=== PATIENT | female | born 1935 | race Caucasian/White ===

== ENCOUNTER 2023-11-16 15:23 | Inpatient (IN) | payer MEDICARE, OTHER, SELFPAY ==
[2023-11-16] VITALS (11 sets, daily range): BP systolic 102–149; BP diastolic 53–81; BMI 24.9
--- NOTE | 2023-11-16 11:23 | ED.GENMED ---
History of Present Illness
General
Chief Complaint: Breathing Problem
Source: patient and spouse
Time Seen by Provider: 11/16/23 11:11
Travel History
Have you had any contact with someone who has COVID-19?: No
Do you have any symptoms of coronavirus? Fever > 100 degrees, chills, cough, shortness of breath, sore throat, loss of taste or smell, muscle aches, or headache?: No
History of Present Illness
History of Present Illness:
88-year-old female with past medical history of chronic atrial fibrillation, CHF, hypertension, atrial septal defect presenting to the emergency department for evaluation of gradually worsening exertional dyspnea over the last 4 days to the point
where she is now mostly unable to get out of bed due to the shortness of breath as well as stating laying flat she is now unable to feel as if she can breathe. Patient states last night she was unable to sleep and contacted the chart writer office
who recommended she come to the ER to be further evaluated. Patient is scheduled to undergo a cardiac ablation for her atrial fibrillation tomorrow. Patient reports good compliance with her Eliquis. She notes a minimal nonproductive cough, no
fevers, chills, rigors. States minimal lower extremity edema. She takes Lasix 20 mg every Thursday and Thursday. No other concerns at this time.
Past History
Past History
ED Past Medical History: Arrthythmia, CHF, HTN, Valvular disease and Psychiatric
ED Past Surgical History: Cardiac, and Tonsilectomy
Social History
Tobacco: Non-smoker
Alcohol: None
Drug: None
Personal:
Living: with family
Review of Systems
Review of Systems
All Other Systems: ROS reviewed and negative except as documented in HPI and ROS
Phy Exam
Physical Exam
Physical Exam:
GENERAL: Alert , in no apparent distress
EYE: conjunctiva clear
NECK: Supple, no significant adenopathy.
ENT: o/p clr, mmm.
CARDIAC: Irregularly irregular rate and rhythm, rate controlled
LUNGS: Somewhat diminished throughout the posterior lung torres, no wheezing, rales or rhonchi i
NEUROLOGICAL: Alert and oriented
SKIN: Warm and dry, skin intact.
MUSCULOSKELETAL: well perfused. Trace ankle edema
PSYCH: Normal and appropriate interaction.
Scores
Heart Failure Risk
Heart Failure Risk Score: Yes
History of Stroke or TIA: No
History of intubation for respiratory distress: No
Heart rate on ED arrival >/= 110: No
SaO2 <90% on arrival on room air: No
HR >/=110 during 3min walk test (or too ill to perform test): Yes
ECG has acute ischemic changes: Yes
Urea >/=12mmol/L (BUN 33.6mg/dL): No
Serum CO2>/=35mmol/L: No
Troponin I or T elevated to [place] Level (0.4mg/dL): No
NT-proBNP >/=5,000ng/L (5,000pg/ml): No
HF Risk Score: 4
Admission Status: HIGH RISK 26.1% Consider SNF treatment or admission to hospital
Heart Score for Chest Pain Patients
STEMI patient?: Not applicable
Withdrawal Assessment of Alcohol
Withdrawal Assessment Completed?: Not applicable
Course
Orders/Labs/Results
Orders:
Orders
11/16/23 10:44
EKG [Electrocardiogram (*1)] Urgent
Reason for Study: Shortness of Breath
EKG- Treatment ONCE
11/16/23 11:20
Complete Blood Count/With Diff Urgent
Comprehensive Metabolic Panel Urgent
NT-proBNP Urgent
Troponin I Urgent
Comment: ADDED.
11/16/23 11:22
Add On- LAB Urgent
Tests Added?: troponin
11/16/23 11:28
CXR2 [CR Chest - 2 Views ] Urgent
Comment:
Reason For Exam: SOB
11/16/23 11:54
Furosemide [Lasix] 40 mg IV NOW STA
Abnormal Lab Results
11/16/23
11:20
WBC 3.6 L 10^3/uL
(4.8-10.8)
RBC 3.63 L 10^6/uL
(4.20-5.40)
Hgb 11.2 L g/dL
(12.0-16.0)
Hct 32.7 L %
(37.0-47.0)
Absolute Lymphs (auto) 1.0 L 10^3/uL
(1.2-3.4)
Monocytes % 13.2 H %
(1.7-9.3)
Glucose 129 H mg/dl
(70-99)
11/16/23 11:20
11/16/23 11:20
Vital Signs
Initial and Last Documented VS:
Initial Vital Signs
Temp Pulse Resp BP Pulse Ox
98.1 F 81 18 145/77 98
11/16/23 10:41 11/16/23 10:41 11/16/23 10:41 11/16/23 10:41 11/16/23 10:41
Last Documented Vital Signs
Temp Pulse Resp BP Pulse Ox
98.1 F 76 35 145/77 97
11/16/23 10:41 11/16/23 12:15 11/16/23 12:15 11/16/23 12:07 11/16/23 12:15
MDM/Problems Addressed
Differential Diagnosis Includes:
CHF exacerbation, cardiac dysrhythmia, valvular dysfunction, electrolyte disturbance, PE considered however patient is anticoagulated on Eliquis and is readily compliant with this so this diagnosis is much less likely
MDM/Problems Addressed:
88-year-old female presenting to the emergency department for evaluation of gradually worsening exertional dyspnea. Notes that last summer she was able to walk around the block at her house at least 4 times without any difficulty, today notes
shortness of breath with any type of exertion including just getting out of bed. She is hemodynamically stable and is not needing any O2 requirements. Lung sounds were somewhat diminished. She has noted history for chronic A-fib and is currently
in A-fib that is rate controlled. Will check labs, chest x-ray and EKG. Reassessment following
Chronic conditions affecting care: Arrhythmia
Acute Exacerbation and/or Progression of Chronic Illness: Arrhythmia
*Radiology
Radiology exam reviewed: preliminary read by ED provider (Small bilateral pleural effusion)
*Pulse Oximetry
Patient hypoxic: no
*EKG
Interpreted by ED Provider?: Yes
Comparison EKG: changes noted
Heart Rate: 75
Rate: normal
Rhythm: a-fib
[place]: normal axis
Ischemia: T-wave inversion (To 3 and aVF as well as V4 V5 and V6)
*Workforce Development Vice President Interpretation
Rate: normal
Rhythm: a-fib
*Critical Care Note
Total Time (30-74mins, 75-104mins- exclusive of procedures): Not Applicable
Data Reviewed
Review of Other/Old Records Reveals: Labs, Records and Testing
Source: patient, records and spouse
Patient Management
Discussion with other providers: Hospitalist
Escalation/DeEscalation of care consider admission/obs:
Patient quite symptomatic, has small bilateral pleural effusions on chest x-ray, BNP greater than 4000. 40 mg Lasix IV ordered. Will yancy. Hospitalist team was notified and accepts for continued evaluation and treatment. They can consult
cardiology as needed.
ED Attending Note
-
Portions of this chart may have been created with voice recognition software.� Occasional wrong word or��sound alike� substitutions may have occurred due to the inherent limitations of voice recognition software.
Discharge Plan
Departure
Patient Disposition: Admit
Date of Disposition: 11/16/23
Time of Disposition: 12:11
Presentation/result/management discussed w/ accepting MD/DO: Hospitalist
Discharge Problem:
Acute exacerbation of CHF (congestive heart failure)
Prescriptions:
No Action
clonazepam 0.5 mg tablet
0.5 mg PO BID
propranolol 80 mg capsule,extended release 24hr
80 mg PO DAILY
magnesium oxide 500 mg Tablet
500 mg PO DAILYPRN PRN (Reason: leg cramps)
mirtazapine 15 mg Tablet
30 mg PO HS
estradiol 0.01 % (0.1 mg/gram) cream
1 applic VAGINAL TUTH
vitamin B complex Capsule
1 cap PO DAILY
cholecalciferol (vitamin D3) [Vitamin D3] 25 mcg (1,000 unit) Capsule
50 mcg PO DAILY
cyclosporine [Restasis] 0.05 % Dropperette
1 drp BOTH EYES Q12H
PreserVision AREDS-2 250-90-40-1 mg Capsule
1 tab PO BID
polyethylene glycol 3350 [Miralax] 17 gram Powder In Packet
17 g PO DAILYPRN PRN (Reason: constipation)
Eliquis 5 mg tablet
5 mg PO BID Qty: 60 2RF
diltiazem HCl [Cardizem CD] 180 mg capsule,extended release 24hr
180 mg PO DAILY Qty: 30 0RF
famotidine 40 mg Tablet
40 mg PO DAILY
Probiotic 10 billion cell Capsule
10,000 mmu cells PO DAILY
furosemide [Lasix] 20 mg tablet
20 mg PO MOWEFR
Referrals:
Mikayla Pal MD [Family Provider] -
Interventions
Interventions:
*Risk Screen - Suicide Last Done: 11/16/23 10:41
*General Assessment Last Done: 11/16/23 10:41
*Neglect/Abuse Screening Last Done: 11/16/23 10:41
ED- Fall Risk Assessment Last Done: 11/16/23 11:10
*ED COVID-19 Vaccine History Last Done: 11/16/23 10:41
ED- Cardiac Assessment Last Done: 11/16/23 11:10
ED- Pulmonary Assessment Last Done: 11/16/23 11:10
Discharge Date and Time
Print Language: LITHUANIAN
[2023-11-16 11:33] LABS: % Basophils 1.7 % (0-2); % Eosinophils 4.2 % (0-6); % Immature Granulocytes 0.3 % (0-0.5); % Monocytes 13.2 % (1.7-9.3); % Neutrophils 52.6 % (42.2-75.2); Absolute Basophils 0.1 10^3/uL (0-0.2); Absolute Eosinophils 0.2 10^3/uL (0-0.7); Absolute Monocytes 0.5 10^3/uL (0.1-0.6); Absolute Neutrophils 1.9 10^3/uL (1.4-6.5); Hematocrit 32.7 % (37.0-47.0); Hemoglobin 11.2 g/dL (12.0-16.0); Mean Corp Hgb Conc. 34.3 g/dL (33.0-37.0); Mean Corpuscular Hgb 30.9 pg (27.0-31.0); Mean Corpuscular Volume 90.1 fL (81.0-99.0); Mean Platelet Volume 8.7 fL (7.4-10.4); Nucleated Red Blood Cells % 0 %; Platelet Count 164 10^3/uL (130-400); Red Blood Cell Count 3.63 10^6/uL (4.20-5.40); Red Cell Dist. Width 14.1 % (11.5-14.5); White Blood Cell Count 3.6 10^3/uL (4.8-10.8)
[2023-11-16 12:02] LABS: NT-proBNP 4020 pg/ml; Troponin I < 0.012 ng/ml
[2023-11-16] MEDS: LASIX 40 MG IV ×2 (12:07→17:53)
[2023-11-16 12:08] LABS: ALT (SGPT) < 10 U/L (0-35); AST (SGOT) 27 U/L (14-36); Albumin 3.7 g/dl (3.5-5.0); Alkaline Phosphatase 59 U/L (38-126); Blood Urea Nitrogen 13 mg/dl (7-17); Calcium 9.3 mg/dl (8.4-10.2); Carbon Dioxide 28 mmol/L (22-30); Chloride 101 mmol/L (98-107); Estimated Creatinine Clearance 31 ml/min; Glucose 129 mg/dl (70-99); Potassium 4.4 mmol/L (3.5-5.1); Sodium 135 mmol/L (135-145); Total Bilirubin 0.6 mg/dl (0.2-1.3); eGFR 54.19
--- NOTE | 2023-11-16 15:03 | HPS.HSE ---
Family Physician
-
Family Physician: Mikayla Pal
Chief Complaint
-
Dyspnea upon exertion
History of Present Illness
88-year-old female with past medical history of chronic atrial fibrillation, CHF, hypertension, atrial septal defect now presenting for dyspnea on exertion. Symptoms have been lasting for 4 days, gradually worsening. Patient's inability to be
mobile out of bed due to dyspnea on exertion has prompted hospital evaluation. Patient cannot lay flat, nor able to fall asleep. Minimal lower extremity edema. Patient was scheduled to undergo cardiac ablation for her atrial fibrillation
tomorrow. Echocardiogram in April 2023 records have EF of 60 to 65%, mild concentric left ventricular hypertrophy. Due to elevated PA pressures at the time. Otherwise, no fever, chills, cough, nausea, vomiting. Respiratory at 20 upon
evaluation, pulse 77, 97% on room air. BP 110/69. Significant labs include proBNP of 4020, troponin x 1 negative. X-ray with evidence of small bilateral pleural effusions.
Medical History
Past Medical History
Past Medical History: Reports Arrhythmia, COPD, HTN and Other (Tremors, UTI)
Past Surgical History: Reports Cardiac (ASD repair), and Tonsilectomy
Social History
Tobacco: Non-smoker
Alcohol: None
Drug: None
Personal:
Living: With Family
Family History
Family History: Not pertinent
Allergies / Home Medications
Allergies
Allergy/AdvReac Type Severity Reaction Status Date / Time
gluten Allergy Unknown Verified 11/16/23 12:18
nitrofurantoin Allergy Unknown Verified 11/16/23 12:18
[From Macrodantin]
Home Medications
cholecalciferol (vitamin D3) 25 mcg (1,000 unit) capsule (Vitamin D3) 50 mcg PO DAILY Supplement 05/27/22
clonazepam 0.5 mg tablet 0.5 mg PO BID Mental Health/Anxiety 05/27/22
cyclosporine 0.05 % eye drops in a dropperette (Restasis) 1 drp BOTH EYES Q12 Eye condition 05/27/22
estradiol 0.01% (0.1 mg/gram) vaginal cream 1 applic vaginal TUTH Hormonal agent 05/27/22
magnesium oxide 500 mg PO DAILYPRN PRN leg cramps 05/27/22
polyethylene glycol 3350 17 gram oral powder packet (Miralax) 17 g PO DAILY Constipation 05/27/22
propranolol 80 mg capsule,24 hr,extended release 80 mg PO HS Blood pressure/tremors 05/27/22
vit C 250 mg-vit E 90 mg-zinc 40 mg-copper 1 pr-vazivn-jfkyjx capsule (PreserVision AREDS-2) 1 tab PO BID Supplement 05/27/22
vitamin B complex 1 cap PO DAILY Supplement 05/27/22
Lactobacillus acidophilus 10 billion cell capsule (Probiotic) 10,000 mmu cells PO DAILY Gastrointestinal Issue 06/02/23
apixaban 5 mg tablet (Eliquis) 5 mg PO BID Blood Clot Prevention/Tx 11/16/23
artificial tears ointment 1 applic ophthalmic (eye) HS dry eye 11/16/23
dextran 70-hypromellose eye drops in a dropperette (Artificial Tears (PF) drops in a dropperette) 1 drp BOTH EYES QID Eye Condition 11/16/23
diltiazem HCl 240 mg capsule,extended release 24 hr 240 mg PO DAILY Arrhythmia 11/16/23
furosemide 20 mg tablet 20 mg PO MOWEFR@0800 Fluid Retention/Swelling 11/16/23
mirtazapine 30 mg tablet 30 mg PO HS Mental Health 11/16/23
Allergies reflects when Allergies were last updated in [employer].
Home Medications with original date entered in [employer]
Allergy/Medication List:
Allergies
Allergy/AdvReac Type Severity Reaction Status Date / Time
gluten Allergy Unknown Verified 11/16/23 12:18
nitrofurantoin Allergy Unknown Verified 11/16/23 12:18
[From Macrodantin]
Home Medications
cholecalciferol (vitamin D3) 25 mcg (1,000 unit) capsule (Vitamin D3) 50 mcg PO DAILY Supplement 05/27/22
clonazepam 0.5 mg tablet 0.5 mg PO BID Mental Health/Anxiety 05/27/22
cyclosporine 0.05 % eye drops in a dropperette (Restasis) 1 drp BOTH EYES Q12 Eye condition 05/27/22
estradiol 0.01% (0.1 mg/gram) vaginal cream 1 applic vaginal TUTH Hormonal agent 05/27/22
magnesium oxide 500 mg PO DAILYPRN PRN leg cramps 05/27/22
polyethylene glycol 3350 17 gram oral powder packet (Miralax) 17 g PO DAILY Constipation 05/27/22
propranolol 80 mg capsule,24 hr,extended release 80 mg PO HS Blood pressure/tremors 05/27/22
vit C 250 mg-vit E 90 mg-zinc 40 mg-copper 1 lj-cggmay-uvazid capsule (PreserVision AREDS-2) 1 tab PO BID Supplement 05/27/22
vitamin B complex 1 cap PO DAILY Supplement 05/27/22
Lactobacillus acidophilus 10 billion cell capsule (Probiotic) 10,000 mmu cells PO DAILY Gastrointestinal Issue 06/02/23
apixaban 5 mg tablet (Eliquis) 5 mg PO BID Blood Clot Prevention/Tx 11/16/23
artificial tears ointment 1 applic ophthalmic (eye) HS dry eye 11/16/23
dextran 70-hypromellose eye drops in a dropperette (Artificial Tears (PF) drops in a dropperette) 1 drp BOTH EYES QID Eye Condition 11/16/23
diltiazem HCl 240 mg capsule,extended release 24 hr 240 mg PO DAILY Arrhythmia 11/16/23
furosemide 20 mg tablet 20 mg PO MOWEFR@0800 Fluid Retention/Swelling 11/16/23
mirtazapine 30 mg tablet 30 mg PO HS Mental Health 11/16/23
Review of Systems
-
History Source: Patient
A 12 point ROS was completed and negative except as noted: Yes
Physical Exam
Vital Signs
Vital Signs
Temp Pulse Resp BP Pulse Ox
98.1 F 77 20 110/69 97
11/16/23 10:41 11/16/23 15:00 11/16/23 15:00 11/16/23 15:00 11/16/23 15:00
Physical Exam
General: Well Developed and Well Nourished
HEENT: NormoCephalic
Respiratory: Clear
Cardiac: Irregular Rhythm
GI: Non Tender
Musculoskeletal: No Clubbing
Skin: Warm and Dry
Neuro: Awake, Alert, Oriented and AO x 3
Hematologic/Lymphatic: No Lymphadenopathy
Psych: Calm
Laboratory Results
-
11/16/23 11:20
11/16/23 11:20
Laboratory Results
Total Bilirubin 0.6 mg/dl (0.2-1.3) 11/16/23 11:20
AST 27 U/L (14-36) 11/16/23 11:20
ALT < 10 U/L (0-35) 11/16/23 11:20
Alkaline Phosphatase 59 U/L (38-126) 11/16/23 11:20
Troponin I Cancelled 11/16/23 11:28
Data Reviewed
-
Diagnostic Radiology: Image Personally Visualized and interpreted and Report Reviewed by me
Lab Data: Labs Reviewed by me
Impression/Plan
-
IMPRESSION:
88-year-old female with past medical history of chronic atrial fibrillation, CHF, hypertension, atrial septal defect now presenting for dyspnea on exertion. Symptoms have been lasting for 4 days, gradually worsening. Patient's inability to be
mobile out of bed due to dyspnea on exertion has prompted hospital evaluation. Admitted for acute HFpEF with afib.
PLAN:
#Dyspnea on exertion
#Acute on chronic HFpEF
� Most likely worsened with atrial fibrillation
� Initiated on 40 mg IV Lasix
� Monitor daily weights, I's and O's
� Cardiology consulted
� Echo in April 2023, EF 60 to 65%, mild concentric left ventricular hypertrophy, mildly elevated PA pressures
#Atrial fibrillation
� Controlled on diltiazem
� Continue Eliquis
� Cardiology consulted, was planned for ablation tomorrow�defer to cardiology on scheduled ablation now that inpatient
#Hypertension
� Already on diltiazem, Lasix�continue to monitor
#History of essential tremor
Continue propranolol
#History of vitamin D3 deficiency
Continue vitamin D supplementation
#DVT prophylaxis�Eliquis
Full code
--- NOTE | 2023-11-16 16:18 | CON.CAR ---
Consultation
Consultation Request
Date/Time Consultation Requested: November 16, 2023
Date/Time Consultation Performed: November 16, 2023
Requesting Provider: Hospitalist
Performing Provider: Taurus Mckay
Reason for Consultation: Shortness of breath
Medical History
-
Chief Complaint: Shortness of breath
History of Present Illness:
88-year-old female with history of A-fib on Eliquis, heart failure preserved ejection fraction, hypertension, ASD repair who is here today for worsening shortness of breath. She tells me that over the last 4 to 5 days she has noticed worsening
shortness of breath. It is gone to the point where she was unable to lay flat last night and got no sleep. She tells me that her dry weight is typically around 140 pounds. However, she is unsure of why she is so short of breath. She is supposed
to have a AF ablation tomorrow. However, given her acute on chronic heart failure exacerbation it is unclear if she will be able to undergo this procedure. She has an elevated BNP and an x-ray with small bilateral pleural effusions. She received
IV Lasix in the emergency room and her symptoms of shortness of breath are already improving.
Past Medical History
Past Medical History: Other (A-fib on Eliquis, heart failure, hypertension, ASD repair COPD)
Past Surgical History: Other ((ASD repair), and Tonsilectomy)
Social History
Tobacco: Non-Smoker
Alcohol: None
Drug: None
Personal:
Living: With Family
Family History
Family History: Reviewed & Not Pertinent
Allergies / Home Medications
Allergy/AdvReac Type Severity Reaction Status Date / Time
gluten Allergy Unknown Verified 11/16/23 12:18
nitrofurantoin Allergy Unknown Verified 11/16/23 12:18
[From Macrodantin]
�Medication �Instructions �Recorded �Confirmed �Type
cholecalciferol (vitamin D3) 25 50 mcg PO DAILY Supplement 05/27/22 11/16/23 History
mcg (1,000 unit) capsule (Vitamin
D3)
clonazepam 0.5 mg tablet 0.5 mg PO BID Mental Health/Anxiety 05/27/22 11/16/23 History
cyclosporine 0.05 % eye drops in a 1 drp BOTH EYES Q12 Eye condition 05/27/22 11/16/23 History
dropperette (Restasis)
estradiol 0.01% (0.1 mg/gram) 1 applic vaginal TUTH Hormonal 05/27/22 11/16/23 History
vaginal cream agent
magnesium oxide 500 mg PO DAILYPRN PRN leg cramps 05/27/22 11/16/23 History
polyethylene glycol 3350 17 gram 17 g PO DAILY Constipation 05/27/22 11/16/23 History
oral powder packet (Miralax)
propranolol 80 mg capsule,24 80 mg PO HS Blood pressure/tremors 05/27/22 11/16/23 History
hr,extended release
vit C 250 mg-vit E 90 mg-zinc 40 1 tab PO BID Supplement 05/27/22 11/16/23 History
mg-copper 1 [id number]
capsule (PreserVision AREDS-2)
vitamin B complex 1 cap PO DAILY Supplement 05/27/22 11/16/23 History
Lactobacillus acidophilus 10 10,000 mmu cells PO DAILY 06/02/23 11/16/23 History
billion cell capsule (Probiotic) Gastrointestinal Issue
apixaban 5 mg tablet (Eliquis) 5 mg PO BID Blood Clot 11/16/23 11/16/23 History
Prevention/Tx
artificial tears ointment 1 applic ophthalmic (eye) HS dry 11/16/23 11/16/23 History
eye
dextran 70-hypromellose eye drops 1 drp BOTH EYES QID Eye Condition 11/16/23 11/16/23 History
in a dropperette (Artificial Tears
(PF) drops in a dropperette)
diltiazem HCl 240 mg 240 mg PO DAILY Arrhythmia 11/16/23 11/16/23 History
capsule,extended release 24 hr
furosemide 20 mg tablet 20 mg PO MOWEFR@0800 Fluid 11/16/23 11/16/23 History
Retention/Swelling
mirtazapine 30 mg tablet 30 mg PO Mental Health 11/16/23 11/16/23 History
Review of Systems
-
All other systems: Negative unless noted
Physical Exam
Vital Signs
Temp Pulse Resp BP Pulse Ox
98.1 F 72 21 128/78 96
11/16/23 10:41 11/16/23 16:00 11/16/23 16:00 11/16/23 16:00 11/16/23 16:00
Lab Results
11/16/23 11:20
11/16/23 11:20
Troponin I Cancelled 11/16/23 11:28
Yif-K-Czjdiibdjri Pept 4020 pg/ml 11/16/23 11:20
Physical Exam
General: Well Developed, Well Nourished and No Apparent Distress
HEENT: Normocephalic and Moist Mucous Membranes
Respiratory: Clear and Non Labored Respirations (Decreased breath sounds at bilateral bases)
Cardiac: S1/S2 and Irregular Rhythm
GI: Soft
Musculoskeletal: No Clubbing, No Cyanosis and No Edema
Skin: Warm and Dry
Neuro: AO x 3
Psych: Calm
Impression / Plan
-
88-year-old female with history of A-fib on Eliquis, heart failure preserved ejection fraction, hypertension, ASD repair who is here today for worsening shortness of breath.
Acute on chronic heart failure preserved ejection fraction
-Continue IV diuresis
-Will have case management mcmullen out SGLT2 inhibitor consider MRA
A-fib on Eliquis
-Will hold a.m. dose of Eliquis in case able to undergo AF ablation
- NPO after midnight
-Continue diltiazem
Hypertension
-Continue Dilt and propranolol
Vitamin D deficiency
Data Reviewed
-
EKG: Tracing Personally Visualized and interpreted (af)
Medical Tests (Nuc Med, Echo etc): Report Reviewed by me
Labs: Labs Reviewed by me
[2023-11-16 17:38] LABS: Troponin I < 0.012 ng/ml
--- NOTE | 2023-11-16 18:05 | PTCARENOTE ---
patient admitted to IVU form ER. patient is a known scheduled ablation in am, but patient has become extremely DOWNS, unable to lie flat and has been increasing as the days go on. patient reached out to cardiology and they said to come to ER. patient
was placed on monitor, Afib with a HR of 83, VSS. patient is presently on RA , o2 sat 97%, lung field diminished throughout. patient is able to ambulate to BR with assist x 1 with slight DOWNS. Lasix IV was given as ordered along with the Eliquis
ordered tonight. clarified orders with Dr. Mckay. troponin level drawn and sent to lab. oriented to room and call weiss. patient has difficulty seeing therefore I strongly encouraged patient to use call weiss for assistance, patient verbalizes
understanding. also CHF booklet given to patient, patient said she will read it and let me know if she has questions.
[2023-11-16] MEDS: ELIQUIS 5 MG PO (18:24)
[2023-11-16] MEDS: KLONOPIN 0.5 MG PO (19:22)
[2023-11-16] MEDS: RESTASIS 0.05% OPHTHALMIC EMULSION 1 DROPS BOTH EYES (19:22)
--- NOTE | 2023-11-16 22:00 | PTCARENOTE ---
Assumed care of patient at change of shift w/ spouse at bedside. Patient denies any chest pain or discomfort at this time. Sating 95% RA, and lungs decreased throughout. Respirations shallow, and poor effort. Tele monitor shows Afib, HR in the
70-80's. Patient aware of POC, call weiss in reach.
[2023-11-16] MEDS: REMERON 30 MG PO (22:18)
[2023-11-16] MEDS: REFRESH EYE DROPS (PF) 1 DROPS OPHTH (22:18)
[2023-11-16] MEDS: INDERAL LA 80 MG PO (22:18)
[2023-11-16 23:18] LABS: Troponin I < 0.012 ng/ml
[2023-11-17] VITALS (15 sets, daily range): BP systolic 101–147; BP diastolic 56–89; BMI 24.5
[2023-11-17 03:59] LABS: Hematocrit 33.2 % (37.0-47.0); Mean Corp Hgb Conc. 36.1 g/dL (33.0-37.0); Mean Corpuscular Hgb 31.3 pg (27.0-31.0); Mean Corpuscular Volume 86.5 fL (81.0-99.0); Mean Platelet Volume 8.3 fL (7.4-10.4); Platelet Count 176 10^3/uL (130-400); Red Blood Cell Count 3.84 10^6/uL (4.20-5.40); Red Cell Dist. Width 14.1 % (11.5-14.5); White Blood Cell Count 4.6 10^3/uL (4.8-10.8)
[2023-11-17 04:19] LABS: Blood Urea Nitrogen 17 mg/dl (7-17); Calcium 9.6 mg/dl (8.4-10.2); Carbon Dioxide 29 mmol/L (22-30); Chloride 99 mmol/L (98-107); Estimated Creatinine Clearance 31 ml/min; Glucose 120 mg/dl (70-99); Magnesium 1.9 mg/dl (1.6-2.3); Potassium 3.7 mmol/L (3.5-5.1); Sodium 137 mmol/L (135-145); eGFR 54.19
[2023-11-17 04:23] LABS: Troponin I < 0.012 ng/ml
[2023-11-17] MEDS: MIRALAX PO (08:00)
[2023-11-17] MEDS: CARDIZEM CD 240 MG PO (09:29)
[2023-11-17] MEDS: KLONOPIN 0.5 MG PO ×2 (09:29→19:43)
[2023-11-17] MEDS: VITAMIN D3 (cholecalciferol) 50 MCG PO (09:29)
[2023-11-17] MEDS: RESTASIS 0.05% OPHTHALMIC EMULSION 1 DROPS BOTH EYES ×2 (09:30→19:54)
--- NOTE | 2023-11-17 09:56 | W.PN.HOSP.TC ---
Today's Communication/Plan
-
see bold
Assessment / Plan
Assessment / Plan
88-year-old female with past medical history of chronic atrial fibrillation, CHF, hypertension, atrial septal defect now presenting for dyspnea on exertion. Symptoms have been lasting for 4 days, gradually worsening. Patient's inability to be
mobile out of bed due to dyspnea on exertion has prompted hospital evaluation. Admitted for acute HFpEF with afib.
Gen: NAD, AAOx3.
Eyes: EOMI, PERRLA, no scleral icterus.
Neck: supple.
CV: irreg/irreg, +S1/S2, no m/r/g.
Resp: CTAB anteriorly, no rales, wheezes, or rhonchi.
Abd: +BS, soft, NT, ND
Skin: No rashes.
Neuro: CN 2-12 intact, non-focal.
Psych: Normal mood and affect.
Acute on chronic HFpEF:
-presented with DOWNS
-likely exacerbated by afib
-cont IV lasix
-daily wts, I/Os
-cardiology following
Atrial fibrillation:
-cont Cardizem
-Eliquis on hold for ablation today
Essential Hypertension:
-cont Cardizem/Lasix
Essential tremor:
-cont propranolol
FULL/Eliquis (note that Eliquis is on hold for ablation)
Total time spent on today's encounter was 50 minutes which included time spent in counseling the patient/family regarding diagnosis and treatment plan as listed above, goals of care, and symptom management. Case was discussed with nursing staff,
specialists, and care coordinators/case management. All labs and imaging personally reviewed by me. Remainder the time spent in detailed review of previous records, lab data, imaging, and other medical provider documentation.
Anticipated Discharge: 24 - 48 hours
Subjective/Interval History
-
Date of Service: November 17, 2023
Denies chest pain. Reports dyspnea on exertion.
Objective Data
-
Labs:
Laboratory Results
11/17/23
03:49
WBC 4.6 L
Hgb 12.0
Hct 33.2 L
Plt Count 176
Sodium 137
Potassium 3.7
Chloride 99
Carbon Dioxide 29
BUN 17
Creatinine 1.0
Glucose 120 H
Calcium 9.6
Vital Signs:
Vital Signs
Temp Pulse Resp BP Pulse Ox
98.2 F 80 16 137/87 97
11/17/23 06:53 11/17/23 08:00 11/17/23 06:53 11/17/23 06:54 11/17/23 06:53
I&O
11/16/23 11/17/23 11/18/23
06:59 06:59 06:59
Intake Total 360 / 360
Output Total 5 / 232
Balance -1964 / -1964
--- NOTE | 2023-11-17 10:32 | W.PN.CD ---
Today's Communication / Plan
-
- AF ablation today
Impression / Plan
-
88-year-old female with history of A-fib on Eliquis, heart failure preserved ejection fraction, hypertension, ASD repair who is here today for worsening shortness of breath.
Acute on chronic heart failure preserved ejection fraction
-likely precipitated with AFib
-Continue IV diuresis
-Will have case management mcmullen out SGLT2 inhibitor consider MRA
A-fib on Eliquis
- hold a.m. dose of Eliquis in case able to undergo AF ablation
- plan for AF ablation today
-Continue diltiazem
Hypertension
-Continue Dilt and propranolol
Vitamin D deficiency
Physical Exam
Vital Signs/Labs
Vital Signs
Temp Pulse Resp BP Pulse Ox
98.2 F 80 16 137/87 97
11/17/23 06:53 11/17/23 08:00 11/17/23 06:53 11/17/23 06:54 11/17/23 06:53
11/16/23 11/17/23 11/18/23
06:59 06:59 06:59
Actual Weight 60.7 kg
11/17/23 03:49
11/17/23 03:49
Magnesium 1.9 mg/dl (1.6-2.3) 11/17/23 03:49
11/16/23
11:20
Dkw-T-Wivexfiwkiy Pept 4020
LAB Results
11/16/23 11/16/23 11/16/23
11:20 11:28 17:06
Troponin I < 0.012 Cancelled < 0.012
11/16/23 11/17/23
22:45 03:49
Troponin I < 0.012 < 0.012
Physical Exam
Constitutional: No acute distress and Comfortable
EENT: Anicteric and Moist mucous membranes
Cardiovascular: JVD pressure is normal, Rhythm/rate is irregular, Pedal edema present and Systolic murmur present
Respiratory: Respiratory effort normal, Lungs clear to auscul., Wheeze Absent and Crackles Absent
GI: Soft, Non tender and Normal bowel sounds
Neuro/Psych: Alert and Oriented
Data Reviewed
-
Date of Service: November 17, 2023
Medical Decision Making: Reviewed Test Results and Independent Historian Assessment
EKG: Tracing Personally Visualized and interpreted
Echo: Report Reviewed by me
Labs: Labs Reviewed by me
Old Records: Reviewed
--- NOTE | 2023-11-17 11:05 | PTCARENOTE ---
Patient NPO since midnight, given AM meds with a sip of water. Patient seen by Dr. Nieslen. Report given to the EP lab and patient taken for her PVI.
--- NOTE | 2023-11-17 11:45 | CM ---
Chart reviewed. Patient is independent of ADLS, lives with her in a [facility] [address], 1st floor set up, 0 DME. Patient is interested in VN. Referral sent to [facility]. Plan is for the patient to return home with [facility]. CM to
follow
--- NOTE | 2023-11-17 14:01 | ITS.CL.ABL ---
[facility] [facility] [employer] - Ablation
Ablation
Procedure Report:
AFIB ablation:
Ms. Goins is a very pleasant 88 yr old woman with symptomatic persistent AF failed DCCV and diltiazem, propranolol is admitted with acute on chronic heart failure likely due to atrial fibrillation with hx of ASD s/p surgical repair with patch
presented today to the EP lab for atrial fibrillation ablation.
Date of the Procedure:
11/17/2023
Indications:
Persistent atrial fibrillation
Pre-Operative Diagnosis:
Persistent atrial fibrillation
Post-Operative Diagnosis:
Persistent atrial fibrillation
Procedure Performed:
Atrial fibrillation ablation with Pulsed-Field approach for pulmonary vein isolation
Performing Physician:
Juancho Nielsen MD
Assistants:
EP staff
Anesthesia:
See anesthesia records
Detailed Description of the Procedure:
Written informed consent was obtained from the patient after a full explanation of the risks and benefits of the procedure including the risks of sedation and anesthesia.
The patient was brought to the electrophysiology laboratory in stable condition in fasting state. Continuous electrocardiographic and hemodynamic monitoring was initiated.
The initial rhythm was atrial fibrillation.
The procedure site was meticulously prepared with surgical scrub and allowed to dry with no pooling. Sterile draping was applied to cover the procedure site. The image intensifier was draped with sterile bag and positioned over the patient. After
infusion of local anesthetic, vascular access was obtained under ultrasound guidance and sheaths were placed over guide wire as detailed below.
Sheath and Catheter Placement:
In the right femoral vein, an 8-Bahraini sheath was placed under ultrasound guidance for use during the ablation procedure and a mapping catheter was intermittently placed in the high right atrium, right ventricle, left atrium. In the right femoral
vein, another 9-Fr sheath was placed for use during intra-cardiac echo procedure. Another 7Fr sheath was placed in the left femoral vein for CS catheter placement.
The sheaths were upgraded as needed during the case. Intra-cardiac catheters were positioned using direct fluoroscopic guidance. Decapolar catheter advanced into CS position. ICE catheter was placed in RA. The following catheters / sheaths were
placed
Sheaths:
��������� 15Fr steerable sheath (FlexCath Cross�, AppSurfer) in right femoral vein in right femoral vein
��������� 9Fr in right femoral vein
��������� 7Fr in right femoral vein
Catheters:
��������� DHARA HD Grid mapping catheter � at locations of RA, LA
��������� PulseSelect� PFA catheter
��������� ICE catheter -AcuNav - at locations of RA, SVC, and RV.
��������� Decapolar Bard catheter in RA and CS
Intracardiac ECHO:
An 8-Bahraini AcuNav intracardiac ECHO (ICE) probe was advanced through the 9-Bahraini sheath in the right femoral vein into the right atrium under fluoroscopic and ICE ultrasound image guidance and a baseline ECHO study was performed. The left atrial
size was dilated. There was moderate tricuspid regurgitation. The aortic valve was grossly normal. There was normal left ventricular systolic functions. There is small pericardial effusion. All the four veins were identified and has flow identified.
During the procedure, ICE was used for monitoring of complications, guidance of trans-septal puncture, monitor the catheter position and tracking ablation lesions. No change in the pericardial space noted throughout the procedure.
Trans-septal Puncture:
Heparin was initiated and infused to maintain appropriate ACT. A J-tipped guidewire was advanced through the 8-Bahraini sheath in the right femoral vein into the superior vena cava under fluoroscopic and ICE guidance. The 8-Bahraini sheath was exchanged
for a FlexCath Cross sheath which was advanced into the superior vena cava. An [employer] transseptal access system was utilized to perform the trans-septal puncture. The apparatus was withdrawn until it was in contact with the fossa ovalis. The
position was adjusted based on fluoroscopy and ultrasound images from ICE. Under fluoroscopic, hemodynamic and ICE ultrasound guidance, left atrium was cannulated by advancing the needle. Once atrial septum was cannulated, the needle was pulled back
and a guide wire was advanced through the needle into the left atrium. The guide wire was advanced into the left superior pulmonary vein. Both the sheath and the dilator was advanced into the left atrium. The dilator with the needle was withdrawn.
Blood was aspirated from the FlexCath cross sheath and arterial blood confirmed. The sheath was flushed. Saline injection noted into the left atrium on ICE. The mapping catheter was advanced in the Agilis sheath into the left pulmonary vein. Left
atrial pressure was measured.
3D Electroanatomic Mapping:
Using the HD Grid catheter advanced through sheath into the left atrium, an electroanatomic map (EAM) of the left atrium was created using [employer] In[employer] mapping system. The map was used for localization of catheter position and tacking of ablation
lesions. The EAM of the left atrium showed 4 pulmonary veins with two left sided and two right sided veins electrically connected to the body the LA. There was extensive areas of low voltage noted in the left atrium with minimal electrical activity
in the posterior wall in atrial fibrillation. But once mapped in sinus rhythm, the posterior and anterior knight lhad some healthy areas with patchy scar all over the LA.
The LA was dilated in size.
Following the EAM, preparation were made for ablation. The neuromuscular paralysis was reversed.
Ablation:
Ablation # 1: Pulmonary vein Isolation:
Using [email or web address]� pulsed field ablation system, pulmonary vein isolation was achieved. First the ablation catheter was placed in the LSPV and ostial ablation lesions were performed in a counter clock soriano approach all around the PV ostium
circumferentially. Then the catheter was placed on the antral location and multiple ablation lesions were placed circumferentially on the antrum of the vein.
In the similar fashion, the LIPV were isolated.
Then the catheter was moved to right sided veins. The ostial and antral ablations were placed as noted above.
Ablation # 2: Posterior wall isolation:
The AF persisted despite PV isolation. There were fractionated and high frequency signals noted in the posterior wall and were considered etiology to sustain the AF. Using the pulsed field ablation catheter, the catheter was placed on the posterior
wall and moved around the posterior wall to have adequate contact and ablations were placed isolating the posterior wall.
Cardioversion:
Once the PV isolation was achieved, decision was made to proceed with cardioversion. A 200 J biphasic shock was applied on the antoni posterior Zoll patches and sinus rhythm was achieved. No significant pause noted.
Post ablation Electroanatomic mapping:
Once ablation was completed, the EAM of the LA was done again in sinus rhythm with excellent demarcation of LA myocardium and isolated antral tissue. There was dissociated signals were noted in the veins as well.
EPS and Confirmation of the PVI and bidirectional block:
Following achievement of entrance block at the pulmonary veins, pacing from the HD catheter in each of the four veins at 10 milliamps for 2 milliseconds showed entrance and exit block. All PVI were rechecked at the end of the case and remained
isolated with dissociated and local capture with pacing. Entrance and exit block were demonstrated in all veins.
Procedure End
ICE study was done again that showed no epicardial accumulation. No complications noted.
Following the completion of the EP study, catheters were removed. Protamine 40 mg was given at the end of the procedure and ACT was checked repeatedly. The sheaths were removed and hemostasis achieved with manual compression after acceptable ACT is
achieved.
Left atrial Pressure:
Pre-Procedure: Mean LA pressure was 13mmHg
Post-Procedure: Mean LA pressure was 13mmHg
Post-Procedure: Mean LR pressure was 9mmHg
Estimated Blood loss:
<10 cc
Specimens Removed:
None.
Implants / Devices:
None
Urine output:
None
Packs / Drains/ Tubes:
None
Instrument / Sponge Count Correct:
Yes
Complications of the Procedure:
None
Condition of Patient at Time of Transfer:
Hemodynamically stable with no neurological or vascular compromise.
Summary:
Successful atrial fibrillation ablation with Pulsed Field approach for pulmonary vein isolation. Posterior wall isolation
Figures from the Procedure:
Figure 1: The electroanatomic mapping (EAM) of the left atrium with bipolar voltage (purple indicates normal electrical activity with armstrong as no myocardial muscle electric activity indicating a line of block or scar.
[2023-11-17 15:49] LABS: ACT-LR - POC > 397 Seconds (116-155)
[2023-11-17 15:49] LABS: ACT-LR - POC > 397 Seconds (116-155)
[2023-11-17 15:49] LABS: ACT-LR - POC > 397 Seconds (116-155)
[2023-11-17] MEDS: ELIQUIS 5 MG PO (19:43)
[2023-11-17] MEDS: INDERAL LA 80 MG PO (22:27)
[2023-11-17] MEDS: REMERON 30 MG PO (22:29)
[2023-11-18] VITALS (8 sets, daily range): BP systolic 96–121; BP diastolic 45–64; PULSE 59; BMI 24.7; BMI 25.2
--- NOTE | 2023-11-18 00:02 | PTCARENOTE ---
Pt AOX3 and pleasant. R groin c/d/i. Pt is OOB to bedside commode and recliner. Voiding approp. No c/o dizziness/pain/discomfort. Currently in bed; call weiss w/in reach.
[2023-11-18 05:44] LABS: Hematocrit 31.8 % (37.0-47.0); Hemoglobin 11.3 g/dL (12.0-16.0); Mean Corp Hgb Conc. 35.5 g/dL (33.0-37.0); Mean Corpuscular Hgb 31.2 pg (27.0-31.0); Mean Corpuscular Volume 87.8 fL (81.0-99.0); Mean Platelet Volume 8.9 fL (7.4-10.4); Platelet Count 182 10^3/uL (130-400); Red Blood Cell Count 3.62 10^6/uL (4.20-5.40); Red Cell Dist. Width 14.6 % (11.5-14.5); White Blood Cell Count 3.5 10^3/uL (4.8-10.8)
[2023-11-18 05:55] LABS: Blood Urea Nitrogen 28 mg/dl (7-17); Calcium 9.2 mg/dl (8.4-10.2); Carbon Dioxide 26 mmol/L (22-30); Chloride 100 mmol/L (98-107); Estimated Creatinine Clearance 22 ml/min; Glucose 147 mg/dl (70-99); Potassium 4.2 mmol/L (3.5-5.1); Sodium 136 mmol/L (135-145); eGFR 36.19
--- NOTE | 2023-11-18 08:19 | W.PN.HOSP.TC ---
Today's Communication/Plan
-
follow Cr in AM (no diuretic or IVFs today)
Assessment / Plan
Assessment / Plan
88-year-old female with past medical history of chronic atrial fibrillation, CHF, hypertension, atrial septal defect now presenting for dyspnea on exertion. Symptoms have been lasting for 4 days, gradually worsening. Patient's inability to be
mobile out of bed due to dyspnea on exertion has prompted hospital evaluation. Admitted for acute HFpEF with afib.
Gen: NAD, AAOx3.
Eyes: EOMI, PERRLA, no scleral icterus.
Neck: supple.
CV: RRR, +S1/S2, no m/r/g.
Resp: CTAB, no rales, wheezes, or rhonchi.
Abd: remains +BS, soft, NT, ND
Skin: No rashes.
Neuro: CN 2-12 intact, non-focal.
Psych: Normal mood and affect.
Acute on chronic HFpEF:
-presented with DOWNS
-likely exacerbated by afib
-stop IV Lasix with ENIO
-daily wts, I/Os
-cardiology following
Atrial fibrillation:
-s/p ablation 11/17/23
-cont Cardizem/Eliquis
Essential Hypertension:
-cont Cardizem/Lasix
Essential tremor:
-cont propranolol
FULL/Eliquis
Pt's updated at bedside.
Anticipated Discharge: Within 24 hours
Subjective/Interval History
-
Date of Service: November 18, 2023
Denies CP/SOB.
Objective Data
-
Labs:
Laboratory Results
11/18/23
04:52
WBC 3.5 L
Hgb 11.3 L
Hct 31.8 L
Plt Count 182
Sodium 136
Potassium 4.2
Chloride 100
Carbon Dioxide 26
BUN 28 H
Creatinine 1.4 H
Glucose 147 H
Calcium 9.2
Vital Signs:
Vital Signs
Temp Pulse Resp BP Pulse Ox
98.2 F 73 20 96/45 96
11/18/23 07:37 11/18/23 07:39 11/18/23 07:37 11/18/23 07:39 11/18/23 07:39
I&O
11/17/23 11/18/23 11/19/23
06:59 06:59 06:59
Intake Total 360 / 360 1200 / 1200
Output Total 2325 / 2325 400 / 400
Balance -1964 / -1964 800 / 800
[2023-11-18] MEDS: KLONOPIN 0.5 MG PO ×2 (08:42→20:45)
[2023-11-18] MEDS: ELIQUIS 5 MG PO ×2 (08:42→20:45)
[2023-11-18] MEDS: RESTASIS 0.05% OPHTHALMIC EMULSION 1 DROPS BOTH EYES ×2 (08:43→20:45)
[2023-11-18] MEDS: VITAMIN D3 (cholecalciferol) 50 MCG PO (08:43)
[2023-11-18] MEDS: MIRALAX 17 GRAMS PO (08:45)
[2023-11-18] MEDS: CARDIZEM CD 240 MG PO (08:45)
--- NOTE | 2023-11-18 08:47 | W.PN.CD ---
Today's Communication / Plan
-
- Stable for discharge
Impression / Plan
-
88-year-old female with history of A-fib on Eliquis, heart failure preserved ejection fraction, hypertension, ASD repair who is here today for worsening shortness of breath.
Persistent atrial fibrillation
-s/p AF ablation with pulsea field ablation on 11/17/23
- PVI and PWI
- Large areas of low voltage (Scar) noted scattered al lover the LA
- CHADSVasc score is 4 (Age, gender, HTN) - On Eliquis
-Continue diltiazem
-Groins are normal without hematoma.
Acute on chronic heart failure preserved ejection fraction
-likely precipitated with AFib
-s/p IV diuresis
-Will have case management mcmullen out SGLT2 inhibitor consider MRA
-Well compensated now with normal pressures during the procedure.
Hypertension
-Continue Dilt and propranolol
Vitamin D deficiency
Physical Exam
Vital Signs/Labs
Vital Signs
Temp Pulse Resp BP Pulse Ox
98.2 F 73 20 96/45 96
11/18/23 07:37 11/18/23 07:39 11/18/23 07:37 11/18/23 07:39 11/18/23 07:39
11/17/23 11/18/23 11/19/23
06:59 06:59 06:59
Actual Weight 60.7 kg 61.1 kg
11/18/23 04:52
11/18/23 04:52
Magnesium 1.9 mg/dl (1.6-2.3) 11/17/23 03:49
11/16/23
11:20
Lej-U-Qyeidpkotih Pept 4020
LAB Results
11/16/23 11/16/23 11/16/23
11:20 11: 17:06
Troponin I < 0.012 Cancelled < 0.012
11/16/23 11/17/23
22:45 03:49
Troponin I < 0.012 < 0.012
Physical Exam
Constitutional: No acute distress and Comfortable
EENT: Anicteric and Moist mucous membranes
Cardiovascular: Rhythm & rate is regular, Pedal edema is absent, JVD pressure is normal and Systolic murmur absent
Respiratory: Respiratory effort normal, Lungs clear to auscul., Wheeze Absent and Crackles Absent
GI: Soft, Non tender and Normal bowel sounds
Neuro/Psych: Alert, Oriented and AO x 3
Other: Cath Site
Data Reviewed
-
Date of Service: November 18, 2023
Medical Decision Making: Reviewed Test Results, Independent Historian Assessment, Test Interpretation and Review of Case with other Provider
EKG: Tracing Personally Visualized and interpreted
Echo: Report Reviewed by me
Labs: Labs Reviewed by me
Old Records: Reviewed
--- NOTE | 2023-11-18 10:23 | PTCARENOTE ---
Patient sitting oob in the chair, seen by cardiology and was hopeful to go home. Right groin dressing is dry and intact with palpable pedal pulse. Attending saw the patient and explained the need for her to stay and re-evaluate her creatinine
tomorrow. Reinforced with the patient and her and they state their understanding. No lasix given today, will continue to monitor.
--- NOTE | 2023-11-18 11:13 | CM ---
Chart reviewed. Patient is independent of ADLS, lives with her in a [facility] [address], 1st floor set up, 0 DME. Patient c/o feeling unsteady on her feet. PT evaluation placed await recommendations. Plan is for the patient to
return home with [facility]. CM to follow
[2023-11-18] MEDS: REFRESH EYE DROPS (PF) 1 DROPS OPHTH (15:04)
--- NOTE | 2023-11-18 19:29 | PTCARENOTE ---
Patient for transfer to telemetry room 419-1, patient and her daughter notified of need for transfer off of the unit. Report called to Darya on 4[facility].
--- NOTE | 2023-11-18 21:00 | TRANSFER ---
Pt arrived to [address] from IVU and ambulated with x1 assist into bed from . VS stable, no complaints of pain at this time. Right groin dressing remains clean dry and intact. Pt oriented to room, call weiss within reach.
[2023-11-18] MEDS: REMERON 30 MG PO (22:16)
[2023-11-18] MEDS: INDERAL LA 80 MG PO (22:16)
[2023-11-19 03:55] VITALS: BP 129/61
[2023-11-19] MEDS: REFRESH EYE DROPS (PF) 1 DROPS OPHTH (04:06)
[2023-11-19 05:42] VITALS: BMI 25.3
[2023-11-19 07:51] VITALS: BP 130/68
[2023-11-19] MEDS: MIRALAX 17 GRAMS PO (08:31)
[2023-11-19] MEDS: VITAMIN D3 (cholecalciferol) 50 MCG PO (08:31)
[2023-11-19] MEDS: RESTASIS 0.05% OPHTHALMIC EMULSION 1 DROPS BOTH EYES ×2 (08:32→19:36)
[2023-11-19] MEDS: ELIQUIS 5 MG PO ×2 (08:32→19:36)
[2023-11-19] MEDS: CARDIZEM CD 240 MG PO (08:32)
[2023-11-19] MEDS: KLONOPIN 0.5 MG PO ×2 (08:32→19:37)
--- NOTE | 2023-11-19 08:47 | W.PN.HOSP.TC ---
Addendum entered and electronically signed by Baljit Ge MD 11/19/23 12:47:
Persistent atrial fibrillation
Original Note:
Today's Communication/Plan
-
see bold
Assessment / Plan
Assessment / Plan
88-year-old female with past medical history of chronic atrial fibrillation, CHF, hypertension, atrial septal defect now presenting for dyspnea on exertion. Symptoms have been lasting for 4 days, gradually worsening. Patient's inability to be
mobile out of bed due to dyspnea on exertion has prompted hospital evaluation. Admitted for acute HFpEF with afib.
Gen: NAD, AAOx3.
Eyes: EOMI, PERRLA, no scleral icterus.
Neck: supple.
CV: RRR, +S1/S2, no m/r/g.
Resp: CTAB, no rales, wheezes, or rhonchi.
Abd: remains +BS, soft, NT, ND
Skin: No rashes.
Neuro: CN 2-12 intact, non-focal.
Psych: Normal mood and affect.
Acute on chronic HFpEF:
-presented with DOWNS
-likely exacerbated by afib
-was on IV Lasix which was stopped with ENIO
-daily wts, I/Os
-cardiology following
ENIO:
-likely due to overdiuresis
-suspect pt will need some fluid back
-c/s renal
Atrial fibrillation:
-s/p ablation 11/17/23
-cont Cardizem/Eliquis
Essential Hypertension:
-cont Cardizem
Essential tremor:
-cont propranolol
FULL/Eliquis
Pt's updated at bedside.
Anticipated Discharge: Within 24 hours
Subjective/Interval History
-
Date of Service: November 19, 2023
No new complaints.
Objective Data
-
Labs:
Laboratory Results
11/19/23
08:10
Sodium Pending
Potassium Pending
Chloride Pending
Carbon Dioxide Pending
BUN Pending
Creatinine Pending
Glucose Pending
Calcium Pending
Vital Signs:
Vital Signs
Temp Pulse Resp BP Pulse Ox
97.6 F 64 16 130/68 96
11/19/23 07:51 11/19/23 07:51 11/19/23 07:51 11/19/23 07:51 11/19/23 07:51
I&O
11/18/23 11/19/23 11/20/23
06:59 06:59 06:59
Intake Total 1200 / 1200 1200 / 1200
Output Total 400 / 400
Balance 800 / 800 1200 / 1200
[2023-11-19 10:30] LABS: Blood Urea Nitrogen 42 mg/dl (7-17); Calcium 9.4 mg/dl (8.4-10.2); Carbon Dioxide 28 mmol/L (22-30); Chloride 95 mmol/L (98-107); Estimated Creatinine Clearance 17 ml/min; Glucose 102 mg/dl (70-99); Potassium 4.6 mmol/L (3.5-5.1); Sodium 134 mmol/L (135-145); eGFR 26.77
[2023-11-19 11:29] VITALS: BP 126/60
--- NOTE | 2023-11-19 11:48 | W.PN.CD ---
Today's Communication / Plan
-
- IV fluids today
Impression / Plan
-
88-year-old female with history of A-fib on Eliquis, heart failure preserved ejection fraction, hypertension, ASD repair who is here today for worsening shortness of breath.
Persistent atrial fibrillation
-s/p AF ablation with pulsed field ablation on 11/17/23
- PVI and PWI
- Large areas of low voltage (Scar) noted scattered al lover the LA
- CHADSVasc score is 4 (Age, gender, HTN) - On Eliquis
-Continue diltiazem
-Groins are normal without hematoma.
Acute renal failure
-Cr is elevated. volume depleted and hemolysis with pulsed field ablation.
-Give IV fluids - 500 ml now
-May have to give more fluids.
-Holding Lasix for now. use only prn for gain of 3 lbs per day- baseline weight is 63 kg
Acute on chronic heart failure preserved ejection fraction
-likely precipitated with AFib
-s/p IV diuresis
-Will have case management mcmullen out SGLT2 inhibitor consider MRA
-Well compensated now with normal pressures during the procedure.
Hypertension
-Continue Dilt and propranolol
Vitamin D deficiency
Physical Exam
Vital Signs/Labs
Vital Signs
Temp Pulse Resp BP Pulse Ox
97.4 F 58 28 126/60 97
11/19/23 11:29 11/19/23 11:29 11/19/23 11:29 11/19/23 11:29 11/19/23 11:29
11/18/23 11/19/23 11/20/23
06:59 06:59 06:59
Actual Weight 62.624 kg
11/18/23 04:52
11/19/23 08:10
Magnesium 1.9 mg/dl (1.6-2.3) 11/17/23 03:49
11/16/23
11:20
Nuo-U-Nehcewnkqsv Pept 4020
LAB Results
11/16/23 11/16/23 11/16/23
11:20 17:06 22:45
Troponin I < 0.012 < 0.012 < 0.012
11/17/23
03:49
Troponin I < 0.012
Physical Exam
Constitutional: No acute distress and Comfortable
EENT: Anicteric and Moist mucous membranes
Cardiovascular: Rhythm & rate is regular, Pedal edema is absent and JVD pressure is normal
Respiratory: Respiratory effort normal, Wheeze Absent and Crackles Absent
GI: Soft, Non tender and Normal bowel sounds
Neuro/Psych: Alert, Oriented and AO x 3
Data Reviewed
-
Date of Service: November 19, 2023
Medical Decision Making: Reviewed Test Results, Independent Historian Assessment, Test Interpretation and Review of Case with other Provider
EKG: Tracing Personally Visualized and interpreted
Echo: Report Reviewed by me
Labs: Labs Reviewed by me
Old Records: Reviewed
--- NOTE | 2023-11-19 12:14 | CM ---
Patient seen bedside with spouse.
Per patient they are still monitoring lab values.
Plan: home with [facility] when stable.
[2023-11-19] MEDS: NSS 500 IV ×2 (12:30→17:50)
--- NOTE | 2023-11-19 12:36 | PN.CDI ---
CDI
- -
CDI:
Physician Documentation Request
Admit Date: 11/16/23 15:23
Dear Doctor Luma,
Patient admitted with acute heart failure.
11/17 Cardiology PN: 'Persistent atrial fibrillation -s/p AF ablation with pulsea field ablation on 11/17/23'
11/18 Hospitalist PN: 'past medical history of chronic atrial fibrillation'
If possible, please provide further specificity regarding atrial fibrillation, such as:
Persistent atrial fibrillation - episodes of continuous AF that last more than 7 days and do not self-terminate
Chronic atrial fibrillation
Other - please specify
Use of terms such as suspected, likely, concern for, or probable (associated with a specific diagnosis that is being evaluated, monitored, or treated as if it exists) are acceptable and can be coded in the inpatient setting, when documented at the
time of discharge.
Thank you,
Sabrina Patricia RN, BSN
CDI Specialist
Available via [place] text
Please use your independent medical judgment in providing your response.
--- NOTE | 2023-11-19 12:58 | W.CON.NEPH ---
Consultation
-
Date/Time Consultation Requested: 11/19/2023 12 noon
Date/Time Consultation Performed: 11/19/2023 1 PM
Requesting Provider: Dr. Ge
Performing Provider: Dr. Liu
Reason for Consultation: ENIO
Medical History
-
Chief Complaint: Shortness of breath
History of Present Illness:
This is a an 88-year-old female with known heart failure with preserved ejection fraction on mild diuretic therapy, wet macular degeneration receiving intraocular injections, atrial fibrillation on Eliquis therapy with rate control with diltiazem.
She came to the emergency room because of 4 days of worsening shortness of breath, dyspnea and orthopnea. She was scheduled to go for cardiac ablation. She was admitted for a shortness of breath. She was given IV Lasix. She initially said that
she had difficulty urinating. 2 days into hospitalization she said that her urine output improved. She underwent A-fib ablation on November 16 without complication. In the last 2 days her creatinine has now risen up to 1.8 and her sodium has dropped
to 134.
Past Medical History
COPD
Hypertension
Tremors
A-fib
Heart failure preserved ejection fraction
ASD repair
Tonsillectomy
Wet macular degeneration
Social History
Tobacco: Non-Smoker
Alcohol: None
Drug: None
Family History
No CKD
Allergies / Home Medications
Allergy/AdvReac Type Severity Reaction Status Date / Time
gluten Allergy Unknown Verified 11/16/23 12:18
nitrofurantoin Allergy Unknown Verified 11/16/23 12:18
[From Macrodantin]
�Medication �Instructions �Recorded �Confirmed �Type
cholecalciferol (vitamin D3) 25 50 mcg PO DAILY Supplement 05/27/22 11/16/23 History
mcg (1,000 unit) capsule (Vitamin
D3)
clonazepam 0.5 mg tablet 0.5 mg PO BID Mental Health/Anxiety 05/27/22 11/16/23 History
cyclosporine 0.05 % eye drops in a 1 drp BOTH EYES Q12 Eye condition 05/27/22 11/16/23 History
dropperette (Restasis)
estradiol 0.01% (0.1 mg/gram) 1 applic vaginal TUTH Hormonal 05/27/22 11/16/23 History
vaginal cream agent
magnesium oxide 500 mg PO DAILYPRN PRN leg cramps 05/27/22 11/16/23 History
polyethylene glycol 3350 17 gram 17 g PO DAILY Constipation 05/27/22 11/16/23 History
oral powder packet (Miralax)
propranolol 80 mg capsule,24 80 mg PO HS Blood pressure/tremors 05/27/22 11/16/23 History
hr,extended release
vit C 250 mg-vit E 90 mg-zinc 40 1 tab PO BID Supplement 05/27/22 11/16/23 History
mg-copper 1 [id number]
capsule (PreserVision AREDS-2)
vitamin B complex 1 cap PO DAILY Supplement 05/27/22 11/16/23 History
Lactobacillus acidophilus 10 10,000 mmu cells PO DAILY 06/02/23 11/16/23 History
billion cell capsule (Probiotic) Gastrointestinal Issue
apixaban 5 mg tablet (Eliquis) 5 mg PO BID Blood Clot 11/16/23 11/16/23 History
Prevention/Tx
artificial tears ointment 1 applic ophthalmic (eye) HS dry 11/16/23 11/16/23 History
eye
dextran 70-hypromellose eye drops 1 drp BOTH EYES QID Eye Condition 11/16/23 11/16/23 History
in a dropperette (Artificial Tears
(PF) drops in a dropperette)
diltiazem HCl 240 mg 240 mg PO DAILY Arrhythmia 11/16/23 11/16/23 History
capsule,extended release 24 hr
furosemide 20 mg tablet 20 mg PO MOWEFR@0800 Fluid 11/16/23 11/16/23 History
Retention/Swelling
mirtazapine 30 mg tablet 30 mg PO Mental Health 11/16/23 11/16/23 History
Review of Systems
-
Currently no chest pain or shortness of breath. Urine output has improved. No fevers chills or sweats.
All other systems: Negative unless noted
Physical Exam
Vital Signs
Vital Signs
Temp Pulse Resp BP Pulse Ox
97.4 F 58 28 126/60 97
11/19/23 11:29 11/19/23 11:29 11/19/23 11:29 11/19/23 11:11/19/23 11:29
Lab Results
WBC 3.5 10^3/uL (4.8-10.8) L 11/18/23 04:52
RBC 3.62 10^6/uL (4.20-5.40) L 11/18/23 04:52
Hgb 11.3 g/dL (12.0-16.0) L 11/18/23 04:52
Hct 31.8 % (37.0-47.0) L 11/18/23 04:52
Plt Count 182 10^3/uL (130-400) 11/18/23 04:52
Sodium 134 mmol/L (135-145) L 11/19/23 08:10
Potassium 4.6 mmol/L (3.5-5.1) 11/19/23 08:10
Chloride 95 mmol/L (98-107) L 11/19/23 08:10
Carbon Dioxide 28 mmol/L (22-30) 11/19/23 08:10
BUN 42 mg/dl (7-17) H 11/19/23 08:10
Creatinine 1.8 mg/dL (0.6-1.0) H 11/19/23 08:10
eGFR 26.77 11/19/23 08:10
Glucose 102 mg/dl (70-99) H 11/19/23 08:10
Calcium 9.4 mg/dl (8.4-10.2) 11/19/23 08:10
Xvd-C-Yjzzmwdnggq Pept 4020 pg/ml 11/16/23 11:20
Albumin 3.7 g/dl (3.5-5.0) 11/16/23 11:20
Physical Exam
Patient is awake alert oriented and in no distress. Mood and affect were pleasant, insight and judgment were good. Pupils are equal round and reactive to light, extraocular movements are intact, sclera were anicteric. Hearing was normal, ears and
nose are intact. Oropharynx was clear. Neck was supple with trachea midline and no thyromegaly. Heart was regular rate and rhythm without rubs. Lower extremities without edema. Lungs were clear to auscultation bilaterally and with normal
excursion. Abdomen was soft, nontender, with normal active bowel sounds, and no hepatosplenomegaly. Skin was without rash and with normal turgor.
Data Reviewed
-
Radiology: Image Personally Visualized and interpreted (Chest x-ray on November 16, 2023 by my reading shows small bilateral effusions)
Medical Tests (Nuc Med, Echo etc): Image Personally Visualized and interpreted (EKG on November 18, 2023 by my read shows normal sinus rhythm first-degree AV block diffuse ST-T wave abnormality)
Labs: Labs Reviewed by me (Sodium 134, potassium 4.6, BUN 42, creatinine 1.8, hemoglobin 11.3)
Assessment/Plan
-
Assessment:
ENIO
Hyponatremia
A-fib status post ablation
Heart failure preserved ejection fraction
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
Plan:
Check urine studies
Check bladder scan
Check renal ultrasound
Receiving IV fluids, 500 cc saline
Suspect ENIO is likely related to prerenal issues.
[2023-11-19 14:56] LABS: Urine Albumin Negative (Neg - Trace); Urine Bilirubin Negative (Negative); Urine Character Clear (Clear); Urine Color Yellow; Urine Glucose Negative (Negative); Urine Ketone Negative (Negative); Urine Leukocyte 2+ (Negative); Urine Nitrite Negative (Negative); Urine Occult Blood Negative (Negative); Urine Urobilinogen Negative (Neg - 1+)
[2023-11-19 15:22] LABS: Urine Sodium 9 mmol/L (30-90)
[2023-11-19 15:27] LABS: Urine Amorphous Seen; Urine Red Blood Cell 0-2 /HPF (0-2)
[2023-11-19 15:33] LABS: Body Fluid for Eosinophils No Eosinophils seen
[2023-11-19 16:00] VITALS: BP 137/57
[2023-11-19] MEDS: TYLENOL 650 MG PO (19:36)
[2023-11-19 20:14] VITALS: BP 125/55
--- NOTE | 2023-11-19 20:30 | PTCARENOTE ---
Addendum entered by Sidney Wallace RN 11/20/23 03:36:
At the time SOLIS Romano was notified, pt was being given her second bag of 500mL IV normal saline.
Original Note:
Pt was ordered IV 500mL normal saline at 200mL/hr [id number], however hospitalist and nephrology notes state to only give 1x 500mL normal saline. House TOWER OPERATOR Shauna Romano notified, order for IVFs to be discontinued acknowledged by this RN.
[2023-11-19] MEDS: NSS IV ×2 (21:30)
[2023-11-19 22:45] VITALS: BP 103/48
[2023-11-19] MEDS: INDERAL LA 80 MG PO (22:46)
[2023-11-19] MEDS: REMERON 30 MG PO (22:46)
[2023-11-20 04:02] VITALS: BP 142/73
[2023-11-20 05:29] VITALS: BMI 25.9
[2023-11-20 07:35] VITALS: BP 160/79
[2023-11-20 08:27] LABS: Hematocrit 31.4 % (37.0-47.0); Hemoglobin 10.6 g/dL (12.0-16.0); Mean Corp Hgb Conc. 33.8 g/dL (33.0-37.0); Mean Corpuscular Hgb 30.7 pg (27.0-31.0); Mean Platelet Volume 8.9 fL (7.4-10.4); Platelet Count 163 10^3/uL (130-400); Red Blood Cell Count 3.45 10^6/uL (4.20-5.40); Red Cell Dist. Width 14.6 % (11.5-14.5); White Blood Cell Count 5.2 10^3/uL (4.8-10.8)
[2023-11-20] MEDS: VITAMIN D3 (cholecalciferol) 50 MCG PO (08:35)
[2023-11-20] MEDS: CARDIZEM CD 240 MG PO (08:35)
[2023-11-20] MEDS: KLONOPIN 0.5 MG PO (08:35)
[2023-11-20] MEDS: RESTASIS 0.05% OPHTHALMIC EMULSION 1 DROPS BOTH EYES (08:35)
[2023-11-20] MEDS: ELIQUIS 5 MG PO (08:35)
[2023-11-20] MEDS: MIRALAX 17 GRAMS PO (08:35)
[2023-11-20 09:08] LABS: ALT (SGPT) 16 U/L (0-35); AST (SGOT) 68 U/L (14-36); Albumin 3.8 g/dl (3.5-5.0); Alkaline Phosphatase 60 U/L (38-126); Blood Urea Nitrogen 37 mg/dl (7-17); Calcium 9.5 mg/dl (8.4-10.2); Carbon Dioxide 27 mmol/L (22-30); Chloride 101 mmol/L (98-107); Direct Bilirubin 0.4 mg/dl (0.0-0.4); Estimated Creatinine Clearance 24 ml/min; Glucose 108 mg/dl (70-99); Potassium 4.5 mmol/L (3.5-5.1); Sodium 134 mmol/L (135-145); Total Bilirubin 0.8 mg/dl (0.2-1.3); Total Protein 7.1 g/dl (6.3-8.2); eGFR 39.55
--- NOTE | 2023-11-20 10:02 | W.PN.CD ---
Today's Communication / Plan
-
-Continue current doses of Cardizem CD and propranolol.
-Continue Eliquis.
-Renal function improving with IV fluids and holding of Lasix.
-Patient instructed to use Lasix only PRN for weight gain of 3 lbs per day--baseline weight is 63 kg.
-Outpatient follow-up with Cardiology in 2 weeks as scheduled; no further recommendations at this time.
Impression / Plan
-
88-year-old female with history of A-fib on Eliquis, heart failure preserved ejection fraction, hypertension, ASD repair who is here today for worsening shortness of breath.
Persistent atrial fibrillation
-s/p AF ablation with pulsed field ablation on 11/17/23
- PVI and PWI
- Large areas of low voltage (Scar) noted scattered al lover the LA
- CHADSVasc score is 4 (Age, gender, HTN) - On Eliquis
-Continue current doses of Cardizem CD and propranolol.
-Continue Eliquis.
Acute renal failure
-Cr is elevated. volume depleted and hemolysis with pulsed field ablation.
-Given IV fluids - 500 ml.
-Renal function improving with IV fluids and holding of Lasix.
-Patient instructed to use Lasix only PRN for weight gain of 3 lbs per day--baseline weight is 63 kg.
Acute on chronic heart failure preserved ejection fraction
-likely precipitated with AFib
-s/p IV diuresis
-Will have case management mcmullen out SGLT2 inhibitor consider MRA
-Well compensated now with normal pressures during the procedure.
Hypertension
-Fairly controlled.
-Continue Dilt and propranolol
Vitamin D deficiency
Physical Exam
Vital Signs/Labs
Vital Signs
Temp Pulse Resp BP Pulse Ox
97.4 F 70 24 160/79 94
11/20/23 07:35 11/20/23 07:35 11/20/23 07:35 11/20/23 07:35 11/20/23 07:35
11/19/23 11/20/23 11/21/23
06:59 06:59 06:59
Actual Weight 62.624 kg 64.07 kg
11/20/23 08:09
11/20/23 08:09
Magnesium 1.9 mg/dl (1.6-2.3) 11/17/23 03:49
11/16/23
11:20
Njy-G-Jgphakwgfwc Pept 4020
Physical Exam
Constitutional: No acute distress and Comfortable
EENT: Anicteric
Cardiovascular: Rhythm & rate is regular, Pedal edema is absent, Systolic murmur absent and S1S2 is normal
Respiratory: Respiratory effort normal and Rhonchi Present (Scant bibasilar rhonchi)
GI: Soft
Neuro/Psych: AO x 3
Other: Skin (Warm, dry, intact)
Data Reviewed
-
Date of Service: November 20, 2023
EKG: Tracing Personally Visualized and interpreted (Telemetry: Sinus rhythm)
Medical Tests (PFT, Pathology etc): Discussed with Patient and Discussed with Family (, at bedside)
Labs: Labs Reviewed by me
[2023-11-20 11:41] VITALS: BP 141/70
--- NOTE | 2023-11-20 12:28 | W.PN.HOSP.TC ---
Today's Communication/Plan
-
d/c
Assessment / Plan
Assessment / Plan
88-year-old female with past medical history of chronic atrial fibrillation, CHF, hypertension, atrial septal defect now presenting for dyspnea on exertion. Symptoms have been lasting for 4 days, gradually worsening. Patient's inability to be
mobile out of bed due to dyspnea on exertion has prompted hospital evaluation. Admitted for acute HFpEF with afib.
Gen: NAD, Awake and alert
Eyes: EOMI, PERRLA, no scleral icterus.
Neck: supple.
CV: remains RRR, +S1/S2, no m/r/g.
Resp: remains CTAB, no rales, wheezes, or rhonchi.
Skin: No rashes. No LE edema
Neuro: CN 2-12 intact, non-focal.
Psych: Normal mood and affect.
Renal U/S: 1.4 cm right renal cyst. Otherwise normal.
Acute on chronic HFpEF:
-presented with DOWNS
-likely exacerbated by afib
-was on IV Lasix which was stopped with ENIO
-daily wts, I/Os
-cardiology following
ENIO:
-likely due to overdiuresis/prerenal
-Cr peaked at 1.8, now 1.3 after 500cc NS on 11/19/23
-renal following and has cleared the pt for d/c
Atrial fibrillation:
-s/p ablation 11/17/23
-cont Cardizem/Eliquis
Essential Hypertension:
-cont Cardizem
Essential tremor:
-cont propranolol
FULL/Eliquis
Pt's updated at bedside.
Total time spent on d/c = 31 min. This included today's physical exam, progress note, review of laboratory and diagnostic data, preparation of discharge documents and prescriptions, and discussions about the pt's hospital course and discharge plan
with the patient and other medical billing instructor involved in the patient's care.
Anticipated Discharge: Today
Subjective/Interval History
-
Date of Service: November 20, 2023
No new complaints.
Objective Data
-
Labs:
Laboratory Results
11/20/23
08:09
WBC 5.2
Hgb 10.6 L
Hct 31.4 L
Plt Count 163
Sodium 134 L
Potassium 4.5
Chloride 101
Carbon Dioxide 27
BUN 37 H
Creatinine 1.3 H
Glucose 108 H
Calcium 9.5
Total Bilirubin 0.8
AST 68 H
ALT 16
Alkaline Phosphatase 60
Vital Signs:
Vital Signs
Temp Pulse Resp BP Pulse Ox
97.8 F 69 24 141/70 96
11/20/23 11:41 11/20/23 11:41 11/20/23 11:41 11/20/23 11:41 11/20/23 11:41
I&O
11/19/23 11/20/23 11/21/23
06:59 06:59 06:59
Intake Total 1200 / 1200 1360 / 1360
Balance 1200 / 1200 1360 / 1360
--- NOTE | 2023-11-20 13:10 | W.DCSUMMARY ---
Discharge Summary
Discharge Data
Date of Admission: 11/16/23
Date of Discharge: 11/20/23
-
Pending Results: No
Hospital Course
Primary diagnoses:
Persistent atrial fibrillation s/p ablation on November 17, 2023
Acute kidney injury
Acute on chronic heart failure with preserved ejection fraction
Secondary diagnoses:
Essential Hypertension
Essential tremor
Consultants:
Cardiology
Nephrology
Imaging:
CXR: Small bilateral pleural effusions.
Renal U/S: 1.4 cm right renal cyst. Otherwise normal.
Hospital course: 88-year-old female initially presented with chief complaint of dyspnea on exertion as outlined in the H&P done on admission. proBNP was 4020. Chest x-ray above with small bilateral pleural effusions. She was diagnosed with acute
on chronic heart failure with preserved ejection fraction which was likely exacerbated by atrial fibrillation. She was placed on IV Lasix. Patient underwent ablation on November 17, 2023 and was in sinus rhythm after the procedure. Her creatinine
increased and peaked at 1.8. Her Lasix was stopped. She was given 500 cc bolus of IV fluids. Her creatinine improved to 1.3 and she was discharged in medically stable condition.
Discharge Plan
-
Patient Disposition: Home (Routine Discharge)
Discharge Diagnosis/Procedures: Atrial fibrillation s/p ablation, acute kidney injury
Condition: Good
Diet: Other diet
Additional Diets: heart healthy, fluid restrict to 1500cc/day
Activity: No restrictions
Driving Restrictions: No driving for 24 hours
Bathing Restrictions: None
Blood Work: BMP in 1 week, script from PCP
Specialty Instructions: Weigh Daily- Call MD for wt gain/loss 3 lbs overnight/5 lbs in 1 week
Stand Alone Forms: DC Instructions- Cath/EP Lab
Referrals:
[facility] [Outside]
Iris Mitchell NP [Specified Professional Personl] - 12/01/23 2:00 pm (Cardiology followup appointment)
Mikayla Pal MD [Family Provider] - in less than 1 week
Prescriptions:
New
furosemide 20 mg Tablet
20 mg PO DAILY PRN (Reason: weight gain >3lbs/edema) Qty: 10 0RF
Continued
clonazepam 0.5 mg tablet
0.5 mg PO BID
propranolol 80 mg capsule,extended release 24hr
80 mg PO HS
magnesium oxide 500 mg Tablet
500 mg PO DAILYPRN PRN (Reason: leg cramps)
estradiol 0.01 % (0.1 mg/gram) cream
1 applic VAGINAL TUTH
vitamin B complex Capsule
1 cap PO DAILY
cholecalciferol (vitamin D3) [Vitamin D3] 25 mcg (1,000 unit) Capsule
50 mcg PO DAILY
cyclosporine [Restasis] 0.05 % Dropperette
1 drp BOTH EYES Q12
PreserVision AREDS-2 250-90-40-1 mg Capsule
1 tab PO BID
polyethylene glycol 3350 [Miralax] 17 gram Powder In Packet
17 g PO DAILY
Probiotic 10 billion cell Capsule
10,000 mmu cells PO DAILY
diltiazem HCl 240 mg capsule,extended release 24hr
240 mg PO DAILY
mirtazapine 30 mg tablet
30 mg PO HS
artificial tears ointment Ointment
1 applic OPHTHALMIC (EYE) HS
Artificial Tears (PF) Dropperette
1 drp BOTH EYES QID
Eliquis 5 mg tablet
5 mg PO BID
Discontinued
furosemide 20 mg tablet
20 mg PO MOWEFR@0800
Discharge Orders:
Discharge Patient (As Directed); Ordered 11/20/23
Ordered By: Baljit Ge
Care Plan Goals
Care Plan Goals:
Problem: Readiness for enhanced knowledge related to diagnosis and treatment plan
Goal: Understand your diagnosis and treatment plan needs, including medications if applicable.
Instructions: Know your diagnosis, underlying causes and treatment plan options, including medications if applicable. Consult with your health care team to learn about your diagnosis and treatment plan, including medications if applicable.
Discharge Date and Time
Print Language: IRANIAN
--- NOTE | 2023-11-20 13:28 | CM ---
Patient for d/c home today with [facility].
IMM completed.
spouse will transport.
Plan: home wit [facility]
--- NOTE | 2023-11-20 14:33 | W.PN.NEPH.PH ---
Today's Communication / Plan
-
- d/c no follow up with neph needed
Assessment/Plan
-
Assessment:
ENIO
Hyponatremia
A-fib status post ablation
Heart failure preserved ejection fraction
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
Plan:
Hyponatremia resolved
UA with some LEs and WBCs, no protein/blood
Urine Na down to 9, likely pre-renal
resolved after fluid adminsitration
normal renal ultrasound
Suspect ENIO is likely related to prerenal issues
For discharge today
-
-
Date of Service: November 20, 2023
CC / HPI / ROS
-
Chief Complaint:
ENIO/hyponatremia
History of Present Illness:
Na and Cr now normalized
Review of Systems:
feeling improved
Labs
-
Labs:
WBC 5.2 10^3/uL (4.8-10.8) 11/20/23 08:09
RBC 3.45 10^6/uL (4.20-5.40) L 11/20/23 08:09
Hgb 10.6 g/dL (12.0-16.0) L 11/20/23 08:09
Hct 31.4 % (37.0-47.0) L 11/20/23 08:09
Plt Count 163 10^3/uL (130-400) 11/20/23 08:09
Sodium 134 mmol/L (135-145) L 11/20/23 08:09
Potassium 4.5 mmol/L (3.5-5.1) 11/20/23 08:09
Chloride 101 mmol/L (98-107) 11/20/23 08:09
Carbon Dioxide 27 mmol/L (22-30) 11/20/23 08:09
BUN 37 mg/dl (7-17) H 11/20/23 08:09
Creatinine 1.3 mg/dL (0.6-1.0) H 11/20/23 08:09
eGFR 39.55 11/20/23 08:09
Glucose 108 mg/dl (70-99) H 11/20/23 08:09
Calcium 9.5 mg/dl (8.4-10.2) 11/20/23 08:09
Beh-X-Cgjaaywcdtb Pept 4020 pg/ml 11/16/23 11:20
Albumin 3.8 g/dl (3.5-5.0) 11/20/23 08:09
Physical Exam
-
Vital Signs:
Vital Signs
Temp Pulse Resp BP Pulse Ox
97.8 F 69 24 141/70 96
11/20/23 11:41 11/20/23 11:41 11/20/23 11:41 11/20/23 11:41 11/20/23 11:41
Cardiovascular:: Regular rate and rhythm
Respiratory:: Bilateral: CTA
Lung Excursion:: Normal
Abdomen:: Nontender and Soft
Bowel Sounds:: Normal
Extremity Edema:: None: Bilateral:
Canela Catheter: No
== END 2023-11-20 14:39 | disposition home health service (06) | DRG 273 ==
LOC: 4 WEST ACU 15:23
PROVIDERS: Internal Medicine Cardiovascular Disease; Nurse Practitioner; Physician Assistant Medical; ADMITTING PHYSICIAN Internal Medicine; ATTENDING PHYSICIAN Internal Medicine; CONSULT PHYSICIAN Internal Medicine Cardiovascular Disease; CONSULT PHYSICIAN Specialist; EMERGENCY PHYSICIAN Student in an Organized Health Care Education/Training Program; FAMILY PHYSICIAN Internal Medicine
PROC: 02K83ZZ Map Conduction Mechanism, Percutaneous Approach (ICD-10-PCS; 2023-11-17)
PROC: 4A023FZ Measurement of Cardiac Rhythm, Percutaneous Approach (ICD-10-PCS; 2023-11-17)
PROC: 4A0234Z Measurement of Cardiac Electrical Activity, Percutaneous Approach (ICD-10-PCS; 2023-11-17)
PROC: B24BZZZ Ultrasonography of Heart with Aorta (ICD-10-PCS; 2023-11-17)
PROC: 02583ZZ Destruction of Conduction Mechanism, Percutaneous Approach (ICD-10-PCS; 2023-11-17)
DX: I48.19 Other persistent atrial fibrillation (principal); I50.33 Acute on chronic diastolic (congestive) heart failure; N17.9 Acute kidney failure, unspecified; E87.1 Hypo-osmolality and hyponatremia; I11.0 Hypertensive heart disease with heart failure; J44.9 Chronic obstructive pulmonary disease, unspecified; G25.0 Essential tremor; E55.9 Vitamin D deficiency, unspecified; H35.3230 Exudative age-related macular degeneration, bilateral, stage unspecified; I08.1 Rheumatic disorders of both mitral and tricuspid valves; Z79.01 Long term (current) use of anticoagulants; Z79.899 Other long term (current) drug therapy; Z87.74 Personal history of (corrected) congenital malformations of heart and circulatory system
CPT/HCPCS: 71046; 76775; 76937; 80048; 80053; 81003; 81015; 81099; 82248; 82570; 83735; 83880; 84300; 84443; 84484; 85025; 85027; 85347; 86850; 86900; 86901; 93005; 93656; 96374; 97162; 99285; C1730; C1732; C1733; C1759; C1766; C1769; C1892; C1894

== ENCOUNTER → 2023-11-25 12:25 | Outpatient (REF) | payer MEDICARE, OTHER, SELFPAY ==
[2023-11-25 18:33] LABS: Blood Urea Nitrogen 15 mg/dl (7-17); Calcium 8.9 mg/dl (8.4-10.2); Carbon Dioxide 29 mmol/L (22-30); Chloride 100 mmol/L (98-107); Glucose 121 mg/dl (70-99); Potassium 4.3 mmol/L (3.5-5.1); Sodium 135 mmol/L (135-145); eGFR 54.19
== END ==
LOC: CLAB 12:25
PROVIDERS: ATTENDING PHYSICIAN Internal Medicine; OTHER PHYSICIAN Internal Medicine Cardiovascular Disease
DX: I50.33 Acute on chronic diastolic (congestive) heart failure (principal)
CPT/HCPCS: 80048

== ENCOUNTER 2023-12-03 16:50 | Emergency (ER) | payer MEDICARE, OTHER, SELFPAY ==
[2023-12-03 16:54] VITALS: BP 155/73
[2023-12-03 17:44] LABS: % Basophils 0.7 % (0-2); % Eosinophils 1.2 % (0-6); % Immature Granulocytes 0.5 % (0-0.5); % Lymphocytes 12.5 % (20.5-51.1); % Monocytes 8.2 % (1.7-9.3); % Neutrophils 76.9 % (42.2-75.2); Absolute Basophils 0.1 10^3/uL (0-0.2); Absolute Eosinophils 0.1 10^3/uL (0-0.7); Absolute Lymphocytes 1.1 10^3/uL (1.2-3.4); Absolute Monocytes 0.7 10^3/uL (0.1-0.6); Absolute Neutrophils 6.6 10^3/uL (1.4-6.5); Hematocrit 31.8 % (37.0-47.0); Hemoglobin 11.1 g/dL (12.0-16.0); Mean Corp Hgb Conc. 34.9 g/dL (33.0-37.0); Mean Corpuscular Hgb 31.1 pg (27.0-31.0); Mean Corpuscular Volume 89.1 fL (81.0-99.0); Mean Platelet Volume 8.7 fL (7.4-10.4); Nucleated Red Blood Cells % 0 %; Platelet Count 173 10^3/uL (130-400); Red Blood Cell Count 3.57 10^6/uL (4.20-5.40); Red Cell Dist. Width 14.6 % (11.5-14.5); White Blood Cell Count 8.6 10^3/uL (4.8-10.8)
[2023-12-03 18:00] VITALS: BP 144/54
[2023-12-03 18:07] LABS: NT-proBNP 2270 pg/ml; Troponin I < 0.012 ng/ml
[2023-12-03 18:17] LABS: ALT (SGPT) 11 U/L (0-35); AST (SGOT) 32 U/L (14-36); Albumin 4.2 g/dl (3.5-5.0); Alkaline Phosphatase 75 U/L (38-126); Blood Urea Nitrogen 18 mg/dl (7-17); Calcium 9.5 mg/dl (8.4-10.2); Carbon Dioxide 27 mmol/L (22-30); Chloride 98 mmol/L (98-107); Glucose 106 mg/dl (70-99); Potassium 4.8 mmol/L (3.5-5.1); Sodium 134 mmol/L (135-145); Total Bilirubin 0.6 mg/dl (0.2-1.3); Total Protein 7.5 g/dl (6.3-8.2); eGFR 54.19
[2023-12-03 18:40] VITALS: BP 159/64
[2023-12-03 19:00] VITALS: BP 153/62
[2023-12-03 19:53] VITALS: BMI 24.5
[2023-12-03] MEDS: TYLENOL 650 MG PO (19:56)
[2023-12-03 20:02] VITALS: BP 125/81
--- NOTE | 2023-12-03 20:11 | ED.GENMED ---
History of Present Illness
General
Chief Complaint: Chest Pain
Source: patient
Exam Limitations: none
Time Seen by Provider: 12/03/23 18:23
Nursing documentation reviewed up to this point in time: agreed with
Travel History
Have you had any contact with someone who has COVID-19?: No
Do you have any symptoms of coronavirus? Fever > 100 degrees, chills, cough, shortness of breath, sore throat, loss of taste or smell, muscle aches, or headache?: No
History of Present Illness
History of Present Illness:
88 y/o F with h/o CHF, afib on eliquis s/p ablation on 11/16
does have chronic SOB
pt was on lasix but had mild ENIO so she stopped the lasix
saw cards outpatient yesterday and was doing well, in sinus rhythm
today she this morning sh ehad a tickle in her throat and then coughed a few times and since has some pain in her left upper chest wall with breathing or coughing
she also feels a ltitle more sob than her basleine but she always has SOB
her doesn't thin k she looks more SOB than usual
pt has no edema, exertional cp, fever, persistent cough
very compliant with eliquis
Past History
Past History
ED Past Medical History: Arrthythmia, CHF, HTN, Valvular disease and Psychiatric
ED Past Surgical History: Cardiac, and Tonsilectomy
Social History
Tobacco: Non-smoker
Alcohol: None
Drug: None
Personal:
Living: with family
Review of Systems
Review of Systems
Allergies reviewed?: Yes
All Other Systems: Not applicable
Phy Exam
Physical Exam
Physical Exam:
GENERAL: Alert , in no apparent distress, well appeairng, comfortable
EYE: pupils equal and reactive
NECK: Supple
ENT: o/p clr, mmm.
CARDIAC: Regular rate and rhythm .no edema
LUNGS: minimal crackles b/l basea, rr low 20s, no rhonchi, no cough, no splinting
left chest wall nontender
ABDOMEN: Soft, without focal tenderness, no r/g, no cvat, normal bowel sounds
NEUROLOGICAL: Alert and oriented, no focal neuro deficits
SKIN: Warm and dry, skin intact.
MUSCULOSKELETAL: No edema, well perfused. neg heather's sign
PSYCH: Normal and appropriate interaction.
Scores
Heart Score for Chest Pain Patients
STEMI patient?: No
History: Slightly or Non-Suspicious
ECG: Nonspecific Repolarization
Age: >/= 65 years
Risk Factors: >/= 3 Risk Factors or History of CAD
Troponin: </= Normal Limit
Heart Score for Chest Pain Patients: 5
Heart Score Risk: 20.3% MACE over next 6 weeks
Course
Orders/Labs/Results
Orders:
Orders
12/03/23 16:55
EKG [Electrocardiogram (*1)] Stat
Reason for Study: Chest Pain
EKG- Treatment ONCE
12/03/23 17:38
CBC/With Diff [Complete Blood Count/With Diff] Urgent
CMP [Comprehensive Metabolic Panel] Urgent
Pro-BNP [NT-proBNP] Urgent
Troponin I Urgent
12/03/23 18:55
Electrocardiogram (*1) Urgent
Reason for Study: Shortness of Breath
EKG- Treatment ONCE
12/03/23 18:56
Acetaminophen [Tylenol] 650 mg PO NOW STA
CR Ribs-left 3 Vw W/pa Chest Urgent
Comment:
Reason For Exam: left rib pain after coughing, sob
12/03/23 20:01
Troponin I Urgent
12/03/23 20:18
Furosemide [Lasix] 40 mg IV NOW STA
Abnormal Lab Results
12/03/23
17:38
RBC 3.57 L 10^6/uL
(4.20-5.40)
Hgb 11.1 L g/dL
(12.0-16.0)
Hct 31.8 L %
(37.0-47.0)
MCH 31.1 H pg
(27.0-31.0)
RDW 14.6 H %
(11.5-14.5)
Absolute Neuts (auto) 6.6 H 10^3/uL
(1.4-6.5)
Absolute Lymphs (auto) 1.1 L 10^3/uL
(1.2-3.4)
Absolute Monos (auto) 0.7 H 10^3/uL
(0.1-0.6)
Neutrophils % 76.9 H %
(42.2-75.2)
Lymphocytes % 12.5 L %
(20.5-51.1)
Sodium 134 L mmol/L
(135-145)
BUN 18 H mg/dl
(7-17)
Glucose 106 H mg/dl
(70-99)
12/03/23 17:38
12/03/23 17:38
Vital Signs
Initial and Last Documented VS:
Initial Vital Signs
Temp Pulse Resp BP Pulse Ox
98.6 F 77 18 155/73 96
12/03/23 16:54 12/03/23 16:54 12/03/23 16:54 12/03/23 16:54 12/03/23 16:54
Last Documented Vital Signs
Temp Pulse Resp BP Pulse Ox
98.6 F 78 20 141/59 94
12/03/23 16:54 12/03/23 21:15 12/03/23 21:15 12/03/23 21:00 12/03/23 21:15
MDM/Problems Addressed
Differential Diagnosis Includes:
chf, afib, rib fracture, aspiration, chest wall
MDM/Problems Addressed:
88 y/o F with h/o afib s/p ablation, on eliquis, chf recent hopspitalization
chronic dyspnea
here with left upper chest wall pain after coughing a little this morning
pleuritic
no hypoxia
compliant with eliquis
no abdomianl pain, no swelling in legs
initially the ekg was dificult to see if pt had p waves but repeated was sinus rhythm, has some chronic t wave inv which are unchanged
she had 2 neg trops
cxr ind reivewed with no fracture, no PTX, small b/l peural effusions
bnp 2000 but better than 4000
cr back to normal
pt ambulated to BR and back and did look a little tachypneic but recoviered, this is apparently her basleie but she feels a little worse
d/w ed attending
recommended brief consutlation with cardiology to discuss
felt that pt looks well enough to go home with trial of lasix 20 mg tomorrow am and repeat dose the followin day but if no improvement call cards or return
pt prefers this plan rather than staying overnight
*Critical Care Note
Total Time (30-74mins, 75-104mins- exclusive of procedures): Not Applicable
ED Attending Note
-
Portions of this chart may have been created with voice recognition software.� Occasional wrong word or��sound alike� substitutions may have occurred due to the inherent limitations of voice recognition software.
Discharge Plan
Departure
Patient Disposition: Home (Routine Discharge)
Date of Disposition: 12/03/23
Time of Disposition: 20:49
Admit to: Telemetry
Patient with high blood pressure during this ER visit?: No
Condition: Fair
Covid-19: Not Applicable
Discharge Problem:
Acute exacerbation of CHF (congestive heart failure), Chest pain
Instructions: Chest Pain That Is Not Caused by the Heart (DC)
Prescriptions:
No Action
clonazepam 0.5 mg tablet
0.5 mg PO BID
Patient Comments:
12/03/2023: last filled 11/02/23, 30 tabs for 30 days from [facility]
propranolol 80 mg capsule,extended release 24hr
80 mg PO HS
magnesium oxide 500 mg Tablet
500 mg PO DAILYPRN PRN (Reason: leg cramps)
estradiol 0.01 % (0.1 mg/gram) cream
1 applic VAGINAL TUTH
vitamin B complex Capsule
1 cap PO DAILY
cholecalciferol (vitamin D3) [Vitamin D3] 25 mcg (1,000 unit) Capsule
50 mcg PO DAILY
cyclosporine [Restasis] 0.05 % Dropperette
1 drp BOTH EYES Q12
PreserVision AREDS-2 250-90-40-1 mg Capsule
1 tab PO BID
polyethylene glycol 3350 [Miralax] 17 gram Powder In Packet
17 g PO DAILYPRN PRN (Reason: constipation)
Probiotic 10 billion cell Capsule
10,000 mmu cells PO DAILY
diltiazem HCl 240 mg capsule,extended release 24hr
240 mg PO DAILY
mirtazapine 30 mg tablet
30 mg PO HS
artificial tears ointment Ointment
1 applic BOTH EYES HS
Artificial Tears (PF) Dropperette
1 drp BOTH EYES QID
Eliquis 5 mg tablet
5 mg PO BID
furosemide 20 mg Tablet
20 mg PO DAILY PRN (Reason: weight gain >3lbs/edema) Qty: 10 0RF
ondansetron HCl 4 mg tablet
4 mg PO Q8HPRN PRN (Reason: nausea/vomiting)
Referrals:
Willy Waters MD [Active] - Follow up in 2-3 days
Mikayla Pal MD [Family Provider] - Follow up in 2-3 days
Activity Restrictions/Additional Instructions:
Not sure what is causing the chest pain but you could have had a bruise to your rib from coughing or a little bit of fluid they are causing pain. You should try Tylenol 3 times a day for pain.
I talked to Dr. Johnson on-call for Dr. Waters who recommended that you try a dose of Lasix tomorrow morning 20 mg. If you are still feeling short of breath or having symptoms by Thursday you should follow-up with them, call their office and tell
them you need to be seen in that you are in the ER.
Return to the ER for worsening symptoms like passing out, severe windedness, worsening chest pain or shortness of breath or any concerns
Interventions
Interventions:
*Risk Screen - Suicide Last Done: 12/03/23 17:31
*General Assessment Last Done: 12/03/23 17:31
*Neglect/Abuse Screening Last Done: 12/03/23 17:31
ED- Fall Risk Assessment Last Done: 12/03/23 19:55
*ED COVID-19 Vaccine History Last Done: 12/03/23 17:31
*Nursing Disposition Last Done: 12/03/23 21:22
ED- Cardiac Assessment Last Done: 12/03/23 17:31
Discharge Date and Time
Discharge Date/Time: 12/03/23 21:25
Print Language: SYRIAC
[2023-12-03 20:37] LABS: Troponin I < 0.012 ng/ml
[2023-12-03 21:00] VITALS: BP 141/59
== END 2023-12-03 21:25 | disposition home or self-care (01) ==
LOC: EMR 16:50
PROVIDERS: Physician Assistant; Student in an Organized Health Care Education/Training Program; EMERGENCY PHYSICIAN Emergency Medicine; FAMILY PHYSICIAN Internal Medicine
DX: I11.0 Hypertensive heart disease with heart failure (principal); I50.9 Heart failure, unspecified; R07.89 Other chest pain; R06.02 Shortness of breath; I48.91 Unspecified atrial fibrillation; M19.90 Unspecified osteoarthritis, unspecified site; K90.0 Celiac disease; F41.9 Anxiety disorder, unspecified; F32.A Depression, unspecified; Z79.01 Long term (current) use of anticoagulants; Z98.890 Other specified postprocedural states; Z88.8 Allergy status to other drugs, medicaments and biological substances; Z91.018 Allergy to other foods
CPT/HCPCS: 99284; 71101; 80053; 83880; 84484; 85025; 93005

== ENCOUNTER 2023-12-09 13:41 | Emergency (ER) | payer MEDICARE, OTHER, SELFPAY ==
[2023-12-09 13:42] VITALS: BP 157/75
--- NOTE | 2023-12-09 14:51 | ED.GENMED ---
History of Present Illness
General
Chief Complaint: Breathing Problem
Source: patient
Exam Limitations: none
Time Seen by Provider: 12/09/23 14:39
Nursing documentation reviewed up to this point in time: agreed with
Travel History
Have you had any contact with someone who has COVID-19?: No
Do you have any symptoms of coronavirus? Fever > 100 degrees, chills, cough, shortness of breath, sore throat, loss of taste or smell, muscle aches, or headache?: No
History of Present Illness
History of Present Illness:
Patient to ED with complaint of SOB. History of DOWNS, states it typically passes with rest but not today. Denies fever/chills, recent illness. No CP/pressure. Chronic cough which she reports is unchanged. PMH CHF. Lasix is currently PRN as she
experienced ENIO after ablation in october. Last dose of Lasix was 4 days ago. SHe denies any weight gain, increase in ankle swelling. Brought to ED by spouse. Pulse ox 95% RA.
Past History
Past History
ED Past Medical History: Arrthythmia, CHF, HTN, Valvular disease and Psychiatric
ED Past Surgical History: Cardiac, and Tonsilectomy
Social History
Tobacco: Non-smoker
Alcohol: None
Drug: None
Personal:
Living: with family
Review of Systems
Review of Systems
Allergies reviewed?: Yes
All Other Systems: ROS reviewed and negative except as documented in HPI and ROS
Constitutional: Reports no symptoms
EENT: Reports no symptoms
Respiratory: Reports trouble breathing
Cardiac: Reports no symptoms
ABD/GI: Reports no symptoms
: Reports no symptoms
Musculoskeletal: Reports edema (Trace ankle edema)
Skin: Reports no symptoms
Neurological: Reports no symptoms
Psychiatric: Reports no symptoms
Phy Exam
General Physical Exam
General Presentation: well appearing and no apparent distress
General age: appears stated age
General Skin: warm and dry
General Habitus: normal
General Mental: alert
Cardiovascular Exam
Cardiovascular Exam: regular rate/rhythm
Pulmonary Exam
Pulmonary Exam: decreased breath sounds
Oxygen Status: room air
Gastrointestinal Exam
Gastrointestinal Exam: non tender, soft, no organomegaly, non distended and no cva tenderness
Musculoskeletal Exam
Musculoskeletal Exam: full ROM and edema (Trace bilateral ankle edema)
Skin Exam
Skin Exam: normal color, warm/dry and no rash
Psychiatric Exam
Psychiatric Exam: normal mood/affect
Scores
Heart Failure Risk
Heart Failure Risk Score: Yes
History of Stroke or TIA: No
History of intubation for respiratory distress: No
Heart rate on ED arrival >/= 110: No
SaO2 <90% on arrival on room air: No
HR >/=110 during 3min walk test (or too ill to perform test): No
ECG has acute ischemic changes: No
Urea >/=12mmol/L (BUN 33.6mg/dL): No
Serum CO2>/=35mmol/L: No
Troponin I or T elevated to [place] Level (0.4mg/dL): No
NT-proBNP >/=5,000ng/L (5,000pg/ml): No
HF Risk Score: 0
Admission Status: LOW RISK 2.8% Consider discharge to home with f/u visit to PCP/Stock Shipper
Course
Orders/Labs/Results
Orders:
Orders
12/09/23 13:45
ECG [Electrocardiogram (*1)] Urgent
Reason for Study: Shortness of Breath
EKG- Treatment ONCE
12/09/23 14:51
CR Chest - 2 Views Urgent
Comment:
Reason For Exam: SOB
12/09/23 14:59
Complete Blood Count/With Diff Urgent
Comprehensive Metabolic Panel Urgent
NT-proBNP Urgent
Troponin I Urgent
12/09/23 16:09
Furosemide [Lasix] 20 mg PO NOW STA
Abnormal Lab Results
12/09/23
14:59
WBC 3.5 L 10^3/uL
(4.8-10.8)
RBC 3.41 L 10^6/uL
(4.20-5.40)
Hgb 10.5 L g/dL
(12.0-16.0)
Hct 29.9 L %
(37.0-47.0)
RDW 14.7 H %
(11.5-14.5)
Absolute Lymphs (auto) 1.0 L 10^3/uL
(1.2-3.4)
Monocytes % 12.6 H %
(1.7-9.3)
Sodium 134 L mmol/L
(135-145)
Glucose 125 H mg/dl
(70-99)
12/09/23 14:59
12/09/23 14:59
Vital Signs
Initial and Last Documented VS:
Initial Vital Signs
Temp Pulse Resp BP Pulse Ox
98.1 F 77 20 157/75 94
12/09/23 13:42 12/09/23 13:42 12/09/23 13:42 12/09/23 13:42 12/09/23 13:42
Last Documented Vital Signs
Temp Pulse Resp BP Pulse Ox
98.1 F 65 19 138/58 97
12/09/23 13:42 12/09/23 16:00 12/09/23 16:00 12/09/23 16:00 12/09/23 16:00
*Radiology
Radiology exam reviewed: radiology read reviewed
*Pulse Oximetry
Patient hypoxic: no
*Critical Care Note
Total Time (30-74mins, 75-104mins- exclusive of procedures): Not Applicable
Update Note
Update Note:
Patient remains alert, in no distress. No hypoxemia. Labs reviewed. CXR with bilateral small pleural effusions, L>R. WIll restart her lasix. 20mg given in dept today. WIll discharge home. SHe has a follow up appoitment with cardiology on
Thursday. She was given instructions on s/s to return to ED and she is agreeable to plan.
ED Attending Note
-
Portions of this chart may have been created with voice recognition software.� Occasional wrong word or��sound alike� substitutions may have occurred due to the inherent limitations of voice recognition software.
Discharge Plan
Departure
Patient Disposition: Home (Routine Discharge)
Date of Disposition: 12/09/23
Time of Disposition: 16:16
Patient with high blood pressure during this ER visit?: No
Condition: Good
Covid-19: Not Applicable
Discharge Problem:
Pleural effusion
Instructions: Pleural effusion
Prescriptions:
No Action
clonazepam 0.5 mg tablet
0.5 mg PO BID
Patient Comments:
12/03/2023: last filled 11/02/23, 30 tabs for 30 days from [facility]
propranolol 80 mg capsule,extended release 24hr
80 mg PO HS
magnesium oxide 500 mg Tablet
500 mg PO DAILYPRN PRN (Reason: leg cramps)
estradiol 0.01 % (0.1 mg/gram) cream
1 applic VAGINAL TUTH
vitamin B complex Capsule
1 cap PO DAILY
cholecalciferol (vitamin D3) [Vitamin D3] 25 mcg (1,000 unit) Capsule
50 mcg PO DAILY
cyclosporine [Restasis] 0.05 % Dropperette
1 drp BOTH EYES Q12
PreserVision AREDS-2 250-90-40-1 mg Capsule
1 tab PO BID
polyethylene glycol 3350 [Miralax] 17 gram Powder In Packet
17 g PO DAILYPRN PRN (Reason: constipation)
Probiotic 10 billion cell Capsule
10,000 mmu cells PO DAILY
diltiazem HCl 240 mg capsule,extended release 24hr
240 mg PO DAILY
mirtazapine 30 mg tablet
30 mg PO HS
artificial tears ointment Ointment
1 applic BOTH EYES HS
Artificial Tears (PF) Dropperette
1 drp BOTH EYES QID
Eliquis 5 mg tablet
5 mg PO BID
furosemide 20 mg Tablet
20 mg PO DAILY PRN (Reason: weight gain >3lbs/edema) Qty: 10 0RF
ondansetron HCl 4 mg tablet
4 mg PO Q8HPRN PRN (Reason: nausea/vomiting)
Referrals:
Mikayla Pal MD [Family Provider] -
Activity Restrictions/Additional Instructions:
Continue Lasix 20mg daily for the next 2 days, then resume -W- schedule. Return to the emergency department immediately for any changes in/worsening of your symtpoms
Interventions
Interventions:
*Risk Screen - Suicide Last Done: 12/09/23 14:55
*General Assessment Last Done: 12/09/23 14:55
ED- Fall Risk Assessment Last Done: 12/09/23 14:55
*ED COVID-19 Vaccine History Last Done: 12/09/23 14:55
ED- Cardiac Assessment Last Done: 12/09/23 14:55
ED- Pulmonary Assessment Last Done: 12/09/23 14:55
Discharge Date and Time
Print Language: GRENADIAN
[2023-12-09 15:38] LABS: NT-proBNP 3120 pg/ml; Troponin I < 0.012 ng/ml
[2023-12-09 15:47] LABS: ALT (SGPT) < 10 U/L (0-35); AST (SGOT) 28 U/L (14-36); Albumin 3.8 g/dl (3.5-5.0); Alkaline Phosphatase 69 U/L (38-126); Blood Urea Nitrogen 10 mg/dl (7-17); Calcium 9.3 mg/dl (8.4-10.2); Carbon Dioxide 28 mmol/L (22-30); Chloride 100 mmol/L (98-107); Glucose 125 mg/dl (70-99); Potassium 4.3 mmol/L (3.5-5.1); Sodium 134 mmol/L (135-145); Total Bilirubin 0.6 mg/dl (0.2-1.3); Total Protein 6.9 g/dl (6.3-8.2); eGFR > 60.00
[2023-12-09 15:53] VITALS: BP 145/62
[2023-12-09 15:58] LABS: % Basophils 1.4 % (0-2); % Eosinophils 2.9 % (0-6); % Immature Granulocytes 0.3 % (0-0.5); % Lymphocytes 29.7 % (20.5-51.1); % Monocytes 12.6 % (1.7-9.3); % Neutrophils 53.1 % (42.2-75.2); Absolute Basophils 0.1 10^3/uL (0-0.2); Absolute Eosinophils 0.1 10^3/uL (0-0.7); Absolute Monocytes 0.4 10^3/uL (0.1-0.6); Absolute Neutrophils 1.9 10^3/uL (1.4-6.5); Hematocrit 29.9 % (37.0-47.0); Hemoglobin 10.5 g/dL (12.0-16.0); Mean Corp Hgb Conc. 35.1 g/dL (33.0-37.0); Mean Corpuscular Hgb 30.8 pg (27.0-31.0); Mean Corpuscular Volume 87.7 fL (81.0-99.0); Mean Platelet Volume 9.1 fL (7.4-10.4); Nucleated Red Blood Cells % 0 %; Platelet Count 191 10^3/uL (130-400); Red Blood Cell Count 3.41 10^6/uL (4.20-5.40); Red Cell Dist. Width 14.7 % (11.5-14.5); White Blood Cell Count 3.5 10^3/uL (4.8-10.8)
[2023-12-09 16:00] VITALS: BP 138/58
[2023-12-09] MEDS: LASIX 20 MG PO (16:13)
[2023-12-09 16:30] VITALS: BP 142/64
== END 2023-12-09 16:57 | disposition home or self-care (01) ==
LOC: EMR 13:41
PROVIDERS: Nurse Practitioner; EMERGENCY PHYSICIAN Emergency Medicine; FAMILY PHYSICIAN Internal Medicine
DX: J90 Pleural effusion, not elsewhere classified (principal); I11.0 Hypertensive heart disease with heart failure; I50.9 Heart failure, unspecified; I48.91 Unspecified atrial fibrillation; M19.90 Unspecified osteoarthritis, unspecified site; F41.9 Anxiety disorder, unspecified; F32.A Depression, unspecified; Z79.01 Long term (current) use of anticoagulants; Z88.8 Allergy status to other drugs, medicaments and biological substances; Z91.018 Allergy to other foods
CPT/HCPCS: 99283; 71046; 80053; 83880; 84484; 85025; 93005

== ENCOUNTER 2024-03-08 23:28 | Inpatient (IN) | payer MEDICARE, OTHER, SELFPAY ==
[2024-03-08 20:44] VITALS: BP 136/82
[2024-03-08 21:08] VITALS: BP 140/79
[2024-03-08 22:00] VITALS: BP 128/87
--- NOTE | 2024-03-08 22:13 | ED.GENMED ---
History of Present Illness
General
Chief Complaint: Heart Rate Problem
Source: patient and spouse
Time Seen by Provider: 03/08/24 22:02
History of Present Illness
History of Present Illness:
88yoF with a history of atrial fibrillation s/p ablation in October, ASD s/p repair, and CHF presenting with her for evaluation of palpitations. Patient has been feeling nauseous throughout the day today with shortness of breath. She tried to
go to bed this evening and noticed that her heart was skipping beats. She checked her heart rate which was elevated at 118 and she decided to come to the ED for evaluation. Patient denies any dizziness, syncope, chest pain, abdominal pain.
Patient reports compliance with her medications including Eliquis. This is her first episode of A-fib since her ablation in October.
Past History
Past History
ED Past Medical History: Arrthythmia, CHF, HTN, Valvular disease and Psychiatric
ED Past Surgical History: Cardiac, and Tonsilectomy
Social History
Tobacco: Non-smoker
Alcohol: None
Drug: None
Personal:
Living: with family
Phy Exam
General Physical Exam
General Presentation: well appearing and no apparent distress
General age: appears stated age
General Skin: warm and dry
General Habitus: normal
General Mental: alert
Cardiovascular Exam
Cardiovascular Exam: irregularly irregular and tachycardia
Pulmonary Exam
Pulmonary Exam: no respiratory distress, no crackles, no wheezing and decreased breath sounds
[place] Coma Scale
Eye Opening: Spontaneous
Verbal Response: Oriented
Motor Response: Obeys Commands
GCS Total Score: 15
Skin Exam
Skin Exam: normal color and warm/dry
Psychiatric Exam
Psychiatric Exam: normal mood/affect
Course
Orders/Labs/Results
Orders:
Orders
03/08/24 20:39
EKG [Electrocardiogram (*1)] Urgent
Reason for Study: Palpitations
EKG- Treatment ONCE
03/08/24 22:10
Cardiac Monitoring- Treatment ONCE
Diltiazem HCl [Cardizem] 10 mg IV NOW STA
03/08/24 22:13
Diltiazem 125 mg/125 ml Nss [Cardizem] 125 mg in 125 ml IV NOW
Initial dose in mg/hr, then titrate:: 2.5
Titrate to keep:: Heart rate 80-100 bpm
Titrate by mg/hr:: 5 mg/hr
Frequency of titrations (minutes):: 15
Maximum dose in mg/hr:: 15
03/08/24 22:14
CR Chest - 2 Views Urgent
Comment:
Reason For Exam: SOB
03/08/24 22:34
Complete Blood Count/With Diff Urgent
Comprehensive Metabolic Panel Urgent
Magnesium Urgent
TSH Reflex To Free T4 Urgent
Troponin I Urgent
03/09/24 08:00
Apixaban [Eliquis] 5 mg PO BID
Artificial Tears (Pf) [Refresh Eye Drops (Pf)] 1 drops BOTH EYES QID
Clonazepam [Klonopin] 0.5 mg PO BID
Furosemide [Lasix] 20 mg PO MoWeFr@[id number]
cycloSPORINE [Restasis 0.05% Ophthalmic Emulsion] 1 drops BOTH EYES Q12
03/09/24 22:00
Mirtazapine [Remeron] 30 mg PO HS
Propranolol Extended Release [Inderal LA] 80 mg PO HS
Abnormal Lab Results
03/08/24
22:34
WBC 3.6 L 10^3/uL
(4.8-10.8)
RBC 3.84 L 10^6/uL
(4.20-5.40)
Hgb 11.8 L g/dL
(12.0-16.0)
Hct 32.6 L %
(37.0-47.0)
Monocytes % 11.3 H %
(1.7-9.3)
Glucose 105 H mg/dl
(70-99)
03/08/24 22:34
03/08/24 22:34
Vital Signs
Initial and Last Documented VS:
Initial Vital Signs
Temp Pulse Resp BP Pulse Ox
97.9 F 108 24 136/82 93
03/08/24 20:44 03/08/24 20:44 03/08/24 20:44 03/08/24 20:44 03/08/24 20:44
Last Documented Vital Signs
Temp Pulse Resp BP Pulse Ox
97.9 F 68 26 129/62 95
03/08/24 20:44 03/09/24 00:15 03/09/24 00:15 03/09/24 00:00 03/09/24 00:45
MDM/Problems Addressed
Differential Diagnosis Includes:
88yoF here with palpitations. C/o nausea and SOB throughout the day today. Mullen palpitations when she was trying to go to bed this evening. HR 118 at home. Hx of afib. Underwent ablation in October 2023. She is tachycardic with heart rates in the 110s
on arrival. BP stable. She is well-appearing in no acute distress. Exam otherwise reassuring. Differential diagnosis includes but is not limited to: Atrial fibrillation with RVR, electrolyte abnormality, thyroid dysfunction, CHF exacerbation
Initial ED plan: Atrial fibrillation with RVR noted on monitor. Check cardiac labs, magnesium, TSH, EKG, and CXR. IV Cardizem bolus and drip ordered.
*EKG
Interpreted by ED Provider?: Yes
EKG Intrepretation Date: 03/09/24
Heart Rate: 117
Rate: tachycardiac
Rhythm: a-fib
[place]: normal axis
Interval: normal interval
QRS Pattern: normal QRS
Ischemia: other (ST depressions in inferolateral leads)
*Critical Care Note
Total Time (30-74mins, 75-104mins- exclusive of procedures): Not Applicable
Update Note
Update Note:
Labs unremarkable including normal electrolytes and TSH. Troponin within normal limits. Chest x-ray is unchanged from prior. No pulmonary edema on imaging. Heart rate controlled in the 80s on Cardizem drip. Patient has a prior history of failed
cardioversion attempt. Will admit for further evaluation and management.
ED Attending Note
-
Portions of this chart may have been created with voice recognition software.� Occasional wrong word or��sound alike� substitutions may have occurred due to the inherent limitations of voice recognition software.
Discharge Plan
Departure
Patient Disposition: Admit
Date of Disposition: 03/08/24
Time of Disposition: 23:22
Presentation/result/management discussed w/ accepting MD/DO: Hospitalist
Discharge Problem:
Atrial fibrillation with RVR
Interventions
Interventions:
*Risk Screen - Suicide Last Done: 03/08/24 20:42
*General Assessment Last Done: 03/08/24 20:48
*Neglect/Abuse Screening Last Done: 03/08/24 20:42
ED- Fall Risk Assessment Last Done: 03/08/24 20:48
*ED COVID-19 Vaccine History Last Done: 03/08/24 20:48
GD-Vdgjmo-Nhpzqvvhfn Assessment Last Done: 03/08/24 20:48
ED- Cardiac Assessment Last Done: 03/08/24 20:48
ED- Pulmonary Assessment Last Done: 03/08/24 20:48
[2024-03-08 22:33] VITALS: BMI 23.7
[2024-03-08 22:44] LABS: % Basophils 1.4 % (0-2); % Immature Granulocytes 0.3 % (0-0.5); % Lymphocytes 32.8 % (20.5-51.1); % Monocytes 11.3 % (1.7-9.3); % Neutrophils 51.2 % (42.2-75.2); Absolute Basophils 0.1 10^3/uL (0-0.2); Absolute Eosinophils 0.1 10^3/uL (0-0.7); Absolute Lymphocytes 1.2 10^3/uL (1.2-3.4); Absolute Monocytes 0.4 10^3/uL (0.1-0.6); Absolute Neutrophils 1.9 10^3/uL (1.4-6.5); Hematocrit 32.6 % (37.0-47.0); Hemoglobin 11.8 g/dL (12.0-16.0); Mean Corp Hgb Conc. 36.2 g/dL (33.0-37.0); Mean Corpuscular Hgb 30.7 pg (27.0-31.0); Mean Corpuscular Volume 84.9 fL (81.0-99.0); Mean Platelet Volume 8.7 fL (7.4-10.4); Nucleated Red Blood Cells % 0 %; Platelet Count 174 10^3/uL (130-400); Red Blood Cell Count 3.84 10^6/uL (4.20-5.40); Red Cell Dist. Width 14.5 % (11.5-14.5); White Blood Cell Count 3.6 10^3/uL (4.8-10.8)
[2024-03-08 22:54] VITALS: BP 159/103
[2024-03-08] MEDS: CARDIZEM 10 MG IV (22:58)
[2024-03-08] MEDS: CARDIZEM 125 IV (22:58)
[2024-03-08 23:00] VITALS: BP 129/90
[2024-03-08 23:06] LABS: ALT (SGPT) 11 U/L (0-35); AST (SGOT) 30 U/L (14-36); Albumin 4.2 g/dl (3.5-5.0); Alkaline Phosphatase 82 U/L (38-126); Blood Urea Nitrogen 17 mg/dl (7-17); Calcium 9.4 mg/dl (8.4-10.2); Carbon Dioxide 24 mmol/L (22-30); Chloride 100 mmol/L (98-107); Estimated Creatinine Clearance 37 ml/min; Glucose 105 mg/dl (70-99); Potassium 4.4 mmol/L (3.5-5.1); Sodium 137 mmol/L (135-145); Total Bilirubin 0.7 mg/dl (0.2-1.3); Total Protein 7.5 g/dl (6.3-8.2); eGFR > 60.00
[2024-03-08 23:07] LABS: Troponin I < 0.012 ng/ml
[2024-03-08 23:28] LABS: TSH Reflex To Free T4 2.01 uIU/ml (0.47-4.68)
[2024-03-08 23:30] VITALS: BP 134/64
--- NOTE | 2024-03-08 23:53 | HPS.HSE ---
Family Physician
-
Family Physician: Mikayla Pal
Chief Complaint
-
Nausea, rapid heart rate and palpitation
History of Present Illness
This is a 88-year-old female with past medical history of atrial fibrillation status post cardioversion on that failed and is currently on anticoagulation, CHF with preserved EF, celiac disease who presents to the emergency department with rapid
atrial fibrillation.
Patient reports that she had been in usual state of health up until waking up today. She felt nauseous and had a nonspecific abdominal discomfort. She denied any vomiting. She had no diarrhea. She was able to take her usual medications this
morning. She felt nauseous all day and did not take any additional food intake since breakfast. Later in the evening she started to feel palpitations. She did not have any chest pain. But she felt dyspnea with any exertion. She checked her
pulse rate and it was in the 120s to 130s at home. She has about desire to bring to the emergency department. She denies feeling dizzy or lightheaded. She denies any recent lower extremity swelling. She denies orthopnea or PND. She denies any
acute weight gain. She has no chest pain at rest.
On arrival in the department she was tachycardic to the 120s. Blood pressure was 128/87, oxygen saturation was at 96% on room air. Chest x-ray shows small left pleural effusion which is similar to prior. There was cardiomegaly without pulmonary
edema. Troponin was 0.012. ECG shows atrial fibrillation with a rate of 117 and T wave inversions in the inferior and lateral leads. CBC was unremarkable and unchanged from prior. Chemistries showed a potassium of 4.4 normal BUN/creatinine.
Medical History
Past Medical History
Past Medical History: Reports Asthma (Atrial fibrillation status post cardioversion), CHF, COPD and Other (Celiac disease)
Past Surgical History: Reports None
Social History
Tobacco: Non-smoker
Alcohol: None
Drug: None
Personal:
Living: With Family
Employment: Retired
Family History
Family History: Not pertinent
Allergies / Home Medications
Allergies reflects when Allergies were last updated in [facility].
Home Medications with original date entered in [facility]
Allergy/Medication List:
Allergies
Allergy/AdvReac Type Severity Reaction Status Date / Time
gluten Allergy Unknown Verified 03/08/24 20:43
nitrofurantoin Allergy Unknown Verified 03/08/24 20:43
[From Macrodantin]
Sulfa (Sulfonamide Allergy Unknown Verified 03/08/24 20:43
Antibiotics)
Home Medications
cholecalciferol (vitamin D3) 25 mcg (1,000 unit) capsule (Vitamin D3) 50 mcg PO DAILY Supplement 05/27/22
clonazepam 0.5 mg tablet 0.5 mg PO BID Mental Health/Anxiety 05/27/22
cyclosporine 0.05 % eye drops in a dropperette (Restasis) 1 drp BOTH EYES Q12 Eye condition 05/27/22
estradiol 0.01% (0.1 mg/gram) vaginal cream 1 applic vaginal TUTH Hormonal agent 05/27/22
magnesium oxide 500 mg PO DAILYPRN PRN leg cramps 05/27/22
propranolol 80 mg capsule,24 hr,extended release 80 mg PO HS Blood pressure/tremors 05/27/22
vit C 250 mg-vit E 90 mg-zinc 40 mg-copper 1 on-shpnmq-ctmokc capsule (PreserVision AREDS-2) 1 tab PO BID Supplement 05/27/22
vitamin B complex 1 cap PO DAILY Supplement 05/27/22
Lactobacillus acidophilus 10 billion cell capsule (Probiotic) 10,000 mmu cells PO DAILY Gastrointestinal Issue 06/02/23
apixaban 5 mg tablet (Eliquis) 5 mg PO BID Blood Clot Prevention/Tx 11/16/23
dextran 70-hypromellose eye drops in a dropperette (Artificial Tears (PF) drops in a dropperette) 1 drp BOTH EYES QID Eye Condition 11/16/23
diltiazem HCl 240 mg capsule,extended release 24 hr 240 mg PO DAILY Arrhythmia 11/16/23
mirtazapine 30 mg tablet 30 mg PO Mental Health 11/16/23
Azo Female Probiotic 1 tab PO DAILY 03/08/24
cranberry 2 tab PO DAILY 03/08/24
furosemide 20 mg tablet 20 mg PO MOWEFR 03/08/24
Review of Systems
-
History Source: Patient
Constitutional: Reports Fatigue
EENT: Reports No Symptoms
Respiratory: Reports No Symptoms
Cardiac: Reports Palpitations and Other (dyspnea on exertion)
Abdomen/GI: Reports Nausea
: Reports No Symptoms
Musculoskeletal: Reports No Symptoms
Skin: Reports No Symptoms
Neurological: Reports No Symptoms
Endocrine: Reports No Symptoms
Hematologic/Lymphatic: Reports No Symptoms
Psych: Reports No Symptoms
Physical Exam
Vital Signs
Vital Signs
Temp Pulse Resp BP Pulse Ox
97.9 F 78 31 134/64 96
03/08/24 20:44 03/08/24 23:45 03/08/24 23:45 03/08/24 23:30 03/08/24 23:45
Physical Exam
General: Well Developed, No Apparent Distress and Poor Appetite
HEENT: NormoCephalic, Anicteric, Moist mucous membranes and Atraumatic
Respiratory: Clear and Non Labored Respirations
Cardiac: S1/S2 and Irregular Rhythm
Breast: Deferred by me
GI: Soft, Non Tender, Non Distended and Normal Bowel Sounds
Rectal: Deferred by Provider
Genito-urinary: Deferred by me
Musculoskeletal: No Clubbing, No Cyanosis and No Edema
Skin: Warm
Neuro: AO x 3, Nonfocal/grossly intact and Tremors
Hematologic/Lymphatic: No Lymphadenopathy
Psych: Calm
Laboratory Results
-
03/08/24 22:34
03/08/24 22:34
Laboratory Results
Total Bilirubin 0.7 mg/dl (0.2-1.3) 03/08/24 22:34
AST 30 U/L (14-36) 03/08/24 22:34
ALT 11 U/L (0-35) 03/08/24 22:34
Alkaline Phosphatase 82 U/L (38-126) 03/08/24 22:34
Troponin I < 0.012 ng/ml 03/08/24 22:34
Data Reviewed
-
Diagnostic Radiology: Image Personally Visualized and interpreted
Medical Tests (Nuc Med, Echo, EKG etc): Image Personally Visualized and interpreted
Lab Data: Labs Reviewed by me
Old Records: Reviewed
Impression/Plan
-
IMPRESSION:
88-year-old female with history of paroxysmal atrial fibrillation status post cardioversion that failed recently, CHF with preserved EF, COPD and celiac disease who presents emergency department with nausea and rapid atrial fibrillation.
PLAN:
1. AFIB RVR -paroxysmal atrial fibrillation now with A-fib RVR rates in 120s, ECG with T wave inversions in inferior lateral leads at the fast rate. Initial troponin is negative. Patient has no chest pain. No clinical signs of decompensated heart
failure. Normal oxygenation on room air. No crackles on exam, no peripheral edema. There is no JVD. Patient is currently rate controlled on diltiazem drip in no acute distress.
-Will admit to IVU
-Continue telemetry and titrate the diltiazem to heart rate less than 100
-She takes diltiazem at home, consider increasing dose to 360 as BP tolerates
-No indication for repeat echocardiogram at this time,
-Continue Eliquis for anticoagulation
-cardiology consult i
2. CHF -CHF with preserved EF, no evidence of acute exacerbation at this time.
- continue home doses of lasix 20mg
3. Nausea -patient with nausea and nonspecific abdominal discomfort. Possibly demand equivalent given T wave changes on ECG with rapid rate however Abdomen is nontender. Labs are unremarkable. LFTs within normal limits. Lipase negative. No
known history of GERD. No vomiting or diarrhea at this time. Suspect may be secondary to rapid atrial fibrillation.
- anti-emetics and re-evaluate with controlled rate
- trial of maalox prn
DVT PPX - on eliquis
Code Status - Full code
[2024-03-09] VITALS (7 sets, daily range): BP systolic 114–138; BP diastolic 61–69; BMI 22.9
[2024-03-09] MEDS: ZOFRAN 4 MG IV (00:19)
--- NOTE | 2024-03-09 00:51 | PTCARENOTE ---
Received pt from ED. AOX3. Tele- Afib. HR 60-70s. Cardizem gtt infusing at 2.5ml/hr. BP 138/68. Pt has no c/o at this time. Oriented to room. Currently in bed; call abhishek w/in reach.
--- NOTE | 2024-03-09 03:05 | DOWNTIME ---
There was a [employer] Incident Response Engineer Downtime on 03/09/2024 from 0100 to 03/09/2024 at 0300. Downtime documentation of patient's care, including medication administrations, has been reconciled in the electronic record per guidelines. Refer to the
patient's paper chart under the miscellaneous tab to see printed paper medication records and downtime forms.
[2024-03-09 04:43] LABS: Blood Urea Nitrogen 15 mg/dl (7-17); Calcium 8.7 mg/dl (8.4-10.2); Carbon Dioxide 25 mmol/L (22-30); Chloride 101 mmol/L (98-107); Estimated Creatinine Clearance 36 ml/min; Glucose 96 mg/dl (70-99); Potassium 4.2 mmol/L (3.5-5.1); Sodium 137 mmol/L (135-145); eGFR > 60.00
--- NOTE | 2024-03-09 07:55 | PTCARENOTE ---
Assumed care of pt from prev nsg shift; Drowsy but easily arousable, AAOx3 w/no c/o CP or SOB. Pt w/VS stable w/HR in the 60's & BP this AM 121/62. Pt converted to SR w/PVC's at approx 0747 this AM. Cardizem IV drip infusing as ordered through
patent IV line. Pt's spouse at bedside. Pt w/call weiss within reach & plan of care ongoing.
--- NOTE | 2024-03-09 08:49 | W.PN.HOSP.TC ---
Addendum entered and electronically signed by Collins Broussard DO 03/09/24 14:15:
Anticipate discharge home this afternoon if echocardiogram is unremarkable. Discussed with cardiology.
Dr. Dumont to read echocardiogram results.
Discussed with RN.
Outpatient follow-up next week with Dr. Waters.
Original Note:
Today's Communication/Plan
-
Await cardiology input
Assessment / Plan
Assessment / Plan
Gen-AAOx3, NAD
HEENT-NC, AT, anicteric, clear oral mm
Neck-supple
CV-reg, no M, +S1/S2
Lungs-clear B/L
Abd-soft, NT, ND
Ext-no edema
Musculoskeletal-no cyanosis, clubbing
Skin-warm and dry
Neuro-grossly non-focal
Psych-calm, cooperative
Rapid atrial fibrillation -currently rate controlled on IV Cardizem. Anticipate transitioning back to oral today. Cardiology consulted. Continue Eliquis.
Chronic heart failure with preserved EF -stable.
COPD without exacerbation
Chronic normocytic anemia -outpatient follow-up.
Chronic leukopenia
Celiac disease
Full code
Updated at the bedside.
Anticipated Discharge: Within 24 hours
Subjective/Interval History
-
Date of Service: March 09, 2024
Patient seen and examined. Denies chest pain or shortness of breath. Did not sleep well.
Objective Data
-
Labs:
Laboratory Results
03/08/24 03/09/24
22:34 03:24
WBC 3.6 L
Hgb 11.8 L
Hct 32.6 L
Plt Count 174
Sodium 137 137
Potassium 4.4 4.2
Chloride 100 101
Carbon Dioxide 24 25
BUN 17 15
Creatinine 0.9 0.9
Glucose 105 H 96
Calcium 9.4 8.7
Total Bilirubin 0.7
AST 30
ALT 11
Alkaline Phosphatase 82
Vital Signs:
Vital Signs
Temp Pulse Resp BP Pulse Ox
97.8 F 71 20 131/63 93
03/09/24 07:10 03/09/24 07:45 03/09/24 07:10 03/09/24 07:12 03/09/24 07:12
I&O
03/08/24 03/09/24 03/10/24
06:59 06:59 06:59
Intake Total 200 / 200
Balance 200 / 200
Review of Systems
-
History Source: Patient
All other systems: Reviewed and negative
--- NOTE | 2024-03-09 08:58 | CM ---
Reviewed chart. Met with and Mrs. Goins to review discharge plans. She states she is feeling well and maybe able to go home soon. She states prior to admission she resides with her spouse in a two story home with one step to enter. She states
she has a floor set-up. She states she resides at [facility] and had been there for 20 years. She states prior to admission she was independent with ambulation and adls. She states she does not have any DME in the home. She states she has a
prescription plan and uses [facility]. Medical work-up in progress. The discharge plan is to return home with her spouse when medically stable.
--- NOTE | 2024-03-09 09:16 | CON.CAR ---
Consultation
Consultation Request
Date/Time Consultation Requested: 03/09/2024
Date/Time Consultation Performed: 03/09/2024
Requesting Provider: Dr. Broussard
Performing Provider: Dr. Benton
Reason for Consultation: A-fib
Medical History
-
Chief Complaint: Palpitations
History of Present Illness:
88-year-old female with atrial fibrillation status-post ablation (11/17/2023; on Eliqu), chronic heart failure with preserved ejection fraction, hypertension, ASD repair (), and COPD admitted with palpitations last evening; found to be in
atrial fibrillation with RVR. She has chronic shortness of breath, which has not been progressive. She denies chest pain or lower extremity swelling.
Past Medical History
Past Medical History: Arrhythmias (AFIB), CHF (Chronic HFpEF) and HTN
Past Surgical History: Cardiac (AFIB ablation)
Social History
Tobacco: Non-Smoker
Alcohol: None
Drug: None
Personal:
Living: With Family
Employment: Retired
Family History
Family History: Reviewed & Not Pertinent
Allergies / Home Medications
Allergy/AdvReac Type Severity Reaction Status Date / Time
gluten Allergy Unknown Verified 03/08/24 20:43
nitrofurantoin Allergy Unknown Verified 03/08/24 20:43
[From Macrodantin]
Sulfa (Sulfonamide Allergy Unknown Verified 03/08/24 20:43
Antibiotics)
�Medication �Instructions �Recorded �Confirmed �Type
cholecalciferol (vitamin D3) 25 50 mcg PO DAILY Supplement 05/27/22 03/08/24 History
mcg (1,000 unit) capsule (Vitamin
D3)
clonazepam 0.5 mg tablet 0.5 mg PO BID Mental Health/Anxiety 05/27/22 03/08/24 History
cyclosporine 0.05 % eye drops in a 1 drp BOTH EYES Q12 Eye condition 05/27/22 03/08/24 History
dropperette (Restasis)
estradiol 0.01% (0.1 mg/gram) 1 applic vaginal TUTH Hormonal 05/27/22 03/08/24 History
vaginal cream agent
magnesium oxide 500 mg PO DAILYPRN PRN leg cramps 05/27/22 03/08/24 History
propranolol 80 mg capsule,24 80 mg PO HS Blood pressure/tremors 05/27/22 03/08/24 History
hr,extended release
vit C 250 mg-vit E 90 mg-zinc 40 1 tab PO BID Supplement 05/27/22 03/08/24 History
mg-copper 1 [id number]
capsule (PreserVision AREDS-2)
vitamin B complex 1 cap PO DAILY Supplement 05/27/22 03/08/24 History
Lactobacillus acidophilus 10 10,000 mmu cells PO DAILY 06/02/23 03/08/24 History
billion cell capsule (Probiotic) Gastrointestinal Issue
apixaban 5 mg tablet (Eliquis) 5 mg PO BID Blood Clot 11/16/23 03/08/24 History
Prevention/Tx
dextran 70-hypromellose eye drops 1 drp BOTH EYES QID Eye Condition 11/16/23 03/08/24 History
in a dropperette (Artificial Tears
(PF) drops in a dropperette)
diltiazem HCl 240 mg 240 mg PO DAILY Arrhythmia 11/16/23 03/08/24 History
capsule,extended release 24 hr
mirtazapine 30 mg tablet 30 mg PO HS Mental Health 11/16/23 03/08/24 History
Azo Female Probiotic 1 tab PO DAILY 03/08/24 03/08/24 History
cranberry 2 tab PO DAILY 03/08/24 03/08/24 History
furosemide 20 mg tablet 20 mg PO MOWEFR 03/08/24 03/08/24 History
Review of Systems
-
All other systems: Negative unless noted
Abdomen/GI: Abdominal Pain
Physical Exam
Vital Signs
Temp Pulse Resp BP Pulse Ox
97.8 F 71 20 131/63 93
03/09/24 07:10 03/09/24 07:45 03/09/24 07:10 03/09/24 07:12 03/09/24 07:12
Lab Results
03/08/24 22:34
03/09/24 03:24
Troponin I < 0.012 ng/ml 03/08/24 22:34
Physical Exam
General: No Apparent Distress and Comfortable
HEENT: Normocephalic and Anicteric
Respiratory: Clear
Cardiac: S1/S2 and Regular Rhythm
Breast: Deferred by me
GI: Soft
Rectal: Deferred by Provider
Musculoskeletal: No Clubbing and No Cyanosis
Skin: Warm and Dry
Neuro: AO x 3
Psych: Calm (warm, dry, intact)
Impression / Plan
-
88-year-old female with atrial fibrillation status-post ablation (11/17/2023; on Eliquis), chronic heart failure with preserved ejection fraction, hypertension, ASD repair (), and COPD admitted with palpitations last evening; found to be in
atrial fibrillation with RVR. She has chronic shortness of breath, which has not been progressive. She denies chest pain or lower extremity swelling.
Recurrent paroxysmal atrial fibrillation status-post previous ablation (11/17/2023):
-The patient was started on Cardizem drip, but converted back to sinus rhythm this a.m.
-Will increase Cardizem CD from 240 mg daily to 360 mg daily.
-Will update echocardiogram today; if no acute findings, can be discharged to home with cardiac follow-up as scheduled for next week with Dr. Waters.
Hypertension:
-Blood pressure controlled.
Chronic HFpEF:
-Volume status stable.
-Continue Lasix PRN at home.
COPD:
-Respiratory examination stable.
Data Reviewed
-
EKG: Tracing Personally Visualized and interpreted (AFIB --> SR)
Labs: Labs Reviewed by me
[2024-03-09] MEDS: RESTASIS 0.05% OPHTHALMIC EMULSION 1 DROPS BOTH EYES (09:45)
[2024-03-09] MEDS: REFRESH EYE DROPS (PF) 1 DROPS BOTH EYES (11:13)
[2024-03-09] MEDS: KLONOPIN 0.5 MG PO (11:13)
[2024-03-09] MEDS: CARDIZEM CD 360 MG PO (11:13)
[2024-03-09] MEDS: LASIX 20 MG PO (11:13)
[2024-03-09] MEDS: ELIQUIS 5 MG PO (11:13)
[2024-03-09] MEDS: REFRESH EYE DROPS (PF) BOTH EYES (13:49)
--- NOTE | 2024-03-09 14:16 | W.DS.TRANS ---
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
-
Discharge Instructions:
Sleep Apnea Risk Low
Discharge Diagnosis/Procedures Rapid atrial fibrillation
Diet Low Fat,Low Cholesterol
Activity As tolerated
Driving Restrictions As prior to admission
Bathing Restrictions None
Instructions:
Stand-Alone Forms:
Changes to Home Medications: Yes
Discharge Medications:
DC Medications w/original date entered in [facility]
cholecalciferol (vitamin D3) 25 mcg (1,000 unit) capsule (Vitamin D3) 50 mcg PO DAILY Supplement 05/27/22
clonazepam 0.5 mg tablet 0.5 mg PO BID Mental Health/Anxiety 05/27/22
cyclosporine 0.05 % eye drops in a dropperette (Restasis) 1 drp BOTH EYES Q12 Eye condition 05/27/22
estradiol 0.01% (0.1 mg/gram) vaginal cream 1 applic vaginal TUTH Hormonal agent 05/27/22
magnesium oxide 500 mg PO DAILYPRN PRN leg cramps 05/27/22
propranolol 80 mg capsule,24 hr,extended release 80 mg PO HS Blood pressure/tremors 05/27/22
vit C 250 mg-vit E 90 mg-zinc 40 mg-copper 1 ci-[id number]-zjliwn capsule (PreserVision AREDS-2) 1 tab PO BID Supplement 05/27/22
vitamin B complex 1 cap PO DAILY Supplement 05/27/22
Lactobacillus acidophilus 10 billion cell capsule (Probiotic) 10,000 mmu cells PO DAILY Gastrointestinal Issue 06/02/23
apixaban 5 mg tablet (Eliquis) 5 mg PO BID Blood Clot Prevention/Tx 11/16/23
dextran 70-hypromellose eye drops in a dropperette (Artificial Tears (PF) drops in a dropperette) 1 drp BOTH EYES QID Eye Condition 11/16/23
mirtazapine 30 mg tablet 30 mg PO HS Mental Health 11/16/23
Azo Female Probiotic 1 tab PO DAILY 03/08/24
furosemide 20 mg tablet 20 mg PO MOWEFR 03/08/24
diltiazem HCl 360 mg capsule,extended release 24 hr 360 mg PO DAILY #30 caps 03/09/24
Home Medication Changes
Diltiazem dose increased to 360 mg daily.
Pending Results: No
--- NOTE | 2024-03-09 16:26 | PTCARENOTE ---
D/C instructions discussed w/pt & her spouse. Pt's IV line & telemetry monitoried D/C'd. Pt left w/personal belongings including cell phone. Pt taken out by staff via wheelchair w/spouse providing transportation.
== END 2024-03-09 16:10 | disposition home or self-care (01) | DRG 309 ==
LOC: IVU 23:28
PROVIDERS: Physician Assistant; ADMITTING PHYSICIAN Internal Medicine; ATTENDING PHYSICIAN Hospitalist; CONSULT PHYSICIAN Internal Medicine; EMERGENCY PHYSICIAN Emergency Medicine; FAMILY PHYSICIAN Internal Medicine
DX: I48.0 Paroxysmal atrial fibrillation (principal); I50.32 Chronic diastolic (congestive) heart failure; I11.0 Hypertensive heart disease with heart failure; K90.0 Celiac disease; J44.89 Other specified chronic obstructive pulmonary disease; D64.9 Anemia, unspecified; D72.818 Other decreased white blood cell count; F41.9 Anxiety disorder, unspecified; Z88.3 Allergy status to other anti-infective agents; Z88.2 Allergy status to sulfonamides; Z87.74 Personal history of (corrected) congenital malformations of heart and circulatory system; Z79.01 Long term (current) use of anticoagulants
CPT/HCPCS: 71046; 80048; 80053; 83735; 84443; 84484; 85025; 93005; 93306; 96374; 96376; 99285

== ENCOUNTER 2024-03-12 05:00 | Inpatient (IN) | payer MEDICARE, OTHER, SELFPAY ==
[2024-03-11 21:12] VITALS: BP 165/82
[2024-03-11 21:33] LABS: % Basophils 1.8 % (0-2); % Immature Granulocytes 0.2 % (0-0.5); % Lymphocytes 28.3 % (20.5-51.1); % Neutrophils 54.7 % (42.2-75.2); Absolute Basophils 0.1 10^3/uL (0-0.2); Absolute Eosinophils 0.1 10^3/uL (0-0.7); Absolute Lymphocytes 1.2 10^3/uL (1.2-3.4); Absolute Monocytes 0.5 10^3/uL (0.1-0.6); Absolute Neutrophils 2.4 10^3/uL (1.4-6.5); Hemoglobin 11.7 g/dL (12.0-16.0); Mean Corp Hgb Conc. 35.5 g/dL (33.0-37.0); Mean Corpuscular Hgb 30.3 pg (27.0-31.0); Mean Corpuscular Volume 85.5 fL (81.0-99.0); Mean Platelet Volume 8.9 fL (7.4-10.4); Nucleated Red Blood Cells % 0 %; Platelet Count 207 10^3/uL (130-400); Red Blood Cell Count 3.86 10^6/uL (4.20-5.40); Red Cell Dist. Width 14.6 % (11.5-14.5); White Blood Cell Count 4.3 10^3/uL (4.8-10.8)
[2024-03-11 21:56] LABS: ALT (SGPT) 12 U/L (0-35); AST (SGOT) 34 U/L (14-36); Albumin 4.3 g/dl (3.5-5.0); Alkaline Phosphatase 85 U/L (38-126); Blood Urea Nitrogen 22 mg/dl (7-17); Calcium 9.5 mg/dl (8.4-10.2); Carbon Dioxide 24 mmol/L (22-30); Chloride 95 mmol/L (98-107); Glucose 123 mg/dl (70-99); Potassium 4.6 mmol/L (3.5-5.1); Sodium 133 mmol/L (135-145); Total Bilirubin 0.8 mg/dl (0.2-1.3); Total Protein 7.7 g/dl (6.3-8.2); eGFR 43.54
[2024-03-11 22:01] LABS: NT-proBNP 5660 pg/ml; Troponin I < 0.012 ng/ml
[2024-03-12] VITALS (11 sets, daily range): BP systolic 122–151; BP diastolic 56–98; PULSE 79; O2SAT 95; BMI 22.7
--- NOTE | 2024-03-12 01:24 | ED.GENMED ---
History of Present Illness
General
Chief Complaint: Breathing Problem
Source: patient
Exam Limitations: none
Time Seen by Provider: 03/11/24 23:51
History of Present Illness
History of Present Illness:
This is a 88 year old female that comes in with c/o SOB. State that this morning she was in atrial fib. States that she took her medication and it went away. However, the SOB continued all day. States that the atrial fib then came back. States that
she is getting a headache. Denies any fever, chills, chest pain, abd pain, nausea, vomiting, diarrhea, dizziness, urinary burning.
Past History
Past History
ED Past Medical History: Arrthythmia (Atrial fib), CHF, HTN, Valvular disease, Psychiatric (Anxiety, depression. ) and Other (atrial septal defect. UTI, Macular degeneration. Rosacea, )
ED Past Surgical History: Cardiac (cardiac ablation), (X 2) and Tonsilectomy
Social History
Tobacco: Non-smoker
Alcohol: None
Drug: None
Personal:
Living: with family
Review of Systems
Review of Systems
All Other Systems: ROS reviewed and negative except as documented in HPI and ROS
Constitutional: Reports no symptoms; Denies fever or chills
EENT: Reports no symptoms
Respiratory: Reports trouble breathing; Denies cough
Cardiac: Reports no symptoms; Denies chest pain
ABD/GI: Reports no symptoms; Denies abdominal pain, nausea, vomiting or diarrhea
: Reports no symptoms; Denies dysuria, frequency or urgency
Musculoskeletal: Reports no symptoms
Skin: Reports no symptoms
Neurological: Reports headache; Denies dizzy
Psychiatric: Reports no symptoms
Phy Exam
General Physical Exam
General Presentation: no apparent distress
General age: appears stated age
General Skin: warm and dry
General Habitus: elderly
General Mental: alert
General Hydration: appears well hydrated
ENT Exam
ENT Exam: TM's normal, pharynx normal and neck supple
Eye Exam
Eye Exam: EOMI
Cardiovascular Exam
Cardiovascular Exam: normal peripheral pulses and irregularly irregular
Pulmonary Exam
Pulmonary Exam: chest non tender, no rhonchi, no wheezing, no cough and decreased breath sounds ( at bases bilateral with very fine crackles noted)
Gastrointestinal Exam
Gastrointestinal Exam: normal bowel sounds, non tender, soft, no organomegaly, no pulsatile mass and non distended
Musculoskeletal Exam
Musculoskeletal Exam: full ROM and edema (very slight nonpitting edema)
Skin Exam
Skin Exam: normal color, warm/dry, no rash and no petechia
Psychiatric Exam
Psychiatric Exam: normal mood/affect
Scores
Heart Failure Risk
Heart Failure Risk Score: Yes
History of Stroke or TIA: No
History of intubation for respiratory distress: No
Heart rate on ED arrival >/= 110: No
SaO2 <90% on arrival on room air: No
HR >/=110 during 3min walk test (or too ill to perform test): Yes
ECG has acute ischemic changes: No
Urea >/=12mmol/L (BUN 33.6mg/dL): No
Serum CO2>/=35mmol/L: No
Troponin I or T elevated to UT Level (0.4mg/dL): No
NT-proBNP >/=5,000ng/L (5,000pg/ml): Yes
HF Risk Score: 3
Admission Status: HIGH RISK 15.9% Consider SNF treatment or admission to hospital
Course
Orders/Labs/Results
Orders:
Orders
03/11/24 21:03
ECG [Electrocardiogram (*1)] Urgent
Reason for Study: Shortness of Breath
Other Reason for Exam: h/o Afib
EKG- Treatment ONCE
03/11/24 21:24
Complete Blood Count/With Diff Urgent
Comprehensive Metabolic Panel Urgent
NT-proBNP Urgent
Troponin I Urgent
03/12/24 00:00
CR Chest - 2 Views Urgent
Reason For Exam: SOB
Abnormal Lab Results
03/11/24
21:24
WBC 4.3 L 10^3/uL
(4.8-10.8)
RBC 3.86 L 10^6/uL
(4.20-5.40)
Hgb 11.7 L g/dL
(12.0-16.0)
Hct 33.0 L %
(37.0-47.0)
RDW 14.6 H %
(11.5-14.5)
Monocytes % 12.0 H %
(1.7-9.3)
Sodium 133 L mmol/L
(135-145)
Chloride 95 L mmol/L
(98-107)
BUN 22 H mg/dl
(7-17)
Creatinine 1.2 H mg/dL
(0.6-1.0)
Glucose 123 H mg/dl
(70-99)
03/11/24 21:24
03/11/24 21:24
Leukopenia, H/H slightly low. Sodium slightly low. Chloride low. Slight Dehydration. Hyperglycemia. Troponin <0.012, Pro-BNP 5660
Vital Signs
Initial and Last Documented VS:
Initial Vital Signs
Temp Pulse Resp BP Pulse Ox
98.2 F 92 18 165/82 96
03/11/24 21:12 03/11/24 21:12 03/11/24 21:12 03/11/24 21:12 03/11/24 21:12
Last Documented Vital Signs
Temp Pulse Resp BP Pulse Ox
98.2 F 79 29 129/63 95
03/11/24 21:12 03/12/24 01:15 03/12/24 01:15 03/12/24 01:00 03/12/24 01:15
MDM/Problems Addressed
Differential Diagnosis Includes:
CHF, Pleural effusion
MDM/Problems Addressed:
This is a 88 year old female that comes in with c/o SOB. States that she started in atrial fib this morning and she took her medicaiton and it went away but the SOB continued all day. States that the atrial fib then came back.
Will check labs and get Chest x-ray.
Back into see patient. Explained that her Chest x-ray shows a left pleural effusion. Patient remains in atrial fib but a controlled rate. Patient pulse ox is 94% on room air. Will place on 2 liters. Will admit. Hospitalist notified.
Chronic conditions affecting care:
CHF, Atrial fib
Acute Exacerbation and/or Progression of Chronic Illness:
CHF, atrial fib
*Radiology
Radiology exam reviewed: preliminary read by ED provider (Chest- Left pleural effusion. )
*Pulse Oximetry
Patient hypoxic: no
*EKG
Interpreted by ED Provider?: Yes
Heart Rate: 91
Rate: normal
Rhythm: a-fib
[place]: normal axis
Ischemia: non-specific ST changes
*Analytic Manager Interpretation
Rate: normal
Interpretation: abnormal
Heart Rate: 81
Rhythm: a-fib
*Critical Care Note
Total Time (30-74mins, 75-104mins- exclusive of procedures): Not Applicable
ED Attending Note
-
Portions of this chart may have been created with voice recognition software.� Occasional wrong word or��sound alike� substitutions may have occurred due to the inherent limitations of voice recognition software.
Discharge Plan
Departure
Patient Disposition: Admit
Date of Disposition: 03/12/24
Time of Disposition: 02:31
Admit to: Telemetry
Presentation/result/management discussed w/ accepting MD/DO: Hospitalist
Patient with high blood pressure during this ER visit?: Yes
Condition: Good
Covid-19: Not Applicable
Discharge Problem:
Dyspnea, Pleural effusion on left, Atrial fibrillation, controlled
Prescriptions:
No Action
clonazepam 0.5 mg tablet
0.5 mg PO BID
Patient Comments:
03/08/2024: last filled 03/07/24, 60 tabs for 30 days from [facility]
propranolol 80 mg capsule,extended release 24hr
80 mg PO HS
magnesium oxide 500 mg Tablet
500 mg PO DAILYPRN PRN (Reason: leg cramps)
estradiol 0.01 % (0.1 mg/gram) cream
1 applic VAGINAL TUTH
vitamin B complex Capsule
1 cap PO DAILY
cholecalciferol (vitamin D3) [Vitamin D3] 25 mcg (1,000 unit) Capsule
50 mcg PO DAILY
cyclosporine [Restasis] 0.05 % Dropperette
1 drp BOTH EYES Q12
PreserVision AREDS-2 250-90-40-1 mg Capsule
1 tab PO BID
Probiotic 10 billion cell Capsule
10,000 mmu cells PO DAILY
mirtazapine 30 mg tablet
30 mg PO HS
Artificial Tears (PF) Dropperette
1 drp BOTH EYES QID
Eliquis 5 mg tablet
5 mg PO BID
Azo Female Probiotic
1 tab PO DAILY
furosemide 20 mg tablet
20 mg PO MOWEFR
diltiazem HCl 360 mg capsule,extended release 24hr
360 mg PO DAILY Qty: 30 0RF
Referrals:
Mikayla Pal MD [Family Provider] -
Interventions
Interventions:
*Risk Screen - Suicide Last Done: 03/12/24 00:12
*General Assessment Last Done: 03/11/24 21:12
*Neglect/Abuse Screening Last Done: 03/12/24 00:12
ED- Fall Risk Assessment Last Done: 03/12/24 00:12
*ED COVID-19 Vaccine History Last Done: 03/12/24 00:12
ED- Cardiac Assessment Last Done: 03/12/24 00:12
ED- Pulmonary Assessment Last Done: 03/12/24 00:12
Discharge Date and Time
Print Language: ESTONIAN
[2024-03-12] MEDS: LASIX 40 MG IV ×2 (02:54→15:54)
--- NOTE | 2024-03-12 04:07 | HPS.HSE ---
Family Physician
-
Family Physician: Mikayla Pal
Chief Complaint
-
SOB
History of Present Illness
Patient is an 88y F with PMH significant for paroxysmal A-Fib, chronic HFpEF and generalized anxiety who presents to ED complaining of SOB. Patient states that she took her BP this AM and the cuff informed her that she was in A-Fib. She was
recently hospitalized here at from 03/08 - 03/09 for A-Fib with RVR. She was started on IV Cardizem and converted to NSR the following day. Patient denies any chest pain or palpitations this AM. However, she does complain of shortness of breath.
Patient took her usual AM medications and notes that the A-Fib 'got better'. She continued to have SOB however. She called her Staff Technologist and was advised to present to the ED if her dyspnea persisted - which it did.
Patient was evaluated in the ED where she was noted to be afebrile and not hypoxemic.
Medical History
Past Medical History
Past Medical History: Reports Other
Additional Past Medical History:
Paroxysmal Atrial Fibrillation
Chronic HFpEF
Hypertension
ASD s/p Repair ()
COPD
Generalized Anxiety
Past Surgical History: Reports Other
Additional Past Surgical History:
PVI Ablation
T&A
x 2
ASD Repair ()
Social History
Tobacco: Non-smoker
Alcohol: None
Drug: None
Family History
Family History: Not pertinent
Allergies / Home Medications
Allergies reflects when Allergies were last updated in [facility] [employer].
Home Medications with original date entered in [facility] [employer] [facility] [employer]
Allergy/Medication List:
Allergies
Allergy/AdvReac Type Severity Reaction Status Date / Time
gluten Allergy Unknown Verified 03/11/24 21:12
nitrofurantoin Allergy Unknown Verified 03/11/24 21:12
[From Macrodantin]
Sulfa (Sulfonamide Allergy Unknown Verified 03/11/24 21:12
Antibiotics)
Home Medications
cholecalciferol (vitamin D3) 25 mcg (1,000 unit) capsule (Vitamin D3) 50 mcg PO DAILY Supplement 05/27/22
clonazepam 0.5 mg tablet 0.5 mg PO BID Mental Health/Anxiety 05/27/22
cyclosporine 0.05 % eye drops in a dropperette (Restasis) 1 drp BOTH EYES Q12 Eye condition 05/27/22
estradiol 0.01% (0.1 mg/gram) vaginal cream 1 applic vaginal TUTH Hormonal agent 05/27/22
magnesium oxide 500 mg PO DAILYPRN PRN leg cramps 05/27/22
propranolol 80 mg capsule,24 hr,extended release 80 mg PO HS Blood pressure/tremors 05/27/22
vit C 250 mg-vit E 90 mg-zinc 40 mg-copper 1 [id number]-apostg capsule (PreserVision AREDS-2) 1 tab PO BID Supplement 05/27/22
vitamin B complex 1 cap PO DAILY Supplement 05/27/22
Lactobacillus acidophilus 10 billion cell capsule (Probiotic) 10,000 mmu cells PO DAILY Gastrointestinal Issue 06/02/23
apixaban 5 mg tablet (Eliquis) 5 mg PO BID Blood Clot Prevention/Tx 11/16/23
dextran 70-hypromellose eye drops in a dropperette (Artificial Tears (PF) drops in a dropperette) 1 drp BOTH EYES QID Eye Condition 11/16/23
mirtazapine 30 mg tablet 30 mg PO HS Mental Health 11/16/23
Azo Female Probiotic 1 tab PO DAILY 03/08/24
furosemide 20 mg tablet 20 mg PO MOWEFR 03/08/24
diltiazem HCl 360 mg capsule,extended release 24 hr 360 mg PO DAILY #30 caps 03/09/24
Review of Systems
-
History Source: Patient
A 12 point ROS was completed and negative except as noted: Yes
Constitutional: Denies Fever or Chills
EENT: Denies Sore Throat
Respiratory: Reports Cough and Trouble Breathing; Denies Hemoptysis
Cardiac: Denies Chest Pain, Diaphoresis, Palpitations or Syncope
Abdomen/GI: Denies Abdominal Pain, Nausea, Vomiting or Diarrhea
: Denies Dysuria, Frequency or Flank Pain
Musculoskeletal: Denies Joint Pain or Edema
Neurological: Denies Dizzy or Headache
Psych: Denies Depression or Anxiety
Physical Exam
Vital Signs
Vital Signs
Temp Pulse Resp BP Pulse Ox
98.2 F 73 29 138/82 95
03/11/24 21:12 03/12/24 02:54 03/12/24 01:15 03/12/24 02:54 03/12/24 01:15
Physical Exam
General: Other (88y F resting comfortably / in no evident distress though she does state that she feels SOB.)
HEENT: Moist mucous membranes, PERRLA and Other (no appreciable JVD)
Respiratory: Other (BS decreased throughout. No wheezes / rales / rhonchi)
Cardiac: S1/S2 and Irregular Rhythm; No Murmur
GI: Soft, Non Tender, Non Distended and Normal Bowel Sounds
Musculoskeletal: No Clubbing, No Cyanosis and Other (Trace - 1+ edema b/l LEs.)
Neuro: AO x 3
Laboratory Results
-
03/11/24 21:24
03/11/24 21:24
Laboratory Results
Total Bilirubin 0.8 mg/dl (0.2-1.3) 03/11/24 21:24
AST 34 U/L (14-36) 03/11/24 21:24
ALT 12 U/L (0-35) 03/11/24 21:24
Alkaline Phosphatase 85 U/L (38-126) 03/11/24 21:24
Troponin I < 0.012 ng/ml 03/11/24 21:24
Impression/Plan
-
A/P: Patient is an 88y F with PMH significant for A-Fib, CHF and anxiety who presents to ED complaining of SOB throughout the day today.
Acute on Chronic HFpEF
Subjective Dyspnea secondary to the above
Left Pleural Effusion secondary to the above
- Admit for further evaluation and treatment.
- Patient with subjective dyspnea, mild LE edema, elevated ProBNP, mild hyponatremia and L effusion (though unchanged).
- IV Lasix given x 1 in the ED. Will continue daily for now.
- Follow I/Os, daily weights, etc.
- Echo was just completed last admission and was unremarkable with preserved EF and mild-moderate pulmonary hypertension.
- Follow for clinical improvement.
Paroxysmal Atrial Fibrillation
- In A-Fib with controlled rate at present.
- Patient without chest pain or palpitations - only knew she wa sin A-Fib due to BP cuff reading / alert.
- Continue current med regimen with holding parameters.
- Continue Eliquis for stroke risk reduction.
- Monitor on telemetry.
ENIO
Mild Hyponatremia
- SCr = 1.2 compared to prior / baseline of 0.9.
- Likely pre-renal due to CHF as noted above.
- Sodium also slightly low - consistent with degree of volume overload.
- Follow for changes with diuresis.
Left Pleural Effusion
- CXR with L effusion that is unchanged from recent visit.
- Appears fairly stable back to November of this year.
- ? reflects degree of chronic CHF.
- IV Lasix as noted above.
- Consider dx / tx thoracentesis if no improvement in symptoms / imaging.
Generalized Anxiety
- Stable. Continue mirtazapine / clonazepam.
COPD
- Unclear diagnosis as patient is on no medications / inhalers for this.
- No prior smoking history.
- No note of COPD in outpatient summary.
- No wheezing appreciated at present.
- Follow for any changes.
DVT Prophylaxis: On Eliquis
Code Status: Full
--- NOTE | 2024-03-12 06:31 | PTCARENOTE ---
Patient admitted from ED. Patient AAO x3, on 2LNC, in no acute distress. Patient oriented to room and call weiss within reach.
[2024-03-12] MEDS: KLONOPIN 0.5 MG PO ×2 (07:56→21:46)
[2024-03-12] MEDS: VITAMIN D3 (cholecalciferol) 50 MCG PO (07:56)
[2024-03-12] MEDS: ELIQUIS 5 MG PO ×2 (07:56→21:47)
[2024-03-12] MEDS: CARDIZEM CD 360 MG PO (09:00)
[2024-03-12 09:14] LABS: Blood Urea Nitrogen 20 mg/dl (7-17); Calcium 9.3 mg/dl (8.4-10.2); Carbon Dioxide 32 mmol/L (22-30); Chloride 96 mmol/L (98-107); Estimated Creatinine Clearance 30 ml/min; Glucose 105 mg/dl (70-99); Potassium 4.2 mmol/L (3.5-5.1); Sodium 139 mmol/L (135-145); eGFR 48.33
--- NOTE | 2024-03-12 10:45 | CON.CAR ---
Addendum entered and electronically signed by Larry Dumont MD 03/12/24 15:19:
88 yo female with paroxysmal A fib s/p PVI in 10/2023, on eliquis, recent admission for recurrent A fib (converted while on diltiazem drip), now returns with SOB. No chest pain. Exam with irregular rhythm, no murmurs, trace LE edema. Cr 1.1.
Suspected acute on chronic HFPEF. Continue IV laisx.
Paroxysmal A fib. Rhythm is SR with frequent PAC's, and also episodes of A fib. Continue propranolol and diltiazem.
Original Note:
Consultation
Consultation Request
Date/Time Consultation Requested: 03/12/2024 07:15
Date/Time Consultation Performed: 03/12/2024 10:45
Requesting Provider: Dr. Broussard
Performing Provider: MAY Weiss for Dr. Dumont
Reason for Consultation: Shortness of breath
Medical History
-
Chief Complaint: Palpitations
History of Present Illness:
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
COPD admitted with shortness of breath. She had a recent admission, arriving 03/08/2024 where she was found to be in atrial fibrillation without regular response. She was started on a diltiazem drip and converted to sinus rhythm. She was
discharged home 03/09/2024. She called the cardiology office and reported shortness of breath. Her atrial fibrillation had returned but rates were under 100 bpm. Her shortness of breath was at rest and she was referred to the emergency department
for evaluation. She received a dose of intravenous furosemide. Her shortness of breath has improved.
Past Medical History
Past Medical History: Arrhythmias (Atrial fibrillation ablation [11/09/2023, on apixaban]), CHF (Chronic HFpEF) and HTN
Past Surgical History: Cardiac (Atrial fibrillation ablation)
Social History
Tobacco: Non-Smoker
Alcohol: None
Drug: None
Personal:
Living: With Family
Employment: Retired
Family History
Family History: Reviewed & Not Pertinent
Allergies / Home Medications
Allergy/AdvReac Type Severity Reaction Status Date / Time
gluten Allergy Unknown Verified 03/11/24 21:12
nitrofurantoin Allergy Unknown Verified 03/11/24 21:12
[From Macrodantin]
Sulfa (Sulfonamide Allergy Unknown Verified 03/11/24 21:12
Antibiotics)
�Medication �Instructions �Recorded �Confirmed �Type
cholecalciferol (vitamin D3) 25 50 mcg PO DAILY Supplement 05/27/22 03/12/24 History
mcg (1,000 unit) capsule (Vitamin
D3)
clonazepam 0.5 mg tablet 0.5 mg PO BID Mental Health/Anxiety 05/27/22 03/12/24 History
cyclosporine 0.05 % eye drops in a 1 drp BOTH EYES Q12 Eye condition 05/27/22 03/12/24 History
dropperette (Restasis)
estradiol 0.01% (0.1 mg/gram) 1 applic vaginal TUTH Hormonal 05/27/22 03/12/24 History
vaginal cream agent
magnesium oxide 500 mg PO DAILYPRN PRN leg cramps 05/27/22 03/12/24 History
propranolol 80 mg capsule,24 80 mg PO HS Blood pressure/tremors 05/27/22 03/12/24 History
hr,extended release
vit C 250 mg-vit E 90 mg-zinc 40 1 tab PO BID Supplement 05/27/22 03/12/24 History
mg-copper 1 [id number]-ypawgl
capsule (PreserVision AREDS-2)
vitamin B complex 1 cap PO DAILY Supplement 05/27/22 03/12/24 History
Lactobacillus acidophilus 10 10,000 mmu cells PO DAILY 06/02/23 03/12/24 History
billion cell capsule (Probiotic) Gastrointestinal Issue
apixaban 5 mg tablet (Eliquis) 5 mg PO BID Blood Clot 11/16/23 03/12/24 History
Prevention/Tx
dextran 70-hypromellose eye drops 1 drp BOTH EYES QID Eye Condition 11/16/23 03/12/24 History
in a dropperette (Artificial Tears
(PF) drops in a dropperette)
mirtazapine 30 mg tablet 30 mg PO HS Mental Health 11/16/23 03/12/24 History
Azo Female Probiotic 1 tab PO DAILY 03/08/24 03/12/24 History
furosemide 20 mg tablet 20 mg PO MOWEFR 03/08/24 03/12/24 History
diltiazem HCl 360 mg 360 mg PO DAILY #30 caps 03/09/24 03/12/24 Rx
capsule,extended release 24 hr
Review of Systems
-
History Source: Patient
All other systems: Negative unless noted
Constitutional: No Symptoms
EENT: No Symptoms
Respiratory: Trouble Breathing
Cardiac: No Symptoms
Abdomen/GI: No Symptoms
: No Symptoms
Musculoskeletal: No Symptoms
Skin: No Symptoms
Endocrine: No Symptoms
Hematologic/Lymphatic: No Symptoms
Physical Exam
Vital Signs
Temp Pulse Resp BP Pulse Ox
97.3 F 85 16 136/75 100
03/12/24 07:15 03/12/24 07:15 03/12/24 07:15 03/12/24 07:15 03/12/24 07:15
Lab Results
03/11/24 21:24
03/12/24 08:11
Troponin I < 0.012 ng/ml 03/11/24 21:24
[id number]-Upaxtydmnyc Pept 5660 pg/ml 03/11/24 21:24
Physical Exam
General: Well Developed, Well Nourished, No Apparent Distress and Comfortable
HEENT: Normocephalic, Anicteric and Moist Mucous Membranes
Respiratory: Clear and Non Labored Respirations
Cardiac: S1/S2 and Irregular Rhythm; Negative Peripheral Edema
Breast: Deferred by me
GI: Soft, Non Tender, Non Distended and Normal Bowel Sounds
Rectal: Deferred by Provider
Genito-urinary: No Costovertebral Tender
Musculoskeletal: No Clubbing, No Cyanosis and No Edema
Skin: Warm and Dry
Neuro: AO x 3
Hematologic/Lymphatic: No Lymphadenopathy
Psych: Calm
Impression / Plan
-
Background: 88F with chronic HFpEF, ASD repair, and paroxysmal atrial fibrillation status post ablation (11/09/2023), with recent admission with RVR who presented back 36 hours later with shortness of breath.
Cardiac Nurse: Dr. Waters
HFpEF, acute
-Shortness of breath with highest documented proBNP of 5660
-Weight has been unchanged on her home scale
-Shortness of breath improved with furosemide, increase to BID
-Dry weight to be determined, please weigh patient daily
-Echocardiogram last admission as below
-History of UTIs with low creatinine clearance, would not initiate SGLT2
Paroxysmal atrial fibrillation
-Rate controlled on diltiazem 360 mg and propranolol 80 mg, some sinus rhythm with PACs on telemetry
-Antiarrhythmic therapy will be challenging with a CrCl of 30 (sotalol contraindicated, dofetilide max dose would be 125 mcg Q12H), amiodarone could be considered
-Oral Anticoagulation: Eliquis 5 mg twice daily, she denies missed doses and abnormal bleeding, if her weight continues to trend down, she will need reduced dosing as she is also 88 years old and will then be under 60 kg
-[id number]: score at least 4 (Heart failure, age 75 or more, female gender)
-Can consider outpatient cardiac monitoring to ensure rate control
Hyponatremia, resolved after furosemide, likely hypervolemic
Pulmonary hypertension, PASP 48 mmHg with a right atrial pressure of 3 mmHg on echo last week, achieve and maintain euvolemia
Prior ASD repair
Data:
TTE, 03/09/2024
Normal biventricular size and systolic function without regional wall motion
abnormality. Estimated LVEF 60-65%.
Mild concentric left ventricular hypertrophy.
Mild/moderate mitral regurgitation.
Mild/moderate tricuspid regurgitation. Moderately elevated PASP. Estimated
pulmonary artery pressure of 48 mmHg assuming a right atrial pressure of 3
mmHg.
Pleural effusion present.
History of ASD repair with no evidence of shunting by color flow Doppler.
Compared to 05/15/23: no significant change.
Data Reviewed
-
EKG: Report Reviewed by me (Atrial fibrillation, rate 91, inferior T wave abnormality)
Radiology: Report Reviewed by me (CXR: Small to moderate left pleural effusion which appears slightly increased from prior. Small right pleural effusion, unchanged.)
Medical Tests (Nuc Med, Echo etc): Report Reviewed by me (Echocardiogram as above)
Labs: Labs Reviewed by me
Old Records: Reviewed
--- NOTE | 2024-03-12 10:58 | W.PN.HOSP.TC ---
Today's Communication/Plan
-
Continue diuresis
Cardiology consult
Assessment / Plan
Assessment / Plan
Gen-AAOx3, NAD
HEENT-NC, AT, anicteric, clear oral mm
Neck-supple
CV-reg, no M, +S1/S2
Lungs-clear B/L
Abd-soft, NT, ND
Ext-no edema
Musculoskeletal-no cyanosis, clubbing
Skin-warm and dry
Neuro-grossly non-focal
Psych-calm, cooperative
Acute hypoxic respiratory insufficiency -suspect due to acute pulmonary edema, pleural effusions. Wean oxygen as able. Does not use oxygen at home.
Acute on chronic heart failure with preserved EF exacerbation -received IV Lasix around 3 AM today, hold further Lasix today and resume tomorrow. Urine output good. Clinically improving. Patient states her body weight has not changed since
discharge a few days ago. Prior to admission was on furosemide 20 mg 3 days a week. Anticipate discharge on daily Lasix.
BNP 5660.
Echocardiogram from 03/09/2024 shows LVEF 60 to 65%, mild/moderate MR, mild/moderate TR. Mild concentric LVH. PA pressure 48 mmHg.
Small/moderate left pleural effusion -likely due to heart failure. May need thoracentesis if no improvement with diuresis.
Paroxysmal atrial fibrillation -rate controlled on diltiazem. Continue Eliquis.
Hyponatremia -present on admission. Resolved.
ENIO -creatinine was 0.9 on 03/09, 1.2 on admission yesterday. 1.1 today. Suspect cardiorenal syndrome due to heart failure.
Generalized anxiety disorder -stable.
Chronic normocytic anemia -hemoglobin at baseline. Outpatient follow-up.
Chronic leukopenia -unclear etiology. Outpatient follow-up.
Celiac disease
Questionable diagnosis of COPD -not on inhalers. Denies smoking history.
Full code
Updated at the bedside.
Anticipated Discharge: 24 - 48 hours
Subjective/Interval History
-
Date of Service: March 12, 2024
Patient seen and examined. Feels better, less short of breath today. No complaints.
Objective Data
-
Labs:
Laboratory Results
03/12/24
08:11
Sodium 139
Potassium 4.2
Chloride 96 L
Carbon Dioxide 32 H
BUN 20 H
Creatinine 1.1 H
Glucose 105 H
Calcium 9.3
Vital Signs:
Vital Signs
Temp Pulse Resp BP Pulse Ox
97.3 F 85 16 136/75 100
03/12/24 07:15 03/12/24 07:15 03/12/24 07:15 03/12/24 07:15 03/12/24 07:15
I&O
03/11/24 03/12/24 03/13/24
06:59 06:59 06:59
Output Total 700 / 700
Balance -700 / -700
Review of Systems
-
History Source: Patient
All other systems: Reviewed and negative
[2024-03-12] MEDS: REFRESH EYE DROPS (PF) 1 DROPS OPHTH (18:31)
[2024-03-12] MEDS: INDERAL LA 80 MG PO (21:46)
[2024-03-12] MEDS: REMERON 30 MG PO (21:47)
[2024-03-13 03:41] VITALS: BP 131/73
[2024-03-13 06:00] VITALS: BMI 21.9
[2024-03-13 07:15] VITALS: BP 146/84
[2024-03-13] MEDS: CARDIZEM CD 360 MG PO (07:47)
[2024-03-13] MEDS: KLONOPIN 0.5 MG PO (07:47)
[2024-03-13] MEDS: REFRESH EYE DROPS (PF) 1 DROPS OPHTH ×2 (07:47→12:00)
[2024-03-13] MEDS: ELIQUIS 5 MG PO (07:47)
[2024-03-13] MEDS: VITAMIN D3 (cholecalciferol) 50 MCG PO (07:47)
[2024-03-13 08:24] LABS: Hematocrit 32.5 % (37.0-47.0); Hemoglobin 11.5 g/dL (12.0-16.0); Mean Corp Hgb Conc. 35.4 g/dL (33.0-37.0); Mean Corpuscular Hgb 30.6 pg (27.0-31.0); Mean Corpuscular Volume 86.4 fL (81.0-99.0); Platelet Count 196 10^3/uL (130-400); Red Blood Cell Count 3.76 10^6/uL (4.20-5.40); Red Cell Dist. Width 14.4 % (11.5-14.5); White Blood Cell Count 4.7 10^3/uL (4.8-10.8)
[2024-03-13 08:48] LABS: Blood Urea Nitrogen 26 mg/dl (7-17); Calcium 9.2 mg/dl (8.4-10.2); Carbon Dioxide 30 mmol/L (22-30); Chloride 95 mmol/L (98-107); Estimated Creatinine Clearance 27 ml/min; Glucose 105 mg/dl (70-99); Potassium 4.1 mmol/L (3.5-5.1); Sodium 137 mmol/L (135-145); eGFR 43.54
[2024-03-13] MEDS: LASIX 40 MG IV (08:51)
--- NOTE | 2024-03-13 10:05 | W.PN.HOSP.TC ---
Today's Communication/Plan
-
Continue diuresis
Await cardiology input
Reduce dose of Eliquis
Assessment / Plan
Assessment / Plan
Gen-AAOx3, NAD
HEENT-NC, AT, anicteric, clear oral mm
Neck-supple
CV-reg, no M, +S1/S2
Lungs-clear B/L
Abd-soft, NT, ND
Ext-no edema
Musculoskeletal-no cyanosis, clubbing
Skin-warm and dry
Neuro-grossly non-focal
Psych-calm, cooperative
Acute hypoxic respiratory insufficiency -suspect due to acute pulmonary edema, pleural effusions. Off oxygen now, stable on room air.
Acute on chronic heart failure with preserved EF exacerbation -shortness of breath resolved. Clinically improving, weight down 3 kg. Currently on IV Lasix 40 mg twice daily. Prior to admission was on furosemide 20 mg 3 days a week. Anticipate
discharge on daily Lasix.
BNP 5660.
Echocardiogram from 03/09/2024 shows LVEF 60 to 65%, mild/moderate MR, mild/moderate TR. Mild concentric LVH. PA pressure 48 mmHg.
Small/moderate left pleural effusion -likely due to heart failure. May need thoracentesis if no improvement with diuresis.
Paroxysmal atrial fibrillation -rate controlled on diltiazem. Continue Eliquis, reduced dose to 2.5 mg twice daily given age, weight, renal function.
Hyponatremia -present on admission. Resolved.
ENIO -cardiorenal syndrome suspected. Creatinine stable at 1.2.
Generalized anxiety disorder -stable.
Chronic normocytic anemia -hemoglobin at baseline. Outpatient follow-up.
Chronic leukopenia -unclear etiology. Outpatient follow-up.
Celiac disease
Questionable diagnosis of COPD -not on inhalers. Denies smoking history.
Full code
Updated at the bedside.
Anticipated Discharge: Within 24 hours
Subjective/Interval History
-
Date of Service: March 13, 2024
Patient seen and examined. Complaining of sleep disruption, loud roommate. Denies shortness of breath.
Objective Data
-
Labs:
Laboratory Results
03/13/24
06:53
WBC 4.7 L
Hgb 11.5 L
Hct 32.5 L
Plt Count 196
Sodium 137
Potassium 4.1
Chloride 95 L
Carbon Dioxide 30
BUN 26 H
Creatinine 1.2 H
Glucose 105 H
Calcium 9.2
Vital Signs:
Vital Signs
Temp Pulse Resp BP Pulse Ox
98 F 108 16 146/84 96
03/13/24 07:15 03/13/24 07:15 03/13/24 07:15 03/13/24 07:15 03/13/24 07:15
I&O
03/12/24 03/13/24 03/14/24
06:59 06:59 06:59
Intake Total 600 / 600
Output Total 700 / 700 1600 / 1600
Balance -700 / -700 -1000 / -1000
Review of Systems
-
History Source: Patient
All other systems: Reviewed and negative
--- NOTE | 2024-03-13 10:29 | W.PN.CD ---
Today's Communication / Plan
-
looks euvolemic at 57 kg: transition to lasix 40mg daily
eliquis now 2.5mg bid
discharge planning
Impression / Plan
-
Background: 88F with chronic HFpEF, ASD repair, and paroxysmal atrial fibrillation status post ablation (11/09/2023), with recent admission with [facility]VR who presented back 36 hours later with shortness of breath.
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 Waters
HFpEF, acute: improved s/o IV lasix
-Echocardiogram last admission as below
-History of UTIs with low creatinine clearance, would not initiate SGLT2 at his time
-looks euvolemic at 57 kg: transition to lasix 40mg daily
Paroxysmal atrial fibrillation
-rhythm is mostly sinus/PAC's, with brief A fib
-cont diltiazem 360 mg and propranolol 80 mg qHS
-Antiarrhythmic therapy will be challenging with a CrCl of 30 (sotalol contraindicated, dofetilide max dose would be 125 mcg Q12H), amiodarone could be considered if A fib recurs
-Oral Anticoagulation: eliquis now at 2.5mg bid, with weight under 60kg
-[id number]: score at least 4 (Heart failure, age 75 or more, female gender)
-Can consider outpatient cardiac monitoring to ensure rate control
Hyponatremia, resolved after furosemide, likely hypervolemic
Pulmonary hypertension, PASP 48 mmHg with a right atrial pressure of 3 mmHg on echo last week, achieve and maintain euvolemia
Prior ASD repair
Mild/mod MR and TR
TTE, 03/09/2024
Normal biventricular size and systolic function without regional wall motion
abnormality. Estimated LVEF 60-65%.
Mild concentric left ventricular hypertrophy.
Mild/moderate mitral regurgitation.
Mild/moderate tricuspid regurgitation. Moderately elevated PASP. Estimated
pulmonary artery pressure of 48 mmHg assuming a right atrial pressure of 3
mmHg.
Pleural effusion present.
History of ASD repair with no evidence of shunting by color flow Doppler.
Compared to 05/15/23: no significant change.
Physical Exam
Vital Signs/Labs
Vital Signs
Temp Pulse Resp BP Pulse Ox
98 F 108 16 146/84 96
03/13/24 07:15 03/13/24 07:15 03/13/24 07:15 03/13/24 07:15 03/13/24 07:15
03/12/24 03/13/24 03/14/24
06:59 06:59 06:59
Actual Weight 60 kg 56.954 kg
03/13/24 06:53
03/13/24 06:53
03/11/24
21:24
Ezn-B-Ztenujcqqzl Pept 5660
LAB Results
03/11/24
21:24
Troponin I < 0.012
Physical Exam
Constitutional: No acute distress and Comfortable
EENT: Moist mucous membranes
Cardiovascular: Rhythm & rate is regular, JVD pressure is normal, Systolic murmur absent and Pedal edema present (trace)
Respiratory: Respiratory effort normal and Lungs clear to auscul.
Neuro/Psych: AO x 3
Data Reviewed
-
Date of Service: March 13, 2024
EKG: Other (Tele: SR, PAC's)
Labs: Labs Reviewed by me
--- NOTE | 2024-03-13 10:44 | W.DS.TRANS ---
DC Summary - [employer]
-
Discharge Instructions:
Sleep Apnea Risk Low
Discharge Diagnosis/Procedures Acute heart failure exacerbation, left pleural
effusion
Diet Low Cholesterol,Low Fat
Activity As tolerated
Driving Restrictions As prior to admission
Bathing Restrictions None
Blood Work BMP in 1 week with your primary care doctor
Instructions:
Stand-Alone Forms:
Changes to Home Medications: Yes
Discharge Medications:
DC Medications w/original date entered in [facility]
cholecalciferol (vitamin D3) 25 mcg (1,000 unit) capsule (Vitamin D3) 50 mcg PO DAILY Supplement 05/27/22
clonazepam 0.5 mg tablet 0.5 mg PO BID Mental Health/Anxiety 05/27/22
cyclosporine 0.05 % eye drops in a dropperette (Restasis) 1 drp BOTH EYES Q12 Eye condition 05/27/22
estradiol 0.01% (0.1 mg/gram) vaginal cream 1 applic vaginal TUTH Hormonal agent 05/27/22
magnesium oxide 500 mg PO DAILYPRN PRN leg cramps 05/27/22
propranolol 80 mg capsule,24 hr,extended release 80 mg PO HS Blood pressure/tremors 05/27/22
vit C 250 mg-vit E 90 mg-zinc 40 mg-copper 1 qa-pvadfr-xdtymp capsule (PreserVision AREDS-2) 1 tab PO BID Supplement 05/27/22
vitamin B complex 1 cap PO DAILY Supplement 05/27/22
Lactobacillus acidophilus 10 billion cell capsule (Probiotic) 10,000 mmu cells PO DAILY Gastrointestinal Issue 06/02/23
dextran 70-hypromellose eye drops in a dropperette (Artificial Tears (PF) drops in a dropperette) 1 drp BOTH EYES QID Eye Condition 11/16/23
mirtazapine 30 mg tablet 30 mg PO HS Mental Health 11/16/23
Azo Female Probiotic 1 tab PO DAILY 03/08/24
diltiazem HCl 360 mg capsule,extended release 24 hr 360 mg PO DAILY #30 caps 03/09/24
apixaban 2.5 mg tablet (Eliquis) 2.5 mg PO BID #60 tabs 03/13/24
furosemide 40 mg tablet 40 mg PO DAILY #30 tabs 03/13/24
Home Medication Changes
Furosemide dose increased to 40 mg daily.
Eliquis dose reduced to 2.5 mg twice daily.
Pending Results: No
[2024-03-13 11:10] VITALS: BP 115/52
--- NOTE | 2024-03-13 12:12 | CM ---
Patient seen at bedside with patient . Patient states that she lives with and he is her primary caregiver. patient states that she has macular degereration- wet type and CM completed IMM and signed by ; form placed on chart.
Patient states that she has no needs at home and her PCP is Dr. Camargo and uses the [facility] for pharmacy needs. Patient stated that she had [facility] in the past and would like them to come again. CM requested consult for [facility] and will send referral.
Patient plan is for transportation home. CM will continue to follow for discharge planning needs.
Plan; home with [facility] requested for [facility].
== END 2024-03-13 13:12 | disposition home health service (06) | DRG 291 ==
LOC: 4 EAST ACU 05:00
PROVIDERS: Student in an Organized Health Care Education/Training Program; ADMITTING PHYSICIAN Hospitalist; ATTENDING PHYSICIAN Hospitalist; CONSULT PHYSICIAN Internal Medicine; EMERGENCY PHYSICIAN Emergency Medicine; FAMILY PHYSICIAN Internal Medicine
DX: I11.0 Hypertensive heart disease with heart failure (principal); I50.33 Acute on chronic diastolic (congestive) heart failure; E87.1 Hypo-osmolality and hyponatremia; N17.9 Acute kidney failure, unspecified; I48.0 Paroxysmal atrial fibrillation; R09.02 Hypoxemia; R06.89 Other abnormalities of breathing; Z79.01 Long term (current) use of anticoagulants
CPT/HCPCS: 71046; 80048; 80053; 83880; 84484; 85025; 85027; 93005; 97116; 97163; 97166; 99285

== ENCOUNTER 2024-04-24 23:21 | Emergency (ER) | payer MEDICARE, OTHER, SELFPAY ==
[2024-04-24 23:33] VITALS: BP 146/101
[2024-04-24 23:48] VITALS: BMI 23.4
[2024-04-24 23:53] VITALS: BP 128/83
[2024-04-25] VITALS (26 sets, daily range): BP systolic 99–134; BP diastolic 49–76
[2024-04-25 00:03] LABS: % Basophils 1.3 % (0-2); % Eosinophils 2.7 % (0-6); % Immature Granulocytes 0.4 % (0-0.5); % Lymphocytes 28.4 % (20.5-51.1); % Neutrophils 54.2 % (42.2-75.2); Absolute Basophils 0.1 10^3/uL (0-0.2); Absolute Eosinophils 0.2 10^3/uL (0-0.7); Absolute Lymphocytes 1.6 10^3/uL (1.2-3.4); Absolute Monocytes 0.7 10^3/uL (0.1-0.6); Hematocrit 30.5 % (37.0-47.0); Mean Corp Hgb Conc. 36.1 g/dL (33.0-37.0); Mean Corpuscular Hgb 30.5 pg (27.0-31.0); Mean Corpuscular Volume 84.5 fL (81.0-99.0); Mean Platelet Volume 8.6 fL (7.4-10.4); Nucleated Red Blood Cells % 0 %; Platelet Count 202 10^3/uL (130-400); Red Blood Cell Count 3.61 10^6/uL (4.20-5.40); Red Cell Dist. Width 14.7 % (11.5-14.5); White Blood Cell Count 5.5 10^3/uL (4.8-10.8)
--- NOTE | 2024-04-25 00:10 | ED.GENMED ---
History of Present Illness
<JONEL Tan - Last Filed: 04/25/24 05:06>
General
Chief Complaint: Chest Pain
Source: patient and significant other
Exam Limitations: none
Time Seen by Provider: 04/24/24 23:54
Nursing documentation reviewed up to this point in time: agreed with
History of Present Illness
History of Present Illness:
Patient is a 88yo F w/ PMH of a fib who presents w/ chest pressure x2hrs. She states she is usually SOB for a few minutes when she lays down at night, but tonight she felt chest pressure when laying down. Reports it is a small amount of pressure and
denies pain & SOB. Tried propping herself up w/ more pillows which did not help. Called PCP and was told to go to ER. Her believes she is in a fib every morning since her HR is >100 which usually resolves by 2pm when HR is high 60s. Admits
he did not check her HR mid day so she may have been in a fib all day. Denies missing any med doses. Notes that her dry weight was up on Thursday so PCP instructed them to double Lasix for 2 days which brought weight down. Pt admits to developing some
SOB since arriving to hospital.
Past History
<JONEL Tan - Last Filed: 04/25/24 05:06>
Past History
ED Past Medical History: Arrthythmia (Atrial fib), CHF, HTN, Valvular disease, Psychiatric (Anxiety, depression. ) and Other (atrial septal defect. UTI, Macular degeneration. Rosacea, )
ED Past Surgical History: Cardiac (cardiac ablation), (X 2) and Tonsilectomy
Social History
Tobacco: Non-smoker
Alcohol: None
Drug: None
Personal:
Living: with family
Review of Systems
<JONEL Tan - Last Filed: 04/25/24 05:06>
Review of Systems
Constitutional: Denies fever, fatigue or chills
EENT: Denies sore throat or runny nose
Respiratory: Reports trouble breathing; Denies cough
Cardiac: Reports chest pain; Denies diaphoresis, palpitations or syncope
ABD/GI: Denies abdominal pain, nausea, vomiting, diarrhea or constipated
Musculoskeletal: Denies edema
Neurological: Denies dizzy, headache, weakness or numbness
Phy Exam
<JONEL Tan - Last Filed: 04/25/24 05:06>
General Physical Exam
General Presentation: no apparent distress
General age: appears stated age
General Skin: warm and dry
General Habitus: elderly
General Mental: alert
Cardiovascular Exam
Cardiovascular Exam: no edema and irregularly irregular
Pulmonary Exam
Pulmonary Exam: lungs clear and no respiratory distress
Neurological Exam
Neurological Exam: alert, oriented x3 and speech normal
Musculoskeletal Exam
Musculoskeletal Exam: no edema
Scores
<JONEL Tan - Last Filed: 04/25/24 05:06>
Heart Score for Chest Pain Patients
STEMI patient?: No
History: Slightly or Non-Suspicious
ECG: Normal
Age: >/= 65 years
Risk Factors: 1 or 2 Risk Factors
Troponin: </= Normal Limit
Heart Score for Chest Pain Patients: 3
Heart Score Risk: 2.5% MACE over next 6 weeks
Course
<JONEL Tan - Last Filed: 04/25/24 05:06>
Orders/Labs/Results
Orders:
Orders
04/24/24 23:23
Electrocardiogram (*1) Urgent
Reason for Study: Chest Pain
EKG- Treatment ONCE
04/24/24 23:52
Complete Blood Count/With Diff Urgent
Comprehensive Metabolic Panel Urgent
NT-proBNP Urgent
Comment: ADD ON
Troponin I Urgent
04/25/24 00:25
CXR2 [CR Chest - 2 Views ] Urgent
Comment:
Reason For Exam: SOB
04/25/24 00:46
Add On- LAB Urgent
Comments:: troponin sent earlier
Tests Added?: Pro BNP
04/25/24 01:02
Diltiazem HCl [Cardizem] 15 mg IV NOW STA
04/25/24 02:14
EKG [Electrocardiogram (*1)] Urgent
Reason for Study: Chest Pain
04/25/24 02:45
Diltiazem 125 mg/125 ml Nss [Cardizem] 125 mg in 125 ml IV PER PROTOCOL
Initial dose in mg/hr, then titrate:: 5
Titrate to keep:: Heart rate 80-100 bpm
Titrate by mg/hr:: 5 mg/hr
Frequency of titrations (minutes):: 15
Maximum dose in mg/hr:: 15
04/25/24 03:52
Electrocardiogram (*1) Urgent
Reason for Study: Palpitations
EKG- Treatment ONCE
Abnormal Lab Results
04/24/24
23:52
RBC 3.61 L 10^6/uL
(4.20-5.40)
Hgb 11.0 L g/dL
(12.0-16.0)
Hct 30.5 L %
(37.0-47.0)
RDW 14.7 H %
(11.5-14.5)
Absolute Monos (auto) 0.7 H 10^3/uL
(0.1-0.6)
Monocytes % 13.0 H %
(1.7-9.3)
Sodium 133 L mmol/L
(135-145)
Chloride 93 L mmol/L
(98-107)
BUN 30 H mg/dl
(7-17)
Creatinine 1.3 H mg/dL
(0.6-1.0)
Glucose 121 H mg/dl
(70-99)
04/24/24 23:52
04/24/24 23:52
Vital Signs
Initial and Last Documented VS:
Initial Vital Signs
Temp Pulse Resp BP Pulse Ox
98.2 F 110 28 146/101 100
04/24/24 23:33 04/24/24 23:33 04/24/24 23:33 04/24/24 23:33 04/24/24 23:33
Last Documented Vital Signs
Temp Pulse Resp BP Pulse Ox
98.2 F 57 21 110/56 95
04/24/24 23:33 04/25/24 04:50 04/25/24 04:50 04/25/24 04:50 04/25/24 04:50
<Trip Huston, DO - Last Filed: 04/25/24 05:01>
Orders/Labs/Results
Orders:
Orders
04/24/24 23:23
Electrocardiogram (*1) Urgent
Reason for Study: Chest Pain
EKG- Treatment ONCE
04/24/24 23:52
Complete Blood Count/With Diff Urgent
Comprehensive Metabolic Panel Urgent
NT-proBNP Urgent
Comment: ADD ON
Troponin I Urgent
04/25/24 00:25
CXR2 [CR Chest - 2 Views ] Urgent
Comment:
Reason For Exam: SOB
04/25/24 00:46
Add On- LAB Urgent
Comments:: troponin sent earlier
Tests Added?: Pro BNP
04/25/24 01:02
Diltiazem HCl [Cardizem] 15 mg IV NOW STA
04/25/24 02:14
EKG [Electrocardiogram (*1)] Urgent
Reason for Study: Chest Pain
04/25/24 02:45
Diltiazem 125 mg/125 ml Nss [Cardizem] 125 mg in 125 ml IV PER PROTOCOL
Initial dose in mg/hr, then titrate:: 5
Titrate to keep:: Heart rate 80-100 bpm
Titrate by mg/hr:: 5 mg/hr
Frequency of titrations (minutes):: 15
Maximum dose in mg/hr:: 15
04/25/24 03:52
Electrocardiogram (*1) Urgent
Reason for Study: Palpitations
EKG- Treatment ONCE
Abnormal Lab Results
04/24/24
23:52
RBC 3.61 L 10^6/uL
(4.20-5.40)
Hgb 11.0 L g/dL
(12.0-16.0)
Hct 30.5 L %
(37.0-47.0)
RDW 14.7 H %
(11.5-14.5)
Absolute Monos (auto) 0.7 H 10^3/uL
(0.1-0.6)
Monocytes % 13.0 H %
(1.7-9.3)
Sodium 133 L mmol/L
(135-145)
Chloride 93 L mmol/L
(98-107)
BUN 30 H mg/dl
(7-17)
Creatinine 1.3 H mg/dL
(0.6-1.0)
Glucose 121 H mg/dl
(70-99)
04/24/24 23:52
04/24/24 23:52
Vital Signs
Initial and Last Documented VS:
Initial Vital Signs
Temp Pulse Resp BP Pulse Ox
98.2 F 110 28 146/101 100
04/24/24 23:33 04/24/24 23:33 04/24/24 23:33 04/24/24 23:33 04/24/24 23:33
Last Documented Vital Signs
Temp Pulse Resp BP Pulse Ox
98.2 F 57 21 110/56 95
04/24/24 23:33 04/25/24 04:50 04/25/24 04:50 04/25/24 04:50 04/25/24 04:50
<JONEL Tan - Last Filed: 04/25/24 05:06>
MDM/Problems Addressed
Differential Diagnosis Includes:
a fib, acute on chronic CHF, [place]
<JONEL Tan - Last Filed: 04/25/24 05:06>
*Critical Care Note
Total Time (30-74mins, 75-104mins- exclusive of procedures): Not Applicable
<JONEL Tan - Last Filed: 04/25/24 05:06>
Update Note
Update Note:
04/25/2024 4:46 AM - Patient states she is feeling better. Denies chest pain/pressure, SOB, nausea. When asked how she feels her reply is 'I feel like I am ready to go home and go to bed'.
<Trip Huston DO - Last Filed: 04/25/24 05:01>
Update Note
Update Note:
04/25/2024 4:46 AM - Patient states she is feeling better. Denies chest pain/pressure, SOB, nausea. When asked how she feels her reply is 'I feel like I am ready to go home and go to bed'.
04/25/2024 0458 AM back in to see the patient. She is resting comfortably and wishes to be discharged home. Will follow-up with cardiology
ED Attending Note
<JONEL Tan - Last Filed: 04/25/24 05:06>
-
Portions of this chart may have been created with voice recognition software.� Occasional wrong word or��sound alike� substitutions may have occurred due to the inherent limitations of voice recognition software.
<Trip Huston DO - Last Filed: 04/25/24 05:01>
ED Attending Note
Patient seen and examined by attending physician: Yes
I performed the substantive portion of visit, reviewed & personally made and approve the management plan that is documented in note by myself or CURTIS.: Yes
ED Attending Note:
Pleasant 88-year-old female with a history of paroxysmal atrial fibrillation that follows with Dr. Waters. She presents to the emergency department this evening with chest pressure and palpitations that been present for the last 2 hours. Patient
is maintained on diltiazem and Eliquis. She reports that she has not missed a dose. Tonight, she felt palpitations, shortness of breath and chest heaviness so she came into the emergency department for evaluation. Patient states that having
paroxysmal atrial fibrillation, she is typically in and out of A-fib. She does take diltiazem to control her symptoms. She states that she has been cardioverted twice but Dr. Waters suggested she not get cardioverted again. Patient was seen in
conjunction with the PA student. I have reviewed and agree with the history and treatment plan presented. On my independent physical exam, patient is awake, alert, and oriented x3, minimal acute distress.
Discharge Plan
Departure
Patient Disposition: Home (Routine Discharge)
Date of Disposition: 04/25/24
Time of Disposition: 04:57
Patient with high blood pressure during this ER visit?: Yes
Condition: Good
Discharge Problem:
Atrial fibrillation, controlled, Chest pressure
Instructions: Atrial fibrillation
Prescriptions:
No Action
clonazepam 0.5 mg tablet
0.5 mg PO BID
Patient Comments:
03/08/2024: last filled 03/07/24, [facility]
propranolol 80 mg capsule,extended release 24hr
80 mg PO HS
magnesium oxide 500 mg Tablet
500 mg PO DAILYPRN PRN (Reason: leg cramps)
estradiol 0.01 % (0.1 mg/gram) cream
1 applic VAGINAL TUTH
vitamin B complex Capsule
1 cap PO DAILY
cholecalciferol (vitamin D3) [Vitamin D3] 25 mcg (1,000 unit) Capsule
50 mcg PO DAILY
cyclosporine [Restasis] 0.05 % Dropperette
1 drp BOTH EYES Q12
PreserVision AREDS-2 250-90-40-1 mg Capsule
1 tab PO BID
Probiotic 10 billion cell Capsule
10,000 mmu cells PO DAILY
mirtazapine 30 mg tablet
30 mg PO HS
Artificial Tears (PF) Dropperette
1 drp BOTH EYES QID
Azo Female Probiotic
1 tab PO DAILY
diltiazem HCl 360 mg capsule,extended release 24hr
360 mg PO DAILY Qty: 30 0RF
Eliquis 2.5 mg Tablet
2.5 mg PO BID Qty: 60 0RF
furosemide 40 mg Tablet
40 mg PO DAILY Qty: 30 0RF
Referrals:
Willy Waters MD [Active] -
Mikayla Pal MD [Family Provider] -
Activity Restrictions/Additional Instructions:
It was a pleasure meeting you and taking part in your care. We hope for your continued healing and wellness.
Please read discharge instructions in their entirety. However, they are for general education and may not describe your exact diagnosis at discharge. Information on your ER visit and medical conditions were discussed with you along with appropriate
follow up information...
If indicated, please take your medications as instructed and indicated on discharge paperwork.
Please schedule a follow up appointment as directed. Call to schedule an appointment
Please return to the emergency department with ANY change in, persisting, or worsening of symptoms. If any of your symptoms do not improve, or persist, or become more severe within 6-12 hours, please return to the emergency department for further
care.
Please return to the emergency department if you develop a headache, neck pain/stiffness, fever greater than 100.4F, chest pain, shortness of breath, persistent nausea, vomiting, slurred speech, difficulty walking, numbness/tingling, weakness, signs
of infection or any other symptoms that are worrisome to you.
If you have any questions or concerns please do not hesitate to call the Hospital at or E-mail me directly at [email or web address]
Interventions
Interventions:
*Risk Screen - Suicide Last Done: 04/24/24 23:33
*General Assessment Last Done: 04/24/24 23:33
*Neglect/Abuse Screening Last Done: 04/24/24 23:33
ED- Fall Risk Assessment Last Done: 04/24/24 23:59
*ED COVID-19 Vaccine History Last Done: 04/24/24 23:59
ED- Cardiac Assessment Last Done: 04/24/24 23:56
Discharge Date and Time
Print Language: [id number]
[2024-04-25 00:15] LABS: ALT (SGPT) 11 U/L (0-35); AST (SGOT) 26 U/L (14-36); Albumin 4.2 g/dl (3.5-5.0); Alkaline Phosphatase 69 U/L (38-126); Blood Urea Nitrogen 30 mg/dl (7-17); Calcium 9.6 mg/dl (8.4-10.2); Carbon Dioxide 29 mmol/L (22-30); Chloride 93 mmol/L (98-107); Estimated Creatinine Clearance 25 ml/min; Glucose 121 mg/dl (70-99); Potassium 4.2 mmol/L (3.5-5.1); Sodium 133 mmol/L (135-145); Total Bilirubin 0.5 mg/dl (0.2-1.3); Total Protein 7.5 g/dl (6.3-8.2); eGFR 39.55
[2024-04-25 00:27] LABS: Troponin I < 0.012 ng/ml
[2024-04-25] MEDS: CARDIZEM 15 MG IV (01:06)
[2024-04-25 01:57] LABS: NT-proBNP 3670 pg/ml
[2024-04-25] MEDS: CARDIZEM 125 IV (02:47)
== END 2024-04-25 05:13 | disposition home or self-care (01) ==
LOC: EMR 23:21
PROVIDERS: Emergency Medicine; EMERGENCY PHYSICIAN Student in an Organized Health Care Education/Training Program; FAMILY PHYSICIAN Internal Medicine
DX: R07.89 Other chest pain (principal); I48.91 Unspecified atrial fibrillation; I11.0 Hypertensive heart disease with heart failure; I50.9 Heart failure, unspecified; I38 Endocarditis, valve unspecified; F41.8 Other specified anxiety disorders; L71.9 Rosacea, unspecified; Z87.440 Personal history of urinary (tract) infections
CPT/HCPCS: 99283; 96374; 96376; 71046; 80053; 83880; 84484; 85025; 93005

== ENCOUNTER → 2024-05-09 09:20 | Outpatient (REF) | payer MEDICARE, OTHER, SELFPAY | LOC: RCS 09:20 | PROVIDERS: ATTENDING PHYSICIAN Internal Medicine Cardiovascular Disease; FAMILY PHYSICIAN Internal Medicine | DX: I48.19 Other persistent atrial fibrillation (principal); R06.02 Shortness of breath | CPT/HCPCS: 93225; 93226 ==

== ENCOUNTER 2024-05-14 10:42 | Emergency (ER) | payer MEDICARE, OTHER, SELFPAY ==
[2024-05-14 10:49] VITALS: BP 132/59
[2024-05-14 11:17] VITALS: BMI 22.0
--- NOTE | 2024-05-14 11:23 | ED.GENMED ---
History of Present Illness
General
Chief Complaint: Breathing Problem
Source: patient, records and spouse
Exam Limitations: none
Time Seen by Provider: 05/14/24 11:06
Nursing documentation reviewed up to this point in time: agreed with
History of Present Illness
History of Present Illness:
88 yo female here for worsening SOB, H/o CHFpEF, paroxysmal Afib on Eliquis, had cardioversion x 2, then ablation 10/2023 and has been in and out of Afib since. Chronic SOB. Has been working closely with [facility] Dr. Waters for CHF and Lasix
adjustment. Last adjustment was 05/[address] Mcarthur saw her and upped her Lasix 20 mg daily to 40 mg on Thu and . She has been doing this and has been getting gradually more SOB. Feels nausea but no vomiting. Denies chest pain.
Her dry weight is 125 and she was 128.4 today per .
Holter monitored 05/09 and . Pt unaware of results.
Past History
Past History
ED Past Medical History: Arrthythmia (Atrial fib), CHF, HTN, Valvular disease, Psychiatric (Anxiety, depression. ) and Other (atrial septal defect. UTI, Macular degeneration. Rosacea, )
ED Past Surgical History: Cardiac (cardiac ablation), (X 2) and Tonsilectomy
Social History
Tobacco: Non-smoker
Alcohol: None
Drug: None
Personal:
Living: with family
Review of Systems
Review of Systems
Allergies reviewed?: Yes
All Other Systems: ROS reviewed and negative except as documented in HPI and ROS
Constitutional: Reports weight gain (3.2 lb gain past 10 days) and fatigue; Denies fever
Respiratory: Reports trouble breathing; Denies cough
Cardiac: Denies chest pain
ABD/GI: Reports nausea and constipated; Denies abdominal pain, vomiting or diarrhea
: Denies dysuria, difficulty voiding or urgency
Musculoskeletal: Denies edema
Skin: Reports no symptoms
Neurological: Reports no symptoms
Phy Exam
Physical Exam
Physical Exam:
GENERAL: No acute distress. A&Ox3.
CONSTITUTIONAL: Afebrile.
EYES: clear, conjunctivae normal
ENMT: moist mucus membranes, Pharynx nl
RESPIRATORY: Regular respirations, mildly labored, tachypneic RR 26-30, lungs w diminished sounds, fine scattered crackles throughout. Pulse ox 96% RA
CARDIOVASCULAR: Regular rate and rhythm, no murmurs, no rubs.
GI: Soft, nontender, normal BS
MUSCULOSKELETAL: Moves with ease. Well perfused. No edema
SKIN: Warm, dry, pink
PSYCH: Normal mood and affect. Well kept, interactive and appropriate
NEUROLOGIC: Awake, alert and oriented. No focal neurological deficits
Scores
Heart Failure Risk
Heart Failure Risk Score: Yes
History of Stroke or TIA: No
History of intubation for respiratory distress: No
Heart rate on ED arrival >/= 110: No
SaO2 <90% on arrival on room air: No
HR >/=110 during 3min walk test (or too ill to perform test): Yes
ECG has acute ischemic changes: No
Urea >/=12mmol/L (BUN 33.6mg/dL): No
Serum CO2>/=35mmol/L: No
Troponin I or T elevated to ID Level (0.4mg/dL): No
NT-proBNP >/=5,000ng/L (5,000pg/ml): No
HF Risk Score: 2
Admission Status: MEDIUM RISK 9.2% Consider observation or discharge to home with homecare & f/u visit to PCP/[facility] Registered Nurse, or SNF for treatment
Course
Orders/Labs/Results
Orders:
Orders
05/14/24 10:43
Electrocardiogram (*1) Urgent
Reason for Study: Shortness of Breath
EKG- Treatment ONCE
05/14/24 11:16
Chest [CR Chest - 2 Views ] Urgent
Comment:
Reason For Exam: SOB
05/14/24 11:19
BNP [NT-proBNP] Urgent
CBC/With Diff [Complete Blood Count/With Diff] Urgent
CMP [Comprehensive Metabolic Panel] Urgent
Troponin I Urgent
05/14/24 12:22
Furosemide [Lasix] 40 mg IV NOW STA
Abnormal Lab Results
05/14/24
11:19
WBC 4.1 L 10^3/uL
(4.8-10.8)
RBC 3.86 L 10^6/uL
(4.20-5.40)
Hgb 11.9 L g/dL
(12.0-16.0)
Hct 34.4 L %
(37.0-47.0)
RDW 15.1 H %
(11.5-14.5)
Absolute Lymphs (auto) 1.1 L 10^3/uL
(1.2-3.4)
Monocytes % 11.4 H %
(1.7-9.3)
Sodium 133 L mmol/L
(135-145)
Chloride 94 L mmol/L
(98-107)
Carbon Dioxide 31 H mmol/L
(22-30)
Creatinine 1.1 H mg/dL
(0.6-1.0)
Glucose 151 H mg/dl
(70-99)
05/14/24 11:19
05/14/24 11:19
Vital Signs
Initial and Last Documented VS:
Initial Vital Signs
Temp Pulse Resp BP Pulse Ox
98.0 F 71 20 132/59 96
05/14/24 10:49 05/14/24 10:49 05/14/24 10:49 05/14/24 10:49 05/14/24 10:49
Last Documented Vital Signs
Temp Pulse Resp BP Pulse Ox
98.0 F 66 30 135/72 95
05/14/24 10:49 05/14/24 13:00 05/14/24 13:00 05/14/24 12:09 05/14/24 13:00
MDM/Problems Addressed
MDM/Problems Addressed:
88 yo female with h/o CHF, Afib on Eliquis, had cardioversion x 2, then ablation 10/2023 and has been in and out of Afib since. Chronic SOB. Has been working closely with [facility] Dr. Waters for CHF and Lasix adjustment. Last adjustment was
05/[address] Mcarthur saw her and upped her Lasix 20 mg daily to 40 mg on Thu and . She has been doing this and has been getting gradually more SOB. Feels nausea but no vomiting. Denies chest pain.
Her dry weight is 125 and she was 128.4 today per .
Holter monitored 05/09 and . Pt unaware of results.
EKG: NSR with 1st degree block
Holter monitor result: CONCLUSION:
100% AFib, Av 73 bpm, range 64-96 bpm.
No significant bradycardia.
No symptoms reported.
Afebrile, tachypneic, pulse ox 96% RA O2 2L NC placed, RR 28, lungs sounds diminished with fine scattered crackles throughout.
11:45 AM:
CBC with no clinically significant abnormality CMP
CMP with no clinically significant abnormality
Troponin normal
BNP: 2350 improved from 3670 04/24/24
Chest x-ray radiology report read: IMPRESSION:
Slightly increased size of the moderate left pleural effusion with adjacent atelectasis. There is a small right-sided pleural effusion which has also slightly increased in size from prior.
Consulted Cardiology Dr. Dumont who agrees IV Lasix, up daily Lasix to 40 mg daily and f/u with Dr. Waters Thursday (2 days)
Pt and are happy with this plan.
Ambulated to multiple times to urinate.
Ambulated up and down hallway pulse ox of 95% RA maintained.
Stable for discharge to care of .
*Pulse Oximetry
Patient hypoxic: no
Comment: 96% RA
*EKG
EKG Intrepretation Date: 05/14/24
Interpretation: abnormal
Heart Rate: 68
Rate: normal
Rhythm: sinus
[place]: normal axis
Interval: first degree heart block
QRS Pattern: normal QRS
Ischemia: no ischemia
*Critical Care Note
Total Time (30-74mins, 75-104mins- exclusive of procedures): Not Applicable
ED Attending Note
-
Portions of this chart may have been created with voice recognition software.� Occasional wrong word or��sound alike� substitutions may have occurred due to the inherent limitations of voice recognition software.
Discharge Plan
Departure
Patient Disposition: Home (Routine Discharge)
Date of Disposition: 05/14/24
Time of Disposition: 13:43
Patient with high blood pressure during this ER visit?: No
Condition: Fair
Discharge Problem:
Bilateral pleural effusion, Fluid overload
Instructions: *CBC Heart Failure Instructions
Prescriptions:
No Action
clonazepam 0.5 mg tablet
0.5 mg PO BID
Patient Comments:
03/08/2024: last filled 03/07/24, 60 tabs for 30 days from [facility]
propranolol 80 mg capsule,extended release 24hr
80 mg PO HS
magnesium oxide 500 mg Tablet
500 mg PO DAILYPRN PRN (Reason: leg cramps)
estradiol 0.01 % (0.1 mg/gram) cream
1 applic VAGINAL TUTH
vitamin B complex Capsule
1 cap PO DAILY
cholecalciferol (vitamin D3) [Vitamin D3] 25 mcg (1,000 unit) Capsule
50 mcg PO DAILY
cyclosporine [Restasis] 0.05 % Dropperette
1 drp BOTH EYES Q12
PreserVision AREDS-2 250-90-40-1 mg Capsule
1 tab PO BID
Probiotic 10 billion cell Capsule
10,000 mmu cells PO DAILY
mirtazapine 30 mg tablet
30 mg PO HS
Artificial Tears (PF) Dropperette
1 drp BOTH EYES QID
Azo Female Probiotic
1 tab PO DAILY
diltiazem HCl 360 mg capsule,extended release 24hr
360 mg PO DAILY Qty: 30 0RF
Eliquis 2.5 mg Tablet
2.5 mg PO BID Qty: 60 0RF
furosemide 40 mg Tablet
40 mg PO DAILY Qty: 30 0RF
Referrals:
Willy Waters MD [Active] - Call in 1-3 days for appt
Mikayla Pal MD [Family Provider] -
Activity Restrictions/Additional Instructions:
As we discussed, increase your daily Lasix to 40 mg a day
Call Dr. Waters's office Thursday morning and inform of today's visit.
Return here immediately for worse trouble breathing, chest pains or feeling sicker in any way
Interventions
Interventions:
*Risk Screen - Suicide Last Done: 05/14/24 10:49
*Neglect/Abuse Screening Last Done: 05/14/24 10:49
ED- Fall Risk Assessment Last Done: 05/14/24 11:26
*Nursing Disposition Last Done: 05/14/24 14:55
ED- Cardiac Assessment Last Done: 05/14/24 11:26
ED- Pulmonary Assessment Last Done: 05/14/24 11:26
Discharge Date and Time
Discharge Date/Time: 05/14/24 14:56
Print Language: CITIZEN [place]
[2024-05-14 11:28] LABS: % Basophils 1.2 % (0-2); % Eosinophils 2.7 % (0-6); % Immature Granulocytes 0.2 % (0-0.5); % Lymphocytes 26.8 % (20.5-51.1); % Monocytes 11.4 % (1.7-9.3); % Neutrophils 57.7 % (42.2-75.2); Absolute Basophils 0.1 10^3/uL (0-0.2); Absolute Eosinophils 0.1 10^3/uL (0-0.7); Absolute Lymphocytes 1.1 10^3/uL (1.2-3.4); Absolute Monocytes 0.5 10^3/uL (0.1-0.6); Absolute Neutrophils 2.4 10^3/uL (1.4-6.5); Hematocrit 34.4 % (37.0-47.0); Hemoglobin 11.9 g/dL (12.0-16.0); Mean Corp Hgb Conc. 34.6 g/dL (33.0-37.0); Mean Corpuscular Hgb 30.8 pg (27.0-31.0); Mean Corpuscular Volume 89.1 fL (81.0-99.0); Mean Platelet Volume 8.1 fL (7.4-10.4); Nucleated Red Blood Cells % 0 %; Platelet Count 165 10^3/uL (130-400); Red Blood Cell Count 3.86 10^6/uL (4.20-5.40); Red Cell Dist. Width 15.1 % (11.5-14.5); White Blood Cell Count 4.1 10^3/uL (4.8-10.8)
[2024-05-14 11:43] LABS: ALT (SGPT) 11 U/L (0-35); AST (SGOT) 29 U/L (14-36); Albumin 4.2 g/dl (3.5-5.0); Alkaline Phosphatase 55 U/L (38-126); Blood Urea Nitrogen 10 mg/dl (7-17); Calcium 9.2 mg/dl (8.4-10.2); Carbon Dioxide 31 mmol/L (22-30); Chloride 94 mmol/L (98-107); Estimated Creatinine Clearance 31 ml/min; Glucose 151 mg/dl (70-99); Potassium 4.4 mmol/L (3.5-5.1); Sodium 133 mmol/L (135-145); Total Bilirubin 0.6 mg/dl (0.2-1.3); Total Protein 7.6 g/dl (6.3-8.2); eGFR 48.33
[2024-05-14 11:55] LABS: NT-proBNP 2350 pg/ml; Troponin I < 0.012 ng/ml
[2024-05-14 12:09] VITALS: BP 135/72
[2024-05-14] MEDS: LASIX 40 MG IV (12:53)
== END 2024-05-14 14:56 | disposition home or self-care (01) ==
LOC: EMR 10:42
PROVIDERS: Registered Nurse; EMERGENCY PHYSICIAN Student in an Organized Health Care Education/Training Program; FAMILY PHYSICIAN Internal Medicine
DX: R06.02 Shortness of breath (principal); I48.0 Paroxysmal atrial fibrillation; I11.0 Hypertensive heart disease with heart failure; I50.9 Heart failure, unspecified; F41.8 Other specified anxiety disorders; J90 Pleural effusion, not elsewhere classified; Z79.01 Long term (current) use of anticoagulants; Z79.899 Other long term (current) drug therapy; Z87.440 Personal history of urinary (tract) infections
CPT/HCPCS: 99283; 96374; 71046; 80053; 83880; 84484; 85025; 93005

== ENCOUNTER 2024-05-19 14:46 | Inpatient (IN) | payer MEDICARE, OTHER, SELFPAY ==
[2024-05-19] VITALS (8 sets, daily range): BP systolic 114–154; BP diastolic 54–85; BMI 22.9; BMI 21.9
--- NOTE | 2024-05-19 12:09 | ED.GENMED ---
History of Present Illness
General
Chief Complaint: Cardiac Symptoms
Source: patient, records and spouse
Time Seen by Provider: 05/19/24 11:56
History of Present Illness
History of Present Illness:
88yoF with a history of CHF, atrial fibrillation, and ASD s/p repair presenting her spouse for shortness of breath. Patient has been having ongoing orthopnea for a while. She typically only has transient dyspnea for a few minutes after laying flat.
She started having worsening dyspnea now while sitting up starting yesterday. She also noticed bilateral ankle swelling which is new. She is about 1-2 pounds above her dry weight. She was seen in the ED on 05/14/24 for shortness of breath. CXR
revealed slight increased size of bilateral pleural effusions. She received a dose of 40mg IV Lasix while in the ED and her home dose of Lasix was increased from 20mg to 40mg daily. Despite increasing her dose, she feels worse than her last ED
visit.
Past History
Past History
ED Past Medical History: Arrthythmia (Atrial fib), CHF, HTN, Valvular disease, Psychiatric (Anxiety, depression. ) and Other (atrial septal defect. UTI, Macular degeneration. Rosacea, )
ED Past Surgical History: Cardiac (cardiac ablation), (X 2) and Tonsilectomy
Social History
Tobacco: Non-smoker
Alcohol: None
Drug: None
Personal:
Living: with family
Phy Exam
General Physical Exam
General Presentation: well appearing and no apparent distress
General age: appears stated age
General Skin: warm and dry
General Habitus: normal
General Mental: alert
ENT Exam
ENT Exam: normocephalic
Cardiovascular Exam
Cardiovascular Exam: regular rate/rhythm, no murmur and other (2+ pitting edema in bilateral lower extremities)
Pulmonary Exam
Pulmonary Exam: no respiratory distress and decreased breath sounds
Neurological Exam
Neurological Exam: alert
Radha Coma Scale
Eye Opening: Spontaneous
Verbal Response: Oriented
Motor Response: Obeys Commands
GCS Total Score: 15
Skin Exam
Skin Exam: normal color and warm/dry
Psychiatric Exam
Psychiatric Exam: normal mood/affect
Course
Orders/Labs/Results
Orders:
Orders
05/19/24 11:39
Electrocardiogram (*1) Urgent
Reason for Study: Chest Pain
EKG- Treatment ONCE
05/19/24 11:54
IV Insert/Care/Rem.- Treatment PRN
05/19/24 12:09
CR Chest - 2 Views Urgent
Comment:
Reason For Exam: SOB
05/19/24 12:22
BNP [NT-proBNP] Urgent
Complete Blood Count/With Diff Urgent
Comprehensive Metabolic Panel Urgent
Troponin I Urgent
05/19/24 12:59
Furosemide [Lasix] 40 mg IV NOW STA
05/19/24 14:26
Admit/Transfer Patient As Directed
Co-Sign Provider:
Level of Care: Inpatient admission
Assign to:: Telemetry
Physician / Group: suze
Diagnosis: CHF exacerbation
Reason for Telemetry: Arrhythmia
Date to Stop Telemetry: 05/22/24
Time to Stop Telemetry: 11:00
Reason for Hospitalization: CHF exacerbation
Expected length of stay greater than two midnights?: Yes
ELOS- Estimated Length of Stay in days: 3
I certify the patient meets the requirements for IP care: Yes
05/19/24 14:27
PRN Pain Medication Management As Directed
May give lesser potent ordered pain med per pt: Yes
preference::
Protocol:: Medication orders for pain may be administered in a
manner that supports deferring to patient preference
when the pt is:
- Requesting an ordered lesser potent pain medication.
Least to most potent pain medications are defined
as: acetaminophen < NSAID < tramadol < opioids
(morphine, oxycodone, hydromorphone).
- Requesting a lesser dose of the same medication IF
ORDERED.
- Requesting a less intrusive route of administration
if both routes are prescribed by the provider (PO <
IV).
05/19/24 14:29
Code Status As Directed
Resuscitation Status: Full Code
05/22/24 11:00
DC Protocol for Telemetry ONCE
Abnormal Lab Results
05/19/24
12:22
WBC 4.0 L 10^3/uL
(4.8-10.8)
RBC 3.65 L 10^6/uL
(4.20-5.40)
Hgb 11.4 L g/dL
(12.0-16.0)
Hct 32.0 L %
(37.0-47.0)
MCH 31.2 H pg
(27.0-31.0)
RDW 14.8 H %
(11.5-14.5)
Absolute Lymphs (auto) 1.0 L 10^3/uL
(1.2-3.4)
Monocytes % 11.9 H %
(1.7-9.3)
Sodium 134 L mmol/L
(135-145)
Chloride 93 L mmol/L
(98-107)
Carbon Dioxide 33 H mmol/L
(22-30)
Glucose 133 H mg/dl
(70-99)
05/19/24 12:22
05/19/24 12:22
Vital Signs
Initial and Last Documented VS:
Initial Vital Signs
Temp Pulse Resp BP Pulse Ox
98.0 F 69 18 114/85 98
05/19/24 11:43 05/19/24 11:43 05/19/24 11:43 05/19/24 11:43 05/19/24 11:43
Last Documented Vital Signs
Temp Pulse Resp BP Pulse Ox
98.0 F 58 26 136/54 98
05/19/24 11:43 05/19/24 14:45 05/19/24 14:45 05/19/24 14:00 05/19/24 14:45
MDM/Problems Addressed
Differential Diagnosis Includes:
88yoF here with SOB and leg swelling. Hx of CHF. Seen in the ED 5 days ago for the same. She received a dose of IV Lasix and home Lasix dose was increased. Here with worsening symptoms. VSS. Oxygen saturation 98% on room air. There is 2+ pitting
edema in bilateral lower extremities. Differential diagnosis includes but is not limited to: CHF exacerbation, pleural effusion, cardiorenal syndrome, ENIO
Initial ED plan: Check cardiac labs, EKG, and CXR.
*EKG
Interpreted by ED Provider?: Yes
EKG Intrepretation Date: 05/19/24
Heart Rate: 71
Rate: normal
Rhythm: sinus (limited 2/2 artifact)
[place]: normal axis
Interval: normal interval
QRS Pattern: normal QRS
Ischemia: non-specific ST changes (anterior leads)
*Critical Care Note
Total Time (30-74mins, 75-104mins- exclusive of procedures): Not Applicable
Update Note
Update Note:
BNP elevated although improving from last visit. Chest x-ray again shows a moderate left pleural effusion which overall appears stable from prior. Given that she is not improving in the outpatient setting and this is her 2nd ED visit within the
past week, will admit for IV diuresis. She will also likely benefit from thoracentesis. 40 mg IV Lasix ordered at she was admitted for further management.
ED Attending Note
-
Portions of this chart may have been created with voice recognition software.� Occasional wrong word or��sound alike� substitutions may have occurred due to the inherent limitations of voice recognition software.
Discharge Plan
Departure
Patient Disposition: Admit
Date of Disposition: 05/19/24
Time of Disposition: 13:43
Presentation/result/management discussed w/ accepting MD/DO: Hospitalist
Discharge Problem:
Pleural effusion on left, Acute exacerbation of CHF (congestive heart failure)
Interventions
Interventions:
*Risk Screen - Suicide Last Done: 05/19/24 11:43
*General Assessment Last Done: 05/19/24 14:59
*Neglect/Abuse Screening Last Done: 05/19/24 11:43
ED- Fall Risk Assessment Last Done: 05/19/24 14:59
*ED COVID-19 Vaccine History Last Done: 05/19/24 14:59
ED- Pulmonary Assessment Last Done: 05/19/24 14:59
ED- Cardiac Assessment Last Done: 05/19/24 14:59
[2024-05-19 12:42] LABS: % Basophils 1.2 % (0-2); % Eosinophils 2.2 % (0-6); % Immature Granulocytes 0.2 % (0-0.5); % Monocytes 11.9 % (1.7-9.3); % Neutrophils 59.5 % (42.2-75.2); Absolute Basophils 0.1 10^3/uL (0-0.2); Absolute Eosinophils 0.1 10^3/uL (0-0.7); Absolute Monocytes 0.5 10^3/uL (0.1-0.6); Absolute Neutrophils 2.4 10^3/uL (1.4-6.5); Hemoglobin 11.4 g/dL (12.0-16.0); Mean Corp Hgb Conc. 35.6 g/dL (33.0-37.0); Mean Corpuscular Hgb 31.2 pg (27.0-31.0); Mean Corpuscular Volume 87.7 fL (81.0-99.0); Mean Platelet Volume 8.2 fL (7.4-10.4); Nucleated Red Blood Cells % 0 %; Platelet Count 168 10^3/uL (130-400); Red Blood Cell Count 3.65 10^6/uL (4.20-5.40); Red Cell Dist. Width 14.8 % (11.5-14.5)
[2024-05-19 12:56] LABS: ALT (SGPT) 11 U/L (0-35); AST (SGOT) 28 U/L (14-36); Albumin 4.2 g/dl (3.5-5.0); Alkaline Phosphatase 60 U/L (38-126); Blood Urea Nitrogen 12 mg/dl (7-17); Calcium 9.4 mg/dl (8.4-10.2); Carbon Dioxide 33 mmol/L (22-30); Chloride 93 mmol/L (98-107); Estimated Creatinine Clearance 33 ml/min; Glucose 133 mg/dl (70-99); Potassium 4.3 mmol/L (3.5-5.1); Sodium 134 mmol/L (135-145); Total Bilirubin 0.7 mg/dl (0.2-1.3); Total Protein 7.4 g/dl (6.3-8.2); eGFR 54.19
[2024-05-19 13:06] LABS: NT-proBNP 1640 pg/ml; Troponin I 0.019 ng/ml
[2024-05-19] MEDS: LASIX 40 MG IV (13:20)
--- NOTE | 2024-05-19 14:07 | HPS.HSE ---
Family Physician
-
Family Physician: Mikayla Pal
Chief Complaint
-
SOB
History of Present Illness
88yoF with a history of CHF, atrial fibrillation, and ASD s/p repair presenting her spouse for shortness of breath. Patient has been having ongoing orthopnea for a while. Stated worsening sob on Thursday. Patient was evaluated in the ER. She was
sent home Lasix 40. She took Lasix 40 on Thursday, Thursday and . Last night, noticed bilateral lower extremities edema. Short of breath worse with exertion as well as some orthopnea. She denied headache, dizziness, syncope. Patient denied
any chest pain. Patient denied any abdominal pain, nausea, vomiting, diarrhea. Denied dysuria hematuria. Denied any weight gain.
Chest x-ray with moderate pleural effusion. Received a dose of Lasix in ER. Admitted for further management
Medical History
Past Medical History
Past Medical History: Reports Other
Additional Past Medical History:
Persistent A-fib
Chronic heart failure
Tremors
Hypertension
Pulmonary hypertension
Past Surgical History: Reports Other
Additional Past Surgical History:
Atrial septal defect repair
Tonsillectomy
Cardioversion
Social History
Tobacco: Non-smoker
Alcohol: None
Drug: None
Personal:
Living: With Family
Family History
Family History: Not pertinent
Allergies / Home Medications
Allergies reflects when Allergies were last updated in [employer] [facility].
Home Medications with original date entered in [employer] [employer] [facility]
Allergy/Medication List:
Allergies
Allergy/AdvReac Type Severity Reaction Status Date / Time
gluten Allergy Unknown Verified 05/19/24 11:44
nitrofurantoin Allergy Unknown Verified 05/19/24 11:44
[From Macrodantin]
Sulfa (Sulfonamide Allergy Unknown Verified 05/19/24 11:44
Antibiotics)
Home Medications
cholecalciferol (vitamin D3) 25 mcg (1,000 unit) capsule (Vitamin D3) 50 mcg PO DAILY Supplement 05/27/22
clonazepam 0.5 mg tablet 0.5 mg PO BID Mental Health/Anxiety 05/27/22
cyclosporine 0.05 % eye drops in a dropperette (Restasis) 1 drp BOTH EYES Q12H Eye condition 05/27/22
estradiol 0.01% (0.1 mg/gram) vaginal cream 1 applic vaginal QPMPRN PRN hormonal 05/27/22
magnesium oxide 500 mg PO DAILYPRN PRN leg cramps 05/27/22
propranolol 80 mg capsule,24 hr,extended release 80 mg PO HS Blood pressure/tremors 05/27/22
vitamin B complex 1 cap PO DAILY Supplement 05/27/22
dextran 70-hypromellose eye drops in a dropperette (Artificial Tears (PF) drops in a dropperette) 1 drp BOTH EYES QID Eye Condition 11/16/23
mirtazapine 30 mg tablet 30 mg PO HS Mental Health 11/16/23
diltiazem HCl 360 mg capsule,extended release 24 hr 360 mg PO DAILY #30 caps 03/09/24
apixaban 2.5 mg tablet (Eliquis) 2.5 mg PO BID #60 tabs 03/13/24
furosemide 40 mg tablet 40 mg PO DAILY #30 tabs 03/13/24
acetaminophen 500 mg tablet (Tylenol Extra Strength) 1,000 mg PO Q6HPRN PRN mild pain 05/19/24
polyethylene glycol 3350 17 gram oral powder packet (Miralax) 17 g PO DAILYPRN PRN constipation 05/19/24
Review of Systems
-
Constitutional: Reports No Symptoms
EENT: Reports No Symptoms
Respiratory: Reports Trouble Breathing
Cardiac: Reports No Symptoms
Abdomen/GI: Reports No Symptoms
: Reports No Symptoms
Musculoskeletal: Reports Edema (Bilateral lower extremities edema)
Skin: Reports No Symptoms
Neurological: Reports No Symptoms
Endocrine: Reports No Symptoms
Hematologic/Lymphatic: Reports No Symptoms
Psych: Reports No Symptoms
Physical Exam
Vital Signs
Vital Signs
Temp Pulse Resp BP Pulse Ox
98.0 F 58 16 132/65 96
05/19/24 11:43 05/19/24 13:15 05/19/24 13:15 05/19/24 12:00 05/19/24 13:15
Physical Exam
General: Well Developed, Well Nourished and No Apparent Distress
HEENT: NormoCephalic, Moist mucous membranes and Atraumatic
Respiratory: Decreased Breath Sounds
Cardiac: S1/S2 and Regular Rhythm; No Murmur or Rub
GI: Soft, Non Tender, Non Distended and Normal Bowel Sounds; No Organomegaly
Rectal: Deferred by Provider
Musculoskeletal: No Clubbing, No Cyanosis and Other (Lower extremities edema)
Skin: No Rash
Neuro: AO x 3 and Nonfocal/grossly intact
Psych: Calm
Laboratory Results
-
05/19/24 12:22
05/19/24 12:22
Laboratory Results
Total Bilirubin 0.7 mg/dl (0.2-1.3) 05/19/24 12:22
AST 28 U/L (14-36) 05/19/24 12:22
ALT 11 U/L (0-35) 05/19/24 12:22
Alkaline Phosphatase 60 U/L (38-126) 05/19/24 12:22
Troponin I 0.019 ng/ml 05/19/24 12:22
Data Reviewed
-
Lab Data: Labs Reviewed by me
Impression/Plan
-
# CHF exacerbation
-Chest x-ray with moderate pleural effusion
-BNP 1640
-IV diuretics continued
-Strict NATACHA
-Daily weight
-Fluid restriction
-IR consulted
-Cardiology consult
# Anemia of chronic disease
-Hemoglobin stable at 11.4
-No active bleeding
-Continue to monitor
#Paroxysmal atrial fibrillation -rate controlled on diltiazem. Continue Eliquis
-EKG with impression of normal sinus rhythm
-Propranolol continued
#Generalized anxiety disorder
-Clonazepam continued
#Chronic leukopenia -unclear etiology.
#Celiac disease
#Full code
# DVT prophylaxis
-Eliquis
--- NOTE | 2024-05-19 14:44 | W.PN.UPDATE ---
Update Note
Progress Note Update
This is an addendum to the H&P written by Paty Abreu on 05/19/2024. Patient seen and examined independently with PIPING DESIGN SPECIALIST.
88-year-old female past medical history of HFpEF, paroxysmal atrial fibrillation, left-sided pleural effusion, presenting with shortness of breath, orthopnea and increased lower extremity edema. She has been taking 20 mg of Lasix increased to 40 mg
5 days ago for 3 days.
Chest x-ray shows dense opacification of the left lower hemithorax in part suggesting moderate left pleural effusion. Cardiac BNP of 1640 from 2350. Lasix 40 IV daily. Cardiology consulted. IR consulted for thoracentesis.
--- NOTE | 2024-05-19 15:01 | EDRN ---
pt placed on 2L NC for desat AFTER walking back from restroom. pt using O2 intermittently after exertion.
[2024-05-19] MEDS: REFRESH EYE DROPS (PF) 1 DROPS BOTH EYES ×2 (16:19→21:57)
--- NOTE | 2024-05-19 17:32 | CON.CAR ---
Consultation
Consultation Request
Date/Time Consultation Requested: 05/19/2024
Date/Time Consultation Performed: 05/19/2024
Requesting Provider: Dr. Stewart
Performing Provider: Dr. Marcano (Dr Waters primary basic sciences professor)
Reason for Consultation: sob
Medical History
-
Chief Complaint: Palpitations
History of Present Illness:
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 Waters, her primary basic sciences professor), with atrial fibrillation status-post ablation (11/17/2023, on Eliquis), chronic heart failure with preserved ejection fraction, hypertension, ASD repair (), and
COPD admitted with progressive shortness of breath. She was seen in the emergency room over the the weekend and sent home with Lasix 40 mg which she took Thursday, Thursday and Thursday, she began to notice increasing lower extremity edema, worsening
shortness of breath as well as orthopnea. She did not feel like she was urinating more to the oral dose of Lasix at home. She denies any chest pain. She has not been gaining weight and states she has been eating normally. She tries to limit
salt. She cannot recall all of her medications though and states her helps her with her medications. She is being coming a bit forgetful as she gets older. Chest x-ray shows moderate left sided pleural effusion with no change from prior
on 05/14/2024. In the Ed she has received 40 mg IV lasix.
Past Medical History
Past Medical History: Arrhythmias (Atrial fibrillation ablation [11/09/2023, on apixaban]), CHF (Chronic HFpEF) and HTN
Past Surgical History: Cardiac (Atrial fibrillation ablation)
Social History
Tobacco: Non-Smoker
Alcohol: None
Drug: None
Personal:
Living: With Family
Employment: Retired
Family History
Family History: Reviewed & Not Pertinent
Allergies / Home Medications
Allergy/AdvReac Type Severity Reaction Status Date / Time
gluten Allergy Unknown Verified 05/19/24 11:44
nitrofurantoin Allergy Unknown Verified 05/19/24 11:44
[From Macrodantin]
Sulfa (Sulfonamide Allergy Unknown Verified 05/19/24 11:44
Antibiotics)
�Medication �Instructions �Recorded �Confirmed �Type
cholecalciferol (vitamin D3) 25 50 mcg PO DAILY Supplement 05/27/22 05/19/24 History
mcg (1,000 unit) capsule (Vitamin
D3)
clonazepam 0.5 mg tablet 0.5 mg PO BID Mental Health/Anxiety 05/27/22 05/19/24 History
cyclosporine 0.05 % eye drops in a 1 drp BOTH EYES Q12H Eye condition 05/27/22 05/19/24 History
dropperette (Restasis)
estradiol 0.01% (0.1 mg/gram) 1 applic vaginal QPMPRN PRN 05/27/22 05/19/24 History
vaginal cream hormonal
magnesium oxide 500 mg PO DAILYPRN PRN leg cramps 05/27/22 05/19/24 History
propranolol 80 mg capsule,24 80 mg PO HS Blood pressure/tremors 05/27/22 05/19/24 History
hr,extended release
vitamin B complex 1 cap PO DAILY Supplement 05/27/22 05/19/24 History
dextran 70-hypromellose eye drops 1 drp BOTH EYES QID Eye Condition 11/16/23 05/19/24 History
in a dropperette (Artificial Tears
(PF) drops in a dropperette)
mirtazapine 30 mg tablet 30 mg PO HS Mental Health 11/16/23 05/19/24 History
diltiazem HCl 360 mg 360 mg PO DAILY #30 caps 03/09/24 05/19/24 Rx
capsule,extended release 24 hr
apixaban 2.5 mg tablet (Eliquis) 2.5 mg PO BID #60 tabs 03/13/24 05/19/24 Rx
furosemide 40 mg tablet 40 mg PO DAILY #30 tabs 09/22/24 11/28/24 Rx
acetaminophen 500 mg tablet 1,000 mg PO Q6HPRN PRN mild pain 05/19/24 05/19/24 History
(Tylenol Extra Strength)
polyethylene glycol 3350 17 gram 17 g PO DAILYPRN PRN constipation 05/19/24 05/19/24 History
oral powder packet (Miralax)
Review of Systems
-
All other systems: Negative unless noted
Physical Exam
Vital Signs
Temp Pulse Resp BP Pulse Ox
97.5 F 67 20 154/65 93
05/19/24 16:08 05/19/24 16:08 05/19/24 16:08 05/19/24 16:08 05/19/24 16:08
Lab Results
Troponin I 0.019 ng/ml 05/19/24 12:22
Meb-Y-Jragdxopaif Pept 1640 pg/ml 05/19/24 12:22
Physical Exam
General: Well Developed and Well Nourished
HEENT: Normocephalic and Anicteric
Respiratory: Clear and Other (Decreased at the left base and midlung field); Negative Wheezes, Crackles or Rhonchi
Cardiac: S1/S2, Peripheral Edema (Mild bilaterally) and JVD (15 cm of H2O while 90 degrees upright); Negative Murmur or Rub
GI: Soft and Non Tender
Musculoskeletal: Negative No Clubbing or No Cyanosis
Neuro: AO x 3
Impression / Plan
-
Background: 88F with chronic HFpEF, ASD repair, and paroxysmal atrial fibrillation status post ablation (11/09/2023), has been struggling with orthopnea, now increased shortness of breath with exertion and lower extremity edema.
Logistics Engineer: Dr. Waters
HFpEF, acute:
-Agree with IV Lasix 40 mg daily as thoracentesis will likely provide the most help.
-Needs aggressive and monitoring of her lites and blood pressure.
-Could increase to twice daily should ongoing diuresis be needed after thoracentesis.
-Recent echocardiogram below
-History of UTIs with low creatinine clearance, would not initiate SGLT2 at his time
-Prior 'dry weight' was 57 kg--this will likely need to be reestablished as she is 56.9 kg and overloaded today.
Moderate left pleural effusion: IR consult placed for thoracentesis. Suspect this is due to heart failure but can send fluid studies at the time of thoracentesis.
Paroxysmal atrial fibrillation
�In normal sinus rhythm
-cont diltiazem 360 mg and propranolol 80 mg qHS
-Antiarrhythmic therapy will be challenging with a CrCl of 30 (sotalol contraindicated, dofetilide max dose would be 125 mcg Q12H), amiodarone could be considered if A fib recurs
-Oral Anticoagulation: eliquis now at 2.5mg bid, with weight under 60kg
-[id number]: score at least 4 (Heart failure, age 75 or more, female gender)
Pulmonary hypertension, PASP 48 mmHg with a right atrial pressure of 3 mmHg on echo last week, achieve and maintain euvolemia
Prior ASD repair
Mild/mod MR and TR
TTE, 03/09/2024
Normal biventricular size and systolic function without regional wall motion
abnormality. Estimated LVEF 60-65%.
Mild concentric left ventricular hypertrophy.
Mild/moderate mitral regurgitation.
Mild/moderate tricuspid regurgitation. Moderately elevated PASP. Estimated
pulmonary artery pressure of 48 mmHg assuming a right atrial pressure of 3
mmHg.
Pleural effusion present.
History of ASD repair with no evidence of shunting by color flow Doppler.
Compared to 05/15/23: no significant change.
Data Reviewed
-
EKG: Tracing Personally Visualized and interpreted (EKG tracing shows normal sinus rhythm with nonspecific ST-T wave changes no significant change from 05/14/2024)
Radiology: Image Personally Visualized and interpreted (Moderate left-sided pleural effusion unchanged from 05/14/2024)
[2024-05-19 18:27] LABS: Hematocrit 33.8 % (37.0-47.0)
[2024-05-19 18:42] LABS: Glucose 166 mg/dl (70-99); LDH 177 U/L (120-246); Total Protein 7.8 g/dl (6.3-8.2)
[2024-05-19] MEDS: KLONOPIN 0.5 MG PO (21:00)
[2024-05-19] MEDS: INDERAL LA 80 MG PO (21:01)
[2024-05-19] MEDS: RESTASIS 0.05% OPHTHALMIC EMULSION 1 DROPS BOTH EYES (21:01)
[2024-05-19] MEDS: ELIQUIS 2.5 MG PO (21:01)
[2024-05-19] MEDS: REMERON 30 MG PO (21:57)
[2024-05-20] VITALS (12 sets, daily range): BP systolic 76–166; BP diastolic 57–77; PULSE 65–72; O2SAT 96; BMI 21.5
[2024-05-20 08:08] LABS: % Eosinophils 1.9 % (0-6); % Immature Granulocytes 0.2 % (0-0.5); % Lymphocytes 28.6 % (20.5-51.1); % Monocytes 14.3 % (1.7-9.3); Absolute Eosinophils 0.1 10^3/uL (0-0.7); Absolute Lymphocytes 1.2 10^3/uL (1.2-3.4); Absolute Monocytes 0.6 10^3/uL (0.1-0.6); Absolute Neutrophils 2.2 10^3/uL (1.4-6.5); Hematocrit 30.5 % (37.0-47.0); Hemoglobin 10.4 g/dL (12.0-16.0); Mean Corp Hgb Conc. 34.1 g/dL (33.0-37.0); Mean Corpuscular Hgb 30.4 pg (27.0-31.0); Mean Corpuscular Volume 89.2 fL (81.0-99.0); Nucleated Red Blood Cells % 0 %; Platelet Count 165 10^3/uL (130-400); Red Blood Cell Count 3.42 10^6/uL (4.20-5.40); Red Cell Dist. Width 14.8 % (11.5-14.5); White Blood Cell Count 4.1 10^3/uL (4.8-10.8)
--- NOTE | 2024-05-20 08:29 | VNURNOTE ---
Chart reviewed. Patient is current with [facility] nursing, PT, OT. Will continue to follow hospital course and DC plans.
[2024-05-20 08:30] LABS: ALT (SGPT) < 10 U/L (0-35); AST (SGOT) 27 U/L (14-36); Albumin 3.7 g/dl (3.5-5.0); Alkaline Phosphatase 61 U/L (38-126); Blood Urea Nitrogen 15 mg/dl (7-17); Calcium 9.1 mg/dl (8.4-10.2); Carbon Dioxide 33 mmol/L (22-30); Chloride 94 mmol/L (98-107); Direct Bilirubin 0.2 mg/dl (0.0-0.4); Estimated Creatinine Clearance 33 ml/min; Glucose 103 mg/dl (70-99); HDL Cholesterol 88 mg/dl; LDL Cholesterol, Calculated 80 mg/dl; Magnesium 1.8 mg/dl (1.6-2.3); Potassium 3.9 mmol/L (3.5-5.1); Sodium 135 mmol/L (135-145); Total Bilirubin 0.7 mg/dl (0.2-1.3); Total Cholesterol 178 mg/dl (50-199); Total Protein 6.9 g/dl (6.3-8.2); Triglyceride 50 mg/dl (10-149); Very Low Density Lipoprotein 10 mg/dl (0-30); eGFR 54.19
[2024-05-20 09:01] LABS: TSH Reflex To Free T4 1.92 uIU/ml (0.47-4.68)
[2024-05-20 09:22] LABS: Body Fluid Amylase 47 U/L; Body Fluid Glucose 113 mg/dl; Body Fluid LDH 91 U/L; Body Fluid Protein 4.9 g/dl; Body Fluid Triglycerides < 30 mg/dl
[2024-05-20] MEDS: KLONOPIN 0.5 MG PO ×2 (09:29→20:07)
[2024-05-20] MEDS: ELIQUIS 2.5 MG PO ×2 (09:29→20:07)
[2024-05-20] MEDS: CARDIZEM CD 360 MG PO (09:29)
[2024-05-20] MEDS: LASIX 40 MG IV (09:29)
[2024-05-20] MEDS: RESTASIS 0.05% OPHTHALMIC EMULSION 1 DROPS BOTH EYES ×2 (09:30→20:07)
[2024-05-20] MEDS: REFRESH EYE DROPS (PF) 1 DROPS BOTH EYES ×3 (09:30→21:13)
[2024-05-20 10:21] LABS: Body Fluid Mononuclear 98.2 %; Body Fluid Polymorphonuclear 1.8 %; Body Fluid WBC 774 /CUMM
[2024-05-20 10:31] LABS: Body Fluid Second Tech AMA
--- NOTE | 2024-05-20 10:52 | W.PN.HOSP.TC ---
Today's Communication/Plan
-
Repeat chest x ray in am
c/w IV Lasix
BMP & CBC in AM
Assessment / Plan
Assessment / Plan
Physical Exam
General: Well Developed, Well Nourished and No Apparent Distress
HEENT: NormoCephalic, Moist mucous membranes and Atraumatic
Respiratory: Decreased Breath Sounds
Cardiac: S1/S2 and Regular Rhythm; No Murmur or Rub
GI: Soft, Non Tender, Non Distended and Normal Bowel Sounds; No Organomegaly
Rectal: Deferred by Provider
Musculoskeletal: No Clubbing, No Cyanosis and Other (Lower extremities edema)
Skin: No Rash
Neuro: AO x 3 and Nonfocal/grossly intact
Psych: Calm
#Acute on chronic HFrEF
-BNP 1640
-IV diuretics continued
-Strict NATACHA
-Daily weight
Echo 03/09/24 showed LVEF 60-65%, mild LVH, mild to moderate MR and TR, PAP 48 mmHg.
-Fluid restriction
-Appreciate cardiology help
# Left pleural effusion
s/p successful ultrasound-guided thoracentesis, yielding 950 cc of clear yellow pleural fluid by IR on 05/20.
# Post thoracentesis left pneumothorax
Serial x ray showed stable small left-sided hydropneumothorax
Stable Sao2 96% on RA
# Anemia of chronic disease
-Hemoglobin stable at 11.4
-No active bleeding
-Continue to monitor
#Hyponatremia
Mild
#Paroxysmal atrial fibrillation -rate controlled on diltiazem. Continue Eliquis
-EKG with impression of normal sinus rhythm
-Propranolol continued
#Generalized anxiety disorder
-Clonazepam continued
#Chronic leukopenia -unclear etiology.
#Celiac disease
#Full code
# DVT prophylaxis
-Eliquis
Total time spent to see the patient, examine the patient, review data and lab results, discuss treatment plan with the patient, nursing staff around 55 minutes
Anticipated Discharge: Within 24 hours
Subjective/Interval History
-
Date of Service: May 20, 2024
Objective Data
-
Labs:
Laboratory Results
05/20/24
07:05
WBC 4.1 L
Hgb 10.4 L
Hct 30.5 L
Plt Count 165
Sodium 135
Potassium 3.9
Chloride 94 L
Carbon Dioxide 33 H
BUN 15
Creatinine 1.0
Glucose 103 H
Calcium 9.1
Total Bilirubin 0.7
AST 27
ALT < 10
Alkaline Phosphatase 61
Vital Signs:
Vital Signs
Temp Pulse Resp BP Pulse Ox
97.3 F 72 18 166/77 95
05/20/24 09:31 05/20/24 09:31 05/20/24 09:31 05/20/24 09:31 05/20/24 09:31
I&O
05/19/24 05/20/24 05/21/24
06:59 06:59 06:59
Intake Total 720 / 720
Output Total 500 / 500
Balance 220 / 220
[2024-05-20] MEDS: REFRESH EYE DROPS (PF) BOTH EYES (13:15)
--- NOTE | 2024-05-20 14:22 | PN.CDI ---
Addendum entered and electronically signed by Bal Mason MD 05/20/24 14:32:
Will update the note
Original Note:
CDI
- -
CDI:
Physician Documentation Request
Admit Date: 05/19/24 14:46
Dear Doctor Isabella,
Please review the following and provide your response in the progress notes.
Clinical Indicators:
- 05/20 PN 'Acute on chronic HFrEF'
- 03/09/24 Echo with EF 60-65%
- 05/19 Cardiology indicates acute on chronic HFpEF
Please provide further specificity regarding the most likely type and acuity of CHF you are evaluating, treating or monitoring.
Acute on chronic HFpEF
Acute on chronic combined systolic and diastolic CHF
Other (please specify)
Use of terms such as suspected, likely, concern for, or probable (associated with a specific diagnosis that is being evaluated, monitored, or treated as if it exists) are acceptable and can be coded in the inpatient setting, when documented at the
time of discharge.
Thank you,
Sangeeta Garrison RN
CDI Specialist
Please use your independent medical judgment in providing your response.
--- NOTE | 2024-05-20 17:12 | W.PN.CD ---
Today's Communication / Plan
-
Start spironolactone 12.5 mg p.o. every morning
Continue IV Lasix
Discharge planning likely tomorrow
Impression / Plan
-
Background: 88F with chronic HFpEF, ASD repair, and paroxysmal atrial fibrillation status post ablation (11/09/2023), has been struggling with orthopnea, now increased shortness of breath with exertion and lower extremity edema.
Summer Law Associate: Dr. Waters
HFpEF, acute:
-Agree with IV Lasix 40 mg daily as thoracentesis will likely provide the most help.
-Needs aggressive monitoring of her lites and blood pressure.
-Recent echocardiogram below
-History of UTIs with low creatinine clearance, would not initiate SGLT2 at his time
-Prior 'dry weight' was 57 kg--this will likely need to be reestablished as she is 56.9 kg and overloaded today.
-add spironlactone in a.m.--will start at 12.5 mg am ( at the bedside says at home blood pressure 115-120)
Moderate left pleural effusion: IR consult placed for thoracentesis. Negative for 950 cc.
Suspect this is due to heart failure
Paroxysmal atrial fibrillation
�In normal sinus rhythm
-cont diltiazem 360 mg and propranolol 80 mg qHS primarily subjective:
No shortness of breath feeling so much better after thoracentesis. No dizziness or chest pain.
-Oral Anticoagulation: eliquis now at 2.5mg bid, with weight under 60kg
-[id number]: score at least 4 (Heart failure, age 75 or more, female gender)
Pulmonary hypertension, PASP 48 mmHg with a right atrial pressure of 3 mmHg on echo last week, achieve and maintain euvolemia
Prior ASD repair
Mild/mod MR and TR
Subjective:
Feeling so much better after thoracentesis, no chest pain, shortness of breath or palpitations.
TTE, 03/09/2024
Normal biventricular size and systolic function without regional wall motion
abnormality. Estimated LVEF 60-65%.
Mild concentric left ventricular hypertrophy.
Mild/moderate mitral regurgitation.
Mild/moderate tricuspid regurgitation. Moderately elevated PASP. Estimated
pulmonary artery pressure of 48 mmHg assuming a right atrial pressure of 3
mmHg.
Pleural effusion present.
History of ASD repair with no evidence of shunting by color flow Doppler.
Compared to 05/15/23: no significant change.
Physical Exam
Vital Signs/Labs
Vital Signs
Temp Pulse Resp BP Pulse Ox
98.0 F 60 17 150/66 96
05/20/24 14:49 05/20/24 14:49 05/20/24 14:49 05/20/24 14:49 05/20/24 14:49
05/19/24 05/20/24 05/21/24
06:59 06:59 06:59
Actual Weight 55.962 kg
05/20/24 07:05
05/20/24 07:05
Magnesium 1.8 mg/dl (1.6-2.3) 05/20/24 07:05
Triglycerides 50 mg/dl (10-149) 05/20/24 07:05
LDL Cholesterol, Calc 80 mg/dl 05/20/24 07:05
VLDL Cholesterol, Calc 10 mg/dl (0-30) 05/20/24 07:05
HDL Cholesterol 88 mg/dl 05/20/24 07:05
05/19/24
12:22
Pwi-S-Veecomknfsd Pept 1640
LAB Results
05/19/24
12:22
Troponin I 0.019
Physical Exam
Constitutional: No acute distress
Cardiovascular: Rhythm & rate is regular, Pedal edema is absent, JVD pressure is normal, Systolic murmur absent and Diastolic murmur absent
Respiratory: Respiratory effort normal, Wheeze Absent and Crackles Present (Crackles at left base)
GI: Soft
Neuro/Psych: AO x 3
Data Reviewed
-
Date of Service: May 20, 2024
Medical Decision Making: Review of Case with other Provider (Dr. Mason adding spironolactone hopeful for discharge tomorrow)
--- NOTE | 2024-05-20 17:35 | CM ---
Alert awake oriented patient who lives with her Willy who lives in a 2 story home with 2 steps to enter bed/bathroom on first floor.She is independent in all activities of daily living.Offered VN she requested [facility] SN only Jessica Garcia Liaison BRANDON
request.
walker
[facility] hx /No SNF
Pharmacy Aleksandra Dietrich
PCP [place]
PLAN Home with [facility] if accepted
[2024-05-20] MEDS: ZOFRAN 4 MG IV (20:07)
[2024-05-20] MEDS: INDERAL LA 80 MG PO (21:12)
[2024-05-20] MEDS: REMERON 30 MG PO (21:13)
[2024-05-20] MEDS: VISBIOME 1 CAP PO (21:13)
[2024-05-20] MEDS: MIRALAX 17 GRAMS PO (21:14)
[2024-05-21] VITALS (9 sets, daily range): BP systolic 88–136; BP diastolic 36–65; PULSE 55–66; O2SAT 94; BMI 21.3
--- NOTE | 2024-05-21 03:59 | PTCARENOTE ---
PCT went in to pt room to obtain 0300 VS and found pt O2 to be 85% and PCT alerted this RN. This RN sat up HOB and O2 returned to 93%. A few minutes later pt entered hallway confused and thought she was at home. Pt was unable to recall why she was
here at . This RN rechecked VS and O2 was 80%. 2L nasal cannula placed on pt and O2 came up to 95%. Pt remained forgetful and continued asking if she was at home- disoriented to place and time. Pt previously AAO x3 and 94% on room air. This RN
notified NIPPLE MACHINE OPERATOR with concern about pts previously stable hemopneumothorax due to the change in condition and recent thoracentesis. In additon, pts lower extremity edema worsened with +2 pitting edema to bilateral lower extremities and lung sounds
severely diminished/shallow. Very minimal audible lung sounds. Pt denies any SOB or discomfort, however is unable to take a deep breath. NIPPLE MACHINE OPERATOR instructed RN to bladder scan pt and give Tylenol. VSS at this time (temp 99.6, BP 136/65, HR 85, RR 16, O2
95%), bladder scan- 280. NIPPLE MACHINE OPERATOR notified with updates. This RN requested a chest x-ray. No new orders at this time.
[2024-05-21] MEDS: TYLENOL 650 MG PO (04:18)
[2024-05-21] MEDS: ALDACTONE 12.5 MG PO (06:36)
--- NOTE | 2024-05-21 06:38 | W.PN.UPDATE ---
Update Note
Progress Note Update
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 Advised RN to Tylenol and place patient 2L Oxygen. Patient been maintaining 98% on 2l. Temp noted to be 99.6 again.
Ordered UA, Covid, chest Xray.
At 0635 RN notified patient is lethargic and hard to arouse. stable VS. Patient seen and evaluated, Patient arousable, Ox3, answered questions appropriately, follows directions, noticed she was falling asleep after she responds. Lungs diminished
with some crackles at the left base> right.
Added ABG, blood culture.
labs and chest xray pending.
[2024-05-21 06:41] LABS: Glucose - Point of Care 129 mg/dl (70-99)
--- NOTE | 2024-05-21 07:05 | PTCARENOTE ---
This RN requested BALL RACKER to come to bedside due to pt being extremely lethargic and difficult to arouse. BALL RACKER at bedside and assessed pt. VS 105/50, HR 60, RR 14, O2 96%, temp 99.6, BG 129. Lung sounds remain shallow/diminished. BALL RACKER ordered stat
chest x-ray, Covid, blood cx and ABG. Results pending. Pt resting comfortably in bed O2 95% on 1L per BALL RACKER orders. Reported to next shift.
[2024-05-21 07:20] LABS: % Basophils 0.6 % (0-2); % Eosinophils 1.9 % (0-6); % Immature Granulocytes 0.4 % (0-0.5); % Lymphocytes 18.6 % (20.5-51.1); % Monocytes 15.6 % (1.7-9.3); % Neutrophils 62.9 % (42.2-75.2); Absolute Eosinophils 0.1 10^3/uL (0-0.7); Absolute Monocytes 0.8 10^3/uL (0.1-0.6); Absolute Neutrophils 3.4 10^3/uL (1.4-6.5); Hemoglobin 10.4 g/dL (12.0-16.0); Mean Corp Hgb Conc. 35.9 g/dL (33.0-37.0); Mean Corpuscular Hgb 31.7 pg (27.0-31.0); Mean Corpuscular Volume 88.4 fL (81.0-99.0); Mean Platelet Volume 8.9 fL (7.4-10.4); Nucleated Red Blood Cells % 0 %; Platelet Count 159 10^3/uL (130-400); Red Blood Cell Count 3.28 10^6/uL (4.20-5.40); Red Cell Dist. Width 14.5 % (11.5-14.5); White Blood Cell Count 5.4 10^3/uL (4.8-10.8)
[2024-05-21 07:47] LABS: B.E. 8.1 mmol/L; HCO3 34.5 mmol/L (21-28); O2 Saturation % 99.9 % (94-98); PCO2 57 mmHg (32-35); PO2 126 mmHg (83-108); pH 7.39 (7.35-7.45)
[2024-05-21 07:50] LABS: COVID-19 Antigen Negative (Negative)
[2024-05-21 07:56] LABS: Blood Urea Nitrogen 19 mg/dl (7-17); Calcium 8.6 mg/dl (8.4-10.2); Carbon Dioxide 33 mmol/L (22-30); Chloride 91 mmol/L (98-107); Estimated Creatinine Clearance 27 ml/min; Glucose 125 mg/dl (70-99); Potassium 3.7 mmol/L (3.5-5.1); Sodium 133 mmol/L (135-145); eGFR 43.54
[2024-05-21] MEDS: RESTASIS 0.05% OPHTHALMIC EMULSION 1 DROPS BOTH EYES ×2 (08:20→21:09)
[2024-05-21] MEDS: CARDIZEM CD 360 MG PO (08:20)
[2024-05-21] MEDS: REFRESH EYE DROPS (PF) 1 DROPS BOTH EYES ×3 (08:20→22:17)
[2024-05-21] MEDS: KLONOPIN PO (08:29)
[2024-05-21] MEDS: ELIQUIS 2.5 MG PO ×2 (08:29→21:09)
[2024-05-21] MEDS: VISBIOME 1 CAP PO (08:30)
[2024-05-21] MEDS: LASIX 40 MG IV (08:30)
--- NOTE | 2024-05-21 11:07 | W.PN.HOSP.TC ---
Addendum entered and electronically signed by Bal Mason MD 05/21/24 11:25:
Addendum
Correction
Acute on chronic HFpEF
Original Note:
Today's Communication/Plan
-
Discharge planning
Home O2 evaluation
Chest x ray and blood work in one week post discharge
Assessment / Plan
Assessment / Plan
Physical Exam
General: Well Developed, Well Nourished and No Apparent Distress
HEENT: NormoCephalic, Moist mucous membranes and Atraumatic
Respiratory: Decreased Breath Sounds
Cardiac: S1/S2 and Regular Rhythm; No Murmur or Rub
GI: Soft, Non Tender, Non Distended and Normal Bowel Sounds; No Organomegaly
Rectal: Deferred by Provider
Musculoskeletal: No Clubbing, No Cyanosis and Other (Lower extremities edema)
Skin: No Rash
Neuro: AO to self and surroundings, She followed commands.
Psych: Calm
# Confusion early this morning. Noted to be forgetful at times. Possible memory impairment? or cognitive issues. Poor vision can contribute. She is back to self this morning, at bed side.
#Acute on chronic HFrEF
-BNP 1640
-IV diuretics continued, started on oral Aldactone
-Daily weight
Echo 03/09/24 showed LVEF 60-65%, mild LVH, mild to moderate MR and TR, PAP 48 mmHg.
-Appreciate cardiology help
# Left pleural effusion,
s/p successful ultrasound-guided thoracentesis, yielding 950 cc of clear yellow pleural fluid by IR on 05/20. Culture is negative, AFB is pending.
# Macular degeneration of both eyes
poor vision
# Post thoracentesis left pneumothorax
Serial x ray showed stable small left-sided hydropneumothorax
Stable Sao2 96% on RA
Will do home O2 evaluation
Repeat chest x ray showed stable pneumothorax. I d/w pulmonary property condition assessor, since pt not in distress, trapped lung will take a while to recover, recommend repeat x ray in one week.
# Anemia of chronic disease
-Hemoglobin stable at 11.4
-No active bleeding
# CKD stage IIIA
her creatinine and GFR seem to be around 1.2/ 40s respectively
Will provide a script to monitor renal function upon dc with addition of diuretic therapy
#Hyponatremia
Mild
#Paroxysmal atrial fibrillation -rate controlled on diltiazem. Continue Eliquis
-EKG with impression of normal sinus rhythm
-Propranolol continued
#Generalized anxiety disorder
-Clonazepam continued
#Chronic leukopenia -unclear etiology.
#Celiac disease
#Full code
# DVT prophylaxis
-Eliquis
Total discharge time spent to see the patient, examine the patient, review data and lab results, discuss discharge plan with the patient, nursing staff around 65 minutes
Anticipated Discharge: Within 24 hours
Subjective/Interval History
-
Date of Service: May 21, 2024
She feels weak this morning, but wants to go home
No chest pain
Objective Data
-
Labs:
Laboratory Results
05/21/24 05/21/24
06:00 07:30
WBC 5.4
Hgb 10.4 L
Hct 29.0 L
Plt Count 159
HCO3 34.5 H
Sodium 133 L
Potassium 3.7
Chloride 91 L
Carbon Dioxide 33 H
BUN 19 H
Creatinine 1.2 H
Glucose 125 H
Calcium 8.6
Vital Signs:
Vital Signs
Temp Pulse Resp BP Pulse Ox
98.0 F 61 17 115/50 97
05/21/24 07:10 05/21/24 07:10 05/21/24 07:10 05/21/24 07:10 05/21/24 07:10
I&O
05/20/24 05/21/24 05/22/24
06:59 06:59 06:59
Intake Total 720 / 720 510 / 510
Output Total 500 / 500 450 / 450
Balance 220 / 220 60 / 60
[2024-05-21 11:27] LABS: Urine Albumin Trace (Neg - Trace); Urine Bilirubin Negative (Negative); Urine Character Very Cloudy (Clear); Urine Color Yellow; Urine Glucose Negative (Negative); Urine Ketone Negative (Negative); Urine Leukocyte 2+ (Negative); Urine Nitrite Negative (Negative); Urine Occult Blood 1+ (Negative); Urine Specific Gravity 1.015 (<1.030); Urine Urobilinogen Negative (Neg - 1+)
[2024-05-21 11:44] LABS: Urine White Cell >100 /HPF (0-5)
[2024-05-21] MEDS: REFRESH EYE DROPS (PF) BOTH EYES (14:21)
[2024-05-21] MEDS: MIRALAX 17 GRAMS PO (16:38)
[2024-05-21] MEDS: KLONOPIN 0.5 MG PO (21:08)
[2024-05-21] MEDS: REMERON 30 MG PO (22:17)
[2024-05-21] MEDS: INDERAL LA PO (22:17)
[2024-05-22 03:20] VITALS: BP 126/56
[2024-05-22 08:02] LABS: % Basophils 0.8 % (0-2); % Eosinophils 4.1 % (0-6); % Immature Granulocytes 0.4 % (0-0.5); % Lymphocytes 25.9 % (20.5-51.1); % Monocytes 14.3 % (1.7-9.3); % Neutrophils 54.5 % (42.2-75.2); Absolute Eosinophils 0.2 10^3/uL (0-0.7); Absolute Lymphocytes 1.3 10^3/uL (1.2-3.4); Absolute Monocytes 0.7 10^3/uL (0.1-0.6); Absolute Neutrophils 2.6 10^3/uL (1.4-6.5); Hematocrit 29.2 % (37.0-47.0); Hemoglobin 10.3 g/dL (12.0-16.0); Mean Corp Hgb Conc. 35.3 g/dL (33.0-37.0); Mean Corpuscular Hgb 30.9 pg (27.0-31.0); Mean Corpuscular Volume 87.7 fL (81.0-99.0); Mean Platelet Volume 8.8 fL (7.4-10.4); Nucleated Red Blood Cells % 0 %; Platelet Count 146 10^3/uL (130-400); Red Blood Cell Count 3.33 10^6/uL (4.20-5.40); Red Cell Dist. Width 14.6 % (11.5-14.5); White Blood Cell Count 4.8 10^3/uL (4.8-10.8)
[2024-05-22 08:11] VITALS: BP 129/61
[2024-05-22 08:34] LABS: Blood Urea Nitrogen 25 mg/dl (7-17); Calcium 8.7 mg/dl (8.4-10.2); Carbon Dioxide 35 mmol/L (22-30); Chloride 91 mmol/L (98-107); Estimated Creatinine Clearance 25 ml/min; Glucose 98 mg/dl (70-99); Potassium 4.3 mmol/L (3.5-5.1); Sodium 133 mmol/L (135-145); eGFR 39.55
[2024-05-22] MEDS: LASIX 40 MG PO (09:01)
[2024-05-22] MEDS: ALDACTONE 12.5 MG PO (09:01)
[2024-05-22] MEDS: CARDIZEM CD 360 MG PO (09:02)
[2024-05-22] MEDS: KLONOPIN 0.5 MG PO ×2 (09:02→20:31)
[2024-05-22] MEDS: ELIQUIS 2.5 MG PO ×2 (09:02→20:30)
[2024-05-22] MEDS: VISBIOME 1 CAP PO (09:03)
[2024-05-22] MEDS: RESTASIS 0.05% OPHTHALMIC EMULSION 1 DROPS BOTH EYES ×2 (09:03→20:31)
[2024-05-22] MEDS: REFRESH EYE DROPS (PF) 1 DROPS BOTH EYES ×4 (09:04→22:14)
--- NOTE | 2024-05-22 10:46 | W.PN.CD ---
Today's Communication / Plan
-
Overall patient appears to be feeling well. Denies having orthopnea overnight she says her main issue is that she got a bit short of breath when she was struggling being caught in the covers. Remains in sinus rhythm.
If anything I think she might be on the dry side with creatinine up to 1.3. She is now being transition to outpatient oral dosing of Lasix and will need to monitor her renal function closely.
Patient had a follow-up chest x-ray which shows small left apical pneumothorax which is unchanged previously described pneumothorax at the lateral left lung base appears to be occupied by fluid on the current examination.
I have discussed things with the fish and wildlife scientific aid who will see the patient in consultation and make an assessment regarding management and also be able to coordinate outpatient follow-up.
History is reviewed with hospitalist and fish and wildlife scientific aid. Discussed with patient and her who is at the bedside
Impression / Plan
-
Background: 88F with chronic HFpEF, ASD repair, and paroxysmal atrial fibrillation status post ablation (11/09/2023), has been struggling with orthopnea, now increased shortness of breath with exertion and lower extremity edema.
Maintenance Mechanic Telephone: Dr. Waters
HFpEF, acute:
-imporved.
- transitioned from IV lasix tooral lasix 40mg aday
-Needs aggressive monitoring of her lites and blood pressure.
-Recent echocardiogram below
-History of UTIs with low creatinine clearance, would not initiate SGLT2 at his time
-Prior 'dry weight' was 57 kg--now 55.4
- spironlactone added this admit 12.5 mg am ( at the bedside says at home blood pressure 115-120)
Moderate left pleural effusion: IR consult placed for thoracentesis. Negative for 950 cc.
- small PTX related to trapped lung. see hospitalists note
-Has been reportedly stable by x-ray. But will need to be followed.
Paroxysmal atrial fibrillation
�In normal sinus rhythm
-cont diltiazem 360 mg and propranolol 80 mg qHS primarily subjective:
-Oral Anticoagulation: eliquis now at 2.5mg bid, with weight under 60kg
-[id number]: score at least 4 (Heart failure, age 75 or more, female gender)
Pulmonary hypertension, PASP 48 mmHg with a right atrial pressure of 3 mmHg on echo last week, achieve and maintain euvolemia
Prior ASD repair
Mild/mod MR and TR
Subjective:
Feeling so much better after thoracentesis, no chest pain, shortness of breath or palpitations.
TTE, 03/09/2024
Normal biventricular size and systolic function without regional wall motion
abnormality. Estimated LVEF 60-65%.
Mild concentric left ventricular hypertrophy.
Mild/moderate mitral regurgitation.
Mild/moderate tricuspid regurgitation. Moderately elevated PASP. Estimated
pulmonary artery pressure of 48 mmHg assuming a right atrial pressure of 3
mmHg.
Pleural effusion present.
History of ASD repair with no evidence of shunting by color flow Doppler.
Compared to 05/15/23: no significant change.
Physical Exam
Vital Signs/Labs
Vital Signs
Temp Pulse Resp BP Pulse Ox
98.1 F 81 16 129/61 93
05/22/24 08:11 05/22/24 08:11 05/22/24 08:11 05/22/24 08:11 05/22/24 08:11
05/21/24 05/22/24 05/23/24
06:59 06:59 06:59
Actual Weight 55.429 kg
05/22/24 07:17
05/22/24 07:17
Magnesium 1.8 mg/dl (1.6-2.3) 05/20/24 07:05
Triglycerides 50 mg/dl (10-149) 05/20/24 07:05
LDL Cholesterol, Calc 80 mg/dl 05/20/24 07:05
VLDL Cholesterol, Calc 10 mg/dl (0-30) 05/20/24 07:05
HDL Cholesterol 88 mg/dl 05/20/24 07:05
05/19/24
12:22
Avy-I-Wrbbbobbkos Pept 1640
LAB Results
05/19/24
12:22
Troponin I 0.019
Physical Exam
Constitutional: No acute distress
Cardiovascular: Rhythm & rate is regular
Respiratory: Other (Crackles and decreased breath sounds at left base)
GI: Soft
Neuro/Psych: Alert
Data Reviewed
-
Date of Service: May 22, 2024
Medical Decision Making: Reviewed Test Results
Medical Tests (PFT, Pathology etc): Report Reviewed by me
Labs: Labs Reviewed by me
[2024-05-22 11:20] VITALS: BP 116/51
--- NOTE | 2024-05-22 11:28 | W.PN.HOSP.TC ---
Today's Communication/Plan
-
.
Assessment / Plan
Assessment / Plan
Physical Exam
General: Well Developed, Well Nourished and No Apparent Distress
HEENT: NormoCephalic, Moist mucous membranes and Atraumatic
Respiratory: Decreased Breath Sounds
Cardiac: S1/S2 and Regular Rhythm; No Murmur or Rub
GI: Soft, Non Tender, Non Distended and Normal Bowel Sounds; No Organomegaly
Rectal: Deferred by Provider
Musculoskeletal: No Clubbing, No Cyanosis and Other (Lower extremities edema)
Skin: No Rash
Neuro: AO to self and surroundings, She followed commands.
Psych: Calm
# Confusion at times. Noted to be forgetful at times. Possible memory impairment? or cognitive issues. Poor vision can contribute. No agitation.
#Acute on chronic HFpEF
-BNP 1640
-IV diuretics continued, started on oral Aldactone
-Daily weight
Echo 03/09/24 showed LVEF 60-65%, mild LVH, mild to moderate MR and TR, PAP 48 mmHg.
-Appreciate cardiology help
# Left pleural effusion,
s/p successful ultrasound-guided thoracentesis, yielding 950 cc of clear yellow pleural fluid by IR on 05/20. Culture is negative, AFB is pending.
# Macular degeneration of both eyes
poor vision
# Post thoracentesis left pneumothorax
Serial x ray showed stable small left-sided hydropneumothorax
Stable Sao2 96% on RA
Home O2 evaluation 05/21, no need for O2
Repeat chest x ray showed stable pneumothorax, d/w [place] line attendant, consult pulmonary.
# Anemia of chronic disease
-Hemoglobin stable at 11.4
-No active bleeding
# CKD stage IIIA
Creatinine and GFR seem to be around 1.2/ 40s respectively
#Hyponatremia
Mild
#Paroxysmal atrial fibrillation -rate controlled on diltiazem. Continue Eliquis
Episodes of bradycardia mostly at night. Discussed with [place] line attendant. No changes recommended at present time.
-EKG with impression of normal sinus rhythm
-Propranolol continued
#Generalized anxiety disorder
-Clonazepam continued
#Chronic leukopenia -unclear etiology.
#Celiac disease
#Full code
# DVT prophylaxis
-Eliquis
# Constipation
No abd pain
Given PRN MiraLAX
Total discharge time spent to see the patient, examine the patient, review data and lab results, discuss discharge plan with the patient, nursing staff around 65 minutes
Anticipated Discharge: Within 24 hours
Subjective/Interval History
-
Date of Service: May 22, 2024
She reports sob while sleeping flat
No chest pain
Objective Data
-
Labs:
Laboratory Results
05/22/24
07:17
WBC 4.8
Hgb 10.3 L
Hct 29.2 L
Plt Count 146
Sodium 133 L
Potassium 4.3
Chloride 91 L
Carbon Dioxide 35 H
BUN 25 H
Creatinine 1.3 H
Glucose 98
Calcium 8.7
Vital Signs:
Vital Signs
Temp Pulse Resp BP Pulse Ox
97.8 F 76 16 116/51 94
05/22/24 11:20 05/22/24 11:20 05/22/24 11:20 05/22/24 11:20 05/22/24 11:20
I&O
05/21/24 05/22/24 05/23/24
06:59 06:59 06:59
Intake Total 510 / 510 1500 / 1500
Output Total 450 / 450 350 / 350
Balance 60 / 60 1150 / 1150
[2024-05-22 11:42] LABS: NT-proBNP 1270 pg/ml
--- NOTE | 2024-05-22 12:22 | CON.PUL ---
Consultation
Consultation Request
Date/Time Consultation Requested: 05/22/24
Date/Time Consultation Performed: 05/22/24
Performing Provider: Ag
Reason for Consultation: SOB
Medical History
-
History of Present Illness:
Patient is an 88-year-old female with previous history of A-fib, congestive heart failure, ASD s/p repair presenting to ER with shortness of breath. She was felt to be in congestive heart failure exacerbation, treated with Lasix. She was
admitted on 05/19/2024. Chest x-ray demonstrating moderate pleural effusion. She underwent thoracentesis on 05/20/2024 with extraction of 950 cc of pleural fluid which likely indicates pseudo-exudate given treatment with Lasix. She had a small
apical pneumothorax following procedure.
Denies prior known history of lung disease, never smoker.
Never had effusions before.
SOB is improved since tap, she has some DOWNS but not significantly.
Past Medical History
Past Medical History: Other (see list below)
Social History
Tobacco: Non-smoker
Alcohol: None
Drug: None
Family History
Family History: Reviewed & Not Pertinent
Allergies / Home Medications
Allergies
Allergy/AdvReac Type Severity Reaction Status Date / Time
gluten Allergy Unknown Verified 05/19/24 11:44
nitrofurantoin Allergy Unknown Verified 05/19/24 11:44
[From Macrodantin]
Sulfa (Sulfonamide Allergy Unknown Verified 05/19/24 11:44
Antibiotics)
Home Medications
�Medication �Instructions �Recorded �Confirmed �Last Taken �Type
cholecalciferol (vitamin D3) 25 50 mcg PO DAILY Supplement 05/27/22 05/19/24 05/19/24 History
mcg (1,000 unit) capsule (Vitamin
D3)
clonazepam 0.5 mg tablet 0.5 mg PO BID Mental Health/Anxiety 05/27/22 05/19/24 05/19/24 History
cyclosporine 0.05 % eye drops in a 1 drp BOTH EYES Q12H Eye condition 05/27/22 05/19/24 05/19/24 History
dropperette (Restasis)
estradiol 0.01% (0.1 mg/gram) 1 applic vaginal QPMPRN PRN 05/27/22 05/19/24 03/08/24 History
vaginal cream hormonal
magnesium oxide 500 mg PO DAILYPRN PRN leg cramps 05/27/22 05/19/24 05/23/22 History
propranolol 80 mg capsule,24 80 mg PO HS Blood pressure/tremors 05/27/22 05/19/24 05/18/24 History
hr,extended release
vitamin B complex 1 cap PO DAILY Supplement 05/27/22 05/19/24 03/08/24 History
dextran 70-hypromellose eye drops 1 drp BOTH EYES QID Eye Condition 11/16/23 05/19/24 05/19/24 History
in a dropperette (Artificial Tears
(PF) drops in a dropperette)
mirtazapine 30 mg tablet 30 mg PO HS Mental Health 11/16/23 05/19/24 05/18/24 History
diltiazem HCl 360 mg 360 mg PO DAILY #30 caps 03/09/24 05/19/24 05/19/24 Rx
capsule,extended release 24 hr
apixaban 2.5 mg tablet (Eliquis) 2.5 mg PO BID #60 tabs 03/13/24 05/19/24 05/19/24 Rx
furosemide 40 mg tablet 40 mg PO DAILY #30 tabs 03/13/24 05/19/24 05/19/24 Rx
acetaminophen 500 mg tablet 1,000 mg PO Q6HPRN PRN mild pain 05/19/24 05/19/24 05/18/24 History
(Tylenol Extra Strength)
polyethylene glycol 3350 17 gram 17 g PO DAILYPRN PRN constipation 05/19/24 05/19/24 05/17/24 History
oral powder packet (Miralax)
Review of Systems
-
History Source: Patient
All other systems: Negative unless noted
Vitals / Labs / Diagnostic Testing
Vital Signs
Temp Pulse Resp BP Pulse Ox
97.8 F 76 16 116/51 94
05/22/24 11:20 05/22/24 11:20 05/22/24 11:20 05/22/24 11:20 05/22/24 11:20
Lab Data
05/22/24 07:17
05/22/24 07:17
Microbiology
05/20/24 08:39 Pleural Fluid Body Fluid Culture - Preliminary
No Growth After 48 Hours
05/20/24 08:39 Pleural Fluid Gram Stain - Preliminary
05/21/24 08:16 Blood/Venous Blood Culture - Preliminary
No Growth in 24 hours- Final report to follow
05/21/24 07:23 Blood/Venous Blood Culture - Preliminary
No Growth in 24 hours- Final report to follow
05/20/24 08:39 Pleural Fluid Fungal Smear - Final
No yeast or fungal elements seen.
Diagnostic Testing:
Physical Exam
-
HEENT: Normocephalic, Anicteric and Moist Mucous Membranes
Cardiovascular: S1/S2 and Regular Rhythm
Respiratory: Clear and Non-Labored Respirations
GI: Soft, Non Distended and Non Tender
Neurology: Awake, Alert, Oriented and No Motor Deficits
Skin: Warm, Dry and Good Color
General: Comfortable and Other (NAD)
Assessment
-
Patient is an 88-year-old female with previous history of A-fib, congestive heart failure, ASD s/p repair presenting to ER with shortness of breath. She was felt to be in congestive heart failure exacerbation, treated with Lasix. She was
admitted on 05/19/2024. Chest x-ray demonstrating moderate pleural effusion. She underwent thoracentesis on 05/20/2024 with extraction of 950 cc of pleural fluid which likely indicates pseudo-exudate given treatment with Lasix. She had a small
apical pneumothorax following procedure. We are consulted for ongoing shortness of breath.
Iatrogenic pneumothorax status post thoracentesis
Congestive heart failure exacerbation, acute
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
Chronic shortness of breath
Conditions present prior to admission
Persistent A-fib
Chronic heart failure
Tremors
Hypertension
Pulmonary hypertension
Past Surgical History: Reports Other
Additional Past Surgical History:
Atrial septal defect repair
Tonsillectomy
Cardioversion
Plan
Currently saturating >90% on RA
No history of home O2 use
Denies prior known history of lung disease, never smoker.
Never had effusions before.
SOB is improved since tap, she has some DOWNS but not significantly.
Suspect patient has pseudo-exudate from CHF
Culture negative on pleural fluid, cyto not sent
CXR/CT obtained indicating improvement on effusion size, some residual effusion present
Small apical ptx felt to be post thora
Will obtain CT chest for eval -- questionable 1cm nodule noted as well
History of chronic CHF/AFib, cards following
ECHO results reviewed showing stable function, moderate PH
Ongoing diuresis per team
Will need outpatient pulmonary evaluation in our office for PFTs and 6MWT
Reviewed with patient
She and her are both agreeable, we will arrange
Discharge planning pending CT results
If negative, can continue pulmonary w/u as OP
Will follow
Diagnostic Data
Chest X-Ray: 05/22/24- Stable left apical pneumothorax. Previous lateral left lung base pneumothorax identified by fluid.
Slight improved aeration of left lung base; possible left lower lobe atelectasis versus pneumonia.
Questionable right lower lobe 1 cm nodule versus vascular structure viewed on end. CT may be considered for further evaluation.
05/19/24- Dense opacification of the lower left hemithorax at least in part suggesting moderate left pleural effusion without significant change in comparison to recent prior study.
CT Scan:
Echo: 03/09/24- Normal biventricular size and systolic function without regional wall motion abnormality. Estimated LVEF 60-65%. Mild concentric left ventricular hypertrophy. Mild/moderate mitral regurgitation. Mild/moderate tricuspid regurgitation.
Moderately elevated PASP. Estimated pulmonary artery pressure of 48 mmHg assuming a right atrial pressure of 3 mmHg.
Pleural effusion present. History of ASD repair with no evidence of shunting by color flow Doppler.
PFT's:
Reports and relevant images were personally reviewed.
Total time spent on this consultation __77__ minutes which includes review of history, physical exam, medications, laboratory data, personal review of imaging, extensive review of outpatient records, discussion with care team and respiratory therapy.
[2024-05-22 15:43] VITALS: BP 119/51
[2024-05-22 20:20] VITALS: BP 135/62
[2024-05-22] MEDS: INDERAL LA 80 MG PO (22:07)
[2024-05-22] MEDS: REMERON 30 MG PO (22:13)
[2024-05-22] MEDS: ZOFRAN 4 MG IV (22:53)
[2024-05-22 23:30] VITALS: BP 140/63
[2024-05-23 03:41] VITALS: BP 116/53
[2024-05-23 06:00] VITALS: BMI 21.5
[2024-05-23 07:15] VITALS: BP 117/49
[2024-05-23] MEDS: VISBIOME 1 CAP PO (08:25)
[2024-05-23] MEDS: LASIX 40 MG PO (08:25)
[2024-05-23] MEDS: ELIQUIS 2.5 MG PO (08:26)
[2024-05-23] MEDS: RESTASIS 0.05% OPHTHALMIC EMULSION 1 DROPS BOTH EYES (08:26)
[2024-05-23] MEDS: REFRESH EYE DROPS (PF) 1 DROPS BOTH EYES ×2 (08:27→12:50)
[2024-05-23] MEDS: ALDACTONE 12.5 MG PO (08:27)
[2024-05-23] MEDS: KLONOPIN 0.5 MG PO (08:27)
[2024-05-23 08:41] LABS: Hematocrit 28.6 % (37.0-47.0); Hemoglobin 10.2 g/dL (12.0-16.0); Mean Corp Hgb Conc. 35.7 g/dL (33.0-37.0); Mean Corpuscular Hgb 31.2 pg (27.0-31.0); Mean Corpuscular Volume 87.5 fL (81.0-99.0); Mean Platelet Volume 8.6 fL (7.4-10.4); Platelet Count 152 10^3/uL (130-400); Red Blood Cell Count 3.27 10^6/uL (4.20-5.40); Red Cell Dist. Width 14.5 % (11.5-14.5); White Blood Cell Count 4.7 10^3/uL (4.8-10.8)
[2024-05-23] MEDS: CARDIZEM CD 360 MG PO (08:45)
[2024-05-23] MEDS: ZOFRAN 4 MG IV (09:24)
[2024-05-23 09:28] LABS: Blood Urea Nitrogen 25 mg/dl (7-17); Calcium 8.5 mg/dl (8.4-10.2); Carbon Dioxide 33 mmol/L (22-30); Chloride 91 mmol/L (98-107); Estimated Creatinine Clearance 30 ml/min; Glucose 113 mg/dl (70-99); Potassium 4.3 mmol/L (3.5-5.1); Sodium 132 mmol/L (135-145); eGFR 48.33
--- NOTE | 2024-05-23 09:59 | W.PN.PUL.V3 ---
Today's Communication / Plan
-
Wean oxygen.
Increase activity.
Stable for proposed discharge.
CT chest over the last 3 years summarized-will need radiographic follow-up
Assessment
-
Patient is an 88-year-old female with previous history of A-fib, congestive heart failure, ASD s/p repair presenting to ER with shortness of breath. She was felt to be in congestive heart failure exacerbation, treated with Lasix. She was
admitted on 05/19/2024. Chest x-ray demonstrating moderate pleural effusion. She underwent thoracentesis on 05/20/2024 with extraction of 950 cc of pleural fluid which likely indicates pseudo-exudate given treatment with Lasix. She had a small
apical pneumothorax following procedure. We are consulted for ongoing shortness of breath.
Iatrogenic pneumothorax status post thoracentesis
Congestive heart failure exacerbation, acute
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
Chronic shortness of breath
Conditions present prior to admission
Persistent A-fib
Chronic heart failure
Tremors
Hypertension
Pulmonary hypertension
Past Surgical History: Reports Other
Additional Past Surgical History:
Atrial septal defect repair
Tonsillectomy
Cardioversion
Plan
Respiratory status stable.
Shortness of breath is improved after thoracentesis.
Thoracentesis completed-suspect pseudo-exudate from CHF
Supplemental oxygen if needed-no history of home oxygen use.
Aspiration precautions.
Since his function.
Nebulizers a few-currently not bronchospastic.
CT chest 05/22/24-3 small contiguous nodules versus single larger lobulated nodule right lower lobe-2 of the nodules measure 8-9 mm in the third measures proximally 7 mm in greatest dimension, consider PET scanning.
brought in CT chest from outside hospital [id number]-summarized below
Cardiology follow-correspondence reviewed.
Diuresis as tolerated..
Reviewed with at the bedside
Will need outpatient pulmonary evaluation in our office for PFTs and 6MWT as well as close radiographic follow-up and possibly even PET scan
Diagnostic Data
Chest X-Ray: 05/22/24- Stable left apical pneumothorax. Previous lateral left lung base pneumothorax identified by fluid.
Slight improved aeration of left lung base; possible left lower lobe atelectasis versus pneumonia.
Questionable right lower lobe 1 cm nodule versus vascular structure viewed on end. CT may be considered for further evaluation.
05/19/24- Dense opacification of the lower left hemithorax at least in part suggesting moderate left pleural effusion without significant change in comparison to recent prior study.
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 chest-outside hospital 03/11/21-stable bilateral pulmonary nodules compared to January 2020 largest measuring 8 mm, a new 6 mm left lower lobe nodule was noted.
CT chest 05/22/24-3 small contiguous nodules versus single larger lobulated nodule right lower lobe-2 of the nodules measure 8-9 mm in the third measures proximally 7 mm in greatest dimension, consider PET scanning.
Echo: 03/09/24- Normal biventricular size and systolic function without regional wall motion abnormality. Estimated LVEF 60-65%. Mild concentric left ventricular hypertrophy. Mild/moderate mitral regurgitation. Mild/moderate tricuspid regurgitation.
Moderately elevated PASP. Estimated pulmonary artery pressure of 48 mmHg assuming a right atrial pressure of 3 mmHg.
Pleural effusion present. History of ASD repair with no evidence of shunting by color flow Doppler.
Reports and relevant images were personally reviewed.
Subjective Data
-
Date of Service:
Date of Service: May 23, 2024
Chief Complaint: Pulmonary Follow Up and Dyspnea Follow Up
Subjective:
Overall feels better, denies any shortness of breath at rest, chest pain, productive cough, or abdominal pain
Review of Systems
General: Other ( per HPI)
Objective Data
Data Reviewed
Vital Signs / I&O:
Vital Signs
Temp Pulse Resp BP Pulse Ox
99.2 F 77 17 117/49 90
05/23/24 07:15 05/23/24 08:25 05/23/24 07:15 05/23/24 08:25 05/23/24 07:15
Intake and Output
05/22/24 05/23/24 05/24/24
06:59 06:59 06:59
Intake Total 1500 / 1500 1140 / 1140
Output Total 350 / 350
Balance 1150 / 1150 1140 / 1140
SaO2: 90
Nasal Cannula flow liters per minute: 2
Physical Exam
General: Respiratory Distress (n) and Comfortable
HEENT: Normocephalic, Anicteric and Moist Mucous Membranes
Cardiovascular: Regular Rhythm
Respiratory: Wheeze (n), Crackles (n), Rhonchi (n), Non-Labored Respirations, Accessory Resp Muscle Use (n) and Stridor (n)
GI: Soft, Non Distended and Non Tender
Neurology: Awake, Alert and No Motor Deficits
Skin: Warm, Good Color, Cyanosis (n), Jaundice (n) and Rash (n)
Labs/Micro/Reports
Lab Data
05/23/24 08:01
05/23/24 08:01
Microbiology
05/21/24 08:16 Blood/Venous Blood Culture - Preliminary
No Growth in 48 hours- Final report to follow
05/21/24 07:23 Blood/Venous Blood Culture - Preliminary
No Growth in 48 hours- Final report to follow
05/20/24 08:39 Pleural Fluid Body Fluid Culture - Preliminary
No Growth After 48 Hours
05/20/24 08:39 Pleural Fluid Gram Stain - Preliminary
05/20/24 08:39 Pleural Fluid Fungal Smear - Final
No yeast or fungal elements seen.
--- NOTE | 2024-05-23 10:12 | W.PN.CD ---
Today's Communication / Plan
-
Feels well
Chest CT with small PTX. left pleural effusion, and right nodules
low grade temp 100F. ? etiolog. evaluation and tx per primary team and pulm.
Impression / Plan
-
88F with chronic HFpEF, ASD repair, and paroxysmal atrial fibrillation status post ablation (11/09/2023), has been struggling with orthopnea, now increased shortness of breath with exertion and lower extremity edema.
[facility]: Dr. Waters
HFpEF, acute:
-imporved.
- transitioned from IV lasix to oral lasix 40mg aday
-Needs aggressive monitoring of her lites and blood pressure.
-Recent echocardiogram below
-History of UTIs with low creatinine clearance, would not initiate SGLT2 at his time
-Prior 'dry weight' was 57 kg--now 55.4
- spironlactone added this admit 12.5 mg am ( at the bedside says at home blood pressure 115-120)
Moderate left pleural effusion: IR consult placed for thoracentesis. Negative for 950 cc.
- small PTX
-
PTX-
- pulmoanry consulted
small Left PTX , possible hydropneumothorax and right sided nodules
- managment per pulmonary
Paroxysmal atrial fibrillation
�In normal sinus rhythm
-cont diltiazem 360 mg and propranolol 80 mg qHS primarily subjective:
-Oral Anticoagulation: eliquis now at 2.5mg bid, with weight under 60kg
-[id number]: score at least 4 (Heart failure, age 75 or more, female gender)
Pulmonary hypertension, PASP 48 mmHg with a right atrial pressure of 3 mmHg on echo last week, achieve and maintain euvolemia
Prior ASD repair
Mild/mod MR and TR
Subjective:
Feeling so much better after thoracentesis, no chest pain, shortness of breath or palpitations.
TTE, 03/09/2024
Normal biventricular size and systolic function without regional wall motion
abnormality. Estimated LVEF 60-65%.
Mild concentric left ventricular hypertrophy.
Mild/moderate mitral regurgitation.
Mild/moderate tricuspid regurgitation. Moderately elevated PASP. Estimated
pulmonary artery pressure of 48 mmHg assuming a right atrial pressure of 3
mmHg.
Pleural effusion present.
History of ASD repair with no evidence of shunting by color flow Doppler.
Compared to 05/15/23: no significant change.
Physical Exam
Vital Signs/Labs
Vital Signs
Temp Pulse Resp BP Pulse Ox
99.2 F 77 17 117/49 90
05/23/24 07:15 05/23/24 08:25 05/23/24 07:15 05/23/24 08:25 05/23/24 09:59
05/22/24 05/23/24 05/24/24
06:59 06:59 06:59
Actual Weight 55.837 kg
05/23/24 08:01
05/23/24 08:01
Magnesium 1.8 mg/dl (1.6-2.3) 05/20/24 07:05
Triglycerides 50 mg/dl (10-149) 05/20/24 07:05
LDL Cholesterol, Calc 80 mg/dl 05/20/24 07:05
VLDL Cholesterol, Calc 10 mg/dl (0-30) 05/20/24 07:05
HDL Cholesterol 88 mg/dl 05/20/24 07:05
05/19/24 05/22/24
12: 07:17
Dhm-P-Uryhpbeuitf Pept 1640 1270
Physical Exam
Constitutional: No acute distress
Cardiovascular: Rhythm & rate is regular
Respiratory: Crackles Absent
GI: Soft
Neuro/Psych: Alert
Data Reviewed
-
Date of Service: May 23, 2024
Medical Decision Making: Reviewed Test Results
X-Ray/CT/US/MRI/NUC/PET: Report Reviewed by me
Medical Tests (PFT, Pathology etc): Report Reviewed by me
Labs: Labs Reviewed by me
[2024-05-23 10:58] VITALS: BP 124/55
[2024-05-23 11:25] VITALS: BP 119/47; PULSE 63; O2SAT 96
--- NOTE | 2024-05-23 12:02 | W.PN.HOSP.TC ---
Today's Communication/Plan
-
Monitor vital signs see plan
Discharged today with cardiology pulmonary follow-up
Lasix, Aldactone
Time of discharge 38 minutes
Assessment / Plan
Assessment / Plan
Physical Exam
General: Well Developed, Well Nourished and No Apparent Distress
HEENT: NormoCephalic, Moist mucous membranes and Atraumatic
Respiratory: Decreased Breath Sounds
Cardiac: S1/S2 and Regular Rhythm; No Murmur or Rub
GI: Soft, Non Tender, Non Distended and Normal Bowel Sounds
Musculoskeletal: No Clubbing, No Cyanosis and Other (Lower extremities edema)
Neuro: AO to self and surroundings, She followed commands.
Psych: Calm
# Confusion at times. Noted to be forgetful at times. Possible memory impairment? or cognitive issues. Poor vision can contribute. No agitation.
#Acute on chronic HFpEF
-BNP 1640
Now transition to p.o. diuretics, Aldactone
Echo 03/09/24 showed LVEF 60-65%, mild LVH, mild to moderate MR and TR, PAP 48 mmHg.
Cardiology following
# Left pleural effusion,
s/p successful ultrasound-guided thoracentesis, yielding 950 cc of clear yellow pleural fluid by IR on 05/20. Culture is negative,no cytology sent
# Macular degeneration of both eyes
poor vision
# Post thoracentesis left pneumothorax
Serial x ray showed stable small left-sided hydropneumothorax
Stable Sao2 96% on RA
Home O2 evaluation 05/21, no need for O2
Repeat chest x ray showed stable pneumothorax, pulmonary following, CT chest 05/22 with small continuous nodules, small left pneumothorax. Spoke with pulmonary and they are okay with patient going home with outpatient follow-up. CT also showed
incidental findings of heterogeneous enlargement of the right lobe of the thyroid with mild compression. Elective thyroid ultrasound outpatient.
# Anemia of chronic disease
-Hemoglobin stable
-No active bleeding
# CKD stage IIIA
Creatinine and GFR seem to be around 1.2/ 40s respectively
#Hyponatremia
Mild
#Paroxysmal atrial fibrillation -rate controlled on diltiazem. Continue Eliquis
Episodes of bradycardia mostly at night. Discussed with slitter operator. No changes recommended at present time.
-EKG with impression of normal sinus rhythm
-Propranolol continued
#Generalized anxiety disorder
-Clonazepam continued
#Chronic leukopenia -unclear etiology.
#Celiac disease
#Full code
# DVT prophylaxis
-Eliquis
# Constipation
No abd pain
Given PRN MiraLAX
Anticipated Discharge: Today
Subjective/Interval History
-
Date of Service: May 23, 2024
Denies shortness of breath
Objective Data
-
Labs:
Laboratory Results
05/23/24
08:01
WBC 4.7 L
Hgb 10.2 L
Hct 28.6 L
Plt Count 152
Sodium 132 L
Potassium 4.3
Chloride 91 L
Carbon Dioxide 33 H
BUN 25 H
Creatinine 1.1 H
Glucose 113 H
Calcium 8.5
Vital Signs:
Vital Signs
Temp Pulse Resp BP Pulse Ox
98.8 F 67 16 124/55 96
05/23/24 10:58 05/23/24 10:58 05/23/24 10:58 05/23/24 10:58 05/23/24 10:58
I&O
05/22/24 05/23/24 05/24/24
06:59 06:59 06:59
Intake Total 1500 / 1500 1140 / 1140
Output Total 350 / 350
Balance 1150 / 1150 1140 / 1140
--- NOTE | 2024-05-23 12:14 | W.DCSUMMARY ---
Discharge Summary
Discharge Data
Date of Admission: 05/19/24
Date of Discharge: 05/23/24
-
Pending Results: No
Hospital Course
88-year-old female with past medical history of CHF, macular degeneration, anemia current disease, CKD, paroxysmal atrial fibrillation, generalized anxiety disorder, leukopenia, celiac disease came to the hospital with shortness of breath known to
have acute on chronic congestive heart failure exacerbation. Initially patient was treated with IV diuresis and also had ultrasound-guided thoracentesis. Her creatinine then slowly trended up which was likely thought was secondary to diuresis.
Over time her creatinine continue to improve and she was able to be restarted on p.o. Lasix prior to discharge. She also developed small left pneumothorax status post thoracentesis for which she was seen by pulmonary on this hospitalization. CT
chest was also done which showed small pulmonary nodule and small left pneumothorax. Pulmonary instructed patient to follow-up with them closely outpatient. CT findings also showed incidental finding of heterogenous enlargement of the right lobe
of the thyroid with mild trachea compression. Patient denied any worsening shortness of breath prior to discharge. She was instructed to follow-up with her PCP outpatient for thyroid ultrasound. Once her symptoms continue to improve, she was then
discharged home with instructions to follow-up with all her physicians outpatient.
Discharge Plan
-
Patient Disposition: Home with Home Care
Discharge Diagnosis/Procedures: Acute on chronic congestive heart failure with preserved ejection fraction
Left pleural effusion
Post thoracentesis left pneumothorax
Pulmonary nodule
CT also showed incidental findings of heterogeneous enlargement of the right lobe of the thyroid with mild trachea compression.
left pleural effusion
Diet: Low Sodium and Restrict fluids to 64 oz
Activity: As tolerated
Bathing Restrictions: None
Specialty Instructions: Weigh Daily- Call MD for wt gain/loss 3 lbs overnight/5 lbs in 1 week
Activity Restrictions/Additional Instructions:
Elective thyroid ultrasound outpatient with primary care provider
Instructions: *CBC Heart Failure Instructions
Referrals:
Shaylee Cortés CRNP [Specified Professional Personl] - 06/09/24 8:40 am
Caterina Luong DO [Active] - in two to three weeks (PFTs)
Mikayla Pal MD [Family Provider] - in less than 1 week
Prescriptions:
New
spironolactone 25 mg Tablet
12.5 mg PO DAILY Qty: 30 0RF
Continued
clonazepam 0.5 mg tablet
0.5 mg PO BID
propranolol 80 mg capsule,extended release 24hr
80 mg PO HS
magnesium oxide 500 mg Tablet
500 mg PO DAILYPRN PRN (Reason: leg cramps)
estradiol 0.01 % (0.1 mg/gram) cream
1 applic VAGINAL QPMPRN PRN (Reason: hormonal )
vitamin B complex Capsule
1 cap PO DAILY
cholecalciferol (vitamin D3) [Vitamin D3] 25 mcg (1,000 unit) Capsule
50 mcg PO DAILY
cyclosporine [Restasis] 0.05 % Dropperette
1 drp BOTH EYES Q12H
mirtazapine 30 mg tablet
30 mg PO HS
Artificial Tears (PF) Dropperette
1 drp BOTH EYES QID
diltiazem HCl 360 mg capsule,extended release 24hr
360 mg PO DAILY Qty: 30 0RF
Eliquis 2.5 mg Tablet
2.5 mg PO BID Qty: 60 0RF
polyethylene glycol 3350 [Miralax] 17 gram Powder In Packet
17 g PO DAILYPRN PRN (Reason: constipation)
acetaminophen [Tylenol Extra Strength] 500 mg Tablet
1,000 mg PO Q6HPRN PRN (Reason: mild pain)
furosemide 40 mg Tablet
40 mg PO DAILY Qty: 30 0RF
Discharge Orders:
Discharge Patient (As Directed); Ordered 05/23/24
Ordered By: Rick Heard
Discharge Date and Time
Discharge Date/Time: 05/23/24 13:42
Print Language: GREENLANDIC
--- NOTE | 2024-05-23 13:53 | CM ---
MD entered order for discharge.
Spoke with pt and her Willy in room .
Both agree with dc.
IMM given reviewed Copy signed on chart.
PLAN Home with VN .
--- NOTE | 2024-05-24 11:18 | W.HF.CON ---
Heart Failure
- LV Function
Left ventricular function study result: LV Ejection fraction >/= 50% (ECHO 03/09/24)
Ejection Fraction Percentage: 60-65
- ARNI
Patient already on ARNI: No
Heart Failure ARNI Not Indicated: LV Ejection Fraction >/= 40%
- ACEI/ARB
Patient already on ACEI/ARB: No
Heart Failure ACEI/ARB Not Indicated: LV Ejection Fraction > 40%
- Beta Glenna
Patient already on Evidence Based Beta Glenna: No
Heart Failure Evidence Based Beta Glenna Not Indicated: LV Ejection Fraction > 40%
- Mineralocorticord Receptor Antagonist
Patient already on MRA: Yes
- SGLT-2 Inhibitor
Patient already on SGLT-2 Inhibitor: No
Heart Failure SGLT-2 Inhibitor Not Indicated: LV Ejection Fraction >40%
- Afib Anticoagulation
Patient already on Anticoagulation for Afib: Yes
- NYHA CHF Classification
NYHA CHF Classification Level: Class III - Symptoms w/ min exertion, interferes w/ nml daily activity
- ACC/AHA Stage
ACC/AHA Stage: Stage C: Symptomatic Heart Failure
== END 2024-05-23 13:42 | disposition home health service (06) | DRG 291 ==
LOC: 3 WEST ACU 14:46
PROVIDERS: Internal Medicine; Nurse Practitioner Gerontology; Radiology Vascular & Interventional Radiology; Registered Nurse; ADMITTING PHYSICIAN Hospitalist; ATTENDING PHYSICIAN Internal Medicine; CONSULT PHYSICIAN Internal Medicine; CONSULT PHYSICIAN Internal Medicine Cardiovascular Disease; EMERGENCY PHYSICIAN Emergency Medicine; FAMILY PHYSICIAN Internal Medicine
PROC: 0W9B3ZZ Drainage of Left Pleural Cavity, Percutaneous Approach (ICD-10-PCS; 2024-05-20)
DX: I11.0 Hypertensive heart disease with heart failure (principal); I50.33 Acute on chronic diastolic (congestive) heart failure; I48.19 Other persistent atrial fibrillation; J95.811 Postprocedural pneumothorax; J90 Pleural effusion, not elsewhere classified; E87.1 Hypo-osmolality and hyponatremia; J94.8 Other specified pleural conditions; N18.9 Chronic kidney disease, unspecified; D63.1 Anemia in chronic kidney disease; K90.0 Celiac disease; I27.20 Pulmonary hypertension, unspecified; Z11.52 Encounter for screening for COVID-19
CPT/HCPCS: 32555; 36600; 71045; 71046; 71250; 80048; 80053; 80061; 81003; 81015; 82150; 82248; 82805; 82945; 82947; 82962; 83615; 83735; 83880; 83986; 84155; 84157; 84443; 84478; 84484; 85014; 85025; 85027; 87015; 87040; 87070; 87077; 87086; 87102; 87116; 87186; 87205; 87206; 87811; 89051; 93005; 96374; 97116; 97162; 97166; 97530; 99285

== ENCOUNTER 2024-05-31 23:43 | Inpatient (IN) | payer MEDICARE, OTHER, SELFPAY ==
[2024-05-31 19:29] VITALS: BP 132/66
[2024-05-31 19:58] LABS: % Basophils 1.4 % (0-2); % Eosinophils 3.1 % (0-6); % Immature Granulocytes 0.2 % (0-0.5); % Monocytes 12.6 % (1.7-9.3); % Neutrophils 55.7 % (42.2-75.2); Absolute Basophils 0.1 10^3/uL (0-0.2); Absolute Eosinophils 0.1 10^3/uL (0-0.7); Absolute Lymphocytes 1.1 10^3/uL (1.2-3.4); Absolute Monocytes 0.5 10^3/uL (0.1-0.6); Absolute Neutrophils 2.4 10^3/uL (1.4-6.5); Hematocrit 33.4 % (37.0-47.0); Hemoglobin 11.6 g/dL (12.0-16.0); Mean Corp Hgb Conc. 34.7 g/dL (33.0-37.0); Mean Corpuscular Hgb 30.7 pg (27.0-31.0); Mean Corpuscular Volume 88.4 fL (81.0-99.0); Mean Platelet Volume 8.2 fL (7.4-10.4); Nucleated Red Blood Cells % 0 %; Platelet Count 251 10^3/uL (130-400); Red Blood Cell Count 3.78 10^6/uL (4.20-5.40); Red Cell Dist. Width 14.5 % (11.5-14.5); White Blood Cell Count 4.2 10^3/uL (4.8-10.8)
[2024-05-31 20:14] LABS: ALT (SGPT) 13 U/L (0-35); AST (SGOT) 32 U/L (14-36); Albumin 4.2 g/dl (3.5-5.0); Alkaline Phosphatase 64 U/L (38-126); Blood Urea Nitrogen 21 mg/dl (7-17); Calcium 9.3 mg/dl (8.4-10.2); Carbon Dioxide 29 mmol/L (22-30); Chloride 87 mmol/L (98-107); Glucose 120 mg/dl (70-99); Potassium 4.8 mmol/L (3.5-5.1); Sodium 125 mmol/L (135-145); Total Bilirubin 0.6 mg/dl (0.2-1.3); Total Protein 7.6 g/dl (6.3-8.2); eGFR 43.54
[2024-05-31 20:26] LABS: Troponin I < 0.012 ng/ml
[2024-05-31 21:04] VITALS: BP 144/66
[2024-05-31 21:48] LABS: NT-proBNP 1720 pg/ml
[2024-05-31 22:28] VITALS: BP 156/66
--- NOTE | 2024-05-31 22:50 | ED.GENMED ---
History of Present Illness
General
Chief Complaint: Fatigue
Source: patient and spouse
Exam Limitations: none
Time Seen by Provider: 05/31/24 21:02
Nursing documentation reviewed up to this point in time: agreed with
History of Present Illness
History of Present Illness:
80-year-old female with past medical history of A-fib, CHF, recent pleural effusion presenting to the emergency department today with concerns of worsening shortness of breath and fatigue over the past 24 hours. Was otherwise feeling well after
recent hospital admission when she was discharged 1 week ago after having CHF exacerbation and pleural effusion that was drained. Denies specific chest pain at this point no fevers no nausea vomiting.
Past History
Past History
ED Past Medical History: Arrthythmia (Atrial fib), CHF, HTN, Valvular disease, Psychiatric (Anxiety, depression. ) and Other (atrial septal defect. UTI, Macular degeneration. Rosacea, )
ED Past Surgical History: Cardiac (cardiac ablation), (X 2) and Tonsilectomy
Social History
Tobacco: Non-smoker
Alcohol: None
Drug: None
Personal:
Living: with family
Review of Systems
Review of Systems
Allergies reviewed?: Yes
All Other Systems: ROS reviewed and negative except as documented in HPI and ROS
Phy Exam
Physical Exam
Physical Exam:
GENERAL: Alert , in no apparent distress
EYE: pupils equal and reactive
NECK: Supple, no significant adenopathy.
ENT: o/p clr, mmm.
CARDIAC: Regular rate and rhythm .
LUNGS: Diminished left lung and lower lobe
ABDOMEN: Soft, without focal tenderness, no r/g, no cvat
NEUROLOGICAL: Alert and oriented, no focal neuro deficits
SKIN: Warm and dry, skin intact.
MUSCULOSKELETAL: No edema, well perfused.
PSYCH: Normal and appropriate interaction.
Course
Orders/Labs/Results
Orders:
Orders
05/31/24 19:28
EKG [Electrocardiogram (*1)] Urgent
Reason for Study: Shortness of Breath
05/31/24 19:29
EKG- Treatment ONCE
05/31/24 19:53
Complete Blood Count/With Diff Urgent
Comprehensive Metabolic Panel Urgent
NT-proBNP Urgent
Comment: ADD ON
Troponin I Urgent
05/31/24 21:07
Add On- LAB Urgent
Tests Added?: BNP
Chest [CR Chest - 2 Views ] Urgent
Comment:
Reason For Exam: sob recent penumo
Abnormal Lab Results
05/31/24
19:53
WBC 4.2 L 10^3/uL
(4.8-10.8)
RBC 3.78 L 10^6/uL
(4.20-5.40)
Hgb 11.6 L g/dL
(12.0-16.0)
Hct 33.4 L %
(37.0-47.0)
Absolute Lymphs (auto) 1.1 L 10^3/uL
(1.2-3.4)
Monocytes % 12.6 H %
(1.7-9.3)
Sodium 125 L mmol/L
(135-145)
Chloride 87 L mmol/L
(98-107)
BUN 21 H mg/dl
(7-17)
Creatinine 1.2 H mg/dL
(0.6-1.0)
Glucose 120 H mg/dl
(70-99)
05/31/24 19:53
05/31/24 19:53
Vital Signs
Initial and Last Documented VS:
Initial Vital Signs
Temp Pulse BP Pulse Ox
98.1 F 78 132/66 96
05/31/24 19:29 05/31/24 19:29 05/31/24 19:29 05/31/24 19:29
Last Documented Vital Signs
Temp Pulse Resp BP Pulse Ox
98.1 F 74 29 144/66 96
05/31/24 19:29 05/31/24 21:04 05/31/24 21:04 05/31/24 21:04 05/31/24 21:04
MDM/Problems Addressed
MDM/Problems Addressed:
88-year-old female presenting to the emergency department with worsening shortness of breath fatigue throughout the day today. Recently in the hospital up until 1 week ago after being treated for heart failure and pleural effusion. Here today
vital signs are normal diminished lung sounds in the left side chest x-ray showing recurrence of pleural effusion that was previously there but drained with last hospital admission. Sodium is also 125 was recently upped her dose of Lasix and also
started on spironolactone. To admit for further treatment of both. Stable throughout the ER stay.
*Critical Care Note
Total Time (30-74mins, 75-104mins- exclusive of procedures): Not Applicable
ED Attending Note
-
Portions of this chart may have been created with voice recognition software.� Occasional wrong word or��sound alike� substitutions may have occurred due to the inherent limitations of voice recognition software.
Discharge Plan
Departure
Patient Disposition: Admit
Date of Disposition: 05/31/24
Time of Disposition: 22:52
Admit to: Telemetry
Admit to doctor: Esteban
Presentation/result/management discussed w/ accepting MD/DO: Hospitalist
Patient with high blood pressure during this ER visit?: No
Condition: Good
Covid-19: Not Applicable
Discharge Problem:
Pleural effusion, Acute hyponatremia
Prescriptions:
No Action
clonazepam 0.5 mg tablet
0.5 mg PO BID
propranolol 80 mg capsule,extended release 24hr
80 mg PO HS
magnesium oxide 500 mg Tablet
500 mg PO DAILYPRN PRN (Reason: leg cramps)
estradiol 0.01 % (0.1 mg/gram) cream
1 applic VAGINAL QPMPRN PRN (Reason: hormonal )
vitamin B complex Capsule
1 cap PO DAILY
cholecalciferol (vitamin D3) [Vitamin D3] 25 mcg (1,000 unit) Capsule
50 mcg PO DAILY
cyclosporine [Restasis] 0.05 % Dropperette
1 drp BOTH EYES Q12H
mirtazapine 30 mg tablet
30 mg PO HS
Artificial Tears (PF) Dropperette
1 drp BOTH EYES QID
diltiazem HCl 360 mg capsule,extended release 24hr
360 mg PO DAILY Qty: 30 0RF
Eliquis 2.5 mg Tablet
2.5 mg PO BID Qty: 60 0RF
polyethylene glycol 3350 [Miralax] 17 gram Powder In Packet
17 g PO DAILYPRN PRN (Reason: constipation)
acetaminophen [Tylenol Extra Strength] 500 mg Tablet
1,000 mg PO Q6HPRN PRN (Reason: mild pain)
spironolactone 25 mg Tablet
12.5 mg PO DAILY Qty: 30 0RF
furosemide 40 mg Tablet
40 mg PO DAILY Qty: 30 0RF
Referrals:
Richard Farris, DO [Family Provider] -
Interventions
Interventions:
*Risk Screen - Suicide Last Done: 05/31/24 19:31
*General Assessment Last Done: 05/31/24 19:31
*Neglect/Abuse Screening Last Done: 05/31/24 19:31
*ED COVID-19 Vaccine History Last Done: 05/31/24 19:31
Discharge Date and Time
Print Language: CROATIAN
--- NOTE | 2024-05-31 22:59 | HPS.HSE ---
Family Physician
-
Family Physician: Richard Farris
Chief Complaint
-
sob
History of Present Illness
80-year-old female with past medical history of A-fib, CHF, recent pleural effusion presenting to the emergency department today with concerns of worsening shortness of breath and fatigue over the past 24 hours. sob worse with exertion, but today
she is sob even resting. denied chest pain. denied fever, chills, runny nose, congestion and cough. denied DEL CID, dizzy or syncope. denied abdominal pain,n,v,d. denied dysuria or hematuria.
recent hospital admission when she was discharged 1 week ago after having CHF exacerbation and pleural effusion that was drained.
admitting for further management.
Medical History
Past Medical History
Past Medical History: Reports Other
Additional Past Medical History:
A-fib
CHF
Tremor
A-fib atrial septal defect
Pulmonary hypertension
Macular degeneration
Celiac disease
Past Surgical History: Reports Other
Additional Past Surgical History:
Tonsillectomy
Open heart surgery
Cardioversion
Cardioversion
Cardiac ablation
Social History
Tobacco: Non-smoker
Alcohol: None
Drug: None
Personal:
Living: With Family
Family History
Family History: Not pertinent
Allergies / Home Medications
Allergies reflects when Allergies were last updated in [employer].
Home Medications with original date entered in [employer]
Allergy/Medication List:
Allergies
Allergy/AdvReac Type Severity Reaction Status Date / Time
gluten Allergy Unknown Verified 05/19/24 11:44
nitrofurantoin Allergy Unknown Verified 05/19/24 11:44
[From Macrodantin]
Sulfa (Sulfonamide Allergy Unknown Verified 05/19/24 11:44
Antibiotics)
Home Medications
cholecalciferol (vitamin D3) 25 mcg (1,000 unit) capsule (Vitamin D3) 50 mcg PO DAILY Supplement 05/27/22
clonazepam 0.5 mg tablet 0.5 mg PO BID Mental Health/Anxiety 05/27/22
cyclosporine 0.05 % eye drops in a dropperette (Restasis) 1 drp BOTH EYES Q12H Eye condition 05/27/22
estradiol 0.01% (0.1 mg/gram) vaginal cream 1 applic vaginal QPMPRN PRN hormonal 05/27/22
magnesium oxide 500 mg PO DAILYPRN PRN leg cramps 05/27/22
propranolol 80 mg capsule,24 hr,extended release 80 mg PO HS Blood pressure/tremors 05/27/22
vitamin B complex 1 cap PO DAILY Supplement 05/27/22
dextran 70-hypromellose eye drops in a dropperette (Artificial Tears (PF) drops in a dropperette) 1 drp BOTH EYES QID Eye Condition 11/16/23
mirtazapine 30 mg tablet 30 mg PO HS Mental Health 11/16/23
diltiazem HCl 360 mg capsule,extended release 24 hr 360 mg PO DAILY #30 caps 03/09/24
apixaban 2.5 mg tablet (Eliquis) 2.5 mg PO BID #60 tabs 03/13/24
acetaminophen 500 mg tablet (Tylenol Extra Strength) 1,000 mg PO Q6HPRN PRN mild pain 05/19/24
polyethylene glycol 3350 17 gram oral powder packet (Miralax) 17 g PO DAILYPRN PRN constipation 05/19/24
spironolactone 25 mg tablet 12.5 mg (1/2 x 25 mg) PO DAILY #30 tabs 05/22/24
furosemide 40 mg tablet 40 mg PO DAILY #30 tabs 05/23/24
ondansetron 4 mg disintegrating tablet 4 mg PO DAILYPRN PRN nausea 05/31/24
Review of Systems
-
Constitutional: Reports No Symptoms
EENT: Reports No Symptoms
Respiratory: Reports Trouble Breathing
Cardiac: Reports No Symptoms
Abdomen/GI: Reports No Symptoms
: Reports No Symptoms
Musculoskeletal: Reports No Symptoms
Skin: Reports No Symptoms
Neurological: Reports No Symptoms
Endocrine: Reports No Symptoms
Hematologic/Lymphatic: Reports No Symptoms
Psych: Reports No Symptoms
Physical Exam
Vital Signs
Vital Signs
Temp Pulse Resp BP Pulse Ox
98.1 F 74 29 144/66 96
05/31/24 19:29 05/31/24 21:04 05/31/24 21:04 05/31/24 21:04 05/31/24 21:04
Physical Exam
General: Well Developed, Well Nourished and No Apparent Distress
HEENT: NormoCephalic, Moist mucous membranes and Atraumatic
Respiratory: Decreased Breath Sounds
Cardiac: S1/S2 and Regular Rhythm; No Murmur or Rub
GI: Soft, Non Tender, Non Distended and Normal Bowel Sounds; No Organomegaly
Rectal: Deferred by Provider
Musculoskeletal: No Clubbing, No Cyanosis and No Edema
Skin: No Rash
Neuro: AO x 3 and Nonfocal/grossly intact
Psych: Calm
Laboratory Results
-
05/31/24 19:53
05/31/24 19:53
Laboratory Results
Total Bilirubin 0.6 mg/dl (0.2-1.3) 05/31/24 19:53
AST 32 U/L (14-36) 05/31/24 19:53
ALT 13 U/L (0-35) 05/31/24 19:53
Alkaline Phosphatase 64 U/L (38-126) 05/31/24 19:53
Troponin I < 0.012 ng/ml 05/31/24 19:53
Data Reviewed
-
Diagnostic Radiology: Report Reviewed by me
Lab Data: Labs Reviewed by me
Impression/Plan
-
#acute on chronic hyponatremia likely from fluid overload
#CKD stage 3a
-cr 1.2,na 125
-fluid restriction
-Lasix continued
-IR consulted for thoracentesis
#worsening sob likely recurrence left sided pleural effusion
-chest x ray with Moderate left pleural effusion with associated atelectasis and/or pneumonia, progressed. Probable tiny residual left apical pneumothorax, similar to prior
-IR consulted
-Patient underwent thoracentesis on 05/20 which yielded at 950 cc clear yellow pleural fluid-cultures negative
-diuretics continued
# chronic HFpEF
-BNP 1720
-Lasix continued, hold spironolactone.
-Echo 03/09/24 showed LVEF 60-65%, mild LVH, mild to moderate MR and TR, PAP 48 mmHg.
#anemia of chronic disease
-hgb stable at 11.6
-no active bleeding
-ctm
# Macular degeneration of both eyes
-poor vision
-eye drop continued
#Essential tremors
-Propranolol continued
# Paroxysmal A-fib
-Cardizem and Eliquis continued
-EKG with sinus rhythm with first-degree AV block
# Anxiety
-Clonazepam continued
# DVT prophylaxis
-On Eliquis
# CODE STATUS
-Full code
[2024-05-31 23:00] VITALS: BP 146/65
[2024-06-01] VITALS (12 sets, daily range): BP systolic 86–149; BP diastolic 56–106; BMI 21.9; BMI 22.4
--- NOTE | 2024-06-01 01:59 | W.PN.UPDATE ---
Update Note
Progress Note Update
Patient seen condition with MAY. I agree with his initial physical. I concur with assessment and plan unless otherwise stated.
This is a 88-year-old female who has a past medical history significant for paroxysmal atrial fibrillation, COPD, celiac disease, hypertension, CHF with preserved EF and recently recurrent pleural effusion who presents to the emergency department
from home with shortness of breath. Patient was recently discharged from the hospital with shortness of breath in the setting of left-sided pleural effusion status post thoracenteses with small residual pleural effusion and a small residual
pneumothorax. After being home for a few days the patient started to develop orthopnea and shortness of breath. She felt congested denied any cough fevers or chills. Patient denies any increased lower extremity edema. When she was discharged she
was placed on increased total of 40 mg of Lasix and started on spironolactone.
In the emergency department she was afebrile, blood pressure was 140/60 with a pulse of 74. ECG showed sinus rhythm without any acute ST or T wave changes. Troponin was negative. BNP was elevated similar to prior at 1700. CBC was unchanged from
prior and unremarkable. Electrolytes notable for a sodium of 125 which is down from 132. The rest of the electrolytes were otherwise unremarkable. Chest x-ray shows a moderate left pleural effusion with probable tiny residual pneumothorax similar
to prior
On examination the patient was well-appearing and in no acute distress. When sitting up she was breathing comfortably not requiring any oxygen. Lungs are clear and she has no peripheral edema.
Assessment and plan
SOB - Likely secondary to recurrent pleural effusion, pseudo-exudative from chf suspected. No new pulmonary edema or peripheral edema
- admit to telemetry
- consult IR for therapeutic thoracentesis
- supplemental oxygen prn
- continue lasix for now
hyponatremia - Euvolemic compared to prior. Unlikely dehydrated. Spironolactone started on last admission
- 1.2 L free water restriction
- hold spironolactone
- orthostatic vs
- follow sodium, nephrology consult
CHF w/ preserved EF. BNP 1700 stable compared to prior
- continue lasix, hold aldactone as above
- daily weight and i/os
- fluid restriction
AFIB RVR - rate controlled
- continue diltiazem
- ac on eliquis
Code status - full code
--- NOTE | 2024-06-01 04:00 | PTCARENOTE ---
Pt recieved as Admit from ED. AAox3. Pt. placed on tele reading SR with first degree AVB. Admission completed, oriented to room and unit. Can make needs known. Call weiss within reach.
[2024-06-01 04:38] LABS: Hematocrit 34.9 % (37.0-47.0)
[2024-06-01 05:05] LABS: ALT (SGPT) 13 U/L (0-35); AST (SGOT) 33 U/L (14-36); Albumin 4.3 g/dl (3.5-5.0); Alkaline Phosphatase 73 U/L (38-126); Blood Urea Nitrogen 19 mg/dl (7-17); Calcium 9.2 mg/dl (8.4-10.2); Carbon Dioxide 28 mmol/L (22-30); Chloride 88 mmol/L (98-107); Direct Bilirubin 0.1 mg/dl (0.0-0.4); Estimated Creatinine Clearance 29 ml/min; Glucose 109 mg/dl (70-99); HDL Cholesterol 100 mg/dl; LDH 172 U/L (120-246); LDL Cholesterol, Calculated 92 mg/dl; Magnesium 2.1 mg/dl (1.6-2.3); Potassium 4.4 mmol/L (3.5-5.1); Sodium 128 mmol/L (135-145); Total Bilirubin 0.6 mg/dl (0.2-1.3); Total Cholesterol 205 mg/dl (50-199); Total Protein 7.7 g/dl (6.3-8.2); Triglyceride 68 mg/dl (10-149); Very Low Density Lipoprotein 13 mg/dl (0-30); eGFR 48.33
--- NOTE | 2024-06-01 08:10 | PTCARENOTE ---
Assumed care of pt from prev nsg shift; AAOx3 w/no c/o CP, pt is mildy SOB w/activity. Pt w/VS stable w/HR in the 80's & BP 140/68 this AM. Pt is SR w/1st deg AV block on telemetry monitoring. Pt advised of plan of care w/thoracentesis sched for
this AM. Pt verbalized her understanding. Pt w/call weiss within reach & no addtl needs at this time.
--- NOTE | 2024-06-01 08:16 | VNURNOTE ---
Chart reviewed. Patient is current with [facility] nursing. Will continue to follow hospital course and DC plans.
[2024-06-01] MEDS: RESTASIS 0.05% OPHTHALMIC EMULSION 1 DROPS BOTH EYES ×2 (10:06→19:46)
[2024-06-01] MEDS: ELIQUIS 2.5 MG PO ×2 (10:06→19:46)
[2024-06-01] MEDS: KLONOPIN 0.5 MG PO ×2 (10:06→19:46)
[2024-06-01] MEDS: CARDIZEM CD 360 MG PO (10:06)
[2024-06-01] MEDS: LASIX 40 MG PO (10:06)
[2024-06-01] MEDS: REFRESH EYE DROPS (PF) 1 DROPS BOTH EYES ×4 (10:07→21:00)
[2024-06-01 10:26] LABS: Body Fluid pH 7.46
[2024-06-01 10:53] LABS: Body Fluid Amylase 51 U/L; Body Fluid Glucose 103 mg/dl; Body Fluid LDH 228 U/L; Body Fluid Protein 5.1 g/dl; Body Fluid Triglycerides < 30 mg/dl
--- NOTE | 2024-06-01 12:40 | CM ---
Addendum entered by YOGESH Schmidt 06/01/24 14:36:
[facility] able to accept for resumption of care.
Original Note:
CM following for DC planning needs.
Met w/ patient and spouse at bedside to complete initial assessment.
Pt. resides w/ spouse in a private, 2 story home w/ 1 [address] in long term community.
Pt. is functionally indep. w/ ADLs, mobility w/ use of a RW.
Pt. has had mult. re-admissions to ; last admission was 05/23/24. Pt. was DCed to home w/ [facility] and is still receiving services.
Sent referral for resumption of care.
Anticipate DC to home w/ [facility] once medically stable.
[2024-06-01 12:45] LABS: Body Fluid WBC 4031 /CUMM
[2024-06-01 12:46] LABS: Body Fluid Mononuclear 47.8 %; Body Fluid Polymorphonuclear 52.2 %
[2024-06-01 12:50] LABS: Body Fluid Second Tech EF
--- NOTE | 2024-06-01 13:40 | W.PN.HOSP.TC ---
Today's Communication/Plan
-
Continue current care
Assessment / Plan
Assessment / Plan
Gen-AAOx3, NAD
HEENT-NC, AT, anicteric, clear oral mm
Neck-supple
CV-reg, no M, +S1/S2
Lungs-clear B/L
Abd-soft, NT, ND
Ext-no edema
Musculoskeletal-no cyanosis, clubbing
Skin-warm and dry
Neuro-grossly non-focal
Psych-calm, cooperative
Acute hypoxic respiratory insufficiency -due to recurrent left pleural effusion. Clinically improved after thoracentesis.
Recurrent left pleural effusion -likely due to volume overload due to congestive heart failure. She admits to drinking 64 ounces of fluid daily at home.
Recommend 48 ounce daily fluid restriction on discharge. Discussed with patient and . Continue diuretics.
Diagnosed with left hydropneumothorax during last hospitalization.
Hyponatremia -sodium improving, 128. Etiology is likely due to chronic heart failure, excessive fluid intake. Fluid restriction ordered.
Recheck BMP in the morning.
Chronic heart failure preserved EF -stable. Continue Lasix, spironolactone. Outpatient follow-up with Dr. Waters.
Paroxysmal atrial fibrillation -continue Eliquis.
Chronic anemia/leukopenia -counts are stable. Follow-up as outpatient.
Full code
Dispo - anticipate discharge tomorrow if medically stable.
Updated at the bedside.
Anticipated Discharge: Within 24 hours
Subjective/Interval History
-
Date of Service: June 01, 2024
Patient seen and examined. Feels better, shortness of breath improved.
Objective Data
-
Labs:
Laboratory Results
06/01/24 06/01/24
04:31 04:31
Hct 34.9 L
Sodium 128 L
Potassium 4.4
Chloride 88 L
Carbon Dioxide 28
BUN 19 H
Creatinine 1.1 H
Glucose Cancelled 109 H
Calcium 9.2
Total Bilirubin 0.6
AST 33
ALT 13
Alkaline Phosphatase 73
Vital Signs:
Vital Signs
Temp Pulse Resp BP Pulse Ox
98.2 F 85 20 142/64 96
06/01/24 10:12 06/01/24 11:15 06/01/24 10:12 06/01/24 10:12 06/01/24 10:12
I&O
05/31/24 06/01/24 06/02/24
06:59 06:59 06:59
Intake Total 480 / 480
Output Total 300 / 300
Balance 180 / 180
Review of Systems
-
History Source: Patient
All other systems: Reviewed and negative
--- NOTE | 2024-06-01 14:13 | W.CON.NEPH ---
Consultation
-
Date/Time Consultation Requested: 06/01/2024 10 AM
Date/Time Consultation Performed: 06/01/2024 10 AM
Requesting Provider: Dr. Broussard
Performing Provider: Dr. Liu
Reason for Consultation: Hyponatremia
Medical History
-
Chief Complaint: Shortness of breath
History of Present Illness:
This is an 88-year-old female who has atrial fibrillation on Eliquis and diltiazem therapy, heart failure on chronic diuretic therapy, hypertension on a multidrug regimen presented to the emergency room with worsening shortness of breath and short
and dyspnea on exertion. At the time of admission she was noted to be somewhat volume overloaded with a left pleural effusion. She underwent thoracentesis with almost 1 L of fluid removal. Her shortness breath did improve. She was continued on
Lasix. He was noted to have hyponatremia with a serum level 125 which has risen up to 128 though she seems to also have chronic hyponatremia based on past blood work. We are asked to assist in management of her electrolytes.
Past Medical History
A-fib
CHF
Tremor
A-fib atrial septal defect
Pulmonary hypertension
Macular degeneration
Celiac disease
Tonsillectomy
Open heart surgery
Cardioversion
Cardioversion
Cardiac ablation
Social History
Tobacco: Non-Smoker
Alcohol: None
Family History
Family History: Not Pertinent
Allergies / Home Medications
Allergy/AdvReac Type Severity Reaction Status Date / Time
gluten Allergy Unknown Verified 05/19/24 11:44
nitrofurantoin Allergy Unknown Verified 05/19/24 11:44
[From Macrodantin]
Sulfa (Sulfonamide Allergy Unknown Verified 05/19/24 11:44
Antibiotics)
�Medication �Instructions �Recorded �Confirmed �Type
cholecalciferol (vitamin D3) 25 50 mcg PO DAILY Supplement 05/27/22 05/31/24 History
mcg (1,000 unit) capsule (Vitamin
D3)
clonazepam 0.5 mg tablet 0.5 mg PO BID Mental Health/Anxiety 05/27/22 05/31/24 History
cyclosporine 0.05 % eye drops in a 1 drp BOTH EYES Q12H Eye condition 05/27/22 05/31/24 History
dropperette (Restasis)
estradiol 0.01% (0.1 mg/gram) 1 applic vaginal QPMPRN PRN 05/27/22 05/31/24 History
vaginal cream hormonal
magnesium oxide 500 mg PO DAILYPRN PRN leg cramps 05/27/22 05/31/24 History
propranolol 80 mg capsule,24 80 mg PO HS Blood pressure/tremors 05/27/22 05/31/24 History
hr,extended release
vitamin B complex 1 cap PO DAILY Supplement 05/27/22 05/31/24 History
dextran 70-hypromellose eye drops 1 drp BOTH EYES QID Eye Condition 11/16/23 05/31/24 History
in a dropperette (Artificial Tears
(PF) drops in a dropperette)
mirtazapine 30 mg tablet 30 mg PO HS Mental Health 11/16/23 05/31/24 History
diltiazem HCl 360 mg 360 mg PO DAILY #30 caps 03/09/24 05/31/24 Rx
capsule,extended release 24 hr
apixaban 2.5 mg tablet (Eliquis) 2.5 mg PO BID #60 tabs 03/13/24 05/31/24 Rx
acetaminophen 500 mg tablet 1,000 mg PO Q6HPRN PRN mild pain 05/19/24 05/31/24 History
(Tylenol Extra Strength)
polyethylene glycol 3350 17 gram 17 g PO DAILYPRN PRN constipation 05/19/24 05/31/24 History
oral powder packet (Miralax)
spironolactone 25 mg tablet 12.5 mg (1/2 x 25 mg) PO DAILY #30 05/22/24 05/31/24 Rx
tabs
furosemide 40 mg tablet 40 mg PO DAILY #30 tabs 05/23/24 05/31/24 Rx
ondansetron 4 mg disintegrating 4 mg PO DAILYPRN PRN nausea 05/31/24 05/31/24 History
tablet
Review of Systems
-
Currently no chest pain or shortness of breath
All other systems: Negative unless noted
Physical Exam
Vital Signs
Vital Signs
Temp Pulse Resp BP Pulse Ox
98.2 F 85 20 142/64 96
06/01/24 10:12 06/01/24 11:15 06/01/24 10:12 06/01/24 10:12 06/01/24 10:12
Lab Results
WBC 4.2 10^3/uL (4.8-10.8) L 05/31/24 19:53
RBC 3.78 10^6/uL (4.20-5.40) L 05/31/24 19:53
Hgb 11.6 g/dL (12.0-16.0) L 05/31/24 19:53
Hct 34.9 % (37.0-47.0) L 06/01/24 04:31
Plt Count 251 10^3/uL (130-400) 05/31/24 19:53
Sodium 128 mmol/L (135-145) L 06/01/24 04:31
Potassium 4.4 mmol/L (3.5-5.1) 06/01/24 04:31
Chloride 88 mmol/L (98-107) L 06/01/24 04:31
Carbon Dioxide 28 mmol/L (22-30) 06/01/24 04:31
BUN 19 mg/dl (7-17) H 06/01/24 04:31
Creatinine 1.1 mg/dL (0.6-1.0) H 06/01/24 04:31
eGFR 48.33 06/01/24 04:31
Glucose 109 mg/dl (70-99) H 06/01/24 04:31
Glucose Cancelled 06/01/24 04:31
Calcium 9.2 mg/dl (8.4-10.2) 06/01/24 04:31
Ssa-V-Vfrbimfvela Pept 1720 pg/ml 05/31/24 19:53
Albumin 4.3 g/dl (3.5-5.0) 06/01/24 04:31
Physical Exam
Patient is awake alert oriented and in no distress. Mood and affect were pleasant, insight and judgment were good. Pupils are equal round and reactive to light, extraocular movements are intact, sclera were anicteric. Hearing was normal, ears and
nose are intact. Oropharynx was clear. Neck was supple with trachea midline and no thyromegaly. Heart was regular rate and rhythm without rubs. Lower extremities without edema. Lungs were clear to auscultation bilaterally and with normal
excursion. Abdomen was soft, nontender, with normal active bowel sounds, and no hepatosplenomegaly. Skin was without rash and with normal turgor.
Data Reviewed
-
Radiology: Image Personally Visualized and interpreted (Chest x-ray on 06/01/2024 by my reading shows increased lung volumes, cardiomegaly, reduced left pleural effusion)
Medical Tests (Nuc Med, Echo etc): Image Personally Visualized and interpreted (EKG on 05/31/2024 by reading shows sinus rhythm first-degree AV block, nonspecific T wave abnormalities)
Labs: Labs Reviewed by me
Old Records: Reviewed
Assessment/Plan
-
Assessment:
Hyponatremia
A-fib status post ablation
Heart failure preserved ejection fraction
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
Left pleural effusion status post thoracentesis
Plan:
Continue fluid restriction of 48 ounces or less
Continue Lasix
Repeat urine studies
Follow BMP
[2024-06-01] MEDS: ALDACTONE 12.5 MG PO (14:32)
[2024-06-01 14:46] LABS: Osmolality Urine 240 mOsm/kg (300-900)
[2024-06-01 16:41] LABS: Urine Sodium 41 mmol/L (30-90)
[2024-06-01] MEDS: INDERAL LA 80 MG PO (21:01)
[2024-06-01] MEDS: REMERON 30 MG PO (21:01)
--- NOTE | 2024-06-01 21:04 | PTCARENOTE ---
Pt. received at change of shift. AAOx3. SR on tele with HR 90s. Up to commode with x1 assist. Bed request in for pt to be moved to 3W room 318. Report called to receiving RN. Pt transferred to 3W via wheelchair with all personal belongings.
--- NOTE | 2024-06-02 01:17 | TRANSFER ---
Patient transferred from IVU, report received from DOUG Pinzon. Patient AAox3, some forgetfulness. Patient placed on tele monitor, NSR with prolonged QT and 1st degree HB. Patient denies any pain or SOB. Call weiss with in reach. Care ongoing, will
monitor.
[2024-06-02 03:43] VITALS: BP 108/52
[2024-06-02 06:00] VITALS: BMI 22.2
[2024-06-02 07:17] LABS: Blood Urea Nitrogen 18 mg/dl (7-17); Calcium 8.9 mg/dl (8.4-10.2); Carbon Dioxide 29 mmol/L (22-30); Chloride 94 mmol/L (98-107); Estimated Creatinine Clearance 29 ml/min; Glucose 108 mg/dl (70-99); Potassium 4.3 mmol/L (3.5-5.1); Sodium 129 mmol/L (135-145); eGFR 48.33
[2024-06-02] MEDS: CARDIZEM CD 360 MG PO (07:25)
[2024-06-02] MEDS: ALDACTONE 12.5 MG PO (07:25)
[2024-06-02] MEDS: LASIX 40 MG PO (07:26)
[2024-06-02] MEDS: REFRESH EYE DROPS (PF) 1 DROPS BOTH EYES (07:26)
[2024-06-02] MEDS: KLONOPIN 0.5 MG PO (07:26)
[2024-06-02] MEDS: ELIQUIS 2.5 MG PO (07:26)
[2024-06-02] MEDS: RESTASIS 0.05% OPHTHALMIC EMULSION 1 DROPS BOTH EYES (07:26)
--- NOTE | 2024-06-02 08:03 | W.PN.HOSP.TC ---
Today's Communication/Plan
-
Discharge
Assessment / Plan
Assessment / Plan
Gen-AAOx3, NAD
HEENT-NC, AT, anicteric, clear oral mm
Neck-supple
CV-reg, no M, +S1/S2
Lungs-clear B/L
Abd-soft, NT, ND
Ext-no edema
Musculoskeletal-no cyanosis, clubbing
Skin-warm and dry
Neuro-grossly non-focal
Psych-calm, cooperative
Acute hypoxic respiratory insufficiency -due to recurrent left pleural effusion. Clinically improved after thoracentesis.
Recurrent left pleural effusion -likely due to volume overload due to congestive heart failure. She admits to drinking 64 ounces of fluid daily at home.
Recommend 48 ounce daily fluid restriction on discharge. Discussed with patient and . Continue diuretics.
Diagnosed with left hydropneumothorax during last hospitalization.
Hyponatremia -sodium improving, 129. Etiology is likely due to chronic heart failure, excessive fluid intake. Fluid restriction ordered.
Recheck BMP in the morning.
Chronic heart failure preserved EF -stable. Continue Lasix, spironolactone. Outpatient follow-up with Dr. Waters.
Paroxysmal atrial fibrillation -continue Eliquis.
Chronic anemia/leukopenia -counts are stable. Follow-up as outpatient.
Full code
Dispo -medically stable for discharge home today. Outpatient follow-up.
32 minutes spent in discharge process.
Anticipated Discharge: Today
Subjective/Interval History
-
Date of Service: June 02, 2024
Patient seen and examined. No complaints.
Objective Data
-
Labs:
Laboratory Results
06/02/24
06:42
Sodium 129 L
Potassium 4.3
Chloride 94 L
Carbon Dioxide 29
BUN 18 H
Creatinine 1.1 H
Glucose 108 H
Calcium 8.9
Vital Signs:
Vital Signs
Temp Pulse Resp BP Pulse Ox
98.3 F 73 18 129/60 96
06/02/24 03:43 06/02/24 07:26 06/02/24 03:43 06/02/24 07:26 06/02/24 03:43
I&O
06/01/24 06/02/24 06/03/24
06:59 06:59 06:59
Intake Total 480 / 480
Output Total 300 / 300
Balance 180 / 180
Review of Systems
-
History Source: Patient
All other systems: Reviewed and negative
[2024-06-02 08:05] VITALS: BP 129/60
--- NOTE | 2024-06-02 08:05 | W.DS.TRANS ---
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
-
Discharge Instructions:
Sleep Apnea Risk Low
Discharge Diagnosis/Procedures Recurrent left pleural effusion, hyponatremia
Diet Restrict fluids to 48 oz,2 Gram Sodium
Activity As tolerated
Driving Restrictions As prior to admission
Bathing Restrictions None
Blood Work BMP in 1 week
Instructions: *CBC Heart Failure Instructions
Stand-Alone Forms:
Changes to Home Medications: No
Discharge Medications:
DC Medications w/original date entered in [facility]
cholecalciferol (vitamin D3) 25 mcg (1,000 unit) capsule (Vitamin D3) 50 mcg PO DAILY Supplement 05/27/22
clonazepam 0.5 mg tablet 0.5 mg PO BID Mental Health/Anxiety 05/27/22
cyclosporine 0.05 % eye drops in a dropperette (Restasis) 1 drp BOTH EYES Q12H Eye condition 05/27/22
estradiol 0.01% (0.1 mg/gram) vaginal cream 1 applic vaginal QPMPRN PRN hormonal 05/27/22
magnesium oxide 500 mg PO DAILYPRN PRN leg cramps 05/27/22
propranolol 80 mg capsule,24 hr,extended release 80 mg PO HS Blood pressure/tremors 05/27/22
vitamin B complex 1 cap PO DAILY Supplement 05/27/22
dextran 70-hypromellose eye drops in a dropperette (Artificial Tears (PF) drops in a dropperette) 1 drp BOTH EYES QID Eye Condition 11/16/23
mirtazapine 30 mg tablet 30 mg PO HS Mental Health 11/16/23
diltiazem HCl 360 mg capsule,extended release 24 hr 360 mg PO DAILY #30 caps 03/09/24
apixaban 2.5 mg tablet (Eliquis) 2.5 mg PO BID #60 tabs 03/13/24
acetaminophen 500 mg tablet (Tylenol Extra Strength) 1,000 mg PO Q6HPRN PRN mild pain 05/19/24
polyethylene glycol 3350 17 gram oral powder packet (Miralax) 17 g PO DAILYPRN PRN constipation 05/19/24
spironolactone 25 mg tablet 12.5 mg (1/2 x 25 mg) PO DAILY #30 tabs 05/22/24
furosemide 40 mg tablet 40 mg PO DAILY #30 tabs 05/23/24
ondansetron 4 mg disintegrating tablet 4 mg PO DAILYPRN PRN nausea 05/31/24
Home Medication Changes
Pending Results: No
--- NOTE | 2024-06-02 09:07 | CM ---
Patient seen at bedside with .
IMM explained & signed. In chart
IA completed.
Lives with in a 2 story home, 1st floor set up, 1 step to enter.
PLOF: walker
DME: walker
denies insecurities
Current with [facility] - notified Jessica liaison
PCP: Lizabeth Glass
Pharmacy: [address], [place]
[facility]
== END 2024-06-02 09:42 | disposition home or self-care (01) | DRG 187 ==
LOC: 3 WEST ACU 23:43
PROVIDERS: Emergency Medicine; Radiology Vascular & Interventional Radiology; Registered Nurse; ADMITTING PHYSICIAN Internal Medicine; ATTENDING PHYSICIAN Hospitalist; EMERGENCY PHYSICIAN Emergency Medicine; FAMILY PHYSICIAN Family Medicine; OTHER PHYSICIAN Specialist
PROC: 0W9B3ZZ Drainage of Left Pleural Cavity, Percutaneous Approach (ICD-10-PCS; 2024-06-01)
DX: J90 Pleural effusion, not elsewhere classified (principal); E87.1 Hypo-osmolality and hyponatremia; J93.9 Pneumothorax, unspecified; J94.8 Other specified pleural conditions; I50.32 Chronic diastolic (congestive) heart failure; I13.0 Hypertensive heart and chronic kidney disease with heart failure and stage 1 through stage 4 chronic kidney disease, or unspecified chronic kidney disease; Q21.10 Atrial septal defect, unspecified; R53.83 Other fatigue; I48.0 Paroxysmal atrial fibrillation; F32.A Depression, unspecified; F41.9 Anxiety disorder, unspecified; N18.31 Chronic kidney disease, stage 3a; H35.30 Unspecified macular degeneration; I27.20 Pulmonary hypertension, unspecified; D63.1 Anemia in chronic kidney disease; G25.0 Essential tremor; R09.02 Hypoxemia; R06.89 Other abnormalities of breathing; D72.819 Decreased white blood cell count, unspecified; K90.0 Celiac disease; I44.0 Atrioventricular block, first degree; I08.1 Rheumatic disorders of both mitral and tricuspid valves; Z87.440 Personal history of urinary (tract) infections; Z79.01 Long term (current) use of anticoagulants; Z88.3 Allergy status to other anti-infective agents; Z88.2 Allergy status to sulfonamides
CPT/HCPCS: 88305; 32555; 71045; 71046; 80048; 80053; 80061; 82150; 82248; 82570; 82945; 83615; 83735; 83880; 83935; 83986; 84157; 84300; 84478; 84484; 85014; 85025; 87015; 87070; 87102; 87116; 87205; 87206; 88112; 89051; 93005; 99285

== ENCOUNTER 2024-06-02 15:03 | Emergency (ER) | payer MEDICARE, OTHER, SELFPAY ==
[2024-06-02 15:05] VITALS: BP 126/56
--- NOTE | 2024-06-02 18:00 | ED.GENMED ---
History of Present Illness
General
Chief Complaint: Fall
Source: patient
Exam Limitations: none
Time Seen by Provider: 06/02/24 17:40
Nursing documentation reviewed up to this point in time: agreed with
History of Present Illness
History of Present Illness:
88-year-old female past medical history of A-fib pleural effusions hyponatremia recently was in the hospital discharge this morning was at home and got her legs twisted up while walking fell and hit the back of her head did not lose consciousness
otherwise feels well at this point. Denies additional concerns or trauma.
Past History
Past History
ED Past Medical History: Arrthythmia (Atrial fib), CHF, HTN, Valvular disease, Psychiatric (Anxiety, depression. ) and Other (atrial septal defect. UTI, Macular degeneration. Rosacea, )
ED Past Surgical History: Cardiac (cardiac ablation), (X 2) and Tonsilectomy
Social History
Tobacco: Non-smoker
Alcohol: None
Drug: None
Personal:
Living: with family
Review of Systems
Review of Systems
Allergies reviewed?: Yes
All Other Systems: ROS reviewed and negative except as documented in HPI and ROS
Phy Exam
Physical Exam
Physical Exam:
GENERAL: Alert , in no apparent distress
EYE: pupils equal and reactive
NECK: Supple, no significant adenopathy.
ENT: o/p clr, mmm.
CARDIAC: Regular rate and rhythm .
LUNGS: Clear breath sounds bilaterally, no acute respiratory distress, no wheezes/rales/rhonchi
ABDOMEN: Soft, without focal tenderness, no r/g, no cvat
NEUROLOGICAL: Alert and oriented, no focal neuro deficits 5 out of 5 upper and lower extremity strength normal sensation with palpating bilaterally normal finger-nose and over lan no pronator drift
SKIN: Warm and dry, skin intact.
MUSCULOSKELETAL: No edema, well perfused.
PSYCH: Normal and appropriate interaction.
Course
Orders/Labs/Results
Orders:
Orders
06/02/24 15:07
CT Head W/o Iv Contrast Urgent
Comment:
Reason For Exam: head strike on eliquis
06/02/24 16:39
CT Cervical Spine W/o Iv Contr Urgent
Comment:
Reason For Exam: fall
Vital Signs
Initial and Last Documented VS:
Initial Vital Signs
Temp Pulse Resp BP Pulse Ox
98.0 F 69 18 126/56 96
06/02/24 15:05 06/02/24 15:05 06/02/24 15:05 06/02/24 15:05 06/02/24 15:05
Last Documented Vital Signs
Temp Pulse Resp BP Pulse Ox
98.0 F 69 18 126/56 96
06/02/24 15:05 06/02/24 15:05 06/02/24 15:05 06/02/24 15:05 06/02/24 15:05
MDM/Problems Addressed
MDM/Problems Addressed:
88-year-old female presenting to the emergency department today with concerns after mechanical fall prior to arrival. Vital signs normal on arrival head CT and neck CT without emergent findings. Stable for outpatient management return precautions
given.
*Critical Care Note
Total Time (30-74mins, 75-104mins- exclusive of procedures): Not Applicable
ED Attending Note
-
Portions of this chart may have been created with voice recognition software.� Occasional wrong word or��sound alike� substitutions may have occurred due to the inherent limitations of voice recognition software.
Discharge Plan
Departure
Patient Disposition: Home (Routine Discharge)
Date of Disposition: 06/02/24
Time of Disposition: 18:01
Patient with high blood pressure during this ER visit?: No
Condition: Good
Covid-19: Not Applicable
Discharge Problem:
Fall
Instructions: Preventing falls in adults
Prescriptions:
No Action
clonazepam 0.5 mg tablet
0.5 mg PO BID
propranolol 80 mg capsule,extended release 24hr
80 mg PO HS
magnesium oxide 500 mg Tablet
500 mg PO DAILYPRN PRN (Reason: leg cramps)
estradiol 0.01 % (0.1 mg/gram) cream
1 applic VAGINAL QPMPRN PRN (Reason: hormonal )
vitamin B complex Capsule
1 cap PO DAILY
cholecalciferol (vitamin D3) [Vitamin D3] 25 mcg (1,000 unit) Capsule
50 mcg PO DAILY
cyclosporine [Restasis] 0.05 % Dropperette
1 drp BOTH EYES Q12H
mirtazapine 30 mg tablet
30 mg PO HS
Artificial Tears (PF) Dropperette
1 drp BOTH EYES QID
diltiazem HCl 360 mg capsule,extended release 24hr
360 mg PO DAILY Qty: 30 0RF
Eliquis 2.5 mg Tablet
2.5 mg PO BID Qty: 60 0RF
polyethylene glycol 3350 [Miralax] 17 gram Powder In Packet
17 g PO DAILYPRN PRN (Reason: constipation)
acetaminophen [Tylenol Extra Strength] 500 mg Tablet
1,000 mg PO Q6HPRN PRN (Reason: mild pain)
spironolactone 25 mg Tablet
12.5 mg PO DAILY Qty: 30 0RF
furosemide 40 mg Tablet
40 mg PO DAILY Qty: 30 0RF
ondansetron 4 mg Tablet,Disintegrating
4 mg PO DAILYPRN PRN (Reason: nausea)
Referrals:
UNKNOWN - PT DOES,NOT KNOW [Family Provider] -
Interventions
Interventions:
*Risk Screen - Suicide Last Done: 06/02/24 15:05
*General Assessment Last Done: 06/02/24 15:05
*Neglect/Abuse Screening Last Done: 06/02/24 15:05
*ED COVID-19 Vaccine History Last Done: 06/02/24 15:05
Discharge Date and Time
Print Language: NEPALI
[2024-06-02 18:39] VITALS: BMI 21.8
== END 2024-06-02 18:00 | disposition home or self-care (01) ==
LOC: EMR 15:03
PROVIDERS: EMERGENCY PHYSICIAN Emergency Medicine; FAMILY PHYSICIAN Internal Medicine
DX: S09.90XA Unspecified injury of head, initial encounter (principal); W19.XXXA Unspecified fall, initial encounter; I48.91 Unspecified atrial fibrillation; J90 Pleural effusion, not elsewhere classified; E87.1 Hypo-osmolality and hyponatremia; I11.0 Hypertensive heart disease with heart failure; I50.9 Heart failure, unspecified; F41.8 Other specified anxiety disorders; H35.30 Unspecified macular degeneration; L71.9 Rosacea, unspecified; I38 Endocarditis, valve unspecified; Z79.01 Long term (current) use of anticoagulants; Z87.440 Personal history of urinary (tract) infections
CPT/HCPCS: 99284; 70450; 72125

== ENCOUNTER → 2024-06-07 10:20 | Outpatient (REF) | payer MEDICARE, OTHER, SELFPAY ==
[2024-06-07 17:21] LABS: Blood Urea Nitrogen 28 mg/dl (7-17); Carbon Dioxide 29 mmol/L (22-30); Chloride 92 mmol/L (98-107); Glucose 161 mg/dl (70-99); Potassium 4.6 mmol/L (3.5-5.1); Sodium 130 mmol/L (135-145); eGFR 33.31
== END ==
LOC: CLAB 10:20
PROVIDERS: ATTENDING PHYSICIAN Internal Medicine Cardiovascular Disease
DX: I50.32 Chronic diastolic (congestive) heart failure (principal)
CPT/HCPCS: 36415; 80048

== ENCOUNTER 2024-06-10 16:45 | Inpatient (IN) | payer MEDICARE, OTHER, SELFPAY ==
[2024-06-10 14:32] VITALS: BP 116/39
[2024-06-10 14:39] LABS: % Basophils 1.2 % (0-2); % Eosinophils 2.1 % (0-6); % Immature Granulocytes 0.2 % (0-0.5); % Lymphocytes 26.8 % (20.5-51.1); % Monocytes 12.2 % (1.7-9.3); % Neutrophils 57.5 % (42.2-75.2); Absolute Basophils 0.1 10^3/uL (0-0.2); Absolute Eosinophils 0.1 10^3/uL (0-0.7); Absolute Lymphocytes 1.5 10^3/uL (1.2-3.4); Absolute Monocytes 0.7 10^3/uL (0.1-0.6); Absolute Neutrophils 3.3 10^3/uL (1.4-6.5); Hematocrit 31.2 % (37.0-47.0); Hemoglobin 10.5 g/dL (12.0-16.0); Mean Corp Hgb Conc. 33.7 g/dL (33.0-37.0); Mean Corpuscular Hgb 30.6 pg (27.0-31.0); Mean Platelet Volume 8.4 fL (7.4-10.4); Nucleated Red Blood Cells % 0 %; Platelet Count 250 10^3/uL (130-400); Red Blood Cell Count 3.43 10^6/uL (4.20-5.40); Red Cell Dist. Width 14.8 % (11.5-14.5); White Blood Cell Count 5.8 10^3/uL (4.8-10.8)
--- NOTE | 2024-06-10 14:58 | ED.GENMED ---
History of Present Illness
General
Chief Complaint: Heart Rate Problem
Source: patient and spouse
Time Seen by Provider: 06/10/24 14:48
History of Present Illness
History of Present Illness:
88-year-old female presents to the emergency room complaining of low heart rate. Patient has a history of atrial fibrillation. She is prescribed 360 mg of Cardizem a day as well as propranolol 80 mg. She takes the Cardizem in the morning
propranolol at night. This morning the patient took her vital signs as they do every day and noted her heart rate to be in the 90s. She began feeling a bit lightheaded around 1:30 PM. Her again took her heart rate and noted it to be in
the 30s. Patient's and are confident she did not take any additional medication inadvertently. Her controls her medications. She did take her Eliquis this morning. Patient was told by her computer systems hardware analyst to decrease the dose of
Lasix from 40 mg a day to alternating between 40 mg 1 day and 20 mg the other. This medication change occurred because her creatinine was slowly rising. Patient currently denies any chest pain, shortness of breath, nausea or vomiting. While
laying in bed she is comfortable.
Past History
Past History
ED Past Medical History: Arrthythmia (Atrial fib), CHF, HTN, Valvular disease, Psychiatric (Anxiety, depression. ) and Other (atrial septal defect. UTI, Macular degeneration. Rosacea, )
ED Past Surgical History: Cardiac (cardiac ablation), (X 2) and Tonsilectomy
Social History
Tobacco: Non-smoker
Alcohol: None
Drug: None
Personal:
Living: with family
Phy Exam
Physical Exam
Physical Exam:
General: Awake, Alert, Oriented X3. No acute distress, appears stated age, frail
Vitals: Bradycardic
Head: Atraumatic
Eyes: Pupils equal, EOMI
Throat: Airway intact, no exudates
Neck: Trachea midline
Lungs: Clear and equal b/l
Heart: Regular rate, no murmurs
Abd: Soft, Nontender, No pulsatile mass
Neuro: Nonfocal
Skin: Warm, dry, no rash
Extremities: pulses equal b/l, no edema
Course
Orders/Labs/Results
Orders:
Orders
06/10/24 14:26
Electrocardiogram (*1) Urgent
Reason for Study: Bradycardia / Tachycardia
06/10/24 14:27
EKG- Treatment ONCE
06/10/24 14:32
CMP [Comprehensive Metabolic Panel] Urgent
Complete Blood Count/With Diff Urgent
Magnesium Urgent
Comment: ADD ON
TSH Reflex To Free T4 Urgent
Comment: ADD ON
Troponin I Urgent
06/10/24 14:33
Atropine Sulfate [Atropine 0.1 mg/ml Syringe] 1 mg .ROUTE .ST-MED ONE
06/10/24 Dinner
Regular
At Your Request: Full Participation
Does patient need a safe tray?: No
06/10/24 15:39
Echo 2D MMode Color/Doppler Routine
Reason for Study: Bradycardia
06/10/24 16:12
Add On- LAB Urgent
Tests Added?: tssh with free t4 reflex
06/10/24 16:13
CARDIOLOGY CONSULT Routine
Consulting Provider: Chevy Arthur
Was physician already notified: Yes
Reason for consult: Symptomatic bradycardia
06/10/24 16:14
Admit/Transfer Patient As Directed
Co-Sign Provider:
Level of Care: Inpatient admission
Assign to:: IVU
Physician / Group: lisa bartholomew
Diagnosis: Symptomatic bradycardia
Reason for Hospitalization: Symptomatic bradycardia
Expected length of stay greater than two midnights?: Yes
ELOS- Estimated Length of Stay in days: 4
I certify the patient meets the requirements for IP care: Yes
Code Status As Directed
Resuscitation Status: Full Code
06/10/24 16:19
PRN Pain Medication Management As Directed
May give lesser potent ordered pain med per pt: Yes
preference::
Protocol:: Medication orders for pain may be administered in a
manner that supports deferring to patient preference
when the pt is:
- Requesting an ordered lesser potent pain medication.
Least to most potent pain medications are defined
as: acetaminophen < NSAID < tramadol < opioids
(morphine, oxycodone, hydromorphone).
- Requesting a lesser dose of the same medication IF
ORDERED.
- Requesting a less intrusive route of administration
if both routes are prescribed by the provider (PO <
IV).
06/10/24 16:34
Add On- LAB Urgent
Tests Added?: mag level
06/10/24 18:14
0.9% Sodium Chloride 1000 ml [Nss] 1,000 ml IV 80 mls/hr
Acetaminophen [Tylenol] 1,000 mg PO Q6HPRN PRN
Magnesium Oxide 500 mg PO DAILYPRN PRN
Polyethylene Glycol Powder [Miralax] 17 grams PO DAILYPRN PRN
06/10/24 18:14
Activity As Directed
Activity Level: With Assistance
Intake/ Output As Directed
Frequency: Per unit guidelines
Pneumatic Compression Sleeves As Directed
Type: Knee high
Vital Signs As Directed
Frequency: Per unit guidelines
Weight As Directed
Frequency: Daily
Ot Eval And Treat Routine
Pt Eval And Treat Routine
Activity Level: As Tolerated
DX Deep Vein Thrombosis Video Routine
06/10/24 18:45
Artificial Tears (Pf) [Refresh Eye Drops (Pf)] 1 drops BOTH EYES QIDPRN PRN
06/10/24 19:04
COVID-19 Antigen Urgent
Source: Nasal Swab
06/10/24 20:00
Clonazepam [Klonopin] 0.5 mg PO BID
cycloSPORINE [Restasis 0.05% Ophthalmic Emulsion] 1 drops BOTH EYES Q12
06/10/24 22:00
Mirtazapine [Remeron] 30 mg PO HS
06/11/24 06:00
Complete Blood Count/With Diff IN AM
Comprehensive Metabolic Panel IN AM
Diltiazem [Cardizem] 30 mg PO Q6H
06/11/24 08:00
Cholecalciferol (Vitamin D3) [VITAMIN D3 (cholecalciferol)] 50 mcg PO DAILY
Lactobac/Bifidobac [Visbiome] 1 cap PO DAILY
Vitamin B Complex with C [B COMPLEX w/VITAMIN C] 1 caplet PO DAILY
06/12/24 06:00
Complete Blood Count/With Diff IN AM
Comprehensive Metabolic Panel IN AM
06/13/24 06:00
Complete Blood Count/With Diff IN AM
Comprehensive Metabolic Panel IN AM
06/14/24 22:00
Estradiol Vaginal [Estrace 0.01% Vaginal Cream] 1 applic VAG TUTH PRN
Abnormal Lab Results
06/10/24
14:32
RBC 3.43 L 10^6/uL
(4.20-5.40)
Hgb 10.5 L g/dL
(12.0-16.0)
Hct 31.2 L %
(37.0-47.0)
RDW 14.8 H %
(11.5-14.5)
Absolute Monos (auto) 0.7 H 10^3/uL
(0.1-0.6)
Monocytes % 12.2 H %
(1.7-9.3)
Sodium 127 L mmol/L
(135-145)
Potassium 5.4 H mmol/L
(3.5-5.1)
Chloride 94 L mmol/L
(98-107)
BUN 28 H mg/dl
(7-17)
Creatinine 1.5 H mg/dL
(0.6-1.0)
Glucose 134 H mg/dl
(70-99)
06/10/24 14:32
06/10/24 14:32
Vital Signs
Initial and Last Documented VS:
Initial Vital Signs
Pulse Resp Pulse Ox
36 15 97
06/10/24 14:31 06/10/24 14:31 06/10/24 14:31
Last Documented Vital Signs
Temp Pulse Resp BP Pulse Ox
97.9 F 68 16 121/49 97
06/10/24 18:35 06/10/24 18:00 06/10/24 18:35 06/10/24 16:00 06/10/24 18:35
MDM/Problems Addressed
Differential Diagnosis Includes:
AV matthew blocking agent effect, sick sinus syndrome,
MDM/Problems Addressed:
Patient presents with significant bradycardia and lightheadedness. She is in a junctional rhythm. Patient require hospitalization for close monitoring. Cardiology consultation obtained.
Chronic conditions affecting care: Arrhythmia (Atrial fibrillation)
*Pulse Oximetry
Patient hypoxic: no
*EKG
Interpreted by ED Provider?: Yes
Interpretation: abnormal
Heart Rate: 35
Rate: bradycardiac
Rhythm: junctional
[place]: normal axis
Interval: normal interval
QRS Pattern: normal QRS
Ischemia: non-specific ST changes
*Fulfillment Mail Clerk Interpretation
Rate: bradycardiac
Interpretation: abnormal
Rhythm: junctional
*Critical Care Note
Total Time (30-74mins, 75-104mins- exclusive of procedures): 32 min
comment:
Critical care statement: A total of 32 minutes of critical care time was provided for this patient. This includes management of unstable vital signs, evaluation of the patient at bedside, reviewing the patient's pertinent medical records, discussion
with consultants, review of old EKGs and review of pertinent medical records. This time with separate from time utilized to perform the aforementioned documented procedures
ED Attending Note
-
Portions of this chart may have been created with voice recognition software.� Occasional wrong word or��sound alike� substitutions may have occurred due to the inherent limitations of voice recognition software.
Discharge Plan
Departure
Patient Disposition: Admit
Date of Disposition: 06/10/24
Time of Disposition: 15:41
Admit to: IVU
Presentation/result/management discussed w/ accepting MD/DO: Hospitalist
Condition: Serious
Discharge Problem:
Symptomatic bradycardia
Interventions
Interventions:
*Risk Screen - Suicide Last Done: 06/10/24 14:35
*General Assessment Last Done: 06/10/24 14:35
*Neglect/Abuse Screening Last Done: 06/10/24 14:35
ED- Fall Risk Assessment Last Done: 06/10/24 18:05
*ED COVID-19 Vaccine History Last Done: 06/10/24 14:35
*Nursing Disposition Last Done: 06/10/24 18:05
ED- Cardiac Assessment Last Done: 06/10/24 14:36
ED- Pulmonary Assessment Last Done: 06/10/24 14:36
Discharge Date and Time
Discharge Date/Time: 06/10/24 18:22
[2024-06-10 15:00] VITALS: BP 102/46
[2024-06-10 15:03] LABS: ALT (SGPT) 12 U/L (0-35); AST (SGOT) 30 U/L (14-36); Albumin 3.7 g/dl (3.5-5.0); Alkaline Phosphatase 42 U/L (38-126); Blood Urea Nitrogen 28 mg/dl (7-17); Carbon Dioxide 28 mmol/L (22-30); Chloride 94 mmol/L (98-107); Estimated Creatinine Clearance 20 ml/min; Glucose 134 mg/dl (70-99); Potassium 5.4 mmol/L (3.5-5.1); Sodium 127 mmol/L (135-145); Total Bilirubin 0.4 mg/dl (0.2-1.3); Total Protein 6.8 g/dl (6.3-8.2); eGFR 33.31
[2024-06-10 15:14] LABS: Troponin I < 0.012 ng/ml
[2024-06-10 16:00] VITALS: BP 121/49
--- NOTE | 2024-06-10 16:02 | CON.CAR ---
Addendum entered and electronically signed by Chevy Arthur MD 06/10/24 17:08:
I saw and examined the patient.
The PORTRAIT CONSULTANT's note was reviewed and I agree with the note.
Comment:
88-year-old female with paroxysmal atrial fibrillation on Eliquis, heart failure with preserved ejection fraction who presents to the emergency department with low heart rate. She reports that she and her checked her vital signs this
morning and her heart rate was in the 30s. She was asymptomatic. On arrival to the ED she was noted to have a junctional rhythm with heart rate 35. She was hemodynamically stable and asymptomatic. At home she takes diltiazem 360 mg every morning
and propranolol 80 mg at night. She took her diltiazem this morning. On exam she is comfortable and well-appearing. Cardiovascular exam is notable for regular rate and rhythm (HR 69) with no murmurs/rubs/gallops. Lungs are clear to auscultation
bilaterally and she has no lower extremity edema. Labs are notable for creatinine 1.5 (baseline 1.1), K 5.4, negative troponin, TSH pending. Twelve-lead ECG with junctional bradycardia, HR 35, no ischemic changes. Echocardiogram is pending. Her
rhythm has improved and she is now back in normal sinus rhythm with heart rates in the 60s to 70s. It seems that she has now developed tachybrady syndrome and would benefit from permanent pacemaker placement. We will aim to do this on Thursday as
she has returned to sinus rhythm and has no acute indication for pacemaker. She will be monitored on telemetry over the weekend. We will follow-up her echocardiogram. We will hold her propranolol and switch diltiazem to 30 mg every 6 hours to
allow for rapid titration. She will be continued on her apixaban 2.5 mg twice daily. For her ENIO, her Lasix was recently decreased as an outpatient from 40 mg daily to 40 mg daily and 20 mg MWF. We can give her 20 mg daily here.
Original Note:
Consultation
Consultation Request
Date/Time Consultation Requested: 06/10/2024 15:30
Date/Time Consultation Performed: 06/10/2024 15:45
Requesting Provider: Dr. Guerrero
Performing Provider: MAY Weiss for Dr. Arthur
Reason for Consultation: Bradycardia
Medical History
-
Chief Complaint: Palpitations
History of Present Illness:
Melody Goins 88-year-old female (known to Dr. Waters, her primary machine set up), with atrial fibrillation status-post ablation (11/17/2023, on Eliquis), chronic heart failure with preserved ejection fraction, hypertension, ASD repair (), and
COPD presented to the emergency department with a chief complaint of low heart rate. This morning, the patient's heart rate was 90 and she had a blood pressure of 113/72. She took her medications as directed. She then began to experience
lightheadedness. BP 83/45 and heart rate 33. Cardiology triage nurse referred them to the emergency department. At rest, she is asymptomatic. She is having no chest pain.
Past Medical History
Past Medical History: Arrhythmias (Atrial fibrillation ablation [11/09/2023, on apixaban]), CHF (Chronic HFpEF) and HTN
Past Surgical History: Cardiac (Atrial fibrillation ablation)
Social History
Tobacco: Non-Smoker
Alcohol: None
Drug: None
Personal:
Living: With Family
Employment: Retired
Family History
Family History: Reviewed & Not Pertinent
Allergies / Home Medications
Allergy/AdvReac Type Severity Reaction Status Date / Time
gluten Allergy Unknown Verified 05/19/24 11:44
nitrofurantoin Allergy Unknown Verified 05/19/24 11:44
[From Macrodantin]
Sulfa (Sulfonamide Allergy Unknown Verified 05/19/24 11:44
Antibiotics)
�Medication �Instructions �Recorded �Confirmed �Type
cholecalciferol (vitamin D3) 25 50 mcg PO DAILY Supplement 05/27/22 05/31/24 History
mcg (1,000 unit) capsule (Vitamin
D3)
clonazepam 0.5 mg tablet 0.5 mg PO BID Mental Health/Anxiety 05/27/22 05/31/24 History
cyclosporine 0.05 % eye drops in a 1 drp BOTH EYES Q12H Eye condition 05/27/22 05/31/24 History
dropperette (Restasis)
estradiol 0.01% (0.1 mg/gram) 1 applic vaginal QPMPRN PRN 05/27/22 05/31/24 History
vaginal cream hormonal
magnesium oxide 500 mg PO DAILYPRN PRN leg cramps 05/27/22 05/31/24 History
propranolol 80 mg capsule,24 80 mg PO HS Blood pressure/tremors 05/27/22 05/31/24 History
hr,extended release
vitamin B complex 1 cap PO DAILY Supplement 05/27/22 05/31/24 History
dextran 70-hypromellose eye drops 1 drp BOTH EYES QID Eye Condition 11/16/23 05/31/24 History
in a dropperette (Artificial Tears
(PF) drops in a dropperette)
mirtazapine 30 mg tablet 30 mg PO HS Mental Health 11/16/23 05/31/24 History
diltiazem HCl 360 mg 360 mg PO DAILY #30 caps 03/09/24 05/31/24 Rx
capsule,extended release 24 hr
apixaban 2.5 mg tablet (Eliquis) 2.5 mg PO BID #60 tabs 03/13/24 05/31/24 Rx
acetaminophen 500 mg tablet 1,000 mg PO Q6HPRN PRN mild pain 05/19/24 05/31/24 History
(Tylenol Extra Strength)
polyethylene glycol 3350 17 gram 17 g PO DAILYPRN PRN constipation 05/19/24 05/31/24 History
oral powder packet (Miralax)
spironolactone 25 mg tablet 12.5 mg (1/2 x 25 mg) PO DAILY #30 05/22/24 05/31/24 Rx
tabs
furosemide 40 mg tablet 40 mg PO DAILY #30 tabs 05/23/24 05/31/24 Rx
ondansetron 4 mg disintegrating 4 mg PO DAILYPRN PRN nausea 05/31/24 05/31/24 History
tablet
Review of Systems
-
History Source: Patient
All other systems: Negative unless noted
Constitutional: No Symptoms
EENT: No Symptoms
Respiratory: No Symptoms
Cardiac: No Symptoms
Abdomen/GI: No Symptoms
: No Symptoms
Musculoskeletal: No Symptoms
Skin: No Symptoms
Neurological: No Symptoms
Endocrine: No Symptoms
Hematologic/Lymphatic: No Symptoms
Physical Exam
Vital Signs
Temp Pulse Resp BP Pulse Ox
97.9 F 36 17 116/39 97
06/10/24 14:32 06/10/24 14:32 06/10/24 14:32 06/10/24 14:32 06/10/24 14:36
Lab Results
06/10/24 14:32
06/10/24 14:32
Troponin I < 0.012 ng/ml 06/10/24 14:32
Physical Exam
General: Well Developed, Well Nourished, No Apparent Distress and Comfortable
HEENT: Normocephalic, Anicteric and Moist Mucous Membranes
Respiratory: Clear and Non Labored Respirations
Cardiac: S1/S2, Regular Rhythm and Peripheral Edema (Trace lower extremity edema)
Breast: Deferred by me
GI: Soft, Non Tender, Non Distended and Normal Bowel Sounds
Rectal: Deferred by Provider
Genito-urinary: No Costovertebral Tender
Musculoskeletal: No Clubbing and No Cyanosis
Skin: Warm and Dry
Neuro: AO x 3
Hematologic/Lymphatic: No Lymphadenopathy
Psych: Calm
Impression / Plan
-
IMPRESSION/PLAN: 88F with chronic HFpEF, ASD repair, and paroxysmal atrial fibrillation status post ablation (11/09/2023), has been struggling with orthopnea, now increased shortness of breath with exertion and lower extremity edema.
Slate Picker: Dr. Waters
Bradycardia, junctional
-Holter monitor for 48 hours from last month showed heart rates 64-96 bpm
-Hold AV matthew agents
-Followed telemetry
-Echocardiogram
-EP updated
Persistent atrial fibrillation
-Bradycardia as above, hold AV matthew agents
-Oral Anticoagulation: Apixaban 2.5 mg twice daily (age 88, weight <60 kg)
- [id number]: score at least 4 (Heart failure, age 75 or more, female gender)
HFpEF, chronic
-She does not appear volume overloaded
-Her furosemide was decreased from 40 mg daily to 20 mg Thursday/Thursday/Thursday and 40 mg on alternate days (hyponatremia)
-Trend daily weight, I/O during hospitalization
CKD
-Renal function slightly above baseline, follow
Essential tremor, propranolol on hold
Mild/moderate mitral regurgitation
Mild/moderate tricuspid regurgitation
Legally blind
Data Reviewed
-
EKG: Report Reviewed by me
Medical Tests (Nuc Med, Echo etc): Report Reviewed by me
Labs: Labs Reviewed by me
Old Records: Reviewed
--- NOTE | 2024-06-10 16:27 | HPS.HSE ---
Family Physician
-
Family Physician: Sharif Hou
Chief Complaint
-
Lightheadedness, bradycardia at home
History of Present Illness
88-year-old female with past medical history of A-fib. This morning she took her Cardizem 360 mg and Eliquis 2.5 mg this a.m. She states this morning her heart rate was a little bit elevated at 90 which she typically notices it will then start to
be persistently high however at 1 PM she started feeling lightheaded and tired and noticed that her heart rate was in the 30s. She came to the hospital with her . She reports also taking propranolol 80 mg last night for chronic hand
tremors. She had a visit with cardiology yesterday and her Lasix was decreased from 40 mg daily to alternating Lasix 40 mg Thursday with furosemide 20 mg Thursday given creatinine of 1.5 with a baseline of
1.1. The patient reports recent postnasal drip with slight chronic cough nonproductive. She denies sore throat, fever, chills, chest pain, palpitations, shortness of breath, abdominal pain, nausea, vomiting, diarrhea, urinary symptoms.
She has past medical history of paroxysmal A-fib, post cardiac ablations ,chronic CHF preserved EF, HTN, anxiety/depression, atrial septal defect, macular degeneration, UTIs, rosacea.
Medical History
Past Medical History
Past Medical History: Reports Other
Additional Past Medical History:
A-fib paroxysmal
CHF
Tremor
A-fib
atrial septal defect
Pulmonary hypertension
Macular degeneration
Celiac disease
Past Surgical History: Reports Other
Additional Past Surgical History:
Tonsillectomy
Open heart surgery-atrial septal defect repair
Cardioversion
Cardiac ablation
Social History
Tobacco: Non-smoker
Alcohol: None
Drug: None
Personal:
Living: With Family
Family History
Family History: Not pertinent
Allergies / Home Medications
Allergies reflects when Allergies were last updated in [employer].
Home Medications with original date entered in [employer]
Allergy/Medication List:
Allergies
Allergy/AdvReac Type Severity Reaction Status Date / Time
gluten Allergy Unknown Verified 05/19/24 11:44
nitrofurantoin Allergy Unknown Verified 05/19/24 11:44
[From Macrodantin]
Sulfa (Sulfonamide Allergy Unknown Verified 05/19/24 11:44
Antibiotics)
Home Medications
cholecalciferol (vitamin D3) 25 mcg (1,000 unit) capsule (Vitamin D3) 50 mcg PO DAILY Supplement 05/27/22
clonazepam 0.5 mg tablet 0.5 mg PO BID Mental Health/Anxiety 05/27/22
cyclosporine 0.05 % eye drops in a dropperette (Restasis) 1 drp BOTH EYES Q12H Eye condition 05/27/22
estradiol 0.01% (0.1 mg/gram) vaginal cream 1 applic vaginal TUTH PRN hormonal 05/27/22
magnesium oxide 500 mg PO DAILYPRN PRN leg cramps 05/27/22
propranolol 80 mg capsule,24 hr,extended release 80 mg PO HS Blood pressure/tremors 05/27/22
vitamin B complex 1 cap PO DAILY Supplement 05/27/22
dextran 70-hypromellose eye drops in a dropperette (Artificial Tears (PF) drops in a dropperette) 1 drp BOTH EYES QIDPRN PRN eye condition 11/16/23
mirtazapine 30 mg tablet 30 mg PO HS Mental Health 11/16/23
diltiazem HCl 360 mg capsule,extended release 24 hr 360 mg PO DAILY #30 caps 03/09/24
apixaban 2.5 mg tablet (Eliquis) 2.5 mg PO BID #60 tabs 03/13/24
acetaminophen 500 mg tablet (Tylenol Extra Strength) 1,000 mg PO Q6HPRN PRN mild pain 05/19/24
polyethylene glycol 3350 17 gram oral powder packet (Miralax) 17 g PO DAILYPRN PRN constipation 05/19/24
spironolactone 25 mg tablet 12.5 mg (1/2 x 25 mg) PO DAILY #30 tabs 05/22/24
Lactobac no.2-Bifidobac no.1-S. thermo 112.5 billion cell capsule (Visbiome) 1 cap PO DAILY 06/10/24
furosemide 20 mg tablet 20 mg PO MOWEFR 06/10/24
furosemide 40 mg tablet 40 mg PO SUTUTHSA 06/10/24
Review of Systems
-
History Source: Patient and Family ( at bedside)
A 12 point ROS was completed and negative except as noted: Yes
Constitutional: Denies Fever, Fatigue or Chills
EENT: Reports Runny Nose (Postnasal drip); Denies Sore Throat
Respiratory: Reports Cough (Nonproductive); Denies Trouble Breathing
Cardiac: Reports Other (Bradycardia at home with pulse in 30s per patient and ); Denies Chest Pain, Diaphoresis, Palpitations or Syncope
Abdomen/GI: Denies Abdominal Pain, Nausea, Vomiting, Diarrhea, Constipated, Bloody Stools or Black Stools
: Denies Dysuria, Frequency, Flank Pain, Incontinence, Difficulty Voiding or Urgency
Musculoskeletal: Denies Joint Pain, Joint Swelling or Edema
Skin: Denies Itching or Rash
Neurological: Reports Dizzy; Denies Headache or Weakness
Endocrine: Reports No Symptoms
Hematologic/Lymphatic: Reports No Symptoms
Psych: Reports Calm
Physical Exam
Vital Signs
Vital Signs
Temp Pulse Resp BP Pulse Ox
97.9 F 36 17 116/39 97
06/10/24 14:32 06/10/24 14:32 06/10/24 14:32 06/10/24 14:32 06/10/24 14:36
Physical Exam
General: Comfortable and Conversant; No Pain, Fever or Chills
HEENT: NormoCephalic, Anicteric, Moist mucous membranes, PERRLA, Central Conjunctivae, No Ptosis and Neck Nontender
Respiratory: Clear; No Wheezes, Rales or Rhonchi
Cardiac: S1/S2 and Bradycardia (Heart rate 34-36 bpm on monitor); No Murmur, Rub, Gallop, Peripheral Edema or JVD
Breast: Deferred by me
GI: Soft, Non Tender, Non Distended, Normal Bowel Sounds and No Hepatosplenomegaly
Rectal: Deferred by Provider
Genito-urinary: Deferred by me
Musculoskeletal: No Clubbing, No Cyanosis and No Edema
Skin: Warm and Dry; No Rash
Neuro: AO x 3, No Motor Deficits, Nonfocal/grossly intact, Cranial Nerves Intact and No Sensory Deficits; No Slurred Speech, Facial Droop, Tremors or Sedated
Psych: Calm
Laboratory Results
-
06/10/24 14:32
06/10/24 14:32
Laboratory Results
Total Bilirubin 0.4 mg/dl (0.2-1.3) 06/10/24 14:32
AST 30 U/L (14-36) 06/10/24 14:32
ALT 12 U/L (0-35) 06/10/24 14:32
Alkaline Phosphatase 42 U/L (38-126) 06/10/24 14:32
Troponin I < 0.012 ng/ml 06/10/24 14:32
Data Reviewed
-
Lab Data: Labs Reviewed by me
Impression/Plan
-
Impression/plan:
Admit to IVU
#Symptomatic bradycardia
#Hx paroxysmal A-fib with history of elevated rates
#A-fib postcardiac ablations
-Heart rate 34-36 bpm
-Holding evening Eliquis
-Holding a.m. Diltiazem 360 mg
-Check 2D echo
-Consult CBC cardiology
-EP aware Dr. Nielsen of bradycardia with POSSIBLE need for PACEMAKER-given history of paroxysmal A-fib with elevated rates and current bradycardia
-Follow CBC, CMP, mag daily, TSH with free T4 reflex
2D echo 03/09/2024: EF 60 to 65%, normal LVS LV SF, no wall abnormalities, mild/mod MR/TR, moderately elevated PASP pulm arterial pressure 48 mmHg, history ASD repair no evidence of shunting
#Pulm HTN
Mod elevated PASP pressures 48 mmHg as of 03/10/2024
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
Creat 1.5 baseline 1.1
-Will give IV NSS 1 L only
-Patient was seen in office 06/09/2024 by cardiology her Lasix was decreased from 40 mg daily to alternating Lasix 40 mg SUTUTHSA With Furosemide 20 mg MoWEFR
Will HOLD LASIX and SPIRONOLACTONE and follow BMP
#Acute hyperkalemia
K5.4
IV NSS 1 L total
Follow BMP
EKG: Bradycardia 35 bpm, QTc 351 MS no peaked T waves
#Chronic normocytic anemia
Hgb 10.5, MCV 91 appears baseline for patient
-Follow CBC
#Chronic CHF preserved EF
Monitor I/os, daily weights
-Patient was seen in office 06/09/2024 by cardiology her Lasix was decreased from 40 mg daily to alternating Lasix 40 mg SUTUTHSA With Furosemide 20 mg MOWEFR
Will HOLD LASIX and SPIRONOLACTONE and follow BMP
-2D echo being checked due to bradycardia
#HTN�benign
BP 116/39
-Will hold diltiazem 360 mg daily
#Anxiety/depression
-Continue clonazepam 0.5 mg twice daily, mirtazapine 30 mg at bedtime
#Benign hand tremors
-Hold propranolol 80 mg at bedtime due to recurrent bradycardia
#Hx leg cramps
May continue Mag-Ox 500 mg daily as needed
-Check magnesium level now and daily x 3 days
Other PMH:
Atrial septal defect-history ASD repair no evidence of shunting
Macular degeneration-continue Restasis
UTIs
Rosacea
DVT prophylaxis
Patient took a.m. dose of Eliquis 06/10/2024 will hold additional dose in case of pacemaker needed
Full code with patient's at bedside
[2024-06-10 16:50] LABS: Magnesium 2.2 mg/dl (1.6-2.3)
--- NOTE | 2024-06-10 17:20 | W.PN.UPDATE ---
Update Note
Progress Note Update
This note serves as an addendum to the H&P by MAY Villa, on 06/10/24.
History of Present Illness
88-year-old female with past medical history of atrial fibrillation on Eliquis status-post ablation (11/17/2023, on Eliquis), chronic heart failure with preserved ejection fraction, hypertension, anxiety/depression, atrial septal defect repair in the
1970s, macular degeneration, COPD, UTIs and rosacea presented to the ER with low heart rate in the 30s bpm. Patient was noted to be taking Diltiazem 360 mg every morning and Propranolol 80 mg at night and she took the calcium channel candace this
morning. Her checked her heart rate earlier in the day when it was found to be in the 30s, however patient says she did not have any symptoms.
Physical Exam
General: Comfortable and Conversant
HEENT: Normocephalic
Respiratory: Clear to Auscultation Bilaterally
Cardiac: S1/S2 and RRR
GI: Soft, Non Tender, Non Distended, Normal Bowel Sounds
Musculoskeletal: No Cyanosis and No Edema
Skin: Warm and Dry
Neuro: AAO x 3, Nonfocal/grossly intact
Psych: Calm
Assessment/Plan
#Asymptomatic Significant Bradycardia
#Tachybrady Syndrome
#Persistent Atrial Fibrillation
-Pacemaker scheduled for 06/13/24
-For now, replace home Propranolol and Diltiazem 360 mg daily with diltiazem to 30 mg every 6 hours to prevent A-Fib with RVR in the meantime
-Continue Eliquis 2.5 mg BID (reduced dose given weight and age)
-Echo
-Cardiology consulted, appreciate evaluation and recommendations
-Continue to monitor patient in IVU
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
-Outpatient Lasix regimen was recently changed: furosemide was decreased from 40 mg daily to 20 mg MWF and 40 mg on other days
-For now continue Lasix 20 mg daily
-Patient received IV fluids in the ER, but need to be careful given CHF
#Mild hyperkalemia
-Low potassium diet
-Monitor BMP
#Chronic normocytic anemia
-Monitor CBC
#Chronic HFpEF
-Currently euvolemic
-Continue Lasix 20 mg daily
-Daily weights
-I's and O's
#Pulmonary Hypertension
#Hypertension
-Inpatient Cardizem dosing Q6H as above
#Anxiety/depression
-Continue outpatient Clonazepam 0.5 mg twice daily
-Continue outpatient Mirtazapine 30 mg at bedtime
#Benign hand tremors
-Hold propranolol 80 mg at bedtime due to times of bradycardia
#History of leg cramps
Additional Past Medical History
Atrial septal defect-history ASD repair in the 1970s
COPD
Macular degeneration-continue Restasis
UTIs
Rosacea
DVT Prophylaxis: Eliquis
Code Status: Full Code
[2024-06-10 17:21] LABS: TSH Reflex To Free T4 2.34 uIU/ml (0.47-4.68)
[2024-06-10 18:06] VITALS: BP 118/52
[2024-06-10 18:34] VITALS: BP 124/56
[2024-06-10 19:31] LABS: COVID-19 Antigen Negative (Negative)
[2024-06-10] MEDS: REMERON 30 MG PO (20:25)
[2024-06-10] MEDS: RESTASIS 0.05% OPHTHALMIC EMULSION 1 DROPS BOTH EYES (20:25)
[2024-06-10] MEDS: KLONOPIN 0.5 MG PO (20:25)
[2024-06-10] MEDS: NSS 1000 IV (20:25)
[2024-06-10] MEDS: ELIQUIS 2.5 MG PO (23:30)
[2024-06-10 23:32] VITALS: BP 108/42
--- NOTE | 2024-06-10 23:45 | PTCARENOTE ---
Pt ambulated x1 with rolling walker to the bathroom. Noted hand tremors. SR w/ 1st degree on the monitor. Plan of care discussed. Pt with visual impairment. call weiss within reach.
[2024-06-11] VITALS (10 sets, daily range): BP systolic 111–138; BP diastolic 43–80; PULSE 80; BMI 21.6
[2024-06-11 03:35] LABS: % Basophils 1.2 % (0-2); % Eosinophils 4.4 % (0-6); % Immature Granulocytes 0.2 % (0-0.5); % Lymphocytes 33.1 % (20.5-51.1); % Monocytes 12.3 % (1.7-9.3); % Neutrophils 48.8 % (42.2-75.2); Absolute Basophils 0.1 10^3/uL (0-0.2); Absolute Eosinophils 0.2 10^3/uL (0-0.7); Absolute Lymphocytes 1.4 10^3/uL (1.2-3.4); Absolute Monocytes 0.5 10^3/uL (0.1-0.6); Hematocrit 32.7 % (37.0-47.0); Mean Corp Hgb Conc. 33.6 g/dL (33.0-37.0); Mean Corpuscular Hgb 30.6 pg (27.0-31.0); Mean Corpuscular Volume 90.8 fL (81.0-99.0); Mean Platelet Volume 8.3 fL (7.4-10.4); Nucleated Red Blood Cells % 0 %; Platelet Count 223 10^3/uL (130-400); Red Cell Dist. Width 14.7 % (11.5-14.5); White Blood Cell Count 4.1 10^3/uL (4.8-10.8)
[2024-06-11 03:53] LABS: ALT (SGPT) 11 U/L (0-35); AST (SGOT) 29 U/L (14-36); Albumin 3.8 g/dl (3.5-5.0); Alkaline Phosphatase 59 U/L (38-126); Blood Urea Nitrogen 23 mg/dl (7-17); Calcium 9.2 mg/dl (8.4-10.2); Carbon Dioxide 28 mmol/L (22-30); Chloride 96 mmol/L (98-107); Estimated Creatinine Clearance 25 ml/min; Glucose 111 mg/dl (70-99); Magnesium 2.2 mg/dl (1.6-2.3); Potassium 4.5 mmol/L (3.5-5.1); Sodium 130 mmol/L (135-145); Total Bilirubin 0.5 mg/dl (0.2-1.3); Total Protein 7.1 g/dl (6.3-8.2); eGFR 43.54
[2024-06-11] MEDS: CARDIZEM 30 MG PO ×4 (05:43→23:01)
--- NOTE | 2024-06-11 08:22 | W.PN.HOSP.TC ---
Today's Communication/Plan
-
PPM on 06/13/24
Continue cardizem
Assessment / Plan
Assessment / Plan
Physical Exam
General: Comfortable and Conversant
HEENT: Normocephalic
Respiratory: Clear to Auscultation Bilaterally
Cardiac: S1/S2 and RRR
GI: Soft, Non Tender, Non Distended, Normal Bowel Sounds
Musculoskeletal: No Cyanosis and No Edema
Skin: Warm and Dry
Neuro: AAO x 3, Nonfocal/grossly intact
Psych: Calm
Assessment/Plan
88-year-old female with past medical history of atrial fibrillation on Eliquis status-post ablation (11/17/2023, on Eliquis), chronic heart failure with preserved ejection fraction, hypertension, anxiety/depression, atrial septal defect repair in the
, macular degeneration, COPD, UTIs and rosacea presented to the ER with low heart rate in the 30s bpm. Patient was noted to be taking Diltiazem 360 mg every morning and Propranolol 80 mg at night and she took the calcium channel candace this
morning. Her checked her heart rate earlier in the day when it was found to be in the 30s, however patient says she did not have any symptoms.
#Asymptomatic Significant Bradycardia
#Junctional bradycardia, resolved
#Tachybrady Syndrome
#Persistent Atrial Fibrillation
-Pacemaker scheduled for 06/13/24
-For now, replaced home Propranolol and Diltiazem 360 mg daily with Diltiazem 30 mg every 6 hours to prevent A-Fib with RVR in the meantime
-Continue Eliquis 2.5 mg BID (reduced dose given weight and age)
-Echo with normal LVEF, mild MR, mild to moderate TR, PASP 45-50 mmHg
-Cardiology consulted, appreciate evaluation and recommendations
-Continue to monitor patient in IVU
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
#Mild Hyperkalemia - RESOLVED
-Outpatient Lasix regimen was recently changed: furosemide was decreased from 40 mg daily to 20 mg MWF and 40 mg on other days
-For now continue Lasix 20 mg daily
-Patient received IV fluids in the ER, but need to be careful given CHF
#Dysuria reported on 06/11/24
#History of Frequent UTIs
-Urinalysis not suggestive of UTI
#Chronic normocytic anemia
-Check iron studies and vitamin B12
-Monitor CBC
#Chronic HFpEF
-Currently euvolemic
-Continue Lasix 20 mg daily
-Daily weights
-I's and O's
#Pulmonary Hypertension
#Hypertension
-Inpatient Cardizem dosing Q6H as above
#Anxiety/depression
-Continue outpatient Clonazepam 0.5 mg twice daily
-Continue outpatient Mirtazapine 30 mg at bedtime
#Benign hand tremors
-Hold propranolol 80 mg at bedtime due to times of bradycardia
#History of leg cramps
Additional Past Medical History
Atrial septal defect-history ASD repair in the 1970s
COPD
Macular degeneration-continue Restasis
UTIs
Rosacea
DVT Prophylaxis: Eliquis
Code Status: Full Code
Anticipated Discharge: > 48 hours
Subjective/Interval History
-
Date of Service: June 11, 2024
Patient was seen and examined. She denied any chest pain or shortness of breath.
Objective Data
-
Labs:
Laboratory Results
06/11/24 06/11/24
03:16 03:17
WBC 4.1 L
Hgb 11.0 L
Hct 32.7 L
Plt Count 223
Sodium 130 L
Potassium 4.5
Chloride 96 L
Carbon Dioxide 28
BUN 23 H
Creatinine 1.2 H
Glucose 111 H
Calcium 9.2
Total Bilirubin 0.5
AST 29
ALT 11
Alkaline Phosphatase 59
Vital Signs:
Vital Signs
Temp Pulse Resp BP Pulse Ox
98.4 F 76 18 124/57 97
06/11/24 08:17 06/11/24 05:43 06/11/24 08:17 06/11/24 05:43 06/11/24 08:17
I&O
06/10/24 06/11/24 06/12/24
06:59 06:59 06:59
Intake Total 345 / 345
Balance 345 / 345
[2024-06-11] MEDS: RESTASIS 0.05% OPHTHALMIC EMULSION 1 DROPS BOTH EYES ×2 (09:10→19:46)
[2024-06-11] MEDS: ELIQUIS 2.5 MG PO ×2 (09:10→19:46)
[2024-06-11] MEDS: VITAMIN D3 (cholecalciferol) 50 MCG PO (09:10)
[2024-06-11] MEDS: LASIX 20 MG PO (09:10)
[2024-06-11] MEDS: KLONOPIN 0.5 MG PO ×2 (09:10→19:46)
[2024-06-11] MEDS: B COMPLEX w/VITAMIN C 1 CAPLET PO (09:10)
[2024-06-11] MEDS: VISBIOME 1 CAP PO (09:10)
[2024-06-11 09:31] LABS: Urine Albumin Negative (Neg - Trace); Urine Bilirubin Negative (Negative); Urine Character Clear (Clear); Urine Color Yellow; Urine Glucose Negative (Negative); Urine Ketone Negative (Negative); Urine Leukocyte Negative (Negative); Urine Nitrite Negative (Negative); Urine Occult Blood Negative (Negative); Urine Urobilinogen Negative (Neg - 1+)
--- NOTE | 2024-06-11 11:47 | W.PN.CD ---
Today's Communication / Plan
-
Continue diltiazem 30 mg every 6 hours
PPM on Thursday
Impression / Plan
-
IMPRESSION/PLAN: 88F with chronic HFpEF, ASD repair, and paroxysmal atrial fibrillation status post ablation (11/09/2023), has been struggling with orthopnea, now increased shortness of breath with exertion and lower extremity edema.
Segregator: Dr. Wtaers
Junctional bradycardia, resolved
-Initially presented to ED with HR 35. Now resolved and back in normal sinus rhythm.
-Plan for PPM on Thursday.
-She is resumed on diltiazem 30 mg every 6 hours to prevent RVR.
-Monitor on telemetry
-Echocardiogram stable this admission with normal LVEF, mild MR, mild to moderate TR, PASP 45-50 mmHg
Persistent atrial fibrillation
-Bradycardia as above, continue diltiazem 30 mg every 6 hours
-Oral Anticoagulation: Apixaban 2.5 mg twice daily (age 88, weight <60 kg)
- [id number]: score at least 4 (Heart failure, age 75 or more, female gender)
HFpEF, chronic
-She does not appear volume overloaded
-Her furosemide was decreased from 40 mg daily to 20 mg Thursday/Thursday/Thursday and 40 mg on alternate days (hyponatremia)
-Continue furosemide 20 mg p.o. daily while inpatient
-Trend daily weight, I/O during hospitalization
CKD
-Renal function slightly above baseline, follow
Essential tremor, propranolol on hold
Mild/moderate mitral regurgitation
Mild/moderate tricuspid regurgitation
Legally blind
Subjective: Patient feels okay at rest. A little short of breath and lightheaded when she got up to go to the bathroom overnight. But just got up to brush her teeth, go to the bathroom, etc. and felt well. Telemetry reveals sinus rhythm with
Wenkebach. Heart rate is in the 70s to 80s.
Physical Exam
Vital Signs/Labs
Vital Signs
Temp Pulse Resp BP Pulse Ox
98.4 F 75 18 128/54 97
06/11/24 08:17 06/11/24 08:18 06/11/24 08:17 06/11/24 08:18 06/11/24 08:17
06/10/24 06/11/24 06/12/24
06:59 06:59 06:59
Actual Weight 55.4 kg
06/11/24 03:16
06/11/24 03:17
Magnesium 2.2 mg/dl (1.6-2.3) 06/11/24 03:17
LAB Results
06/10/24
14:32
Troponin I < 0.012
Physical Exam
Constitutional: No acute distress and Comfortable
Cardiovascular: Rhythm & rate is regular, Pedal edema is absent, S1S2 is normal and Murmur/rub/gallop absent
Respiratory: Respiratory effort normal and Lungs clear to auscul.
Data Reviewed
-
Date of Service: June 11, 2024
Medical Decision Making: Reviewed Test Results, Independent Historian Assessment, Test Interpretation and Review of Case with other Provider
EKG: Tracing Personally Visualized and interpreted
Echo: Report Reviewed by me
Labs: Labs Reviewed by me
[2024-06-11] MEDS: REFRESH EYE DROPS (PF) 1 DROPS BOTH EYES (17:19)
--- NOTE | 2024-06-11 18:38 | PTCARENOTE ---
Pt SR w/ freq PVC's and occasionally in a junctional rythm during this shift. Pt reported feeling 'dizzy' while in the bathroom around 1600. Pt assisted back to bed. VS stable w/HR in the low 100's & BP 138/72. Pt noted to be back in Afib. 1800 PO
Cardizem dose administered. Cardiology notified & no new orders rec'd. Pt anxious regarding being back in Afib. Emotional support provided. Plan of care ongoing.
[2024-06-11] MEDS: REMERON 30 MG PO (23:01)
[2024-06-12] VITALS (8 sets, daily range): BP systolic 94–157; BP diastolic 63–143; BMI 21.6
--- NOTE | 2024-06-12 03:23 | PTCARENOTE ---
Assumed care of pt at shift change. Afib on tele with HRs in 130s-140s initially. PO Cardizem administered per orders, HR now 100-115 at rest and 130s-140s with ambulation. Pt denies CP, dizziness, and SOB. Ambulating with x1 assist and rolling
walker, rings appropriately for assistance OOB. Plan of care discussed and pt verbalizes understanding. Call weiss within reach.
[2024-06-12 04:52] LABS: % Basophils 0.9 % (0-2); % Eosinophils 2.9 % (0-6); % Immature Granulocytes 0.4 % (0-0.5); % Lymphocytes 30.1 % (20.5-51.1); % Monocytes 11.4 % (1.7-9.3); % Neutrophils 54.3 % (42.2-75.2); Absolute Eosinophils 0.1 10^3/uL (0-0.7); Absolute Lymphocytes 1.4 10^3/uL (1.2-3.4); Absolute Monocytes 0.5 10^3/uL (0.1-0.6); Absolute Neutrophils 2.4 10^3/uL (1.4-6.5); Hematocrit 28.9 % (37.0-47.0); Hemoglobin 10.4 g/dL (12.0-16.0); Mean Corpuscular Hgb 31.2 pg (27.0-31.0); Mean Corpuscular Volume 86.8 fL (81.0-99.0); Mean Platelet Volume 8.6 fL (7.4-10.4); Nucleated Red Blood Cells % 0 %; Platelet Count 204 10^3/uL (130-400); Red Blood Cell Count 3.33 10^6/uL (4.20-5.40); Red Cell Dist. Width 14.3 % (11.5-14.5); White Blood Cell Count 4.5 10^3/uL (4.8-10.8)
[2024-06-12 05:19] LABS: ALT (SGPT) 10 U/L (0-35); AST (SGOT) 26 U/L (14-36); Albumin 3.2 g/dl (3.5-5.0); Alkaline Phosphatase 54 U/L (38-126); Blood Urea Nitrogen 22 mg/dl (7-17); Calcium 8.8 mg/dl (8.4-10.2); Carbon Dioxide 25 mmol/L (22-30); Chloride 98 mmol/L (98-107); Estimated Creatinine Clearance 25 ml/min; Glucose 102 mg/dl (70-99); Iron 71 ug/dl (37-170); Potassium 4.7 mmol/L (3.5-5.1); Sodium 128 mmol/L (135-145); Total Bilirubin 0.4 mg/dl (0.2-1.3); Total Protein 6.1 g/dl (6.3-8.2); eGFR 39.55
[2024-06-12 05:29] LABS: Percent Saturation 27 % (20-50); Total Iron Binding Capacity 260 ug/dl (265-497)
[2024-06-12] MEDS: CARDIZEM 30 MG PO ×4 (05:29→23:30)
[2024-06-12 05:51] LABS: Ferritin 37.5 ng/ml (11.1-264.0)
[2024-06-12 06:05] LABS: Vitamin B12 708 pg/ml (239-931)
--- NOTE | 2024-06-12 08:00 | PTCARENOTE ---
Assumed care of pt from prev shift; pt AAOX3, mildy anxious re: heart rate & being back in Afib. Pt's VS stable w/BP 100/73 this AM & HR in the 100-110's at rest, but in the 130's-140's w/activity. Pt reports feeling 'a little lightheaded' when
standing & also reports being a little nauseous'. This RN will advise attending. Pt is Afib on site monitor. Pt assisted to BR & OOB to for breakfast. Pt w/call weiss withiin reach & plan of care ongoing.
--- NOTE | 2024-06-12 08:29 | W.PN.HOSP.TC ---
Today's Communication/Plan
-
Pacemaker placement tomorrow
Continue Diltiazem as ordered
Assessment / Plan
Assessment / Plan
Physical Exam
General: Comfortable and Conversant
HEENT: Normocephalic
Respiratory: Clear to Auscultation Bilaterally
Cardiac: S1/S2 and RRR
GI: Soft, Non Tender, Non Distended, Normal Bowel Sounds
Musculoskeletal: No Cyanosis and No Edema
Skin: Warm and Dry
Neuro: AAO x 3, Nonfocal/grossly intact
Psych: Calm
Assessment/Plan
88-year-old female with past medical history of atrial fibrillation on Eliquis status-post ablation (11/17/2023, on Eliquis), chronic heart failure with preserved ejection fraction, hypertension, anxiety/depression, atrial septal defect repair in the
, macular degeneration, COPD, UTIs and rosacea presented to the ER with low heart rate in the 30s bpm. Patient was noted to be taking Diltiazem 360 mg every morning and Propranolol 80 mg at night and she took the calcium channel candace this
morning. Her checked her heart rate earlier in the day when it was found to be in the 30s, however patient says she did not have any symptoms.
#Asymptomatic Significant Bradycardia
#Junctional bradycardia, resolved
#Tachybrady Syndrome
#Persistent Atrial Fibrillation
-Initially presented to ED with HR 35 - Resolved
-Patient had been in sinus rhythm but went back into A-fib overnight on 06/11 - 06/12
-Pacemaker scheduled for 06/13/24
-For now, replaced home Propranolol and Diltiazem 360 mg daily with Diltiazem 30 mg every 6 hours to prevent A-Fib with RVR in the meantime; goal HR<120 overnight
-Continue Eliquis 2.5 mg BID (reduced dose given weight and age)
-Echo with normal LVEF, mild MR, mild to moderate TR, PASP 45-50 mmHg
-Cardiology consulted, appreciate evaluation and recommendations
-Continue to monitor patient in IVU
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
#Mild Hyperkalemia - RESOLVED
-Outpatient Lasix regimen was recently changed: furosemide was decreased from 40 mg daily to 20 mg MWF and 40 mg on other days
-For now continue Lasix 20 mg daily
#Dysuria reported on 06/11/24
#History of Frequent UTIs
-Urinalysis not suggestive of UTI
#Chronic normocytic anemia
-Ion studies and vitamin B12 do not suggest any deficiency
-Monitor CBC
#Chronic HFpEF
-Currently euvolemic
-Continue Lasix 20 mg daily
-Daily weights
-I's and O's
#Pulmonary Hypertension
#Hypertension
-Inpatient Cardizem dosing Q6H as above
#Anxiety/depression
-Continue outpatient Clonazepam 0.5 mg twice daily
-Continue outpatient Mirtazapine 30 mg at bedtime
#Benign hand tremors
-Hold propranolol 80 mg at bedtime due to times of bradycardia
#History of leg cramps
Additional Past Medical History
Atrial septal defect-history ASD repair in the 1970s
COPD
Macular degeneration-continue Restasis
UTIs
Rosacea
DVT Prophylaxis: Eliquis
Code Status: Full Code
Anticipated Discharge: 24 - 48 hours
Subjective/Interval History
-
Date of Service: June 12, 2024
Patient was seen and examined. She reported feeling a bit lightheaded earlier but it resolved, no chest pain or SOB.
Objective Data
-
Labs:
Laboratory Results
06/12/24
04:05
WBC 4.5 L
Hgb 10.4 L
Hct 28.9 L
Plt Count 204
Sodium 128 L
Potassium 4.7
Chloride 98
Carbon Dioxide 25
BUN 22 H
Creatinine 1.3 H
Glucose 102 H
Calcium 8.8
Total Bilirubin 0.4
AST 26
ALT 10
Alkaline Phosphatase 54
Vital Signs:
Vital Signs
Temp Pulse Resp BP Pulse Ox
98.7 F 110 20 94/80 97
06/12/24 07:41 06/12/24 07:00 06/12/24 07:41 06/12/24 05:31 06/12/24 07:41
I&O
06/11/24 06/12/24 06/13/24
06:59 06:59 06:59
Intake Total 345 / 345 720 / 720
Output Total 700 / 700
Balance 345 / 345
[2024-06-12] MEDS: ELIQUIS 2.5 MG PO ×2 (09:20→20:19)
[2024-06-12] MEDS: VITAMIN D3 (cholecalciferol) 50 MCG PO (09:20)
[2024-06-12] MEDS: KLONOPIN 0.5 MG PO ×2 (09:20→20:19)
[2024-06-12] MEDS: B COMPLEX w/VITAMIN C 1 CAPLET PO (09:20)
[2024-06-12] MEDS: VISBIOME 1 CAP PO (09:20)
[2024-06-12] MEDS: FLUSH (NSS) 1 FLUSH IV (09:20)
[2024-06-12] MEDS: LASIX 20 MG PO (09:20)
[2024-06-12] MEDS: RESTASIS 0.05% OPHTHALMIC EMULSION 1 DROPS BOTH EYES ×2 (09:20→20:19)
--- NOTE | 2024-06-12 10:09 | W.PN.CD ---
Today's Communication / Plan
-
Continue diltiazem 30 mg every 6 hours. Goal HR <120.
PPM tomorrow
Impression / Plan
-
IMPRESSION/PLAN: 88F with chronic HFpEF, ASD repair, and paroxysmal atrial fibrillation status post ablation (11/09/2023), has been struggling with orthopnea who presented with junctional bradycardia.
Road Conductor: Dr. Waters
Junctional bradycardia, resolved
-Initially presented to ED with HR 35. Now resolved. Patient had been in sinus rhythm but went back into A-fib overnight on 06/11 - 06/12
-She is resumed on diltiazem 30 mg every 6 hours to limit RVR. HRs remain elevated but we will not uptitrate at this time given her history of significant symptomatic bradycardia and borderline blood pressures.
-Goal HR<120 overnight
-Plan for PPM tomorrow
-Monitor on telemetry
-Echocardiogram stable this admission with normal LVEF, mild MR, mild to moderate TR, PASP 45-50 mmHg
Persistent atrial fibrillation
-Bradycardia as above, continue diltiazem 30 mg every 6 hours until PPM tomorrow then can resume home meds
-Oral Anticoagulation: Apixaban 2.5 mg twice daily (age 88, weight <60 kg)
- [id number]: score at least 4 (Heart failure, age 75 or more, female gender)
HFpEF, chronic
-She does not appear volume overloaded
-Her furosemide was decreased from 40 mg daily to 20 mg Thursday/Thursday/Thursday and 40 mg on alternate days (hyponatremia)
-Continue furosemide 20 mg p.o. daily while inpatient
-Trend daily weight, I/O during hospitalization
CKD
-Renal function slightly above baseline, follow
Essential tremor, propranolol on hold
Mild/moderate mitral regurgitation
Mild/moderate tricuspid regurgitation
Legally blind
Subjective: Patient feels okay at rest. A little short of breath and lightheaded when she gets up. She went back into atrial fibrillation overnight with heart rates ranging from 90s up to 120s�130s.
Physical Exam
Vital Signs/Labs
Vital Signs
Temp Pulse Resp BP Pulse Ox
98.7 F 137 20 100/73 97
06/12/24 07:41 06/12/24 09:00 06/12/24 07:41 06/12/24 07:43 06/12/24 07:41
06/11/24 06/12/24 06/13/24
06:59 06:59 06:59
Actual Weight 55.4 kg 55.3 kg
06/12/24 04:05
06/12/24 04:05
Magnesium 2.0 mg/dl (1.6-2.3) 06/12/24 04:05
LAB Results
06/10/24
14:32
Troponin I < 0.012
Physical Exam
Constitutional: No acute distress and Comfortable
Cardiovascular: Pedal edema is absent, Rhythm/rate is irregular and Murmur/rub/gallop absent
Respiratory: Respiratory effort normal and Lungs clear to auscul.
Neuro/Psych: AO x 3
Data Reviewed
-
Date of Service: June 12, 2024
Medical Decision Making: Reviewed Test Results, Independent Historian Assessment, Test Interpretation and Review of Case with other Provider
EKG: Tracing Personally Visualized and interpreted
Echo: Report Reviewed by me
Labs: Labs Reviewed by me
[2024-06-12] MEDS: REMERON 30 MG PO (23:30)
[2024-06-13] VITALS (15 sets, daily range): BP systolic 89–124; BP diastolic 54–80; BMI 21.5
[2024-06-13 03:57] LABS: % Basophils 0.9 % (0-2); % Eosinophils 3.3 % (0-6); % Immature Granulocytes 0.3 % (0-0.5); % Lymphocytes 36.9 % (20.5-51.1); % Neutrophils 46.6 % (42.2-75.2); Absolute Basophils 0.1 10^3/uL (0-0.2); Absolute Eosinophils 0.2 10^3/uL (0-0.7); Absolute Lymphocytes 2.1 10^3/uL (1.2-3.4); Absolute Monocytes 0.7 10^3/uL (0.1-0.6); Absolute Neutrophils 2.7 10^3/uL (1.4-6.5); Hematocrit 31.3 % (37.0-47.0); Hemoglobin 11.1 g/dL (12.0-16.0); Mean Corp Hgb Conc. 35.5 g/dL (33.0-37.0); Mean Corpuscular Hgb 30.6 pg (27.0-31.0); Mean Corpuscular Volume 86.2 fL (81.0-99.0); Mean Platelet Volume 8.5 fL (7.4-10.4); Nucleated Red Blood Cells % 0 %; Platelet Count 222 10^3/uL (130-400); Red Blood Cell Count 3.63 10^6/uL (4.20-5.40); Red Cell Dist. Width 14.4 % (11.5-14.5); White Blood Cell Count 5.8 10^3/uL (4.8-10.8)
[2024-06-13 04:31] LABS: ALT (SGPT) 11 U/L (0-35); AST (SGOT) 26 U/L (14-36); Albumin 3.5 g/dl (3.5-5.0); Alkaline Phosphatase 62 U/L (38-126); Blood Urea Nitrogen 23 mg/dl (7-17); Calcium 8.9 mg/dl (8.4-10.2); Carbon Dioxide 23 mmol/L (22-30); Chloride 95 mmol/L (98-107); Estimated Creatinine Clearance 25 ml/min; Glucose 113 mg/dl (70-99); Magnesium 1.9 mg/dl (1.6-2.3); Potassium 4.6 mmol/L (3.5-5.1); Sodium 128 mmol/L (135-145); Total Bilirubin 0.5 mg/dl (0.2-1.3); Total Protein 6.5 g/dl (6.3-8.2); eGFR 39.55
[2024-06-13] MEDS: CARDIZEM 30 MG PO (06:04)
--- NOTE | 2024-06-13 06:15 | PTCARENOTE ---
Pt Afib HR 110-120 at rest, 160 with movements, and dyspneic on exertion. NPO for pacer, CHD wipes completed in am
--- NOTE | 2024-06-13 06:42 | W.PN.HOSP.TC ---
Today's Communication/Plan
-
PPM
resume Cardizem Propranolol
artificial tears
PT/OT
Assessment / Plan
Assessment / Plan
Physical Exam
General: Comfortable and Conversant
HEENT: Normocephalic
Respiratory: Clear to Auscultation Bilaterally
Cardiac: S1/S2 and RRR
GI: Soft, Non Tender, Non Distended, Normal Bowel Sounds
Musculoskeletal: No Cyanosis and No Edema
Skin: Warm and Dry
Neuro: AAO x 3, Nonfocal/grossly intact
Psych: Calm
Assessment/Plan
88-year-old female with past medical history of atrial fibrillation on Eliquis status-post ablation (11/17/2023, on Eliquis), chronic heart failure with preserved ejection fraction, hypertension, anxiety/depression, atrial septal defect repair in the
1970s, macular degeneration, COPD, UTIs and rosacea presented to the ER with low heart rate in the 30s bpm. Patient was noted to be taking Diltiazem 360 mg every morning and Propranolol 80 mg at night and she took the calcium channel candace this
morning. Her checked her heart rate earlier in the day when it was found to be in the 30s, however patient says she did not have any symptoms.
#Asymptomatic Significant Bradycardia
#Junctional bradycardia, resolved
#Tachybrady Syndrome
#Persistent Atrial Fibrillation
-Initially presented to ED with HR 35 - Resolved
-Patient had been in sinus rhythm but went back into A-fib overnight on 06/11 - 06/12
-Pacemaker placed 06/13/24 home diltiazem and Propranolol resumed
-Continue Eliquis 2.5 mg BID (reduced dose given weight and age)
-Echo with normal LVEF, mild MR, mild to moderate TR, PASP 45-50 mmHg
-Cardiology consult appreciated
-Continue to monitor patient in IVU
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
#Mild Hyperkalemia - RESOLVED
-Outpatient Lasix regimen was recently changed: furosemide was decreased from 40 mg daily to 20 mg MWF and 40 mg on other days
-For now continue Lasix 20 mg daily
#Dysuria reported on 06/11/24
#History of Frequent UTIs
-Urinalysis not suggestive of UTI
#Chronic normocytic anemia
-Ion studies and vitamin B12 do not suggest any deficiency
-Monitor CBC
#Chronic HFpEF
-Currently euvolemic
-Continue Lasix 20 mg daily
-Daily weights
-I's and O's
#Pulmonary Hypertension
stable respiratory status on room air
#Hypertension
-home cardizem resumed
-cont Lasix as above
-home aldactone on hold given soft pressures
#Anxiety/depression
-Continue outpatient Clonazepam 0.5 mg twice daily
-Continue outpatient Mirtazapine 30 mg at bedtime
#Benign hand tremors
-Home propranolol 80 mg at bedtime resumed
#History of leg cramps
Additional Past Medical History
Atrial septal defect-history ASD repair in the 1970s
COPD
Macular degeneration-continue Restasis
UTIs
Rosacea
PT/OT appreciated SNF rehab
DVT Prophylaxis: Eliquis
Code Status: Full Code
I spent a total of 50 minutes with the patient or on the floor. More than 50% of this time involved counseling and coordination of care.
Anticipated Discharge: 24 - 48 hours
Subjective/Interval History
-
Date of Service: June 13, 2024
No acute distress sitting up comfortably in chair. Overall reports feeling well.
Objective Data
-
Labs:
Laboratory Results
06/13/24
03:34
WBC 5.8
Hgb 11.1 L
Hct 31.3 L
Plt Count 222
Sodium 128 L
Potassium 4.6
Chloride 95 L
Carbon Dioxide 23
BUN 23 H
Creatinine 1.3 H
Glucose 113 H
Calcium 8.9
Total Bilirubin 0.5
AST 26
ALT 11
Alkaline Phosphatase 62
Vital Signs:
Vital Signs
Temp Pulse Resp BP Pulse Ox
98.1 F 118 18 110/68 94
06/13/24 03:18 06/13/24 06:04 06/13/24 03:18 06/13/24 06:04 06/13/24 03:18
I&O
06/11/24 06/12/24 06/13/24
06:59 06:59 06:59
Intake Total 345 / 345 720 / 720 1220 / 1220
Output Total 700 / 700 950 / 950
Balance 345 / 345 20 / 20 270 / 270
--- NOTE | 2024-06-13 08:21 | VNURNOTE ---
Chart reviewed. Patient is current with [facility] nursing, PT, OT. Will continue to follow hospital course and DC plans.
--- NOTE | 2024-06-13 09:33 | W.PN.CD ---
Today's Communication / Plan
-
- PPM today
- Resume CCB and BB post implant.
Impression / Plan
-
IMPRESSION/PLAN: 88F with chronic HFpEF, ASD repair, and paroxysmal atrial fibrillation status post ablation (11/09/2023), has been struggling with orthopnea who presented with junctional bradycardia.
Dry End Tester: Dr. Waters
Tachy Zeferino syndome:
-Junctional bradycardia, resolved
-Initially presented to ED with HR 35. Now resolved. Patient had been in sinus rhythm but went back into A-flutter overnight on 06/11 - 06/12
-AFl this AM with rates from 130s to 160s - regular.
-Plan for PPM today with DCCV and rate control
-Resume Dilt 360 post implant. Metoprolol 5 mg IV prn
-Monitor on telemetry
-Echocardiogram stable this admission with normal LVEF, mild MR, mild to moderate TR, PASP 45-50 mmHg
Persistent atrial fibrillation
-Bradycardia as above, continue diltiazem 30 mg every 6 hours until PPM tomorrow then can resume home meds
-Oral Anticoagulation: Apixaban 2.5 mg twice daily (age 88, weight <60 kg)
- [id number]: score at least 4 (Heart failure, age 75 or more, female gender)
HFpEF, chronic
- NYHA class III
-She does not appear volume overloaded
-Her furosemide was decreased from 40 mg daily to 20 mg Thursday/Thursday/Thursday and 40 mg on alternate days (hyponatremia)
-Continue furosemide 20 mg p.o. daily while inpatient
-Trend daily weight, I/O during hospitalization
CKD
-Renal function slightly above baseline, follow
Essential tremor, propranolol on hold
Mild/moderate mitral regurgitation
Mild/moderate tricuspid regurgitation
Legally blind
Subjective: Patient feels okay at rest. A little short of breath and lightheaded when she gets up.
Physical Exam
Vital Signs/Labs
Vital Signs
Temp Pulse Resp BP Pulse Ox
98.3 F 118 16 110/68 98
06/13/24 07:19 06/13/24 06:04 06/13/24 07:19 06/13/24 06:04 06/13/24 07:19
06/12/24 06/13/24 06/14/24
06:59 06:59 06:59
Actual Weight 55.3 kg 55.1 kg
06/13/24 03:34
06/13/24 03:34
Magnesium 1.9 mg/dl (1.6-2.3) 06/13/24 03:34
LAB Results
06/10/24
14:32
Troponin I < 0.012
Physical Exam
Constitutional: No acute distress and Comfortable
EENT: Anicteric and Moist mucous membranes
Cardiovascular: Rhythm & rate is regular (AFl ), Pedal edema is absent and JVD pressure is normal
Respiratory: Respiratory effort normal, Lungs clear to auscul. and Wheeze Absent
GI: Soft, Non tender and Normal bowel sounds
Neuro/Psych: Alert, Oriented and AO x 3
Other: Cardiac Device Site
Data Reviewed
-
Date of Service: June 13, 2024
Medical Decision Making: Reviewed Test Results, Independent Historian Assessment, Test Interpretation and Review of Case with other Provider
EKG: Tracing Personally Visualized and interpreted
Echo: Report Reviewed by me
Labs: Labs Reviewed by me
Old Records: Reviewed
--- NOTE | 2024-06-13 09:48 | ITS.CL.PACE ---
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
Pacemaker Implant
Procedure Report:
Conduction system pacing Permanent Pacemaker Placement:
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 �
Indications:
Tachy karma syndrome
Date of the Procedure:
06/13/24
Pre-Operative Diagnosis: Tachy karma syndrome
Post-Operative Diagnosis: Tachy karma syndrome
Procedure Performed: Conduction system pacing permanent pacemaker
Performing Physician:
Juancho Nielsen MD
Anesthesia:
See anesthesia report.
Detailed Description of the Procedure:
The patient was identified using hospital identification and informed consent obtained for the procedure. The risks were explained to the patient and the family including, but not limited to: Bleeding, infection, arrhythmia, stroke,
vascular/cardiac/lung puncture, surgery, pacemaker dependency/device malfunction. All questions were answered.
A surgical pause was performed in accordance with hospital regulations. Anesthesia service provided sedation as reported separately. Antibiotics administered IV for risk of bacterial colonization. After obtaining informed and written consent, the
patient was brought to the electrophysiology laboratory.
The initial rhythm was atrial flutter.
The procedure site was meticulously prepared with surgical scrub and allowed to dry with no pooling. Sterile draping was applied to cover the procedure site. The image intensifier was draped with sterile bag and positioned over the patient.
A surgical pause and time out was performed immediately prior to the procedure with review of her medical history, recent labs, allergies and medications with site of procedure identified and consent noted in the chart. Antibiotics pre operatively
given. All team members concurred.
The left infraclavicular region was prepped and draped in the usual sterile fashion. Local anesthesia was administered subcutaneously using 1% lidocaine / Bupivacaine. The left cephalic vein cutdown was performed with an incision at the
delto-pectoral groove, and vascular sheath was introduced for lead access.
A subcutaneous pocket was created with blunt dissection and use of electrocautery. Hemostasis was excellent.
An RV lead was placed in the RV and secured to the apical septum. There was significant movement of the lead with RV contraction and wide open TR and the lead was pushed out to the RA. It was replaced and was dislodged again. Decision was made to
proceed with conduction system pacing lead.
The guide wire was advanced to the RA and was advanced to the RV. The preformed curved long hemostatic peel away HIS sheath was advanced into the RV cavity. A left bundle pacing wire was advanced into the sheath to the tip with ventricular signals
noted with unipolar manner. The cardiac anatomy was significant rotated.
The HIS location was identified under guidance of the fluoroscopy and the pacing wire signals. The sheath with the pacing lead was moved deeper into the RV cavity on the septum at a more inferior and distal to the HIS signals.
Once adequate signals were noted on the electrograms of the pacing lead in the sheath with W pattern signals on the RV septum, the lead was advanced and clockwise turns were done under fluoroscopic guidance. The sheath approximation was confirmed on
LUCAS view and the pacing lead was advanced with clockwise turns into the septal location. The septum was successfully engaged. The lead was paced and septal pacing was noted. The sheath was placed again to the septum and the lead was advanced 2-3
turns with pacing with each advancement. The ventricular capture was monitored throughout and the captures gradually changed from RV pacing to non-selective LBB pacing. �
The long guiding sheath was cut and removed from the RV without change in lead position, impedance, sensing, or capture. The lead was sutured to the underlying pectoralis fascia with 2-0 Ethibond stitches.
Then the attention was given to atrial lead. Atrial active lead was placed in the RA and into the RAA. There were excellent impedance and thresholds.
A cardioversion using 200 J shock was done converting patient from atrial flutter to sinus rhythm. Atrium was paced post conversion.
The leads were attached to the pulse generator in standard configuration with acceptable sensing and threshold parameters. The pocket was irrigated with antibiotic solution; the pocket was inspected with no active bleeding noted. The device and the
leads were placed in the pocket.
Deep subcutaneous tissues were closed with three layers of 2-0 V loc sutures; and the dermis was reopposed using a running 4-0 VLoc subcuticular suture.
A pressure dressing was applied. Sponge counts / sharp counts were appropriate.
Procedure End:
The procedure was tolerated well. Aquacel bandaged was applied.
Estimated Blood loss:
15 cc
Specimens Removed:
No cultures and no specimens were obtained. No intraoperative pathology was identified.
Urine output:
None
Packs / Drains/ Tubes:
None
Instrument / Sponge Count Correct:
Yes
Flouro time:
4.9min / 11.0mGy
Complications of the Procedure:
None
Condition of Patient at Time of Transfer:
Hemodynamically stable with no neurological or vascular compromise.
Device information:�
Generator: CyberPatrol; Model: [id number]; Serial # [id number]�
����������� RA pacing lead: Skimbletronic; Model: 5076-45; Serial # [id number]
����������� Measured data on the RV lead was sensing of 1.0mV, impedance of 720 ohms and threshold of 0.5 V at 0.4ms. �
����������� RV LBB pacing lead: Medtronic; Model: 3830-69; Serial # [id number]
����������� Measured data on the RV lead was sensing of 8mV, impedance of 780 ohms and threshold of 0.6 V at 0.4ms�
PROGRAMMING PARAMETERS:�
Karma parameter settings were AAIR <=>DDDR 70-130 �
����������� Paced AV interval: 180ms
����������� Sensed AV interval: 150 ms.
����������� Rate Adaptive A-V Interval: off
Mode switch ON
�
Summary:
Successful implantation of MRI compatible dual chamber conduction system pacing permanent pacemaker.
Results/Recommendations:
-Please follow up CXR�
1. Please provide patient with adequate pain control�
2. Plan to activate atrial ATP treatment in one month once atrial lead matures.
Instructions to be given to patient:�
- Please follow up with [facility] at [address] [place] [address] ([phone]) to get your wound checked in 2 weeks of your discharge. Then follow with
- Do not wet incision site until after it is evaluated at cardiology clinic. No baths or showers until then. Sponge baths / showers are OK but dab dry the dressing after it is wet.�
- Allow 'steri strips' to fall off on their own�
- Do not lift left elbow above shoulder, particularly with sudden jerking movements, for 1 month�
- Do not lift anything weighing more than 5 pounds with the left arm for 1 month�
- If you notice any fevers, shortness of breath, lightheadedness, chest pain, or worsening swelling in the wound site, please contact the arrhythmia clinic, contact your manufacturing engineering professor, or present to the hospital for evaluation.�
Juancho Nielsen MD
Electrophysiology
[2024-06-13] MEDS: TYLENOL 1000 MG PO (10:29)
[2024-06-13] MEDS: RESTASIS 0.05% OPHTHALMIC EMULSION 1 DROPS BOTH EYES ×2 (10:31→21:02)
[2024-06-13] MEDS: CARDIZEM CD 360 MG PO (10:32)
--- NOTE | 2024-06-13 11:08 | CM ---
Chart reviewed. Patient is independent of ADLS, lives with her in a 2 [address], 2 [facility], ambulates with a RW. Patient is current with [facility]. Referral sent to resume services. Plan is for the patient to return home with [facility]. CM to follow
--- NOTE | 2024-06-13 11:36 | PTCARENOTE ---
Received pt post PPM from crime lab technician. VSS. Pt given tylenol for 5 out of 10 left, ACW discomfort. Left arm immobilizer on. Will monitor.
[2024-06-13] MEDS: B COMPLEX w/VITAMIN C 1 CAPLET PO (13:44)
[2024-06-13] MEDS: VISBIOME 1 CAP PO (13:48)
[2024-06-13] MEDS: KLONOPIN 0.5 MG PO ×2 (13:48→21:02)
[2024-06-13] MEDS: VITAMIN D3 (cholecalciferol) 50 MCG PO (13:48)
[2024-06-13] MEDS: LASIX 20 MG PO (13:49)
[2024-06-13] MEDS: ANCEF 5 IV ×2 (14:10→22:34)
[2024-06-13] MEDS: REFRESH EYE DROPS (PF) 1 DROPS OPHTH ×3 (14:10→22:34)
[2024-06-13] MEDS: INDERAL LA 80 MG PO (22:35)
[2024-06-13] MEDS: REMERON 30 MG PO (22:35)
[2024-06-14] VITALS (9 sets, daily range): BP systolic 97–115; BP diastolic 49–68; PULSE 70; BMI 21.8
--- NOTE | 2024-06-14 01:40 | PTCARENOTE ---
Patient sinus rhythm with 1st degree AV block on monitor worker. Left anterior upper chest wall aquacell C/D/I, surrounding area soft to palpation. Left arm immobilizer on. Patient verbalized understanding regarding limb restrictions following
PPM placement. Patient denies pain, N/V, lightheadedness, and/or dizziness at this time. Plan of care discussed with patient. Call weiss within reach. Care ongoing.
[2024-06-14] MEDS: REFRESH EYE DROPS (PF) 1 DROPS BOTH EYES (03:11)
[2024-06-14 03:52] LABS: Hematocrit 27.6 % (37.0-47.0); Hemoglobin 9.7 g/dL (12.0-16.0); Mean Corp Hgb Conc. 35.1 g/dL (33.0-37.0); Mean Corpuscular Volume 88.2 fL (81.0-99.0); Mean Platelet Volume 8.7 fL (7.4-10.4); Platelet Count 169 10^3/uL (130-400); Red Blood Cell Count 3.13 10^6/uL (4.20-5.40); Red Cell Dist. Width 14.6 % (11.5-14.5); White Blood Cell Count 3.9 10^3/uL (4.8-10.8)
[2024-06-14 04:04] LABS: Blood Urea Nitrogen 25 mg/dl (7-17); Calcium 8.8 mg/dl (8.4-10.2); Carbon Dioxide 24 mmol/L (22-30); Chloride 94 mmol/L (98-107); Estimated Creatinine Clearance 27 ml/min; Glucose 145 mg/dl (70-99); Sodium 125 mmol/L (135-145); eGFR 43.54
[2024-06-14] MEDS: VITAMIN D3 (cholecalciferol) 50 MCG PO (08:02)
[2024-06-14] MEDS: CARDIZEM CD 360 MG PO (08:02)
[2024-06-14] MEDS: B COMPLEX w/VITAMIN C 1 CAPLET PO (08:02)
[2024-06-14] MEDS: LASIX 20 MG PO (08:02)
[2024-06-14] MEDS: RESTASIS 0.05% OPHTHALMIC EMULSION 1 DROPS BOTH EYES ×2 (08:03→19:50)
[2024-06-14] MEDS: VISBIOME 1 CAP PO (08:03)
[2024-06-14] MEDS: REFRESH EYE DROPS (PF) 1 DROPS OPHTH ×4 (08:03→22:23)
[2024-06-14] MEDS: KLONOPIN 0.5 MG PO ×2 (08:03→19:50)
[2024-06-14] MEDS: ELIQUIS 2.5 MG PO ×2 (08:10→19:50)
--- NOTE | 2024-06-14 08:18 | W.PN.CD ---
Today's Communication / Plan
-
- Stable for discharge fro cardiac stand point.
Impression / Plan
-
IMPRESSION/PLAN: 88F with chronic HFpEF, ASD repair, and paroxysmal atrial fibrillation status post ablation (11/09/2023), has been struggling with orthopnea who presented with junctional bradycardia.
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
Tachy Zeferino syndome:
-s/p PPM
-Junctional bradycardia, resolved
-Initially presented to ED with HR 35. Patient had been in sinus rhythm but went back into A-flutter overnight on 06/11 - 06/12
-AFl on 06/13 with rates from 130s to 160s - regular.
-s/p PPM on 06/13/24 - Medtronic
-Resumed Dilt 360 post implant. Metoprolol 5 mg IV prn
-Monitor on telemetry
-Echocardiogram stable this admission with normal LVEF, mild MR, mild to moderate TR, PASP 45-50 mmHg
-PPM pocket is normal with no bleeding or swelling. CXR is normal without PTX. Atrial paced this AM.
- Wound check in 1-2 weeks.
Persistent atrial fibrillation
-s/p PPM - resume home meds
-Oral Anticoagulation: Apixaban 2.5 mg twice daily (age 88, weight <60 kg)
-[id number]: score at least 4 (Heart failure, age 75 or more, female gender)
HFpEF, chronic
- NYHA class III
-She does not appear volume overloaded
-Her furosemide was decreased from 40 mg daily to 20 mg Thursday/Thursday/Thursday and 40 mg on alternate days (hyponatremia)
-Continue furosemide 20 mg p.o. daily while inpatient
-Trend daily weight, I/O during hospitalization
CKD
-Renal function slightly above baseline, follow
Hyponatremia
- Likely due to polydipsia - she is forcing herself to drink water
- Can follow in few days after water restriction - as per primary team.
Essential tremor, propranolol on hold
Mild/moderate mitral regurgitation
Mild/moderate tricuspid regurgitation
Legally blind
Subjective: Feels well.
Physical Exam
Vital Signs/Labs
Vital Signs
Temp Pulse Resp BP Pulse Ox
97.7 F 70 16 115/68 94
06/14/24 07:01 06/14/24 08:02 06/14/24 07:01 06/14/24 08:02 06/14/24 07:01
06/13/24 06/14/24 06/15/24
06:59 06:59 06:59
Actual Weight 55.1 kg 55.8 kg
06/14/24 03:10
06/14/24 03:10
Magnesium 1.9 mg/dl (1.6-2.3) 06/13/24 03:34
Physical Exam
Constitutional: No acute distress and Comfortable
EENT: Anicteric and Moist mucous membranes
Cardiovascular: Rhythm & rate is regular and Pedal edema is absent
Respiratory: Respiratory effort normal, Lungs clear to auscul., Wheeze Absent and Crackles Absent
GI: Soft, Non tender and Normal bowel sounds
Neuro/Psych: Alert, Oriented and AO x 3
Other: Cardiac Device Site
Data Reviewed
-
Date of Service: June 14, 2024
Medical Decision Making: Independent Historian Assessment, Test Interpretation and Review of Case with other Provider
EKG: Tracing Personally Visualized and interpreted
Echo: Report Reviewed by me
X-Ray/CT/US/MRI/NUC/PET: Image Personally Visualized and interpreted
Medical Tests (PFT, Pathology etc): Discussed with Patient
Labs: Labs Reviewed by me
Old Records: Reviewed
--- NOTE | 2024-06-14 08:27 | W.PN.HOSP.TC ---
Today's Communication/Plan
-
fluid restriction reduced to 40 oz
nephro eval
PT/OT
cont Lasix diuresis
Assessment / Plan
Assessment / Plan
Physical Exam
General: Comfortable and Conversant
HEENT: Normocephalic
Respiratory: Clear to Auscultation Bilaterally
Cardiac: S1/S2 and RRR
GI: Soft, Non Tender, Non Distended, Normal Bowel Sounds
Musculoskeletal: No Cyanosis and No Edema
Skin: Warm and Dry
Neuro: AAO x 3, Nonfocal/grossly intact
Psych: Calm
Assessment/Plan
88-year-old female with past medical history of atrial fibrillation on Eliquis status-post ablation (11/17/2023, on Eliquis), chronic heart failure with preserved ejection fraction, hypertension, anxiety/depression, atrial septal defect repair in the
, macular degeneration, COPD, UTIs and rosacea presented to the ER with low heart rate in the 30s bpm. Patient was noted to be taking Diltiazem 360 mg every morning and Propranolol 80 mg at night and she took the calcium channel candace this
morning. Her checked her heart rate earlier in the day when it was found to be in the 30s, however patient says she did not have any symptoms.
#Asymptomatic Significant Bradycardia
#Junctional bradycardia, resolved
#Tachybrady Syndrome
#Persistent Atrial Fibrillation
-Initially presented to ED with HR 35 - Resolved
-Developed A-fib overnight since spontaneously converted back to NSR
-Pacemaker placed 06/13/24 home diltiazem and Propranolol resumed
-Continue Eliquis 2.5 mg BID (reduced dose given weight and age)
-Echo with normal LVEF, mild MR, mild to moderate TR, PASP 45-50 mmHg
-Cardiology consult appreciated
#Mild ENIO on CKD 3B resolving
#Mild Hyperkalemia - resolved
-Outpatient Lasix regimen was recently changed: furosemide was decreased from 40 mg daily to 20 mg MWF and 40 mg on other days
-For now continue Lasix 20 mg daily
#Dysuria reported on 06/11/24
#History of Frequent UTIs
-Urinalysis not suggestive of UTI
#Chronic normocytic anemia
-Ion studies and vitamin B12 do not suggest any deficiency
-Monitor CBC
#Chronic HFpEF
-Currently euvolemic
-Continue Lasix 20 mg daily
-Daily weights
-I's and O's
#Pulmonary Hypertension
stable respiratory status on room air
#Hypertension
-home cardizem resumed
-cont Lasix as above
-home aldactone on hold given soft pressures
#Anxiety/depression
-Continue outpatient Clonazepam 0.5 mg twice daily
-Continue outpatient Mirtazapine 30 mg at bedtime
#Benign hand tremors
-Home propranolol 80 mg at bedtime resumed
#History of leg cramps
#Hyponatremia
worsening despite 50 oz fluid restriction, reduced to 40 oz restriction
nephro eval requested
Additional Past Medical History
Atrial septal defect-history ASD repair in the 1970s
COPD
Macular degeneration-continue Restasis
UTIs
Rosacea
PT/OT appreciated SNF rehab patient and however decline in favor of home with home services
DVT Prophylaxis: Eliquis
Code Status: Full Code
I spent a total of 50 minutes with the patient or on the floor. More than 50% of this time involved counseling and coordination of care.
Anticipated Discharge: Within 24 hours
Subjective/Interval History
-
Date of Service: June 14, 2024
no acute distress sitting up comfortably in chair. Notes generalized fatigue weakness. Willy present during evaluation.
Objective Data
-
Labs:
Laboratory Results
06/14/24
03:10
WBC 3.9 L
Hgb 9.7 L
Hct 27.6 L
Plt Count 169 D
Sodium 125 L
Potassium 5.0
Chloride 94 L
Carbon Dioxide 24
BUN 25 H
Creatinine 1.2 H
Glucose 145 H
Calcium 8.8
Vital Signs:
Vital Signs
Temp Pulse Resp BP Pulse Ox
97.7 F 70 16 115/68 94
06/14/24 07:01 06/14/24 08:02 06/14/24 07:01 06/14/24 08:02 06/14/24 07:01
I&O
06/13/24 06/14/24 06/15/24
06:59 06:59 06:59
Intake Total 1220 / 1220
Output Total 950 / 950 325 / 325 100 / 100
Balance 270 / 270 -325 / -325 -100 / -100
--- NOTE | 2024-06-14 12:03 | CM ---
Addendum entered by Veronique Gaines RN 06/14/24 16:02:
PT evaluation recommending SNF. Patient and refusing. They want to go home with [facility] PT. Patient said her daughter lives 5 min away and her son 7 min and they are very supportive.
Original Note:
Chart reviewed. Patient is independent of ADLS, lives with her in a 2 S[address], 2 [facility], ambulates with a RW. Referral sent to [facility]. Plan is for the patient to return home with [facility]. CM to follow
--- NOTE | 2024-06-14 13:12 | PTCARENOTE ---
U/A obtained and sent.
[2024-06-14 13:31] LABS: Osmolality Urine 267 mOsm/kg (300-900)
[2024-06-14 13:41] LABS: Urine Sodium 18 mmol/L (30-90)
--- NOTE | 2024-06-14 16:16 | W.CON.NEPH ---
Consultation
-
Date/Time Consultation Requested: 06/14/24 0930
Date/Time Consultation Performed: 06/14/24 1630
Requesting Provider: Martina Kelly
Performing Provider: john Esteban
Reason for Consultation: hyponatremia
Medical History
-
Chief Complaint: Lightheadedness, bradycardia at home
History of Present Illness:
88-year-old female with past medical history of A-fib on Diltiazem in am, eliquis h/o ablation in , CHFpEF on lasix, spironolactone, HTN on propranolol, , Anxiety/depression on Remeron, clonazepam, COPD, CKD2 baseline cr 1.1-1.3 who presented
to ER with low HR on 06/10. Patients checked her vital INSPECTOR PACKAGER in morning and noted heart rate was in the 30s. She was asymptomatic. On arrival to the ED she was noted to have a junctional rhythm with heart rate 35.Subsequently she underwent
PPM on 06/13. Recently her lasix dose reduced for elevated cr at 1.5 INSPECTOR PACKAGER. On admit her cr was 1.5 and improving to 1.2 today. Her sodium chr baseline in low 130s, on admit was at 127. has fluctuating trend upto 130 however today it decreased to 125
hence nephrology consulted to evaluate further.
Note she had recent admit for recurrent left pleural effusion and had thoracentesis of 850cc on 06/01/24. neg for malignancy.
She currently denies any dizziness. no pain, No CP or sob. No dysuria. mild nasuea able to eat. no fevers. chr constipation.
Past Medical History
A-fib paroxysmal
CHF
Tremor
A-fib
atrial septal defect
Pulmonary hypertension
Macular degeneration
Celiac disease
recurrent pleural effusion
Past Surgical History: Other (Tonsillectomy Open heart surgery-atrial septal defect repair Cardioversion Cardiac ablation)
Social History
Tobacco: Non-Smoker
Alcohol: None
Personal:
Living: With Family
Family History
Family History: Not Pertinent
Allergies / Home Medications
Allergy/AdvReac Type Severity Reaction Status Date / Time
gluten Allergy Unknown Verified 05/19/24 11:44
nitrofurantoin Allergy Unknown Verified 05/19/24 11:44
[From Macrodantin]
Sulfa (Sulfonamide Allergy Unknown Verified 05/19/24 11:44
Antibiotics)
�Medication �Instructions �Recorded �Confirmed �Type
cholecalciferol (vitamin D3) 25 50 mcg PO DAILY Supplement 05/27/22 06/10/24 History
mcg (1,000 unit) capsule (Vitamin
D3)
clonazepam 0.5 mg tablet 0.5 mg PO BID Mental Health/Anxiety 05/27/22 06/10/24 History
cyclosporine 0.05 % eye drops in a 1 drp BOTH EYES Q12H Eye condition 05/27/22 06/10/24 History
dropperette (Restasis)
estradiol 0.01% (0.1 mg/gram) 1 applic vaginal TUTH PRN hormonal 05/27/22 06/10/24 History
vaginal cream
magnesium oxide 500 mg PO DAILYPRN PRN leg cramps 05/27/22 06/10/24 History
propranolol 80 mg capsule,24 80 mg PO HS Blood pressure/tremors 05/27/22 06/10/24 History
hr,extended release
vitamin B complex 1 cap PO DAILY Supplement 05/27/22 06/10/24 History
dextran 70-hypromellose eye drops 1 drp BOTH EYES QIDPRN PRN eye 11/16/23 06/10/24 History
in a dropperette (Artificial Tears condition
(PF) drops in a dropperette)
mirtazapine 30 mg tablet 30 mg PO HS Mental Health 11/16/23 06/10/24 History
diltiazem HCl 360 mg 360 mg PO DAILY #30 caps 03/09/24 06/10/24 Rx
capsule,extended release 24 hr
apixaban 2.5 mg tablet (Eliquis) 2.5 mg PO BID #60 tabs 03/13/24 06/10/24 Rx
acetaminophen 500 mg tablet 1,000 mg PO Q6HPRN PRN mild pain 05/19/24 06/10/24 History
(Tylenol Extra Strength)
polyethylene glycol 3350 17 gram 17 g PO DAILYPRN PRN constipation 05/19/24 06/10/24 History
oral powder packet (Miralax)
spironolactone 25 mg tablet 12.5 mg (1/2 x 25 mg) PO DAILY #30 05/22/24 06/10/24 Rx
tabs
Lactobac no.2-Bifidobac no.1-S. 1 cap PO DAILY Gastrointestinal 06/10/24 06/10/24 History
thermo 112.5 billion cell capsule Issue
(Visbiome)
furosemide 20 mg tablet 20 mg PO MOWEFR 06/10/24 06/10/24 History
furosemide 40 mg tablet 40 mg PO SUTUTHSA Fluid 06/10/24 06/10/24 History
Retention/Swelling
Review of Systems
-
All complete 12 point ROS have been inquired and found negative other than stated in HPI
Physical Exam
Vital Signs
Vital Signs
Temp Pulse Resp BP Pulse Ox
97.3 F 70 16 106/58 97
06/14/24 15:33 06/14/24 13:00 06/14/24 15:33 06/14/24 11:57 06/14/24 15:33
Lab Results
WBC 3.9 10^3/uL (4.8-10.8) L 06/14/24 03:10
RBC 3.13 10^6/uL (4.20-5.40) L 06/14/24 03:10
Hgb 9.7 g/dL (12.0-16.0) L 06/14/24 03:10
Hct 27.6 % (37.0-47.0) L 06/14/24 03:10
Plt Count 169 10^3/uL (130-400) D 06/14/24 03:10
Sodium 125 mmol/L (135-145) L 06/14/24 03:10
Potassium 5.0 mmol/L (3.5-5.1) 06/14/24 03:10
Chloride 94 mmol/L (98-107) L 06/14/24 03:10
Carbon Dioxide 24 mmol/L (22-30) 06/14/24 03:10
BUN 25 mg/dl (7-17) H 06/14/24 03:10
Creatinine 1.2 mg/dL (0.6-1.0) H 06/14/24 03:10
eGFR 43.54 06/14/24 03:10
Glucose 145 mg/dl (70-99) H 06/14/24 03:10
Calcium 8.8 mg/dl (8.4-10.2) 06/14/24 03:10
Albumin 3.5 g/dl (3.5-5.0) 06/13/24 03:34
CXR:
FINDINGS:
Device: Left-sided cardiac device with intact wires, exact position cannot be determined on sitting AP view only.
Lungs: No pneumothorax. Likely increased small left pleural effusion.
Heart: Cardiac and mediastinal contours are grossly stable.
Osseous structures: Sternal wires are again seen.
IMPRESSION:
Left-sided cardiac device with intact wires. Please see above comments. No findings to confirm pneumothorax.
Likely increased small left pleural effusion.
Physical Exam
General: Awake, Alert, Oriented, AOx3 and No Distress
HEENT: EOMI, Anicteric, Conjunctivae Clear, Facial Symmetry and No JVD
Respiratory: Clear, Normal Excursion and Nonlabored Respirations
Cardiac: S1/S2 and Regular Rate/Rhythm
Breast: Deferred by me
Abdomen: Soft, Nontender and Nondistended
Musculoskeletal: No Cyanosis and Edema (1+)
Skin: No Rash
Neuro: Nonfocal/Grossly Intact
Psych: Mood/afflect pleasant, Insight/judgement good and Appropriate
Data Reviewed
-
Radiology: Report Reviewed by me and Discussed with Patient
Labs: Labs Reviewed by me and Discussed with Patient
Assessment/Plan
-
IMP:
Tachy Zeferino syndrome-s/p PPM 06/13/24
Persistent atrial fibrillation
HFpEF
CKD
Hyponatremia
Essential tremor
Mild/moderate mitral regurgitation
Mild/moderate tricuspid regurgitation
Legally blind
recurrent plerual effusion last thoracentesis in 04/2024
Plan:
A/w bradycardia, s/p PPM 06/13
Acute on hyponatremia-U osmo 267High ADH state from CHF, afib
U na low 18 likely from low solute intake and pulm HTN
check U PCR, borderline low alb
dose samsca today
would likely increase lasix to 40mg daily (at home 40/20alternate)
CXR noted increasing effusion
maintain FR 48ounces/day , encourage solute intake
BP soft, monitor on bb
CKD-cr seem stable, may have to accept high cr if need to maintain vol status
labs in am
if sodium improving ok for d/c, BMP in 1week
d/w pt
[2024-06-14 17:14] LABS: Urine Protein 12 mg/dl (0-12)
[2024-06-14] MEDS: SAMSCA 7.5 MG PO (17:35)
[2024-06-14] MEDS: FLUSH (NSS) 1 FLUSH IV (19:50)
[2024-06-14] MEDS: REMERON 30 MG PO (22:23)
[2024-06-14] MEDS: INDERAL LA 80 MG PO (22:23)
[2024-06-15 03:43] VITALS: BP 117/53
[2024-06-15 03:44] VITALS: BP 117/53
[2024-06-15 04:00] LABS: Hematocrit 29.6 % (37.0-47.0); Hemoglobin 10.5 g/dL (12.0-16.0); Mean Corp Hgb Conc. 35.5 g/dL (33.0-37.0); Mean Corpuscular Hgb 30.7 pg (27.0-31.0); Mean Corpuscular Volume 86.5 fL (81.0-99.0); Mean Platelet Volume 8.5 fL (7.4-10.4); Platelet Count 209 10^3/uL (130-400); Red Blood Cell Count 3.42 10^6/uL (4.20-5.40); Red Cell Dist. Width 14.7 % (11.5-14.5); White Blood Cell Count 8.2 10^3/uL (4.8-10.8)
[2024-06-15 04:20] LABS: Blood Urea Nitrogen 32 mg/dl (7-17); Calcium 9.4 mg/dl (8.4-10.2); Carbon Dioxide 24 mmol/L (22-30); Chloride 94 mmol/L (98-107); Estimated Creatinine Clearance 25 ml/min; Glucose 112 mg/dl (70-99); Magnesium 2.1 mg/dl (1.6-2.3); Sodium 128 mmol/L (135-145); eGFR 39.55
--- NOTE | 2024-06-15 04:38 | PTCARENOTE ---
Rec'd pt at change of shift. Pt on TELE monitor in NSR, VSS, and AAO*3. Pt denies any pain or discomfort. Pt resting with call weiss in reach. Plan of care ongoing.
[2024-06-15 06:43] VITALS: BP 112/53
[2024-06-15 06:50] VITALS: BMI 21.6
--- NOTE | 2024-06-15 07:14 | W.PN.HOSP.TC ---
Today's Communication/Plan
-
discharge
Assessment / Plan
Assessment / Plan
Physical Exam
General: Comfortable and Conversant
HEENT: Normocephalic
Respiratory: Clear to Auscultation Bilaterally
Cardiac: S1/S2 and RRR
GI: Soft, Non Tender, Non Distended, Normal Bowel Sounds
Musculoskeletal: No Cyanosis and No Edema
Skin: Warm and Dry
Neuro: AAO x 3, Nonfocal/grossly intact
Psych: Calm
Assessment/Plan
88-year-old female with past medical history of atrial fibrillation on Eliquis status-post ablation (11/17/2023, on Eliquis), chronic heart failure with preserved ejection fraction, hypertension, anxiety/depression, atrial septal defect repair in the
1970s, macular degeneration, COPD, UTIs and rosacea presented to the ER with low heart rate in the 30s bpm. Patient was noted to be taking Diltiazem 360 mg every morning and Propranolol 80 mg at night and she took the calcium channel candace this
morning. Her checked her heart rate earlier in the day when it was found to be in the 30s, however patient says she did not have any symptoms.
#Asymptomatic Significant Bradycardia
#Junctional bradycardia, resolved
#Tachybrady Syndrome
#Persistent Atrial Fibrillation
-Initially presented to ED with HR 35 - Resolved
-Developed A-fib overnight since spontaneously converted back to NSR
-Cardiology consult appreciated Pacemaker placed 06/13/24 home diltiazem and Propranolol resumed
-Continue Eliquis 2.5 mg BID (reduced dose given weight and age)
-Echo with normal LVEF, mild MR, mild to moderate TR, PASP 45-50 mmHg
#Mild ENIO on CKD 3B resolving/stable
#Mild Hyperkalemia - resolved
-Outpatient Lasix regimen was recently changed: furosemide was decreased from 40 mg daily to 20 mg MWF and 40 mg on other days
-Lasix increased to 40 mg daily as per nephro for treatment hyponatremia.
#Dysuria reported on 06/11/24
#History of Frequent UTIs
-Urinalysis not suggestive of UTI
-no further reports dysuria
#Chronic normocytic anemia
-Ion studies and vitamin B12 do not suggest any deficiency
-Monitor CBC
#Chronic HFpEF
-Currently euvolemic
-Continue Lasix increased to 40 mg daily as above
-Daily weights
-I's and O's
#Pulmonary Hypertension
stable respiratory status on room air
#Hypertension
-home cardizem resumed
-cont Lasix as above
-home aldactone on hold given soft pressures
#Anxiety/depression
-Continue outpatient Clonazepam 0.5 mg twice daily
-Continue outpatient Mirtazapine 30 mg at bedtime
#Benign hand tremors
-Home propranolol 80 mg at bedtime resumed
#History of leg cramps
#Hyponatremia
worsening despite 50 oz fluid restriction, reduced to 48 oz restriction
nephro eval appreciated, some improvement with samsca noted, Home lasix increased to 40 mg as above, otherwise stable for discharge home with repeat BMP Thursday06/17/24 results to be forwarded to primary care provider and pediatric sports medicine specialist (script
provided to faciliate)
Additional Past Medical History
Atrial septal defect-history ASD repair in the 1970s
COPD
Macular degeneration-continue Restasis
UTIs
Rosacea
PT/OT appreciated SNF rehab patient and however decline in favor of home with home services
DVT Prophylaxis: Eliquis
Code Status: Full Code
Medically stable for discharge home with home services and outpatient follow up recommendations.
discussed with patient and patient's Willy
Total Time Preparing Discharge ___40____ minutes including examination of the patient, summary of the hospital stay, instructions for continuing care to all relevant caregivers; and preparation of discharge records, prescriptions, and referral
forms if necessary.
Anticipated Discharge: Today
Subjective/Interval History
-
Date of Service: June 15, 2024
seen and examined at bedside in no acute distress sitting up comfortably in chair. Reports some improvement in generalized weakness. Eager to go home. Willy present during the evaluation.
Objective Data
-
Labs:
Laboratory Results
06/15/24
03:41
WBC 8.2
Hgb 10.5 L
Hct 29.6 L
Plt Count 209 D
Sodium 128 L
Potassium 5.0
Chloride 94 L
Carbon Dioxide 24
BUN 32 H
Creatinine 1.3 H
Glucose 112 H
Calcium 9.4
Vital Signs:
Vital Signs
Temp Pulse Resp BP Pulse Ox
98.3 F 70 18 117/53 94
06/15/24 06:41 06/15/24 05:00 06/15/24 06:41 06/15/24 03:44 06/15/24 06:41
I&O
06/14/24 06/15/24 06/16/24
06:59 06:59 06:59
Intake Total 480 / 480
Output Total 325 / 325 675 / 675
Balance -325 / -325 -195 / -195
[2024-06-15] MEDS: ELIQUIS 2.5 MG PO (08:12)
[2024-06-15] MEDS: REFRESH EYE DROPS (PF) 1 DROPS OPHTH ×2 (08:12→12:44)
[2024-06-15] MEDS: VISBIOME 1 CAP PO (08:12)
[2024-06-15] MEDS: VITAMIN D3 (cholecalciferol) 50 MCG PO (08:12)
[2024-06-15] MEDS: B COMPLEX w/VITAMIN C 1 CAPLET PO (08:13)
[2024-06-15] MEDS: RESTASIS 0.05% OPHTHALMIC EMULSION 1 DROPS BOTH EYES (08:13)
[2024-06-15] MEDS: KLONOPIN 0.5 MG PO (08:13)
[2024-06-15] MEDS: LASIX 40 MG PO (08:13)
[2024-06-15] MEDS: CARDIZEM CD 360 MG PO (08:13)
--- NOTE | 2024-06-15 10:39 | PTCARENOTE ---
received patient this am, very distraught because she couldn't fine her call weiss last night. reassure patient and physically showed her that her call weiss is right next to her. at bedside. monitor shows paced rhythm, VSS. patient has slight
discomfort at LCW pacer site, Acuseal intact, no hematoma, no ecchymosis,offered Tylenol. patient refused. patient ambulated to bathroom with wheelchair and assist of 1. returned back to chair and is eating breakfast. patient would love to go home
today.
[2024-06-15 11:56] VITALS: BP 101/57
--- NOTE | 2024-06-15 12:40 | W.PN.NEPH.PH ---
Today's Communication / Plan
-
see plan
Assessment/Plan
-
IMP:
Tachy Zeferino syndrome-s/p PPM 06/13/24
Persistent atrial fibrillation
HFpEF
CKD
Hyponatremia
Essential tremor
Mild/moderate mitral regurgitation
Mild/moderate tricuspid regurgitation
Legally blind
recurrent plerual effusion last thoracentesis in 04/2024
Plan:
A/w bradycardia, s/p PPM 06/13
Acute on hyponatremia-U osmo 267High ADH state from CHF, afib
U na low 18 likely from low solute intake and pulm HTN
neg U PCR, borderline low alb
sodium better to 128 post samsca 06/14
increased lasix to 40mg daily (at home 40/20alternate)
CXR noted increasing effusion
maintain FR 40-48ounces/day , encourage solute intake
BP soft, monitor on bb and CCB
CKD-cr seem stable, may have to accept high cr if need to maintain vol status
ok for d/c, BMP Thursday
f/u PCP and cards
d/w pt, and primary
-
-
Date of Service: June 15, 2024
CC / HPI / ROS
-
Chief Complaint:
hyponatremia ,CKD
History of Present Illness:
sodium better at 128, bp stable
cr stable 1.3
wt slightly down
Review of Systems:
no cp or sob
was anxious overnight
at baseline now
Labs
-
Labs:
WBC 8.2 10^3/uL (4.8-10.8) 06/15/24 03:41
RBC 3.42 10^6/uL (4.20-5.40) L 06/15/24 03:41
Hgb 10.5 g/dL (12.0-16.0) L 06/15/24 03:41
Hct 29.6 % (37.0-47.0) L 06/15/24 03:41
Plt Count 209 10^3/uL (130-400) D 06/15/24 03:41
Sodium 128 mmol/L (135-145) L 06/15/24 03:41
Potassium 5.0 mmol/L (3.5-5.1) 06/15/24 03:41
Chloride 94 mmol/L (98-107) L 06/15/24 03:41
Carbon Dioxide 24 mmol/L (22-30) 06/15/24 03:41
BUN 32 mg/dl (7-17) H 06/15/24 03:41
Creatinine 1.3 mg/dL (0.6-1.0) H 06/15/24 03:41
eGFR 39.55 06/15/24 03:41
Glucose 112 mg/dl (70-99) H 06/15/24 03:41
Calcium 9.4 mg/dl (8.4-10.2) 06/15/24 03:41
Phosphorus 4.0 mg/dl (2.5-4.5) 06/15/24 03:41
Albumin 3.5 g/dl (3.5-5.0) 06/13/24 03:34
Physical Exam
-
Vital Signs:
Vital Signs
Temp Pulse Resp BP Pulse Ox
98.2 F 77 18 112/53 94
06/15/24 11:55 06/15/24 08:13 06/15/24 11:55 06/15/24 08:13 06/15/24 11:55
Cardiovascular:: Regular rate and rhythm
Respiratory:: Bilateral: CTA
Lung Excursion:: Normal
Abdomen:: Nontender and Soft
Bowel Sounds:: Normal
Extremity Edema:: None: Bilateral:
Canela Catheter: No
--- NOTE | 2024-06-15 14:05 | W.DCSUMMARY ---
Discharge Summary
Discharge Data
Date of Admission: 06/10/24
Date of Discharge: 06/15/24
-
Pending Results: No
Discharge Plan
-
Patient Disposition: Home with Home Care
Discharge Diagnosis/Procedures: Tachybrady Syndrome status post pacemaker implantation
Persistent Atrial Fibrillation
Chronic Kidney Disease Stage III
Chronic Heart Failure with Preserved Ejection Fraction
Hypertension
Anxiety/depression
Benign hand tremors
Hyponatremia
Condition: Fair
Diet: Low Cholesterol and Restrict fluids to 48 oz
Activity: With assistance, As tolerated and With Walker
Driving Restrictions: No driving
Bathing Restrictions: None
Blood Work: Please repeat BMP Thursday06/17/24 results to be forwarded to your primary care provider and Ui Designer (script has been provided to facilitate)
Other Services: PT and OT
Activity Restrictions/Additional Instructions:
Please follow up with primary care provider in 1 week of discharge and keep your appointments with Cardiology.
For better treatment Hyponatremia, your home Lasix medication has been changed to 40 mg daily.
Aldactone has been placed on hold due to soft pressures. Please follow up with your assistant to the vice president to determine when safe to resume, if necessary to resume, and/or if an alternative medication is required instead.
Please take medications as prescribed/recommended and follow up with primary care provider and/or other healthcare provider involved in your care for refills and/or further adjustment to your medication regimen as necessary.
Stand Alone Forms: DC Inst - Implanted Device
Referrals:
[facility] [Outside]
Iris Mitchell NP [Specified Professional Personl] - 06/21/24 11:40 am (Post device incision check appointment)
Willy Waters MD [Active] - 08/03/24 11:00 am (Cardiology followup)
Prescriptions:
Continued
clonazepam 0.5 mg tablet
0.5 mg PO BID
propranolol 80 mg capsule,extended release 24hr
80 mg PO HS
magnesium oxide 500 mg Tablet
500 mg PO DAILYPRN PRN (Reason: leg cramps)
estradiol 0.01 % (0.1 mg/gram) cream
1 applic VAGINAL TUTH PRN (Reason: hormonal )
vitamin B complex Capsule
1 cap PO DAILY
cholecalciferol (vitamin D3) [Vitamin D3] 25 mcg (1,000 unit) Capsule
50 mcg PO DAILY
cyclosporine [Restasis] 0.05 % Dropperette
1 drp BOTH EYES Q12H
mirtazapine 30 mg tablet
30 mg PO HS
Artificial Tears (PF) Dropperette
1 drp BOTH EYES QIDPRN PRN (Reason: eye condition)
diltiazem HCl 360 mg capsule,extended release 24hr
360 mg PO DAILY Qty: 30 0RF
Eliquis 2.5 mg Tablet
2.5 mg PO BID Qty: 60 0RF
polyethylene glycol 3350 [Miralax] 17 gram Powder In Packet
17 g PO DAILYPRN PRN (Reason: constipation)
acetaminophen [Tylenol Extra Strength] 500 mg Tablet
1,000 mg PO Q6HPRN PRN (Reason: mild pain)
Visbiome 112.5 billion cell Capsule
1 cap PO DAILY
furosemide 40 mg tablet
40 mg PO DAILY Qty: 30 0RF
Held
spironolactone 25 mg Tablet
12.5 mg PO DAILY Qty: 30 0RF
Hold Instructions: On hold due to soft pressures. Follow up with cardiology to determine when safe to resume, if necessary to resume, and/or if an alternative agent is required instead.
Discontinued
furosemide 20 mg Tablet
20 mg PO MOWEFR
Discharge Orders:
Discharge Patient (As Directed); Ordered 06/15/24
Ordered By: Martina Hwoe
Care Plan Goals
Care Plan Goals:
Problem: Readiness for enhanced knowledge related to diagnosis and treatment plan
Goal: Understand your diagnosis and treatment plan needs, including medications if applicable.
Instructions: Know your diagnosis, underlying causes and treatment plan options, including medications if applicable. Consult with your health care team to learn about your diagnosis and treatment plan, including medications if applicable.
Discharge Date and Time
Print Language: BERMUDIAN
--- NOTE | 2024-06-15 15:04 | PTCARENOTE ---
D/C instructions given to patient and both verbalizes understanding. INT D/C'
d, telemetry D/C'd,LCW Acuseal intact. personal belongings packed and sent home with patient. D/C instructions faxed to [facility]. D/C to home via wc accompanied by staff.
== END 2024-06-15 15:37 | disposition home health service (06) | DRG 243 ==
LOC: IVU 16:45
PROVIDERS: Clinical Nurse Specialist Family Health; Internal Medicine Cardiovascular Disease; Nurse Practitioner; ADMITTING PHYSICIAN Hospitalist; ATTENDING PHYSICIAN Internal Medicine; CONSULT PHYSICIAN Internal Medicine; CONSULT PHYSICIAN Student in an Organized Health Care Education/Training Program; EMERGENCY PHYSICIAN Emergency Medicine; FAMILY PHYSICIAN Internal Medicine Gastroenterology
PROC: 02H63JZ Insertion of Pacemaker Lead into Right Atrium, Percutaneous Approach (ICD-10-PCS; 2024-06-13)
PROC: 02HK3JZ Insertion of Pacemaker Lead into Right Ventricle, Percutaneous Approach (ICD-10-PCS; 2024-06-13)
PROC: 0JH606Z Insertion of Pacemaker, Dual Chamber into Chest Subcutaneous Tissue and Fascia, Open Approach (ICD-10-PCS; 2024-06-13)
DX: I49.5 Sick sinus syndrome (principal); E87.1 Hypo-osmolality and hyponatremia; I13.0 Hypertensive heart and chronic kidney disease with heart failure and stage 1 through stage 4 chronic kidney disease, or unspecified chronic kidney disease; I48.19 Other persistent atrial fibrillation; I50.32 Chronic diastolic (congestive) heart failure; N17.9 Acute kidney failure, unspecified; I48.92 Unspecified atrial flutter; I49.2 Junctional premature depolarization; F32.A Depression, unspecified; F41.9 Anxiety disorder, unspecified; I27.20 Pulmonary hypertension, unspecified; H35.30 Unspecified macular degeneration; K90.0 Celiac disease; N18.32 Chronic kidney disease, stage 3b; E87.5 Hyperkalemia; G25.0 Essential tremor; D63.1 Anemia in chronic kidney disease; I08.1 Rheumatic disorders of both mitral and tricuspid valves; H54.8 Legal blindness, as defined in USA; J44.9 Chronic obstructive pulmonary disease, unspecified; Z11.52 Encounter for screening for COVID-19; Z79.01 Long term (current) use of anticoagulants; Z79.899 Other long term (current) drug therapy; Z87.74 Personal history of (corrected) congenital malformations of heart and circulatory system; Z87.440 Personal history of urinary (tract) infections
CPT/HCPCS: 33208; 71045; 80048; 80053; 81003; 82570; 82607; 82728; 83540; 83550; 83735; 83935; 84100; 84156; 84300; 84443; 84484; 85025; 85027; 87811; 93005; 93306; 97162; 97166; 97530; 99291; C1785; C1892; C1898

== ENCOUNTER → 2024-06-17 15:25 | Outpatient (REF) | payer MEDICARE, OTHER, SELFPAY ==
[2024-06-17 16:47] LABS: Blood Urea Nitrogen 38 mg/dl (7-17); Calcium 9.3 mg/dl (8.4-10.2); Carbon Dioxide 29 mmol/L (22-30); Chloride 96 mmol/L (98-107); Glucose 168 mg/dl (70-99); Potassium 4.5 mmol/L (3.5-5.1); Sodium 131 mmol/L (135-145); eGFR 33.31
== END ==
LOC: CLAB 15:25
PROVIDERS: ATTENDING PHYSICIAN Internal Medicine; REFERRING PHYSICIAN Internal Medicine Cardiovascular Disease
DX: I50.32 Chronic diastolic (congestive) heart failure (principal)
CPT/HCPCS: 80048

== ENCOUNTER → 2024-07-06 16:22 | Outpatient (REF) | payer MEDICARE, OTHER, SELFPAY ==
[2024-07-06 17:00] LABS: Blood Urea Nitrogen 25 mg/dl (7-17); Calcium 9.3 mg/dl (8.4-10.2); Carbon Dioxide 31 mmol/L (22-30); Chloride 93 mmol/L (98-107); Glucose 127 mg/dl (70-99); Potassium 4.2 mmol/L (3.5-5.1); Sodium 132 mmol/L (135-145); eGFR 30.64
== END ==
LOC: CLAB 16:22
PROVIDERS: ATTENDING PHYSICIAN Nurse Practitioner
DX: I48.91 Unspecified atrial fibrillation (principal); I48.92 Unspecified atrial flutter; I50.32 Chronic diastolic (congestive) heart failure; E87.1 Hypo-osmolality and hyponatremia
CPT/HCPCS: 36415; 80048

== ENCOUNTER → 2024-07-08 11:30 | Outpatient (REF) | payer MEDICARE, OTHER, SELFPAY ==
[2024-07-08 18:48] LABS: % Basophils 1.4 % (0-2); % Eosinophils 1.7 % (0-6); % Immature Granulocytes 0.3 % (0-0.5); % Lymphocytes 24.7 % (20.5-51.1); % Monocytes 11.4 % (1.7-9.3); % Neutrophils 60.5 % (42.2-75.2); Absolute Basophils 0.1 10^3/uL (0-0.2); Absolute Eosinophils 0.1 10^3/uL (0-0.7); Absolute Lymphocytes 0.9 10^3/uL (1.2-3.4); Absolute Monocytes 0.4 10^3/uL (0.1-0.6); Absolute Neutrophils 2.2 10^3/uL (1.4-6.5); Hematocrit 30.1 % (37.0-47.0); Hemoglobin 10.3 g/dL (12.0-16.0); Mean Corp Hgb Conc. 34.2 g/dL (33.0-37.0); Mean Corpuscular Hgb 31.3 pg (27.0-31.0); Mean Corpuscular Volume 91.5 fL (81.0-99.0); Mean Platelet Volume 9.2 fL (7.4-10.4); Nucleated Red Blood Cells % 0 %; Platelet Count 212 10^3/uL (130-400); Red Blood Cell Count 3.29 10^6/uL (4.20-5.40); Red Cell Dist. Width 14.9 % (11.5-14.5); White Blood Cell Count 3.6 10^3/uL (4.8-10.8)
[2024-07-08 18:53] LABS: Albumin 3.4 g/dl (3.5-5.0); Blood Urea Nitrogen 23 mg/dl (7-17); Calcium 8.4 mg/dl (8.4-10.2); Carbon Dioxide 31 mmol/L (22-30); Chloride 95 mmol/L (98-107); Glucose 163 mg/dl (70-99); Phosphorus 3.4 mg/dl (2.5-4.5); Sodium 132 mmol/L (135-145)
[2024-07-08 19:09] LABS: NT-proBNP 6070 pg/ml
== END ==
LOC: CLAB 11:30
PROVIDERS: ATTENDING PHYSICIAN Internal Medicine Cardiovascular Disease
DX: I13.0 Hypertensive heart and chronic kidney disease with heart failure and stage 1 through stage 4 chronic kidney disease, or unspecified chronic kidney disease (principal); I48.19 Other persistent atrial fibrillation
CPT/HCPCS: 36415; 80069; 83880; 85025

== ENCOUNTER 2024-07-10 03:31 | Inpatient (IN) | payer MEDICARE, OTHER, SELFPAY ==
[2024-07-10] VITALS (20 sets, daily range): BP systolic 90–131; BP diastolic 56–90; BMI 23.1; BMI 22.6
--- NOTE | 2024-07-10 00:15 | ED.GENMED ---
History of Present Illness
General
Chief Complaint: Heart Rate Problem
Source: patient and ambulance crew
Exam Limitations: none
Time Seen by Provider: 07/10/24 00:14
Nursing documentation reviewed up to this point in time: agreed with
History of Present Illness
History of Present Illness:
89 yo female from home w h/o CHF, Afib on Eliquis, cardioversion x 2, cardiac ablation, pacemaker, L thoracentesis 05/20/24, presents for SOB. Pt states 'my heart rate went up jumping around and I've been short of breath.'
Patient states her visiting nurse yesterday noted that her heart rate was fast. Patient states this morning she called Dr. Waters's office because she felt short of breath and her heart rate was fast. She denies chest pain and states she feels
fatigued but otherwise feels well. Denies chest pain, denies feeling palpitations, denies n/v, abdominal pain. Denies dizziness or lightheadedness.
Treated for recent UTI with burning, on Cipro for 3 days, last dose 3 days ago
Past History
Past History
ED Past Medical History: Arrthythmia (Atrial fib), CHF, HTN, Valvular disease, Psychiatric (Anxiety, depression. ) and Other (atrial septal defect. UTI, Macular degeneration. Rosacea, )
ED Past Surgical History: Cardiac (cardiac ablation), (X 2) and Tonsilectomy
Social History
Tobacco: Non-smoker
Alcohol: None
Drug: None
Personal:
Living: with family
Review of Systems
Review of Systems
Allergies reviewed?: Yes
All Other Systems: ROS reviewed and negative except as documented in HPI and ROS
Constitutional: Reports fatigue; Denies fever
Respiratory: Denies cough or trouble breathing (feels short of breath)
Cardiac: Denies chest pain, diaphoresis or palpitations
ABD/GI: Denies abdominal pain, vomiting, diarrhea or anorexia
: Denies dysuria, frequency or difficulty voiding
Musculoskeletal: Reports no symptoms
Neurological: Reports no symptoms
Phy Exam
Physical Exam
Physical Exam:
GENERAL: No acute distress. A&Ox3.
CONSTITUTIONAL: Afebrile.
EYES: clear, conjunctivae normal
ENMT: moist mucus membranes, Pharynx nl
RESPIRATORY: Regular respirations, nonlabored, lungs with diminished breath sounds throughout.
CARDIOVASCULAR: Irregular rhythm regular rate and rhythm, no murmurs, no rubs.
GI: Soft, nontender, normal BS
MUSCULOSKELETAL: Moves with ease. Well perfused.
SKIN: Warm, dry, pink
PSYCH: Normal mood and affect. Well kept, interactive and appropriate
NEUROLOGIC: Awake, alert and oriented. No focal neurological deficits
Course
Orders/Labs/Results
Orders:
Orders
07/10/24 00:12
Electrocardiogram (*1) Urgent
Reason for Study: Shortness of Breath
EKG- Treatment ONCE
07/10/24 00:15
CR Chest - 2 Views Urgent
Comment:
Reason For Exam: SOB
07/10/24 00:29
Basic Metabolic Panel Urgent
Complete Blood Count/With Diff Urgent
NT-proBNP Urgent
Troponin I Urgent
07/10/24 00:33
Diltiazem 125 mg/125 ml Nss [Cardizem] 125 mg in 125 ml IV NOW
Initial dose in mg/hr, then titrate:: 5
Titrate to keep:: Heart rate 80-100 bpm
Titrate by mg/hr:: 5 mg/hr
Frequency of titrations (minutes):: 15
Maximum dose in mg/hr:: 15
Diltiazem HCl [Cardizem] 10 mg IV NOW STA
07/10/24 00:45
Diltiazem HCl [Cardizem] 5 mg IV NOW STA
07/10/24 02:28
Urinalysis Reflex To Culture Urgent
Date Specimen was Collected: 07/10/24
Time Specimen was Collected: 02:24
Urine Microscopic Reflex Cult Urgent
Urine Culture Urgent
ROSARIO Source: U
Specimen Description:
Date Specimen was Collected: 07/10/24
Time Specimen was Collected: 02:24
07/10/24 02:29
Admit/Transfer Patient As Directed
Co-Sign Provider:
Level of Care: Inpatient admission
Assign to:: IVU
Physician / Group: hospitalist
Diagnosis: uncontrolled SVT
Reason for Hospitalization: SVT, pleural effusion, hyponatremia
Expected length of stay greater than two midnights?: Yes
ELOS- Estimated Length of Stay in days: 2
I certify the patient meets the requirements for IP care: Yes
07/10/24 02:30
PRN Pain Medication Management As Directed
May give lesser potent ordered pain med per pt: Yes
preference::
Protocol:: Medication orders for pain may be administered in a
manner that supports deferring to patient preference
when the pt is:
- Requesting an ordered lesser potent pain medication.
Least to most potent pain medications are defined
as: acetaminophen < NSAID < tramadol < opioids
(morphine, oxycodone, hydromorphone).
- Requesting a lesser dose of the same medication IF
ORDERED.
- Requesting a less intrusive route of administration
if both routes are prescribed by the provider (PO <
IV).
07/10/24 02:31
Code Status As Directed
Resuscitation Status: Full Code
07/10/24 03:00
Flush (0.9% Sodium Chloride) [Flush (Nss)] See Dose Instructions IV PER PROTOCOL
Abnormal Lab Results
07/10/24 07/10/24
0029 02:28
WBC 4.6 L 10^3/uL
(4.8-10.8)
RBC 3.53 L 10^6/uL
(4.20-5.40)
Hgb 11.0 L g/dL
(12.0-16.0)
Hct 31.2 L %
(37.0-47.0)
MCH 31.2 H pg
(27.0-31.0)
RDW 14.9 H %
(11.5-14.5)
Absolute Monos (auto) 0.7 H 10^3/uL
(0.1-0.6)
Monocytes % 14.7 H %
(1.7-9.3)
Sodium 129 L mmol/L
(135-145)
BUN 28 H mg/dl
(7-17)
Creatinine 1.4 H mg/dL
(0.6-1.0)
Glucose 111 H mg/dl
(70-99)
Leukocyte Esterase Rfl 1+ A
(Negative)
07/10/24 00:29
07/10/24 00:29
Vital Signs
Initial and Last Documented VS:
Initial Vital Signs
Temp Pulse Resp BP Pulse Ox
97.9 F 130 30 119/82 95
07/10/24 00:14 07/10/24 00:14 07/10/24 00:14 07/10/24 00:14 07/10/24 00:14
Last Documented Vital Signs
Temp Pulse Resp BP Pulse Ox
97.9 F 126 35 99/70 94
07/10/24 00:14 07/10/24 02:00 07/10/24 02:00 07/10/24 02:00 07/10/24 02:00
Exterior Door Installer consulted with Physician
Exterior Door Installer consulted with physician?: Yes
Name of Physician Consulted: Yolanda
MDM/Problems Addressed
Differential Diagnosis Includes:
Afib w RVR, pleural effusion, PNA, CHF
MDM/Problems Addressed:
89 yo female from home w h/o CHF, Afib on Eliquis, cardioversion x 2, cardiac ablation, pacemaker, L thoracentesis 05/20/24, presents for SOB. Pt states 'my heart rate went up jumping around and I've been short of breath.'
Patient states her visiting nurse yesterday noted that her heart rate was fast. Patient states this morning she called Dr. Waters's office because she felt short of breath and her heart rate was fast. She denies chest pain and states she feels
fatigued but otherwise feels well. Denies chest pain, palpitations, n/v, abdominal pain. Denies dizziness or lightheadedness.
Treated for recent UTI with burning, on Cipro for 3 days, last dose 3 days ago
febrile, no hypoxemia, pleasant NAD
EKG: HR 128- 130 BP 90's systolic then 110 systolic.
Cardizem 10 mg changed to 5 mg due to low BP; with Cardizem drip
Pacemaker interrogation: Time in AT/AF '0'
Cardizem drip DC'd
Diagnosis: tachycardia
CBC, CMP with no clinically significant
CXR: Moderate left pleural effusion.
Plan: Admit: Hospitalist notified of admission.
Symptomatic L pleural effusion, Hyponatremia
Chronic conditions affecting care: Arrhythmia
*EKG
EKG Intrepretation Date: 07/10/24
Interpretation: abnormal
Heart Rate: 130
Rate: tachycardiac
Rhythm: a-fib
[place]: normal axis
QRS Pattern: normal QRS
Ischemia: no ischemia
*Critical Care Note
Total Time (30-74mins, 75-104mins- exclusive of procedures): Not Applicable
ED Attending Note
-
Portions of this chart may have been created with voice recognition software.� Occasional wrong word or��sound alike� substitutions may have occurred due to the inherent limitations of voice recognition software.
Discharge Plan
Departure
Patient Disposition: Admit
Date of Disposition: 07/10/24
Time of Disposition: 01:31
Admit to: Med/Surg
Presentation/result/management discussed w/ accepting MD/DO: Hospitalist
Condition: Fair
Discharge Problem:
Bilateral pneumonia
Prescriptions:
No Action
clonazepam 0.5 mg tablet
0.5 mg PO BID
propranolol 80 mg capsule,extended release 24hr
80 mg PO HS
magnesium oxide 500 mg Tablet
500 mg PO DAILYPRN PRN (Reason: leg cramps)
estradiol 0.01 % (0.1 mg/gram) cream
1 applic VAGINAL TUTH PRN (Reason: hormonal )
vitamin B complex Capsule
1 cap PO DAILY
cholecalciferol (vitamin D3) [Vitamin D3] 25 mcg (1,000 unit) Capsule
50 mcg PO DAILY
cyclosporine [Restasis] 0.05 % Dropperette
1 drp BOTH EYES Q12H
mirtazapine 30 mg tablet
30 mg PO HS
Artificial Tears (PF) Dropperette
1 drp BOTH EYES QIDPRN PRN (Reason: eye condition)
diltiazem HCl 360 mg capsule,extended release 24hr
360 mg PO DAILY Qty: 30 0RF
Eliquis 2.5 mg Tablet
2.5 mg PO BID Qty: 60 0RF
acetaminophen [Tylenol Extra Strength] 500 mg Tablet
1,000 mg PO Q6HPRN PRN (Reason: mild pain)
spironolactone 25 mg Tablet
12.5 mg PO DAILY Qty: 30 0RF
Visbiome 112.5 billion cell Capsule
1 cap PO DAILY
furosemide 40 mg tablet
40 mg PO DAILY Qty: 30 0RF
Referrals:
Sharif Hou MD [Family Provider] -
Interventions
Interventions:
*Risk Screen - Suicide Last Done: 07/10/24 00:14
*General Assessment Last Done: 07/10/24 00:14
*Neglect/Abuse Screening Last Done: 07/10/24 00:14
ED- Fall Risk Assessment Last Done: 07/10/24 00:59
*ED COVID-19 Vaccine History Last Done: 07/10/24 00:14
ED- Cardiac Assessment Last Done: 07/10/24 00:59
ED- Pulmonary Assessment Last Done: 07/10/24 00:59
Discharge Date and Time
Print Language: IRISH
[2024-07-10 00:40] LABS: % Basophils 1.3 % (0-2); % Eosinophils 3.1 % (0-6); % Immature Granulocytes 0.4 % (0-0.5); % Lymphocytes 34.6 % (20.5-51.1); % Monocytes 14.7 % (1.7-9.3); % Neutrophils 45.9 % (42.2-75.2); Absolute Basophils 0.1 10^3/uL (0-0.2); Absolute Eosinophils 0.1 10^3/uL (0-0.7); Absolute Lymphocytes 1.6 10^3/uL (1.2-3.4); Absolute Monocytes 0.7 10^3/uL (0.1-0.6); Absolute Neutrophils 2.1 10^3/uL (1.4-6.5); Hematocrit 31.2 % (37.0-47.0); Mean Corp Hgb Conc. 35.3 g/dL (33.0-37.0); Mean Corpuscular Hgb 31.2 pg (27.0-31.0); Mean Corpuscular Volume 88.4 fL (81.0-99.0); Mean Platelet Volume 8.4 fL (7.4-10.4); Nucleated Red Blood Cells % 0 %; Platelet Count 195 10^3/uL (130-400); Red Blood Cell Count 3.53 10^6/uL (4.20-5.40); Red Cell Dist. Width 14.9 % (11.5-14.5); White Blood Cell Count 4.6 10^3/uL (4.8-10.8)
[2024-07-10] MEDS: CARDIZEM 125 IV (00:40)
[2024-07-10] MEDS: CARDIZEM 5 MG IV (00:47)
[2024-07-10 00:49] LABS: Chloride 98 mmol/L (98-107); Sodium 129 mmol/L (135-145)
[2024-07-10 00:52] LABS: Blood Urea Nitrogen 28 mg/dl (7-17); Calcium 8.5 mg/dl (8.4-10.2); Carbon Dioxide 24 mmol/L (22-30); Estimated Creatinine Clearance 23 ml/min; Glucose 111 mg/dl (70-99); eGFR 35.96
[2024-07-10 01:04] LABS: NT-proBNP 7040 pg/ml; Troponin I 0.014 ng/ml
--- NOTE | 2024-07-10 02:11 | HPS.HSE ---
Family Physician
-
Family Physician: Sharif Hou
Chief Complaint
-
Shortness of breath and tachycardia
History of Present Illness
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
effusion presents to the emergency department with shortness of breath and tachycardia.
Patient reports being in usual state of health recently. After discharge she seems to be well. About a week ago she complained of some shortness of breath and was instructed to take 2 doses of her Lasix for 2 days and after that patient reported
some improvement. She denied any significant lower extremity swelling. Spouse reported that she is slowly gains weight about 0.3 to 0.5 pounds over 102 days and she appears to have gained about 3 to 4 pounds since her last discharge. Patient
usually has some dyspnea on exertion but is able to relax and rest after taking a break. Today after getting in bed to rest she continued to have some shortness of breath. They checked her heart rate and it was reading 130 so they decided to call
EMS and come to the emergency department. She denies any cough fevers or chills. Patient and spouse reports adherence to fluid restriction to no more than 48 ounces daily.
In the emergency department she was tachycardic to the 130s and started on diltiazem. The pacemaker was interrogated and showed no arrhythmia with normal lead function. He was afebrile, he was satting 98% on room air. Blood pressure was 111/77.
CBC was unremarkable and unchanged from prior. Electrolytes are notable for a sodium of 129, potassium is pending, chloride and bicarb are normal. Creatinine is 1.4 which is baseline. Troponin is negative. BNP remains elevated at 7000.
ECG shows AV paced rhythm at 130 and regular. The chest x-ray shows a moderate to large left-sided pleural effusion.
Medical History
Past Medical History
Past Medical History: Reports Arrhythmia (Atrial fibrillation status post pacemaker), CHF (Preserved EF), Renal Failure (CKD stage III) and Other (Chronic hyponatremia)
Additional Past Medical History:
Celiac disease
Past Surgical History: Reports Cardiac, and Tonsilectomy
Social History
Tobacco: Non-smoker
Alcohol: None
Drug: None
Personal:
Living: With Family
Employment: Not Employed
Family History
Family History: Not pertinent
Allergies / Home Medications
Allergies reflects when Allergies were last updated in [employer].
Home Medications with original date entered in [employer]
Allergy/Medication List:
Allergies
Allergy/AdvReac Type Severity Reaction Status Date / Time
gluten Allergy Unknown Verified 07/10/24 00:13
nitrofurantoin Allergy Unknown Verified 07/10/24 00:13
[From Macrodantin]
Sulfa (Sulfonamide Allergy Unknown Verified 07/10/24 00:13
Antibiotics)
Home Medications
cholecalciferol (vitamin D3) 25 mcg (1,000 unit) capsule (Vitamin D3) 50 mcg PO DAILY Supplement 05/27/22
clonazepam 0.5 mg tablet 0.5 mg PO BID Mental Health/Anxiety 05/27/22
cyclosporine 0.05 % eye drops in a dropperette (Restasis) 1 drp BOTH EYES Q12H Eye condition 05/27/22
estradiol 0.01% (0.1 mg/gram) vaginal cream 1 applic vaginal TUTH PRN hormonal 05/27/22
magnesium oxide 500 mg PO DAILYPRN PRN leg cramps 05/27/22
propranolol 80 mg capsule,24 hr,extended release 80 mg PO HS Blood pressure/tremors 05/27/22
vitamin B complex 1 cap PO DAILY Supplement 05/27/22
dextran 70-hypromellose eye drops in a dropperette (Artificial Tears (PF) drops in a dropperette) 1 drp BOTH EYES QIDPRN PRN eye condition 11/16/23
mirtazapine 30 mg tablet 30 mg PO HS Mental Health 11/16/23
diltiazem HCl 360 mg capsule,extended release 24 hr 360 mg PO DAILY #30 caps 03/09/24
apixaban 2.5 mg tablet (Eliquis) 2.5 mg PO BID #60 tabs 03/13/24
acetaminophen 500 mg tablet (Tylenol Extra Strength) 1,000 mg PO Q6HPRN PRN mild pain 05/19/24
spironolactone 25 mg tablet 12.5 mg (1/2 x 25 mg) PO DAILY #30 tabs 05/22/24
Lactobac no.2-Bifidobac no.1-S. thermo 112.5 billion cell capsule (Visbiome) 1 cap PO DAILY Gastrointestinal Issue 06/10/24
furosemide 40 mg tablet 40 mg PO DAILY Fluid Retention/Swelling #30 tabs 06/15/24
Review of Systems
-
Constitutional: Reports No Symptoms
EENT: Reports No Symptoms
Respiratory: Reports Trouble Breathing
Cardiac: Reports Other (tachycardia)
Abdomen/GI: Reports No Symptoms
: Reports No Symptoms
Musculoskeletal: Reports No Symptoms
Skin: Reports No Symptoms
Neurological: Reports No Symptoms
Endocrine: Reports No Symptoms
Hematologic/Lymphatic: Reports No Symptoms
Psych: Reports No Symptoms
Physical Exam
Vital Signs
Vital Signs
Temp Pulse Resp BP Pulse Ox
97.9 F 126 35 99/70 94
07/10/24 00:14 07/10/24 02:00 07/10/24 02:00 07/10/24 02:00 07/10/24 02:00
Physical Exam
General: Well Developed, Well Nourished and Comfortable; No Respiratory Distress
HEENT: NormoCephalic, Anicteric, Moist mucous membranes, Atraumatic, PERRLA and No Ptosis
Respiratory: Decreased Breath Sounds
Cardiac: S1/S2, Regular Rhythm and Tachycardia
Breast: Deferred by me
GI: Non Tender, Non Distended and Normal Bowel Sounds
Rectal: Brown
Genito-urinary: Deferred by me
Musculoskeletal: No Clubbing, No Cyanosis and No Edema
Skin: Warm
Neuro: AO x 3 and Nonfocal/grossly intact
Hematologic/Lymphatic: No Lymphadenopathy
Psych: Calm
Laboratory Results
-
07/10/24 00:29
07/10/24 00:29
Laboratory Results
Total Bilirubin Cancelled 07/10/24 00:29
AST Cancelled 07/10/24 00:29
ALT Cancelled 07/10/24 00:29
Alkaline Phosphatase Cancelled 07/10/24 00:29
Troponin I 0.014 ng/ml 07/10/24 00:29
Data Reviewed
-
Diagnostic Radiology: Image Personally Visualized and interpreted
CT Scan: Report Reviewed by me
Medical Tests (Nuc Med, Echo, EKG etc): Image Personally Visualized and interpreted
Lab Data: Labs Reviewed by me
Old Records: Reviewed
Impression/Plan
-
IMPRESSION:
89-year-old female with past medical history of atrial fibrillation with tachybradycardia syndrome status post pacemaker placement, CHF, history of recurrent pleural effusion who comes in with shortness of breath and tachycardia to 130 found to have
recurrence of left-sided pleural effusion. ECG shows a paced rhythm at a rate of 130. On telemetry she was running at paced 126. Troponin was negative. Pacemaker interrogation shows no acute findings.
PLAN:
1.Tachycardia - Regular sinus tachycardia at 126-130. Possibly flutter but no flutter waves determined. Appears pacer is limiting ventricular rate to no more than 130 with possibly underlying atrial fibrillation. She is HD stable and not in acute
distress. Started on diltiazem gtt in ED. No effect. D/Cd.
- admit to IVU
- continue oral diltiazem, consider amio if still tachy
- management of pleural effusion may help
- continue proopranolol with hold parameters
- continue eliquis for AC
- cardiology consultation
2. CHF - elevated BNP, pleural effusion. Overall, no clinically overt signs of volume overload however spouse reports about 3 - 5 Ib weight gain since Jun 14.
- lasix 40mg iv daily for now
- monitor i/os
- strict fluid restrictions
- daily weights
3. Pleural effusion - The last analysis is c/w exudative effusion. Further she had a recent pet-ct showing mild to moderate FDG activity involving the lobulated right lower lobe pulmonary nodule suspicious for a low metabolic rate neoplasm. She
had interval increase in the size and number of additional smaller bilateral pulmonary nodules which also demonstrate mild FDG activity for the increasing up on delayed imaging suspicious for progression of metastatic disease. There was a large
markedly FDG avid right thyroid lobe mass highly suspicious for neoplasm. 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
- IR consult for diagnostic and thereaputic thoracentesis
- send for cytology as well as usual studies
- consider Pulmonary consultation given concern for malignancy (she is pending an outpatient clinic at the end of June)
4. Hyponatremia - Essentially persistent with mild exacerbation. Claims adherence to fluid restriction at home but usually improves with restriction inpatient. 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
- continue fluid restriction of 40 ounces
- lasix as above
- urine studies
DVT PPX - on apixaban
Code status - full code
[2024-07-10 02:36] LABS: Urine Albumin Negative (Neg - Trace); Urine Bilirubin Negative (Negative); Urine Character Clear (Clear); Urine Color Yellow; Urine Glucose Negative (Negative); Urine Ketone Negative (Negative); Urine Leukocyte 1+ (Negative); Urine Nitrite Negative (Negative); Urine Occult Blood Negative (Negative); Urine Specific Gravity 1.015 (<1.030); Urine Urobilinogen Negative (Neg - 1+)
[2024-07-10 03:57] LABS: Urine Squamous Cell >30 /LPF (Few)
[2024-07-10 03:58] LABS: Urine Bacteria Few (Negative); Urine Red Blood Cell 0-2 /HPF (0-2); Urine White Cell 16-20 /HPF (0-5)
--- NOTE | 2024-07-10 04:00 | PTCARENOTE ---
Received pt from ER,pt ambulated with Rn into room and into BR,HR remained unchanged,pt had only slight DOWNS. O2 sats room 95%,slight tachypnea,pt oriented,denied pain.Oriented to room pre-hospital IV removed and new replaced,pt tolerated
well,sleeping after assessment.
[2024-07-10 06:08] LABS: Blood Urea Nitrogen 26 mg/dl (7-17); Calcium 8.4 mg/dl (8.4-10.2); Carbon Dioxide 24 mmol/L (22-30); Chloride 98 mmol/L (98-107); Estimated Creatinine Clearance 23 ml/min; Glucose 118 mg/dl (70-99); LDH 170 U/L (120-246); Magnesium 2.1 mg/dl (1.6-2.3); Phosphorus 3.8 mg/dl (2.5-4.5); Potassium 4.3 mmol/L (3.5-5.1); Sodium 131 mmol/L (135-145); Total Protein 6.3 g/dl (6.3-8.2); eGFR 35.96
--- NOTE | 2024-07-10 09:26 | CON.PUL ---
Consultation
Consultation Request
Date/Time Consultation Requested: 07/10/2024838
Date/Time Consultation Performed: 07/10/2024 - 920
Requesting Provider: Dr. Rhoades
Performing Provider: Dr. Kelley
Reason for Consultation: Pleural effusion
Medical History
-
Chief Complaint: SOB
History of Present Illness:
89-year-old female with a past medical history of COPD, A-fib on Eliquis, chronic HFpEF, tachybradycardia syndrome s/p pacemaker (06/13/2024) and pulmonary hypertension who presents with shortness of breath for few days. At home she checks her
pulse rate and she was in the 120�130s. She has been hospitalized multiple times over the last 6 months usually due to acute CHF exacerbations and A-fib with RVR. Last hospitalization was from 06/10 - 06/15/2024. She says that after her last
discharge she was doing well and then started to become short of breath about a week ago. She was instructed to take 2 doses of Lasix for 2 days and that seemed to help her symptoms. She has gained about 3-4 pounds since her last discharge. She
has chronic shortness of breath but it had worsened more than usual. In the ER she was afebrile to 97.9 �F, pulse rate 130, breathing at 30 breaths/min, BP 119/82 and saturating 95% on room air. Initial labs showed Hb 11, WBC 4.6, serum sodium
129, creatinine 1.4, troponin 0.014, proBNP 7040, and urinalysis with +1 leukocyte esterase. Urine culture sent. CXR obtained showing a small�moderate left-sided pleural effusion, increased compared to prior CXR on 06/13/2024. Given patient was
in rapid A-fib, she was given 5 mg Cardizem and started on Cardizem drip in the ER. She was admitted to the IVU for further care, and given her shortness of breath with left-sided pleural effusion, pulmonary service consulted for additional
management/recommendations.
When I saw the patient she was resting in a chair in no acute distress. She was was on room air breathing comfortably. Cardizem drip has been weaned off and she was given digoxin. She currently feels okay at rest although still feels short of
breath with activity. She denies a cough, DEL CID, nausea, fevers or chills.
Of note patient follows with us in the [facility] office with last visit on 06/06/2024 with MAY Hollis. She was seen as a posthospitalization visit due to acute decompensated heart failure, and underwent a left-sided thoracentesis with 950 cc
removed. A left-sided pneumothorax was seen after the thoracentesis. She also has multiple pulmonary nodules including a 7-9 mm RLL nodule. A PET/CT was ordered at that office visit and performed on 06/29/2024 showing mild�moderate FDG avidity of
her lobulated right lower lobe nodule measuring 1.7 cm. Also a new/increased 6 mm right lower lobe superior segment nodule with max SUV 2.6 (delay 2.9), and a stable 6 mm left upper lobe nodule with max SUV 0.9 (delayed 1.3). There were no
suspicious lesions in the abdomen, pelvis or skeleton. She also has a large markedly FDG avid right thyroid lobe mass (max SUV: 53.3). She has a follow-up visit on 07/21/[address] Graves. Spirometry done at this office visit on 06/06/2024 showed
severe COPD with a severe restrictive lung defect.
PMHx: Macular degeneration, A-fib on Eliquis, chronic HFpEF, celiac's disease, history of hyponatremia, tachybradycardia syndrome s/p pacemaker (06/13/2024), pulmonary hypertension
PSHx: Tonsillectomy, section x 2, cardioversion, cardiac ablation (11/17/2023), pacemaker (06/13/2024
Past Medical History
Past Medical History: Other (Above as per HPI)
Past Surgical History: Other (Above as per HPI)
Social History
Tobacco: Non-smoker
Alcohol: None
Drug: None
Personal:
Living: With Family
Employment: Not Employed
Family History
Family History: CAD (Father), Cancer (Sibling: Liver cancer) and Other (Mother: Stroke)
Allergies / Home Medications
Allergies
Allergy/AdvReac Type Severity Reaction Status Date / Time
gluten Allergy Unknown Verified 07/10/24 00:13
nitrofurantoin Allergy Unknown Verified 07/10/24 00:13
[From Macrodantin]
Sulfa (Sulfonamide Allergy Unknown Verified 07/10/24 00:13
Antibiotics)
Home Medications
�Medication �Instructions �Recorded �Confirmed �Last Taken �Type
cholecalciferol (vitamin D3) 25 50 mcg PO DAILY Supplement 05/27/22 07/10/24 05/19/24 History
mcg (1,000 unit) capsule (Vitamin
D3)
clonazepam 0.5 mg tablet 0.5 mg PO BID Mental Health/Anxiety 05/27/22 07/10/24 05/19/24 History
cyclosporine 0.05 % eye drops in a 1 drp BOTH EYES Q12H Eye condition 05/27/22 07/10/24 05/19/24 History
dropperette (Restasis)
estradiol 0.01% (0.1 mg/gram) 1 applic vaginal TUTH PRN hormonal 05/27/22 07/10/24 03/08/24 History
vaginal cream
magnesium oxide 500 mg PO DAILYPRN PRN leg cramps 05/27/22 07/10/24 05/23/22 History
propranolol 80 mg capsule,24 80 mg PO HS Blood pressure/tremors 05/27/22 07/10/24 05/18/24 History
hr,extended release
vitamin B complex 1 cap PO DAILY Supplement 05/27/22 07/10/24 03/08/24 History
dextran 70-hypromellose eye drops 1 drp BOTH EYES QIDPRN PRN eye 11/16/23 07/10/24 05/19/24 History
in a dropperette (Artificial Tears condition
(PF) drops in a dropperette)
mirtazapine 30 mg tablet 30 mg PO HS Mental Health 11/16/23 07/10/24 05/18/24 History
diltiazem HCl 360 mg 360 mg PO DAILY #30 caps 03/09/24 07/10/24 05/19/24 Rx
capsule,extended release 24 hr
apixaban 2.5 mg tablet (Eliquis) 2.5 mg PO BID #60 tabs 03/13/24 07/10/24 05/19/24 Rx
acetaminophen 500 mg tablet 1,000 mg PO Q6HPRN PRN mild pain 05/19/24 07/10/24 05/18/24 History
(Tylenol Extra Strength)
spironolactone 25 mg tablet 12.5 mg (1/2 x 25 mg) PO DAILY #30 05/22/24 07/10/24 Unknown Rx
tabs
Lactobac no.2-Bifidobac no.1-S. 1 cap PO DAILY Gastrointestinal 06/10/24 07/10/24 Unknown History
thermo 112.5 billion cell capsule Issue
(Visbiome)
furosemide 40 mg tablet 40 mg PO DAILY Fluid 06/15/24 07/10/24 Unknown Rx
Retention/Swelling #30 tabs
Review of Systems
-
History Source: Patient
All other systems: Negative unless noted
Vitals / Labs / Diagnostic Testing
Vital Signs
Temp Pulse Resp BP Pulse Ox
97.5 F 125 20 110/77 96
07/10/24 07:49 07/10/24 07:15 07/10/24 07:49 07/10/24 03:39 07/10/24 07:49
Lab Data
07/10/24 00:29
07/10/24 05:19
Diagnostic Testing:
Physical Exam
-
HEENT: Normocephalic and Anicteric
Cardiovascular: S1/S2, Rub (negative), Peripheral Edema (Trace lower extremity edema bilaterally) and Other (A-paced)
Respiratory: Wheeze (negative), Rales (Left base), Rhonchi (negative), Non-Labored Respirations and Other (Diminished breath sounds bilaterally (L>R))
GI: Soft, Non Distended, Non Tender and Normal Bowel Sounds
Neurology: AO x 3 and Tremors (negative)
Skin: Warm and Dry
General: Respiratory Distress (negative), Comfortable, Fever (negative) and Chills (negative)
Assessment
-
Assessment: 89-year-old female with a past medical history of COPD, A-fib on Eliquis, chronic HFpEF, tachybradycardia syndrome s/p pacemaker (06/13/2024) and pulmonary hypertension who presents with shortness of breath for few days. At home she
checks her pulse rate and she was in the 120�130s. She has been hospitalized multiple times over the last 6 months usually due to acute CHF exacerbations and A-fib with RVR. Last hospitalization was from 06/10 - 06/15/2024. She says that after
her last discharge she was doing well and then started to become short of breath about a week ago. She was instructed to take 2 doses of Lasix for 2 days and that seemed to help her symptoms. She has gained about 3-4 pounds since her last
discharge. She has chronic shortness of breath but it had worsened more than usual. In the ER she was afebrile to 97.9 �F, pulse rate 130, breathing at 30 breaths/min, BP 119/82 and saturating 95% on room air. Initial labs showed Hb 11, WBC 4.6,
serum sodium 129, creatinine 1.4, troponin 0.014, proBNP 7040, and urinalysis with +1 leukocyte esterase. Urine culture sent. CXR obtained showing a small�moderate left-sided pleural effusion, increased compared to prior CXR on 06/13/2024. Given
patient was in rapid A-fib, she was given 5 mg Cardizem and started on Cardizem drip in the ER. She was admitted to the IVU for further care, and given her shortness of breath with left-sided pleural effusion, pulmonary service consulted for
additional management/recommendations.
Chronic conditions ENGRAVER: Macular degeneration, A-fib on Eliquis with history of ablation, chronic HFpEF, celiac's disease, history of hyponatremia, tachybradycardia syndrome s/p pacemaker (06/13/2024), pulmonary hypertension, history of ASD repair
(1970s)
Impression:
#Left-sided pleural effusion (worse compared to prior CXR on 06/13/2024
#Paroxysmal A-fib with RVR requiring Cardizem drip
#Chronic leukopenia
#Chronic anemia
#Chronic hyponatremia
#CKD (baseline creatinine 1�1.3)
#Elevated proBNP concerning for acute decompensated heart failure/acute HFpEF exacerbation
#Abnormal urinalysis with +1 leukocyte esterase and 16�20 urine WBC concerning for UTI
#Multiple pulmonary nodules with largest in the right lower lobe, measuring 1.7 cm with max SUV 3.9 (delayed 4.4) via PET/CT on 06/29/2024, concerning for malignancy
#Large markedly FDG avid right thyroid lobe mass (max SUV: 53.3) via PET/CT on 06/29/2024
#Severe COPD with post-bronchodilator FEV1: 0.5 L / 30% predicted per spirometry from 06/06/2024 -not on inhalers
#Severe restrictive lung defect with post-bronchodilator FVC: 0.93 L / 42% predicted via spirometry on 06/06/2024
Plan:
- Suspect that his left-sided pleural effusion is malignant (although heart failure also on differential); malignancy is suspected especially given the multiple pulmonary nodules with a concerning right lower lobe lobulated nodule with FDG avidity
- She has undergone multiple thoracenteses on the left side since April 2024 (05/20/2024: 950 cc removed, 06/01/2024: 850 cc removed - exudative fluid seen both times)
- Left-sided pleural fluid cytology negative for malignancy on 06/01/2024
- Pleural fluid cultures negative from both thoracenteses above
- Recommend repeat left-sided thoracentesis and sending for cell count with cytopathology and cultures
- Continue IV lasix as well given possible ADHF - currently on lasix 40mg IV daily
- Replete electrolytes with K>4, Mg>2
- Heart rate control is olivarez with goal <110
- Continue with propranolol 80 mg HS, Cardizem CD 360 mg PO daily as well as PO digoxin (started today)
- She also has a large markedly FDG avid right thyroid lobe mass - perhaps this should be biopsied as well with an FNA during this hospitalization
- Maintain SpO2 88-95% with supplemental O2 as needed
- Given that she has severe COPD seen on spirometry from 06/06/2024, I will start her on a LABA/ICS with Symbicort with prn DuoNebs
- prn nebulized bronchodilators - not currently bronchospastic
- Incentive spirometer encouraged q1hr while awake
- She has chronic leukopenia, and is nontoxic-appearing; observe off antibiotics and continue to trend WBC
- Follow up urine Cx
- Trend H&H and transfuse to keep Hb >7 g/dL
- Maintain euglycemia with goal BG >100 and <180
- DVT ppx: Eliquis
Pulmonary service will continue to follow along. Recommend outpatient office follow-up as she may need robotic bronchoscopy for tissue acquisition of her right lower lobe nodule. Last visit with our office on 06/06/2024 with MAY Hollis.,
And her next visit is on 07/21/[address] Graves.
Data:
CXR 07/10/2024: Small to moderate left pleural effusion, slightly increased.
PET/CT 06/29/2024:
Mild to moderate FDG activity involving the lobulated right lower lobe pulmonary nodule with slightly increases further upon delayed imaging, suspicious for low metabolic rate neoplasm.
Slight interval increase in size/number of additional smaller bilateral pulmonary nodules which also demonstrate mild FDG activity further increasing upon delayed imaging, suspicious for progression of metastatic disease.
Large markedly FDG avid right thyroid lobe mass highly suspicious for neoplasm.
No suspicious FDG avid lesions in the abdomen or pelvis.
Total time spent today was 56 minutes for this encounter. Time includes reviewing laboratory test/imaging results, reviewing pertinent medical records, obtaining and reviewing medical history, performing an appropriate exam, ordering medications,
tests and procedures. Time also includes documentation of this encounter, coordinating patient care and communicating with other healthcare professionals. Total time does not include separately billed tests performed on this date of service.
[2024-07-10] MEDS: LASIX 40 MG IV (09:40)
[2024-07-10] MEDS: RESTASIS 0.05% OPHTHALMIC EMULSION 1 DROPS BOTH EYES ×2 (09:40→20:18)
[2024-07-10] MEDS: CARDIZEM CD 360 MG PO (09:40)
[2024-07-10] MEDS: FLUSH (NSS) 1 FLUSH IV (09:42)
--- NOTE | 2024-07-10 10:21 | W.PN.UPDATE ---
Update Note
Progress Note Update
Non-billable addendum (H&P submitted 2:11 AM)
admitted with SOB, tachycardia, recurrent L pleural effusion
known L lung nodules, +PET scan recently suspicious for malignancy with outpatient biopsy to be planned
for IR guided thoracentesis today; fluid labs ordered
continue IV Lasix for mild weight gain (3-5 lbs) consistent with mild acute CHF (BNP 7040)
cardiology and pulmonary consulted
d/w at bedside
--- NOTE | 2024-07-10 10:25 | CON.CAR ---
Addendum entered and electronically signed by Willy Waters MD 07/10/24 11:02:
Review of blood pressures this admission and last admission I think we have limited room for additional titration of Cardizem and propranolol.
Will add digoxin
Original Note:
Consultation
Consultation Request
Date/Time Consultation Requested: 07/10/2024 at 8 AM
Date/Time Consultation Performed: 07/10/2024 at 10:25 AM
Requesting Provider: Dr. Rhoades
Performing Provider: Dr. Waters
Reason for Consultation: A-fib
Medical History
-
History of Present Illness:
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
.
89-year-old woman with a history of heart failure with preserved ejection fraction, paroxysmal atrial fibrillation, previous A-fib ablation, history of pleural effusion and Parkinson's disease who noticed having an elevated heart rate yesterday
initially I spoke with her on the phone and she was feeling fine and wanted to avoid going to the hospital in the past she has had paroxysmal A-fib and would spontaneously go back to sinus rhythm we agreed that she would hold off unless she felt
worse patient had shortness of breath so she went to the ER. She has had most multiple issues with shortness of breath both as inpatient and outpatient initially was felt that symptoms may just be related to paroxysmal atrial fibrillation. However
on an admission at the end of last year she had heart failure with preserved ejection fraction and was in sinus rhythm during that hospitalization. She also had a pleural effusion which required thoracentesis which was complicated by a
pneumothorax/hydropneumothorax which was conservatively managed. 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
every 24 hours as well as [id number] mg a day.
Past medical history
Paroxysmal atrial fibrillation
History of A-fib ablation
History of ASD repair in the 1970s
Heart failure preserved ejection fraction
Pleural effusion
Parkinson's disease
Hypertension
Echocardiogram 03/09/2024 ejection fraction 60 to 65% mild to moderate mitral regurgitation mild to moderate tricuspid agitation PA pressure 48 mmHg
Past Medical History
Past Medical History: Other (As above)
Social History
Tobacco: Non-Smoker
Personal:
Living: With Family
Family History
Family History: Other (Negative for premature CAD)
Allergies / Home Medications
Allergy/AdvReac Type Severity Reaction Status Date / Time
gluten Allergy Unknown Verified 07/10/24 00:13
nitrofurantoin Allergy Unknown Verified 07/10/24 00:13
[From Macrodantin]
Sulfa (Sulfonamide Allergy Unknown Verified 07/10/24 00:13
Antibiotics)
�Medication �Instructions �Recorded �Confirmed �Type
cholecalciferol (vitamin D3) 25 50 mcg PO DAILY Supplement 05/27/22 07/10/24 History
mcg (1,000 unit) capsule (Vitamin
D3)
clonazepam 0.5 mg tablet 0.5 mg PO BID Mental Health/Anxiety 05/27/22 07/10/24 History
cyclosporine 0.05 % eye drops in a 1 drp BOTH EYES Q12H Eye condition 05/27/22 07/10/24 History
dropperette (Restasis)
estradiol 0.01% (0.1 mg/gram) 1 applic vaginal TUTH PRN hormonal 05/27/22 07/10/24 History
vaginal cream
magnesium oxide 500 mg PO DAILYPRN PRN leg cramps 05/27/22 07/10/24 History
propranolol 80 mg capsule,24 80 mg PO HS Blood pressure/tremors 05/27/22 07/10/24 History
hr,extended release
vitamin B complex 1 cap PO DAILY Supplement 05/27/22 07/10/24 History
dextran 70-hypromellose eye drops 1 drp BOTH EYES QIDPRN PRN eye 11/16/23 07/10/24 History
in a dropperette (Artificial Tears condition
(PF) drops in a dropperette)
mirtazapine 30 mg tablet 30 mg PO HS Mental Health 11/16/23 07/10/24 History
diltiazem HCl 360 mg 360 mg PO DAILY #30 caps 03/09/24 07/10/24 Rx
capsule,extended release 24 hr
apixaban 2.5 mg tablet (Eliquis) 2.5 mg PO BID #60 tabs 03/13/24 07/10/24 Rx
acetaminophen 500 mg tablet 1,000 mg PO Q6HPRN PRN mild pain 05/19/24 07/10/24 History
(Tylenol Extra Strength)
spironolactone 25 mg tablet 12.5 mg (1/2 x 25 mg) PO DAILY #30 05/22/24 07/10/24 Rx
tabs
Lactobac no.2-Bifidobac no.1-S. 1 cap PO DAILY Gastrointestinal 06/10/24 07/10/24 History
thermo 112.5 billion cell capsule Issue
(Visbiome)
furosemide 40 mg tablet 40 mg PO DAILY Fluid 06/15/24 07/10/24 Rx
Retention/Swelling #30 tabs
Review of Systems
-
All other systems: Negative unless noted
Physical Exam
Vital Signs
Temp Pulse Resp BP Pulse Ox
97.5 F 122 20 109/80 96
07/10/24 07:49 07/10/24 09:40 07/10/24 07:49 07/10/24 09:40 07/10/24 07:49
Lab Results
07/10/24 00:29
07/10/24 05:19
Troponin I 0.014 ng/ml 07/10/24 00:29
Wte-I-Iixsmvbmexy Pept 7040 pg/ml 07/10/24 00:29
Physical Exam
General: Well Developed
HEENT: Normocephalic
Respiratory: Clear (No wheezes rales or rhonchi)
Cardiac: Regular Rhythm
GI: Soft and Non Tender
Musculoskeletal: No Clubbing and No Cyanosis
Neuro: Awake and Alert
Impression / Plan
-
.
PAF-appears to be back in A-fib.
-Patient's had paroxysmal A-fib. Has been challenging to rhythm control in the past patient also has had issues with medication tolerance is
-Heart rates mildly elevated despite current dosing of diltiazem and propranolol. We have more room for additional rate control particularly now the patient has pacemaker. Will try to modify propranolol dosing
.
Shortness of breath-patient currently without shortness of breath at rest and is on room air. Patient may have had increased shortness of breath related to combination of the A-fib with accelerated rates but also she does have a pleural effusion.
-Rate control A-fib
-Diuresis
Heart failure with preserved ejection fraction
-Additional treatment as noted above
-Monitor response to diuresis
.
Pleural effusion small to moderate mildly increased based on last chest x-ray.
-Would favor diuresis and additional input from pulmonary prior to proceeding with thoracentesis considering patient's issues last time with small PTX/[place] pneumo
Pacemaker. Site stable. Follow-up echo tomorrow
Data Reviewed
-
EKG: Report Reviewed by me
Radiology: Report Reviewed by me
Medical Tests (Nuc Med, Echo etc): Report Reviewed by me
Labs: Labs Reviewed by me
[2024-07-10] MEDS: LANOXIN 250 MCG PO (11:16)
[2024-07-10] MEDS: KLONOPIN 0.5 MG PO ×2 (11:16→20:18)
[2024-07-10] MEDS: ELIQUIS 2.5 MG PO ×2 (14:06→20:17)
--- NOTE | 2024-07-10 15:06 | PTCARENOTE ---
received patient this am, monitor shows V pacing, VSS. patient has poor vision, call weiss placed on patients chest, able to identify red button. patient does call appropriately. TT Dr. Waters and Mel Cramer for consults.
[2024-07-10] MEDS: INDERAL LA 80 MG PO (20:18)
[2024-07-10] MEDS: REMERON 30 MG PO (20:18)
[2024-07-10] MEDS: SYMBICORT 160/4.5 MCG INHALER 2 PUFF INH (20:39)
--- NOTE | 2024-07-10 23:57 | PTCARENOTE ---
Assumed care of the pt @1900. Pt AAOx3 A/V paced on the monitor VSS Denies cp or sob. Pt is 1 person assist to bathroom. Call weiss within reach
[2024-07-11] VITALS (8 sets, daily range): BP systolic 95–134; BP diastolic 46–84; BMI 22.5
[2024-07-11 04:51] LABS: Hematocrit 29.6 % (37.0-47.0); Hemoglobin 10.5 g/dL (12.0-16.0); Mean Corp Hgb Conc. 35.5 g/dL (33.0-37.0); Mean Corpuscular Hgb 31.4 pg (27.0-31.0); Mean Corpuscular Volume 88.6 fL (81.0-99.0); Mean Platelet Volume 8.8 fL (7.4-10.4); Platelet Count 206 10^3/uL (130-400); Red Blood Cell Count 3.34 10^6/uL (4.20-5.40); Red Cell Dist. Width 14.5 % (11.5-14.5); White Blood Cell Count 4.6 10^3/uL (4.8-10.8)
[2024-07-11] MEDS: CARDIZEM CD 360 MG PO (05:08)
[2024-07-11 05:21] LABS: Blood Urea Nitrogen 33 mg/dl (7-17); Calcium 8.7 mg/dl (8.4-10.2); Carbon Dioxide 23 mmol/L (22-30); Chloride 98 mmol/L (98-107); Estimated Creatinine Clearance 23 ml/min; Glucose 102 mg/dl (70-99); Potassium 4.5 mmol/L (3.5-5.1); Sodium 130 mmol/L (135-145); eGFR 35.96
--- NOTE | 2024-07-11 06:32 | PTCARENOTE ---
Pt ambulated to bathroom HR increased from 70 to 126 asymptomatic. Jessica ELY notified and ordered to give 0800 dose Cardizem now. See MAR
[2024-07-11] MEDS: ELIQUIS 2.5 MG PO ×2 (08:42→20:04)
[2024-07-11] MEDS: KLONOPIN 0.5 MG PO ×2 (08:42→20:04)
[2024-07-11] MEDS: LASIX 40 MG IV (08:42)
[2024-07-11] MEDS: RESTASIS 0.05% OPHTHALMIC EMULSION 1 DROPS BOTH EYES ×2 (08:42→20:04)
[2024-07-11] MEDS: FLUSH (NSS) 1 FLUSH IV (08:44)
[2024-07-11] MEDS: SYMBICORT 160/4.5 MCG INHALER 2 PUFF INH ×2 (08:47→19:33)
--- NOTE | 2024-07-11 08:50 | W.PN.PUL3 ---
Today's Communication / Plan
-
s/p thora, fluid still seems transudative by LDH criteria
She remains stable on RA
Optimize IV diuresis, can arrange thoras as OP if needed in the future
If fluid does not return, can assess for d/c planning
Has appt with our office already scheduled for 07/21/24
Assessment
-
Assessment: 89-year-old female with a past medical history of COPD, A-fib on Eliquis, chronic HFpEF, tachybradycardia syndrome s/p pacemaker (06/13/2024) and pulmonary hypertension who presents with shortness of breath for few days. At home she
checks her pulse rate and she was in the 120�130s. She has been hospitalized multiple times over the last 6 months usually due to acute CHF exacerbations and A-fib with RVR. Last hospitalization was from 06/10 - 06/15/2024. She says that after
her last discharge she was doing well and then started to become short of breath about a week ago. She was instructed to take 2 doses of Lasix for 2 days and that seemed to help her symptoms. She has gained about 3-4 pounds since her last
discharge. She has chronic shortness of breath but it had worsened more than usual. In the ER she was afebrile to 97.9 �F, pulse rate 130, breathing at 30 breaths/min, BP 119/82 and saturating 95% on room air. Initial labs showed Hb 11, WBC 4.6,
serum sodium 129, creatinine 1.4, troponin 0.014, proBNP 7040, and urinalysis with +1 leukocyte esterase. Urine culture sent. CXR obtained showing a small�moderate left-sided pleural effusion, increased compared to prior CXR on 06/13/2024. Given
patient was in rapid A-fib, she was given 5 mg Cardizem and started on Cardizem drip in the ER. She was admitted to the IVU for further care, and given her shortness of breath with left-sided pleural effusion, pulmonary service consulted for
additional management/recommendations.
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
(1970s)
Impression:
#Left-sided pleural effusion (worse compared to prior CXR on 06/13/2024)
#Paroxysmal A-fib with RVR requiring Cardizem drip
#Chronic leukopenia
#Chronic anemia
#Chronic hyponatremia
#CKD (baseline creatinine 1�1.3)
#Elevated proBNP concerning for acute decompensated heart failure/acute HFpEF exacerbation
#Abnormal urinalysis with +1 leukocyte esterase and 16�20 urine WBC concerning for UTI
#Multiple pulmonary nodules with largest in the right lower lobe, measuring 1.7 cm with max SUV 3.9 (delayed 4.4) via PET/CT on 06/29/2024, concerning for malignancy
#Large markedly FDG avid right thyroid lobe mass (max SUV: 53.3) via PET/CT on 06/29/2024
#Severe COPD with post-bronchodilator FEV1: 0.5 L / 30% predicted per spirometry from 06/06/2024 -not on inhalers
#Severe restrictive lung defect with post-bronchodilator FVC: 0.93 L / 42% predicted via spirometry on 06/06/2024
Plan:
Currently stable on RA
Recurrent left sided effusion
She has undergone multiple thoracenteses on the left side since April 2024 (05/20/2024: 950 cc removed, 06/01/2024: 850 cc removed - exudative fluid seen both times)
Left-sided pleural fluid cytology negative for malignancy on 06/01/2024
Pleural fluid cultures negative from both thoracenteses above
s/p L thora 07/11/24 750 cc removed--chemistry still supports transudative fluid (by LDH criteria, borderline by protein)
Cyto pending
Future thoras can be arranged as OP
Continue IV lasix as well given possible ADHF - currently on lasix 40mg IV daily
Replete electrolytes with K>4, Mg>2
Heart rate control is olivarez with goal <110
Continue with propranolol 80 mg HS, Cardizem CD 360 mg PO daily as well as PO digoxin (started today)
She also has a large markedly FDG avid right thyroid lobe mass
Referral for outpatient eval
Maintain SpO2 88-95% with supplemental O2 as needed
Given that she has severe COPD seen on spirometry from 06/06/2024
Continue LABA/ICS with Symbicort with prn DuoNebs
prn nebulized bronchodilators - not currently bronchospastic
Incentive spirometer encouraged q1hr while awake
She has chronic leukopenia, and is nontoxic-appearing; observe off antibiotics and continue to trend WBC
Follow up urine Cx
- Trend H&H and transfuse to keep Hb >7 g/dL
- Maintain euglycemia with goal BG >100 and <180
- DVT ppx: Eliquis
Pulmonary service will continue to follow along. Recommend outpatient office follow-up as she may need robotic bronchoscopy for tissue acquisition of her right lower lobe nodule. Last visit with our office on 06/06/2024 with MAY Hollis.,
And her next visit is on 07/21/[address] Graves.
Data:
CXR 07/10/2024: Small to moderate left pleural effusion, slightly increased.
PET/CT 06/29/2024: Mild to moderate FDG activity involving the lobulated right lower lobe pulmonary nodule with slightly increases further upon delayed imaging, suspicious for low metabolic rate neoplasm. Slight interval increase in size/number of
additional smaller bilateral pulmonary nodules which also demonstrate mild FDG activity further increasing upon delayed imaging, suspicious for progression of metastatic disease. Large markedly FDG avid right thyroid lobe mass highly suspicious for
neoplasm. No suspicious FDG avid lesions in the abdomen or pelvis.
ECHO 06/10/24- Normal biventricular size and systolic function without regional wall motion abnormality. LVEF 60-65%. Biatrial enlargement. Mild mitral regurgitation. Mild to moderate tricuspid regurgitation with moderately elevated pulmonary
pressures (45-50 mmHg). Pleural effusion present. Compared to prior echocardiogram on 03/09/2024, there is no significant change.
-----
Total time spent today was 51 minutes for this encounter. Time includes reviewing laboratory test/imaging results, reviewing pertinent medical records, obtaining and reviewing medical history, performing an appropriate exam, ordering medications,
tests and procedures. Time also includes documentation of this encounter, coordinating patient care and communicating with other healthcare professionals. Total time does not include separately billed tests performed on this date of service.
Subjective Data
-
Date of Service:
Date of Service: July 11, 2024
Chief Complaint: Pulmonary Follow Up
Subjective:
Stable on RA, s/p mary feels her SOB is better
Sitting in chair, no new complaints
Objective Data
Data Reviewed
Vital Signs / I&O / Oxygen:
Vital Signs
Temp Pulse Resp BP Pulse Ox
97.9 F 127 18 107/83 96
07/11/24 07:32 07/11/24 08:42 07/11/24 07:32 07/11/24 08:42 07/11/24 07:32
SaO2 96
Nasal Cannula flow liters per 2
minute
Physical Exam
General: Comfortable and Other (NAD)
HEENT: Normocephalic, Anicteric and Moist Mucous Membranes
Cardiovascular: S1-S2 and Regular Rhythm
Respiratory: Crackles (bases) and Non-Labored Respirations
GI: Soft, Non Distended and Non Tender
Neurology: Awake, Alert, Oriented and No Motor Deficits
Skin: Warm, Dry and Good Color
Labs/Micro/Reports
Lab Data
07/11/24 04:04
07/11/24 04:04
--- NOTE | 2024-07-11 09:04 | CM ---
Reviewed chart. Met with Mrs. Goins to review discharge plans. She states prior to admission she resides in a two story home with three steps to enter. She states she resides in a 55 plus senior living [facility]. She states she has
been there for twenty years. She states she has a first floor set-up. She states prior to admission she ambulates with a rolling walker. She states she has a rolling walker and no other DME in the home. She states she is current with [facility]. She states she would like to continue with [facility]. Telephone call to [facility] to make the referral. sent referral. Medical work-up in progress. The discharge plan is to return home with her spouse and
resumption of [facility] when medically stable.
--- NOTE | 2024-07-11 09:30 | W.PN.CD ---
Today's Communication / Plan
-
Continue current dosing of Cardizem and propranolol
Continue digoxin which was initiated yesterday
Patient with paced rhythm at 130 which raises question for pacemaker mediated tachycardia/PMT. Patient will have an interrogation today to assess for PMT
Impression / Plan
-
.
PAF-appears to be back in A-fib.
-Patient's had paroxysmal A-fib. Has been challenging to rhythm control in the past patient also has had issues with medication tolerance is
-Heart rates mildly elevated despite current dosing of diltiazem and propranolol. We have more room for additional rate control particularly now the patient has pacemaker.
-Due to blood pressures patient was kept on current dosing of Cardizem and propranolol and digoxin added yesterday we will continue with digoxin. Note patient has a longstanding history of intermittent GI symptoms we will have to see if there is
any change in this pattern over time with addition of new medication
.
Tachycardia. Patient's heart rate is 128 and appears to be ventricular paced. Patient had an ECG earlier this admission ECG shows a paced rhythm at 130. This raises question of PMT/pacemaker mediated tachycardia.
-Patient will have device interrogation later today and we will assess settings to limit likelihood of PMT
.
Shortness of breath-patient currently without shortness of breath at rest and is on room air. Patient may have had increased shortness of breath related to combination of the A-fib with accelerated rates but also she does have a pleural effusion.
-Rate control A-fib
-Diuresis
Heart failure with preserved ejection fraction
-Additional treatment as noted above
-Monitor response to diuresis
.
Pleural effusion small to moderate mildly increased based on last chest x-ray.
-Reviewed issues with primary team considering the fact that patient had some issues with last thoracentesis including small pneumothorax. However patient's had recurrent pleural effusion and has other abnormalities on prior imaging after further
discussion with hospitalist and pulmonary plan is for thoracentesis with additional studies on pleural fluid including cytology
.
Pacemaker. Site stable. Pacemaker interrogation to assess for PMT
Physical Exam
Vital Signs/Labs
Vital Signs
Temp Pulse Resp BP Pulse Ox
97.9 F 120 16 107/83 96
07/11/24 07:32 07/11/24 08:50 07/11/24 08:50 07/11/24 08:42 07/11/24 08:50
07/10/24 07/11/24 07/12/24
06:59 06:59 06:59
Actual Weight 57.8 kg 57.7 kg
07/11/24 04:04
07/11/24 04:04
Magnesium 2.1 mg/dl (1.6-2.3) 07/10/24 05:19
07/10/24
00:29
Nwn-R-Apvmeatytmj Pept 7040
LAB Results
07/10/24
00:29
Troponin I 0.014
Physical Exam
Constitutional: No acute distress
Cardiovascular: Rhythm & rate is regular
Respiratory: Other (Decreased left lower lung field no wheezes or rhonchi. Is breathing comfortably sitting in chair)
GI: Soft
Neuro/Psych: Alert
Data Reviewed
-
Date of Service: July 11, 2024
Medical Decision Making: Reviewed Test Results
X-Ray/CT/US/MRI/NUC/PET: Report Reviewed by me
Medical Tests (PFT, Pathology etc): Report Reviewed by me
Labs: Labs Reviewed by me
--- NOTE | 2024-07-11 09:39 | VNURNOTE ---
Chart reviewed. [facility]. Will continue to follow hospital course and DC plans.
--- NOTE | 2024-07-11 09:42 | W.PN.HOSP.TC ---
Today's Communication/Plan
-
see note
Assessment / Plan
Assessment / Plan
1. Tachyarrhythmia
h/o of PAF
h/o Tachybrady syndrome s/p PPM
- patient remains in tachycardia and cardiology helping with rate management
- question of Pacer induced tachycardia and pacer will be interrogated.
- Currently on propranolol/cardizem
- patient has been started on digoxin as well.
2. Recurrent left-sided pleural effusion
History of hydro/pneumothorax post thoracentesis
-Chest x-ray showing reaccumulation of left-sided effusion
-S/p thoracentesis of 750 cc clear yellow fluid. TWBC 1050, 98% mononuclear. LDH < 90
-Cytopathology negative in the past. Will recheck
3. Diastolic heart failure exacerbation
- lasix 40mg iv daily for now
- monitor i/os
- strict fluid restrictions
- daily weights
4. Hyponatremia
- Essentially persistent with mild exacerbation. Claims adherence to fluid restriction at home but usually improves with restriction inpatient. 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
- continue fluid restriction of 40 ounces
- lasix as above
- urine studies
5. CKDIIIB
- Cr close to baseline. monitor.
6. Thyroid mass
-high FDG uptake thyroid mass on right thyroid gland
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
DVT PPX - on apixaban
Code status - full code
Total time spent : 52 mins
I personally saw and examined the patient.
I have reviewed all diagnostic interpretations and treatment plans as written.
Time includes patient management by me, time spent at the patients bedside, time to review lab and imaging results, discussing patient care, documentation in the medical record, and time spent with the family or caregiver and discussing care plan
with RN/Consultants.
Anticipated Discharge: 24 - 48 hours
Subjective/Interval History
-
Date of Service: July 11, 2024
sitting comfortably in chair
concerned about uncontrolled HR although denies of having any palpitation
denies of having any issues overnight
Objective Data
-
Labs:
Laboratory Results
07/11/24
04:04
WBC 4.6 L
Hgb 10.5 L
Hct 29.6 L
Plt Count 206
Sodium 130 L
Potassium 4.5
Chloride 98
Carbon Dioxide 23
BUN 33 H
Creatinine 1.4 H
Glucose 102 H
Calcium 8.7
Vital Signs:
Vital Signs
Temp Pulse Resp BP Pulse Ox
97.9 F 120 16 107/83 96
07/11/24 07:32 07/11/24 08:50 07/11/24 08:50 07/11/24 08:42 07/11/24 08:50
Review of Systems
-
Respiratory: Reports No Symptoms
Cardiac: Reports Palpitations
Abdomen/GI: Reports No Symptoms
Physical Exam
-
General: No Apparent Distress and Comfortable
HEENT: Negative Oxygen
Respiratory: Clear to Auscultation
Cardiac: Regular Rhythm and S1/S2; Negative Murmur or Rub
GI: Soft, Nontender, Nondistended and Normal Bowel Sounds
Musculoskeletal: No Edema
Neuro: Awake, Alert, Oriented, No Motor Deficits and Nonfocal/Grossly Intact
Psych: Calm
--- NOTE | 2024-07-11 10:39 | PTCARENOTE ---
received patient this am, patient has difficulty with vision, ambulated patient to BR ольга. well. monitor shows Vpacing, VSS. patient sent for thoracentesis stretcher accompanied by vol. staff.
--- NOTE | 2024-07-11 11:19 | PTCARENOTE ---
patient returned from thoracentesis, 800cc taken out of left lung. patient stated ,'I feel better'. lung torres clear, band aid on site. patient sitting in chair eating breakfast.
[2024-07-11 11:34] LABS: Body Fluid pH 7.48
[2024-07-11 11:50] LABS: Body Fluid Glucose 111 mg/dl; Body Fluid LDH < 90 U/L; Body Fluid Protein 3.9 g/dl
[2024-07-11 11:58] LABS: Body Fluid Mononuclear 98.3 %; Body Fluid Polymorphonuclear 1.7 %; Body Fluid WBC 1050 /CUMM
[2024-07-11 12:07] LABS: Body Fluid Second Tech ASW
[2024-07-11] MEDS: LANOXIN 125 MCG PO (12:08)
[2024-07-11 12:10] LABS: Body Fluid Amylase 43 U/L
[2024-07-11 12:12] LABS: Body Fluid Triglycerides < 30 mg/dl
--- NOTE | 2024-07-11 14:27 | W.CARD.DEVCH ---
Cardiac Device Check
-
Device: Pacemaker
Gum Worker: [employer]
The patient's device was interrogated with assistance of the device patient registration representative followed by a complete physician review. The device had normal function. No abnormalities seen.
Patient remained in atrial flutter. Aggressive atrial pacing maneuvers were done personally but AFL was not dissipated. Patient remained in AFL at 420 msec CL.
The Device is switched to DDIR 60-130 bpm to limit the inappropriate ventricular pacing.
[2024-07-11] MEDS: DUONEB 3 ML INH (19:33)
[2024-07-11] MEDS: REMERON 30 MG PO (22:32)
[2024-07-11] MEDS: INDERAL LA 80 MG PO (22:32)
[2024-07-12 04:06] VITALS: BP 98/70
[2024-07-12 04:31] VITALS: BMI 22.2
[2024-07-12 05:00] LABS: Hematocrit 27.6 % (37.0-47.0); Hemoglobin 9.7 g/dL (12.0-16.0); Mean Corp Hgb Conc. 35.1 g/dL (33.0-37.0); Mean Corpuscular Hgb 31.1 pg (27.0-31.0); Mean Corpuscular Volume 88.5 fL (81.0-99.0); Mean Platelet Volume 8.7 fL (7.4-10.4); Platelet Count 186 10^3/uL (130-400); Red Blood Cell Count 3.12 10^6/uL (4.20-5.40); Red Cell Dist. Width 14.5 % (11.5-14.5); White Blood Cell Count 4.9 10^3/uL (4.8-10.8)
--- NOTE | 2024-07-12 05:06 | PTCARENOTE ---
Rec'd pt at change of shift. Pt in SR on TELE monitor, VSS, and AAO*3. Pt denies any pain or discomfort. Pt resting with call weiss in reach. Plan of care ongoing.
[2024-07-12 05:24] LABS: Blood Urea Nitrogen 34 mg/dl (7-17); Calcium 8.3 mg/dl (8.4-10.2); Carbon Dioxide 28 mmol/L (22-30); Chloride 97 mmol/L (98-107); Estimated Creatinine Clearance 21 ml/min; Glucose 101 mg/dl (70-99); Potassium 4.4 mmol/L (3.5-5.1); Sodium 130 mmol/L (135-145)
[2024-07-12 07:08] VITALS: BP 95/53
[2024-07-12] MEDS: SYMBICORT 160/4.5 MCG INHALER 2 PUFF INH (07:33)
[2024-07-12] MEDS: LASIX 40 MG IV (08:18)
[2024-07-12] MEDS: KLONOPIN 0.5 MG PO (08:19)
[2024-07-12] MEDS: CARDIZEM CD 360 MG PO (08:19)
[2024-07-12] MEDS: ELIQUIS 2.5 MG PO (08:19)
[2024-07-12] MEDS: FLUSH (NSS) 1 FLUSH IV (08:19)
[2024-07-12] MEDS: RESTASIS 0.05% OPHTHALMIC EMULSION 1 DROPS BOTH EYES (08:19)
--- NOTE | 2024-07-12 08:29 | W.PN.HOSP.TC ---
Today's Communication/Plan
-
rate/rhtym control per cards
pleural fluid studies transudative
Assessment / Plan
Assessment / Plan
1. Tachyarrhythmia
h/o of PAF
h/o Tachybrady syndrome s/p PPM
- patient remains in tachycardia and cardiology helping with rate management
- question of Pacer induced tachycardia and pacer will be interrogated.
- Currently on propranolol/Cardizem
- patient has been started on digoxin as well.
2. Recurrent left-sided pleural effusion
History of hydro/pneumothorax post thoracentesis
-Chest x-ray showing reaccumulation of left-sided effusion
-S/p thoracentesis of 750 cc clear yellow fluid. TWBC 1050, 98% mononuclear. LDH < 90
-Cytopathology negative in the past. Will recheck
3. Diastolic heart failure exacerbation
- lasix 40mg iv daily for now
- monitor i/os
- strict fluid restrictions
- daily weights
4. Hyponatremia
- Essentially persistent with mild exacerbation. Claims adherence to fluid restriction at home but usually improves with restriction inpatient. 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
- continue fluid restriction of 40 ounces
5. CKDIIIB
- Cr close to baseline. monitor.
6. Thyroid mass
-high FDG uptake thyroid mass on right thyroid gland
-will discuss with patient/therapist occupational - patient reported to be diagnosed for goiter many years ago
DVT PPX - on apixaban
Code status - full code
Anticipated Discharge: Within 24 hours
Subjective/Interval History
-
Date of Service: July 12, 2024
resting comfortably in bed
denies of having any palpitation/chest discomfort
Objective Data
-
Labs:
Laboratory Results
07/12/24
04:28
WBC 4.9
Hgb 9.7 L
Hct 27.6 L
Plt Count 186
Sodium 130 L
Potassium 4.4
Chloride 97 L
Carbon Dioxide 28
BUN 34 H
Creatinine 1.5 H
Glucose 101 H
Calcium 8.3 L
Vital Signs:
Vital Signs
Temp Pulse Resp BP Pulse Ox
97.7 F 99 14 95/53 96
07/12/24 04:32 07/12/24 08:19 07/12/24 07:36 07/12/24 08:19 07/12/24 04:32
I&O
07/11/24 07/12/24 07/13/24
06:59 06:59 06:59
Intake Total 480 / 480
Balance 480 / 480
Review of Systems
-
Respiratory: Reports No Symptoms
Cardiac: Reports No Symptoms
Abdomen/GI: Reports No Symptoms
Physical Exam
-
General: No Apparent Distress and Comfortable
HEENT: Negative Oxygen
Respiratory: Clear to Auscultation
Cardiac: S1/S2 and Irregular Rhythm; Negative Murmur or Rub
GI: Soft, Nontender and Nondistended
Musculoskeletal: No Edema
Neuro: Awake, Alert, Oriented, No Motor Deficits and Nonfocal/Grossly Intact
Psych: Calm
--- NOTE | 2024-07-12 09:24 | CM ---
Reviewed chart. Met with Mrs. Goins to review discharge plans. She states she is feeling better and maybe able to go home soon. We reviewed resumption of [facility]. She is agreeable to [facility] Prior to admission she resides
with her spouse in a two story home with two steps to enter. She has a first floor set-up, Prior to admission she ambulates with a rolling walker and no other DME in the home. Prior to admission she was current with [facility]. She
states she ambulated to the bathroom with a rolling walker. She has a prescription plan and uses [facility]. Medical work-up in progress. The discharge plan is to return home with her spouse and resumption of [facility] when
medically stable.
--- NOTE | 2024-07-12 09:29 | W.PN.PUL3 ---
Today's Communication / Plan
-
Remains stable on RA, no new complaints--wants to go home
Repeat CXR to eval for recurrence
Add on TSH lab today due to thyroid mass and Afib history
Further cardiac management for Afib/diuresis
OP Pulm FU arranged, appt with me on 07/21/24
Discharge planning per team
Assessment
-
89-year-old female with a past medical history of COPD, A-fib on Eliquis, chronic HFpEF, tachybradycardia syndrome s/p pacemaker (06/13/2024) and pulmonary hypertension who presents with shortness of breath for few days. At home she checks her
pulse rate and she was in the 120�130s. She has been hospitalized multiple times over the last 6 months usually due to acute CHF exacerbations and A-fib with RVR. Last hospitalization was from 06/10 - 06/15/2024. She says that after her last
discharge she was doing well and then started to become short of breath about a week ago. She was instructed to take 2 doses of Lasix for 2 days and that seemed to help her symptoms. She has gained about 3-4 pounds since her last discharge. She
has chronic shortness of breath but it had worsened more than usual. In the ER she was afebrile to 97.9 �F, pulse rate 130, breathing at 30 breaths/min, BP 119/82 and saturating 95% on room air. Initial labs showed Hb 11, WBC 4.6, serum sodium
129, creatinine 1.4, troponin 0.014, proBNP 7040, and urinalysis with +1 leukocyte esterase. Urine culture sent. CXR obtained showing a small�moderate left-sided pleural effusion, increased compared to prior CXR on 06/13/2024. Given patient was
in rapid A-fib, she was given 5 mg Cardizem and started on Cardizem drip in the ER. She was admitted to the IVU for further care, and given her shortness of breath with left-sided pleural effusion, pulmonary service consulted for additional
management/recommendations.
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
(1970s)
Impression:
#Left-sided pleural effusion (worse compared to prior CXR on 06/13/2024) s/p multiple thoras in past, s/p thora 07/11/24
#Paroxysmal A-fib with RVR requiring Cardizem drip
#Elevated proBNP concerning for acute decompensated heart failure/acute HFpEF exacerbation
#Abnormal urinalysis with +1 leukocyte esterase and 16�20 urine WBC concerning for UTI
#Multiple pulmonary nodules with largest in the right lower lobe, measuring 1.7 cm with max SUV 3.9 (delayed 4.4) via PET/CT on 06/29/2024, concerning for malignancy
#Large markedly FDG avid right thyroid lobe mass (max SUV: 53.3) via PET/CT on 06/29/2024
Conditions present prior to admission
Severe COPD with post-bronchodilator FEV1: 0.5 L / 30% predicted per spirometry from 06/06/2024 -not on inhalers
Severe restrictive lung defect with post-bronchodilator FVC: 0.93 L / 42% predicted via spirometry on 06/06/2024
Persistent A-fib on [facility] with history of Cardioversion/Ablation
Chronic HFpEF
CKD (baseline creatinine 1�1.3)
Tremors
Hypertension
Pulmonary hypertension
Atrial septal defect repair
Tonsillectomy
Celiac's disease
History of hyponatremia
Chronic anemia
Tachybradycardia syndrome s/p pacemaker (06/13/2024)
Plan:
Currently stable on RA
Recurrent left sided effusion
She has undergone multiple thoracenteses on the left side since April 2024 (05/20/2024: 950 cc removed, 06/01/2024: 850 cc removed - exudative fluid seen both times)
Left-sided pleural fluid cytology negative for malignancy on 06/01/2024
Pleural fluid cultures negative from both thoracenteses above
s/p L thora 07/11/24 750 cc removed--chemistry still supports transudative fluid (by LDH criteria, borderline by protein)
Cyto pending
Future thoras can be arranged as OP--this was discussed with patient
Continue IV lasix as well given possible ADHF - currently on lasix 40mg IV daily
Replete electrolytes with K>4, Mg>2
Heart rate control is olivarez with goal <110
Continue with propranolol 80 mg HS, Cardizem CD 360 mg PO daily as well as PO digoxin (started today)
Cards following for management
Sleep study OP recommended as well
She also has a large markedly FDG avid right thyroid lobe mass
Referral for outpatient eval
She has prior TSH normal in 2021--will repeat add on TSH level to eval due to recurrent Afib
Maintain SpO2 88-95% with supplemental O2 as needed
Given that she has severe COPD seen on spirometry from 06/06/2024
Continue LABA/ICS with Symbicort with prn DuoNebs
prn nebulized bronchodilators - not currently bronchospastic
Incentive spirometer encouraged q1hr while awake
She has chronic leukopenia, and is nontoxic-appearing; observe off antibiotics and continue to trend WBC
Follow up urine Cx
Pulmonary service will continue to follow along. Recommend outpatient office follow-up as she may need robotic bronchoscopy for tissue acquisition of her right lower lobe nodule.
Last visit with our office on 06/06/2024 with MAY Hollis., And her next visit is on 07/21/[address] Graves.
Discharge planning per team
Data:
CXR 07/10/2024: Small to moderate left pleural effusion, slightly increased.
PET/CT 06/29/2024: Mild to moderate FDG activity involving the lobulated right lower lobe pulmonary nodule with slightly increases further upon delayed imaging, suspicious for low metabolic rate neoplasm. Slight interval increase in size/number of
additional smaller bilateral pulmonary nodules which also demonstrate mild FDG activity further increasing upon delayed imaging, suspicious for progression of metastatic disease. Large markedly FDG avid right thyroid lobe mass highly suspicious for
neoplasm. No suspicious FDG avid lesions in the abdomen or pelvis.
ECHO 06/10/24- Normal biventricular size and systolic function without regional wall motion abnormality. LVEF 60-65%. Biatrial enlargement. Mild mitral regurgitation. Mild to moderate tricuspid regurgitation with moderately elevated pulmonary
pressures (45-50 mmHg). Pleural effusion present. Compared to prior echocardiogram on 03/09/2024, there is no significant change.
-----
Total time spent today was 51 minutes for this encounter. Time includes reviewing laboratory test/imaging results, reviewing pertinent medical records, obtaining and reviewing medical history, performing an appropriate exam, ordering medications,
tests and procedures. Time also includes documentation of this encounter, coordinating patient care and communicating with other healthcare professionals. Total time does not include separately billed tests performed on this date of service.
Subjective Data
-
Date of Service:
Date of Service: July 12, 2024
Chief Complaint: Pulmonary Follow Up
Subjective:
Remains stable on RA, no new complaints
Wants to go home
Objective Data
Data Reviewed
Vital Signs / I&O / Oxygen:
Vital Signs
Temp Pulse Resp BP Pulse Ox
98.2 F 99 14 95/53 95
07/12/24 07:00 07/12/24 08:19 07/12/24 07:36 07/12/24 08:19 07/12/24 07:00
Intake and Output
07/11/24 07/12/24 07/13/24
06:59 06:59 06:59
Intake Total 480 / 480
Balance 480 / 480
SaO2 95
Nasal Cannula flow liters per 2
minute
Physical Exam
General: Comfortable and Other (NAD)
HEENT: Normocephalic, Anicteric and Moist Mucous Membranes
Cardiovascular: S1-S2 and Regular Rhythm
Respiratory: Crackles (bases) and Non-Labored Respirations
GI: Soft, Non Distended and Non Tender
Neurology: Awake, Alert, Oriented and No Motor Deficits
Skin: Warm, Dry and Good Color
Labs/Micro/Reports
Lab Data
07/12/24 04:28
07/12/24 04:28
Microbiology
07/11/24 10:48 Pleural Fluid Body Fluid Culture - Preliminary
No Growth After 18-24 Hours
07/11/24 10:48 Pleural Fluid Gram Stain - Preliminary
07/10/24 02:28 Urine Urine Culture - Final
No Significant Growth
--- NOTE | 2024-07-12 10:44 | PTCARENOTE ---
received patient this am, monitor shows paced rhythm, VSS. patients breathing is 'much better' today. RA o2 sat 96%. patient ambulating to BR with assistance. presently sitting in a chair eating breakfast. at bedside.
[2024-07-12 11:36] VITALS: BP 104/50
[2024-07-12] MEDS: LANOXIN 125 MCG PO (12:22)
--- NOTE | 2024-07-12 12:44 | PTCARENOTE ---
chest xray completed.
[2024-07-12 13:03] LABS: TSH 2.89 uIU/ml (0.47-4.68)
[2024-07-12] MEDS: REFRESH EYE DROPS (PF) 1 DROPS BOTH EYES (13:12)
--- NOTE | 2024-07-12 13:14 | PTCARENOTE ---
patient called out c/o 'itchy, sore eyes' artificial tears given as ordered.
--- NOTE | 2024-07-12 14:43 | W.PN.CD ---
Addendum entered and electronically signed by Jalil Smyth MD 07/12/24 17:39:
See Dr. Waters note. She has an ATach that was tracking 1:1 and pacer was reprogrammed to non-tracking mode.
She is eager for home.
Ok for home.
We will arrange outpatient f/u
Original Note:
Today's Communication / Plan
-
Continue diuresis
Move to Lasix 60 mg daily tomorrow
Dig dose decreased by 50% given AGE/Cr/Dilt. Prior dose was a bit aggressive and likely higher risk of toxicity.
Continue other rate control meds
EKG in AM (was not in AFib by EKG on 07/11/2023)
Impression / Plan
-
HFpEF
- pBNP 7040, the highest it has been
- CXR Left pleural effusion => thoracentesis 750 mL
-
Hx AFib
- Prior Holter looks like AFl/AT with overall controlled rates
SSS s/p pacemaker 05/2024
Not in AFib on EKG 07/11/2023
Rapid pacing yesterday
- I have asked Dr. Waters what pacer interrogation showed
Subjective:
Still with dyspnea
Echo 06/10/2024: LVEF 60-65%. Biatrial enlargement. Mild MR. Mild-mod TR, PASP 45-50 mmHg, Pleural effusion present.
Holter 04/2024 looks like AT/AFl with AV V rate of 73 bpm
PET 06/29/2024
Mild to moderate FDG activity involving the lobulated right lower lobe pulmonary nodule with slightly increases further upon delayed imaging, suspicious for low metabolic rate neoplasm.
Slight interval increase in size/number of additional smaller bilateral pulmonary nodules which also demonstrate mild FDG activity further increasing upon delayed imaging, suspicious for progression of metastatic disease.
Large markedly FDG avid right thyroid lobe mass highly suspicious for neoplasm.
Physical Exam
Vital Signs/Labs
Vital Signs
Temp Pulse Resp BP Pulse Ox
98.0 F 88 16 104/50 98
07/12/24 11:36 07/12/24 12:22 07/12/24 11:36 07/12/24 11:36 07/12/24 11:36
07/11/24 07/12/24 07/13/24
06:59 06:59 06:59
Actual Weight 57.7 kg 56.9 kg
07/12/24 04:28
07/12/24 04:28
Magnesium 2.1 mg/dl (1.6-2.3) 07/10/24 05:19
TSH 2.89 uIU/ml (0.47-4.68) 07/12/24 04:28
07/10/24
00:29
[id number] Pept 7040
LAB Results
07/10/24
00:29
Troponin I 0.014
Physical Exam
Constitutional: No acute distress
Cardiovascular: Rhythm & rate is regular
Respiratory: Respiratory effort normal and Crackles Present
GI: Soft and Distention absent
Neuro/Psych: AO x 3
Data Reviewed
-
Date of Service: July 12, 2024
--- NOTE | 2024-07-12 15:20 | W.PN.UPDATE ---
Update Note
Progress Note Update
Pacemaker was interrogated on 07/11/2024 patient was in atrial tachycardia with atrial sensing and ventricular pacing. No evidence of pacemaker mediated tachycardia. Following the interrogation Dr. tubbs attempted to burst pace the patient out
of atrial tachycardia. This was unsuccessful. Ultimately pacemaker setting was changed to DDI
--- NOTE | 2024-07-12 16:13 | PTCARENOTE ---
D/C instructions given to patient and , both verbalizes understanding. INT D/C'd, telemetry D/C'd, personal belongings packed ands snet home with patient. D/C to home via wc accompanied by staff. D/C instructions faxed to [facility] by unit
junior legal secretary.
--- NOTE | 2024-07-12 17:04 | W.DCSUMMARY ---
Discharge Summary
Discharge Data
Date of Admission: 07/10/24
Date of Discharge: 07/12/24
-
Pending Results: No
Hospital Course
Discharging Physician : Dr Musa Gaytan
Disposition : To home
Primary care physician : Dr Sharif Hou
Principal Discharge diagnosis :
Sinus tachycardia
Diastolic heart failure exacerbation
Hyponatremia
Recurrent left-sided pleural effusion
Chronic Discharge diagnosis :
History of permanent atrial fibrillation
History of tachybradycardia syndrome with pacemaker placement
History of hydropneumothorax post-thoracentesis
Chronic kidney disease stage IIIb
Right-sided thyroid mass, reported goiter
Hospital Course :
Patient is 89-year-old female with past medical history came to ER for having new onset of shortness of breath and palpitation. Patient was just recently discharged from [facility] after being admitted for A-fib management and was found to having
tachybradycardia syndrome, patient required pacemaker placement that admission. In ER patient was noted to be tachycardic with patient being in sinus tachycardia. Patient was started on diltiazem drip and cardiology was involved in care.
Pacemaker was interrogated and initially there was question of patient having pacemaker mediated tachycardia although this was not proven to be true based on EP cardiology evaluation. Patient pacemaker settings were changed to DDI mode. Patient
was also started on digoxin during the stay.
Patient also had left-sided pleural effusion which was drained. Fluid study showed this to be transudative in nature. Pulmonology was following along. Of note patient have history of previous left-sided pleural effusion and cytopathology in the
past have been negative for any malignancy.
Of note patient have high FDG uptake right thyroid mass noted on PET scan done before this admission. Per patient patient has history of goiter has been following with ENT if surgeon for some time. TSH level were within normal limit. Patient is
planned to follow-up in office again.
Important imaging findings :
None
Procedure findings :
None
Discharge Plan
-
Patient Disposition: Home (Routine Discharge)
Discharge Diagnosis/Procedures: Afib/rvr, Chronic diastolic HF, Left sided pleural effusion, Right thyroid mass - reported goiter
Condition: Fair
Diet: Low Sodium
Activity: As tolerated
Driving Restrictions: As prior to admission
Bathing Restrictions: OK to Shower
Instructions: *CBC Heart Failure Instructions
Referrals:
[facility]Visiting Nurs [Outside]
Sharif Hou MD [Family Provider] - in one week
Caterina Luong DO [Active] - 07/21/24 11:15 am
Willy Waters MD [Active] - in one to two weeks
Additional Discharge Medication Instructions: Stop aldactone
Prescriptions:
New
digoxin 125 mcg (0.125 mg) Tablet
62.5 mcg PO NOON 30 Days Qty: 15 2RF
furosemide 20 mg Tablet
60 mg PO DAILY Qty: 90 2RF
Continued
clonazepam 0.5 mg tablet
0.5 mg PO BID
propranolol 80 mg capsule,extended release 24hr
80 mg PO HS
magnesium oxide 500 mg Tablet
500 mg PO DAILYPRN PRN (Reason: leg cramps)
estradiol 0.01 % (0.1 mg/gram) cream
1 applic VAGINAL TUTH PRN (Reason: hormonal )
vitamin B complex Capsule
1 cap PO DAILY
cholecalciferol (vitamin D3) [Vitamin D3] 25 mcg (1,000 unit) Capsule
50 mcg PO DAILY
cyclosporine [Restasis] 0.05 % Dropperette
1 drp BOTH EYES Q12H
mirtazapine 30 mg tablet
30 mg PO HS
Artificial Tears (PF) Dropperette
1 drp BOTH EYES QIDPRN PRN (Reason: eye condition)
acetaminophen [Tylenol Extra Strength] 500 mg Tablet
1,000 mg PO Q6HPRN PRN (Reason: mild pain)
Visbiome 112.5 billion cell Capsule
1 cap PO DAILY
diltiazem HCl 360 mg capsule,extended release 24hr
360 mg PO DAILY Qty: 30 0RF
Eliquis 2.5 mg Tablet
2.5 mg PO BID Qty: 60 0RF
Discontinued
spironolactone 25 mg Tablet
12.5 mg PO DAILY Qty: 30 0RF
furosemide 40 mg tablet
40 mg PO DAILY Qty: 30 0RF
Discharge Orders:
Discharge Patient (As Directed); Ordered 07/12/24
Ordered By: Musa Gaytan
Care Plan Goals
Care Plan Goals:
Problem: Readiness for enhanced knowledge related to diagnosis and treatment plan
Goal: Understand your diagnosis and treatment plan needs, including medications if applicable.
Instructions: Know your diagnosis, underlying causes and treatment plan options, including medications if applicable. Consult with your health care team to learn about your diagnosis and treatment plan, including medications if applicable.
Discharge Date and Time
Discharge Date/Time: 07/12/24 16:24
Print Language: AMHARIC
--- NOTE | 2024-07-14 11:48 | W.HF.CON ---
Heart Failure
- LV Function
Left ventricular function study result: LV Ejection fraction >/= 50% (ECHO 06/10/24)
Ejection Fraction Percentage: 60-65
- ARNI
Patient already on ARNI: No
Heart Failure ARNI Not Indicated: LV Ejection Fraction >/= 40%
- ACEI/ARB
Patient already on ACEI/ARB: No
Heart Failure ACEI/ARB Not Indicated: LV Ejection Fraction > 40%
- Beta Glenna
Patient already on Evidence Based Beta Glenna: No
Heart Failure Evidence Based Beta Glenna Not Indicated: LV Ejection Fraction > 40%
- Mineralocorticord Receptor Antagonist
Patient already on MRA: No
Heart Failure MRA Not Indicated: LV Ejection Fraction > 40%
- SGLT-2 Inhibitor
Patient already on SGLT-2 Inhibitor: No
Heart Failure SGLT-2 Inhibitor Contraindication: Patient Refusal
- Afib Anticoagulation
Patient already on Anticoagulation for Afib: Yes
- NYHA CHF Classification
NYHA CHF Classification Level: Class III - Symptoms w/ min exertion, interferes w/ nml daily activity
- ACC/AHA Stage
ACC/AHA Stage: Stage C: Symptomatic Heart Failure
== END 2024-07-12 16:24 | disposition home health service (06) | DRG 291 ==
LOC: IVU 03:31
PROVIDERS: Internal Medicine; Radiology Vascular & Interventional Radiology; Registered Nurse; ADMITTING PHYSICIAN Internal Medicine; ATTENDING PHYSICIAN Hospitalist; CONSULT PHYSICIAN Internal Medicine Cardiovascular Disease; CONSULT PHYSICIAN Internal Medicine Critical Care Medicine; EMERGENCY PHYSICIAN Emergency Medicine; FAMILY PHYSICIAN Internal Medicine Gastroenterology
PROC: 0W9B3ZZ Drainage of Left Pleural Cavity, Percutaneous Approach (ICD-10-PCS; 2024-07-11)
DX: I13.0 Hypertensive heart and chronic kidney disease with heart failure and stage 1 through stage 4 chronic kidney disease, or unspecified chronic kidney disease (principal); I50.33 Acute on chronic diastolic (congestive) heart failure; E87.1 Hypo-osmolality and hyponatremia; I47.19 Other supraventricular tachycardia; J91.8 Pleural effusion in other conditions classified elsewhere; I49.5 Sick sinus syndrome; I48.0 Paroxysmal atrial fibrillation; G20.A1 Parkinson's disease without dyskinesia, without mention of fluctuations; D63.1 Anemia in chronic kidney disease; N18.32 Chronic kidney disease, stage 3b; D72.819 Decreased white blood cell count, unspecified; E04.9 Nontoxic goiter, unspecified; Z95.0 Presence of cardiac pacemaker; Z88.3 Allergy status to other anti-infective agents; Z88.2 Allergy status to sulfonamides; Z87.74 Personal history of (corrected) congenital malformations of heart and circulatory system; Z82.49 Family history of ischemic heart disease and other diseases of the circulatory system; Z79.899 Other long term (current) drug therapy; Z79.01 Long term (current) use of anticoagulants
CPT/HCPCS: 88305; 32555; 36415; 71045; 71046; 80048; 80069; 81003; 81015; 82150; 82945; 83615; 83735; 83880; 83986; 84100; 84155; 84157; 84443; 84478; 84484; 85025; 85027; 87015; 87070; 87086; 87102; 87116; 87205; 87206; 88112; 88341; 88342; 89051; 93005; 94640; 96374; 99285

== ENCOUNTER → 2024-07-28 11:15 | Outpatient (REF) | payer MEDICARE, OTHER, SELFPAY ==
[2024-07-28 17:01] LABS: Albumin 3.4 g/dl (3.5-5.0); Blood Urea Nitrogen 19 mg/dl (7-17); Carbon Dioxide 34 mmol/L (22-30); Chloride 94 mmol/L (98-107); Digoxin 0.5 ng/ml (0.8-2.0); Glucose 127 mg/dl (70-99); Phosphorus 3.7 mg/dl (2.5-4.5); Potassium 4.2 mmol/L (3.5-5.1); Sodium 130 mmol/L (135-145); eGFR 39.31
== END ==
LOC: CLAB 11:15
PROVIDERS: ATTENDING PHYSICIAN Internal Medicine Cardiovascular Disease
DX: I48.0 Paroxysmal atrial fibrillation (principal)
CPT/HCPCS: 36415; 80069; 80162

== ENCOUNTER → 2024-07-29 08:16 | Outpatient (REF) | payer MEDICARE, OTHER, SELFPAY ==
[2024-07-29 08:33] VITALS: BP 144/58; BP_SYST 68
[2024-07-29 09:23] VITALS: BP 128/61
[2024-07-29 09:28] LABS: Body Fluid Mononuclear 98.8 %; Body Fluid Polymorphonuclear 1.2 %; Body Fluid WBC 885 /CUMM
[2024-07-29 09:37] LABS: Body Fluid Glucose 111 mg/dl; Body Fluid LDH < 90 U/L; Body Fluid Protein 4.2 g/dl
[2024-07-29 09:40] LABS: Body Fluid pH 7.51
[2024-07-29 09:53] LABS: Body Fluid Second Tech ASW
== END ==
LOC: RADI 08:16
PROVIDERS: ATTENDING PHYSICIAN Internal Medicine; FAMILY PHYSICIAN Internal Medicine
DX: J90 Pleural effusion, not elsewhere classified (principal)
CPT/HCPCS: 88305; 32555; 71045; 82945; 83615; 83986; 84157; 87015; 87070; 87102; 87116; 87205; 87206; 88112; 89051

== ENCOUNTER → 2024-08-18 14:27 | Outpatient (REF) | payer MEDICARE, OTHER, SELFPAY | LOC: HWRAD 14:27 | PROVIDERS: ATTENDING PHYSICIAN Internal Medicine Cardiovascular Disease; FAMILY PHYSICIAN Internal Medicine; REFERRING PHYSICIAN Thoracic Surgery (Cardiothoracic Vascular Surgery) | DX: R06.02 Shortness of breath (principal) | CPT/HCPCS: 71046 ==

== ENCOUNTER → 2024-08-23 08:38 | Outpatient (REF) | payer MEDICARE, OTHER, SELFPAY ==
[2024-08-23 08:50] VITALS: BP 125/58; BP_SYST 64
[2024-08-23 09:19] VITALS: BP 113/54
== END ==
LOC: RADI 08:38
PROVIDERS: ATTENDING PHYSICIAN Nurse Practitioner Adult Health; FAMILY PHYSICIAN Internal Medicine
DX: J90 Pleural effusion, not elsewhere classified (principal)
CPT/HCPCS: 32555; 71045

== ENCOUNTER → 2024-08-25 11:30 | Outpatient (REF) | payer MEDICARE, OTHER, SELFPAY ==
[2024-08-25 17:55] LABS: Albumin 4.1 g/dl (3.5-5.0); Blood Urea Nitrogen 20 mg/dl (7-17); Calcium 9.1 mg/dl (8.4-10.2); Carbon Dioxide 34 mmol/L (22-30); Chloride 90 mmol/L (98-107); Glucose 164 mg/dl (70-99); Phosphorus 3.8 mg/dl (2.5-4.5); Potassium 4.5 mmol/L (3.5-5.1); Sodium 130 mmol/L (135-145); eGFR 39.31
== END ==
LOC: CLAB 11:30
PROVIDERS: ATTENDING PHYSICIAN Internal Medicine Cardiovascular Disease
DX: I13.0 Hypertensive heart and chronic kidney disease with heart failure and stage 1 through stage 4 chronic kidney disease, or unspecified chronic kidney disease (principal)
CPT/HCPCS: 36415; 80069

== ENCOUNTER → 2024-09-05 09:52 | Outpatient (REF) | payer MEDICARE, OTHER, SELFPAY | LOC: HWRAD 09:52 | PROVIDERS: ATTENDING PHYSICIAN Nurse Practitioner Adult Health; FAMILY PHYSICIAN Internal Medicine | DX: J90 Pleural effusion, not elsewhere classified (principal) | CPT/HCPCS: 71046 ==

== ENCOUNTER → 2024-09-12 09:13 | Outpatient (REF) | payer MEDICARE, OTHER, SELFPAY ==
[2024-09-12] VITALS (10 sets, daily range): BP systolic 65–151; BP diastolic 46–63
[2024-09-12] MEDS: ANCEF 10 IV (11:03)
== END ==
LOC: RADI 09:13
PROVIDERS: ATTENDING PHYSICIAN Internal Medicine; FAMILY PHYSICIAN Internal Medicine
DX: J90 Pleural effusion, not elsewhere classified (principal)
CPT/HCPCS: 32550; 75989; 99152; 99153